=== PATIENT | male | born 1965 | race Caucasian/White ===

== ENCOUNTER → 2018-02-19 09:45 | Outpatient (CLI) | payer BC, SELFPAY | PROVIDERS: PCP Physician Assistant Medical; Visit Provider Urology | DX: R30.0 Dysuria (principal) | CPT/HCPCS: 87086 ==

== ENCOUNTER 2018-03-04 05:40 | Outpatient (RCR) | payer BC, SELFPAY ==
[2018-03-04] MEDS: Normal Saline Flush 10 ML SYR IVP (08:26)
[2018-03-04] MEDS: Heparin 500 UNITS/5 ML SYRINGE IV (08:26)
[2018-03-04 09:07] LABS: Anion Gap 9.6 mmol/L (3-11); BUN 19 mg/dL (7-18); CO2 24.4 mmol/L (21.0-32.0); CREATININE 1.21 mg/dL (0.70-1.30); Calcium 9.4 mg/dL (8.5-10.1); Chloride 101 mmol/L (98-107); Glucose 251 mg/dL (70-100); Potassium 4.5 mmol/L (3.5-5.1); Sodium 135 mmol/L (136-145)
[2018-03-04 09:14] LABS: Abs Immature Grans 0.03 k/cumm (0.0-0.09); Absolute Basophil Count 0.02 k/cumm (0.0-0.2); Absolute Lymphocyte Count 0.51 k/cumm (1.2-3.4); Absolute Monocyte Count 0.57 k/cumm (0.11-0.7); Absolute Neutrophil Count 3.76 k/cumm (1.2-6.7); Basophils % 0.4; Eosinophils % 7.6; HCT 34.2 % (40.0-50.0); HGB 11.1 g/dL (13.5-17.5); Immature Grans % 0.6; Lymphocytes % 9.6; Mean Corp. HGB Concentration 32.5 g/dL (32.0-36.0); Mean Corpuscular Hemoglobin 28.2 pg (27.0-33.0); Mean Corpuscular Volume 86.8 fL (80-95); Mean Platelet Volume 11.5 fL (8.0-11.0); Monocytes % 10.8; Platelet Count 208 x1000/uL (130-400); RBC 3.94 m/cumm (4.50-6.00); RBC Distribution Width 14.5 % (11.8-14.1); White Blood Cell Count 5.29 k/cumm (4.4-10.8)
[2018-03-04 09:46] LABS: ALT 67 U/L (12-78); AST 89 U/L (15-37); Albumin 3.4 g/dL (3.4-5.0); Alkaline Phosphatase 68 U/L (46-116); Bilirubin, Total 0.3 mg/dL (0.2-1.0); Total Protein 8.6 g/dL (6.4-8.2)
[2018-03-07 11:26] LABS: CEA 0.9 ng/ml
== END 2018-03-11 ==
LOC: INF 05:40
PROVIDERS: PCP Physician Assistant Medical; Visit Provider Internal Medicine Hematology & Oncology
DX: C18.9 Malignant neoplasm of colon, unspecified (principal); Z45.2 Encounter for adjustment and management of vascular access device
CPT/HCPCS: 36591; 80048; 80053; 82378; 82728; 83540; 83550; 85025

== ENCOUNTER 2018-05-06 01:15 | Outpatient (RCR) | payer BC, SELFPAY ==
[2018-05-06] MEDS: Heparin 500 UNITS/5 ML SYRINGE IV (09:05)
[2018-05-06] MEDS: Normal Saline Flush 10 ML SYR IVP (09:05)
[2018-05-06 09:47] LABS: Abs Immature Grans 0.02 k/cumm (0.0-0.09); Absolute Basophil Count 0.04 k/cumm (0.0-0.2); Absolute Eosinophil Count 0.23 k/cumm (0.0-0.7); Absolute Lymphocyte Count 0.63 k/cumm (1.2-3.4); Absolute Monocyte Count 0.42 k/cumm (0.11-0.7); Absolute Neutrophil Count 4.31 k/cumm (1.2-6.7); Basophils % 0.7; Eosinophils % 4.1; HCT 37.7 % (40.0-50.0); HGB 12.2 g/dL (13.5-17.5); Immature Grans % 0.4; Lymphocytes % 11.2; Mean Corp. HGB Concentration 32.4 g/dL (32.0-36.0); Mean Corpuscular Hemoglobin 27.7 pg (27.0-33.0); Mean Corpuscular Volume 85.7 fL (80-95); Mean Platelet Volume 11.7 fL (8.0-11.0); Monocytes % 7.4; Neutrophils % 76.2; Platelet Count 196 x1000/uL (130-400); RBC Distribution Width 14.4 % (11.8-14.1); White Blood Cell Count 5.65 k/cumm (4.4-10.8)
[2018-05-06 09:59] LABS: ALT 71 U/L (12-78); AST 91 U/L (15-37); Albumin 3.2 g/dL (3.4-5.0); Alkaline Phosphatase 87 U/L (46-116); Anion Gap 10.1 mmol/L (3-11); BUN 20 mg/dL (7-18); Bilirubin, Total 0.5 mg/dL (0.2-1.0); CO2 24.9 mmol/L (21.0-32.0); CREATININE 1.15 mg/dL (0.70-1.30); Calcium 9.1 mg/dL (8.5-10.1); Chloride 99 mmol/L (98-107); Glucose 293 mg/dL (70-100); Potassium 4.6 mmol/L (3.5-5.1); Sodium 134 mmol/L (136-145); Total Protein 8.4 g/dL (6.4-8.2)
[2018-05-09 10:12] LABS: CEA 1.2 ng/ml
== END 2018-05-11 23:59 | disposition home or self-care (01) ==
LOC: INF 01:15
PROVIDERS: PCP Physician Assistant Medical; Visit Provider Internal Medicine Hematology & Oncology
DX: C18.9 Malignant neoplasm of colon, unspecified (principal); Z45.2 Encounter for adjustment and management of vascular access device
CPT/HCPCS: 36591; 80053; 82378; 85025

== ENCOUNTER 2018-06-17 02:03 | Outpatient (RCR) | payer BC, SELFPAY ==
[2018-06-17 13:35] LABS: Abs Immature Grans 0.02 k/cumm (0.0-0.09); Absolute Basophil Count 0.02 k/cumm (0.0-0.2); Absolute Eosinophil Count 0.23 k/cumm (0.0-0.7); Absolute Lymphocyte Count 0.75 k/cumm (1.2-3.4); Absolute Monocyte Count 0.57 k/cumm (0.11-0.7); Absolute Neutrophil Count 4.68 k/cumm (1.2-6.7); Basophils % 0.3; Eosinophils % 3.7; HCT 38.3 % (40.0-50.0); HGB 12.9 g/dL (13.5-17.5); Immature Grans % 0.3; Mean Corp. HGB Concentration 33.7 g/dL (32.0-36.0); Mean Corpuscular Hemoglobin 28.6 pg (27.0-33.0); Mean Corpuscular Volume 84.9 fL (80-95); Mean Platelet Volume 11.6 fL (8.0-11.0); Monocytes % 9.1; Neutrophils % 74.6; Platelet Count 215 x1000/uL (130-400); RBC 4.51 m/cumm (4.50-6.00); RBC Distribution Width 14.6 % (11.8-14.1); White Blood Cell Count 6.27 k/cumm (4.4-10.8)
[2018-06-17 13:47] LABS: ALT 90 U/L (12-78); AST 94 U/L (15-37); Albumin 3.2 g/dL (3.4-5.0); Alkaline Phosphatase 77 U/L (46-116); Anion Gap 9.6 mmol/L (3-11); BUN 18 mg/dL (7-18); Bilirubin, Total 0.4 mg/dL (0.2-1.0); CO2 24.4 mmol/L (21.0-32.0); CREATININE 1.33 mg/dL (0.70-1.30); Calcium 9.5 mg/dL (8.5-10.1); Chloride 99 mmol/L (98-107); Estimated GFR 56.69 (mL/min/1.73m2); Glucose 334 mg/dL (70-100); Potassium 4.3 mmol/L (3.5-5.1); Sodium 133 mmol/L (136-145); Total Protein 8.4 g/dL (6.4-8.2)
[2018-06-17] MEDS: Normal Saline Flush 10 ML SYR IVP (14:11)
[2018-06-17] MEDS: Heparin 500 UNITS/5 ML SYRINGE IV (14:11)
[2018-06-20 09:37] LABS: CEA 1.8 ng/ml
== END 2018-07-11 23:59 | disposition home or self-care (01) ==
LOC: INF 02:03
PROVIDERS: PCP Physician Assistant Medical; Visit Provider Internal Medicine Hematology & Oncology
DX: C18.9 Malignant neoplasm of colon, unspecified (principal); C18.7 Malignant neoplasm of sigmoid colon; Z45.2 Encounter for adjustment and management of vascular access device
CPT/HCPCS: 36591; 80053; 82378; 85025

== ENCOUNTER 2018-08-12 00:34 | Outpatient (RCR) | payer BC, SELFPAY ==
[2018-08-12] MEDS: Normal Saline Flush 10 ML SYR IVP (12:54)
[2018-08-12] MEDS: Heparin 500 UNITS/5 ML SYRINGE IV (12:54)
[2018-08-12 13:05] LABS: Abs Immature Grans 0.03 k/cumm (0.0-0.09); Absolute Basophil Count 0.04 k/cumm (0.0-0.2); Absolute Eosinophil Count 0.35 k/cumm (0.0-0.7); Absolute Lymphocyte Count 1.15 k/cumm (1.2-3.4); Absolute Monocyte Count 0.66 k/cumm (0.11-0.7); Absolute Neutrophil Count 5.74 k/cumm (1.2-6.7); Basophils % 0.5; Eosinophils % 4.4; HCT 38.1 % (40.0-50.0); HGB 12.7 g/dL (13.5-17.5); Immature Grans % 0.4; Lymphocytes % 14.4; Mean Corp. HGB Concentration 33.3 g/dL (32.0-36.0); Mean Corpuscular Hemoglobin 28.9 pg (27.0-33.0); Mean Corpuscular Volume 86.6 fL (80-95); Mean Platelet Volume 10.8 fL (8.0-11.0); Monocytes % 8.3; Platelet Count 242 x1000/uL (130-400); RBC Distribution Width 14.1 % (11.8-14.1); White Blood Cell Count 7.97 k/cumm (4.4-10.8)
[2018-08-12 13:19] LABS: ALT 54 U/L (12-78); AST 31 U/L (15-37); Albumin 3.1 g/dL (3.4-5.0); Alkaline Phosphatase 71 U/L (46-116); Anion Gap 10.8 mmol/L (3-11); BUN 18 mg/dL (7-18); Bilirubin, Total 0.3 mg/dL (0.2-1.0); CO2 24.2 mmol/L (21.0-32.0); CREATININE 1.23 mg/dL (0.70-1.30); Calcium 8.8 mg/dL (8.5-10.1); Chloride 101 mmol/L (98-107); Glucose 272 mg/dL (70-100); Potassium 4.5 mmol/L (3.5-5.1); Sodium 136 mmol/L (136-145); Total Protein 8.6 g/dL (6.4-8.2)
[2018-08-15 09:31] LABS: CEA 1.3 ng/ml
== END 2018-09-08 23:59 | disposition home or self-care (01) ==
LOC: INF 00:34
PROVIDERS: PCP Physician Assistant Medical; Visit Provider Nurse Practitioner Family
DX: C18.9 Malignant neoplasm of colon, unspecified (principal); Z45.2 Encounter for adjustment and management of vascular access device
CPT/HCPCS: 36591; 80053; 82378; 85025

== ENCOUNTER 2018-09-23 02:09 | Outpatient (RCR) | payer BC, SELFPAY ==
[2018-09-23] MEDS: Normal Saline Flush 10 ML SYR IVP (09:32)
[2018-09-23] MEDS: Heparin 500 UNITS/5 ML SYRINGE IV (09:32)
[2018-09-23 09:43] LABS: Abs Immature Grans 0.03 k/cumm (0.0-0.09); Absolute Basophil Count 0.04 k/cumm (0.0-0.2); Absolute Eosinophil Count 0.25 k/cumm (0.0-0.7); Absolute Monocyte Count 0.47 k/cumm (0.11-0.7); Absolute Neutrophil Count 5.18 k/cumm (1.2-6.7); Basophils % 0.6; Eosinophils % 3.6; HCT 39.1 % (40.0-50.0); Immature Grans % 0.4; Lymphocytes % 13.1; Mean Corp. HGB Concentration 33.2 g/dL (32.0-36.0); Mean Corpuscular Hemoglobin 28.4 pg (27.0-33.0); Mean Corpuscular Volume 85.6 fL (80-95); Mean Platelet Volume 11.6 fL (8.0-11.0); Monocytes % 6.8; Neutrophils % 75.5; Platelet Count 195 x1000/uL (130-400); RBC 4.57 m/cumm (4.50-6.00); RBC Distribution Width 14.2 % (11.8-14.1); White Blood Cell Count 6.87 k/cumm (4.4-10.8)
[2018-09-23 10:00] LABS: ALT 81 U/L (12-78); AST 93 U/L (15-37); Albumin 3.1 g/dL (3.4-5.0); Alkaline Phosphatase 94 U/L (46-116); Anion Gap 13.2 mmol/L (3-11); BUN 17 mg/dL (7-18); Bilirubin, Total 0.5 mg/dL (0.2-1.0); CO2 21.8 mmol/L (21.0-32.0); CREATININE 1.21 mg/dL (0.70-1.30); Calcium 8.4 mg/dL (8.5-10.1); Chloride 96 mmol/L (98-107); Glucose 371 mg/dL (70-100); Potassium 4.4 mmol/L (3.5-5.1); Sodium 131 mmol/L (136-145); Total Protein 8.5 g/dL (6.4-8.2)
[2018-09-26 11:19] LABS: CEA 2.8 ng/ml
== END 2018-10-09 23:59 | disposition home or self-care (01) ==
LOC: INF 02:09
PROVIDERS: Internal Medicine Hematology & Oncology; PCP Physician Assistant Medical; Visit Provider Nurse Practitioner Family
DX: C18.9 Malignant neoplasm of colon, unspecified (principal); Z45.2 Encounter for adjustment and management of vascular access device
CPT/HCPCS: 36591; 80053; 82378; 85025

== ENCOUNTER 2018-10-28 01:02 | Outpatient (RCR) | payer BC, SELFPAY ==
[2018-10-28] MEDS: Normal Saline Flush 10 ML SYR IVP (11:55)
[2018-10-28] MEDS: Heparin 500 UNITS/5 ML SYRINGE IV (11:55)
[2018-10-28 12:38] LABS: Abs Immature Grans 0.01 k/cumm (0.0-0.09); Absolute Basophil Count 0.03 k/cumm (0.0-0.2); Absolute Eosinophil Count 0.39 k/cumm (0.0-0.7); Absolute Lymphocyte Count 0.75 k/cumm (1.2-3.4); Absolute Monocyte Count 0.49 k/cumm (0.11-0.7); Absolute Neutrophil Count 4.42 k/cumm (1.2-6.7); Basophils % 0.5; Eosinophils % 6.4; HCT 36.6 % (40.0-50.0); HGB 12.3 g/dL (13.5-17.5); Immature Grans % 0.2; Lymphocytes % 12.3; Mean Corp. HGB Concentration 33.6 g/dL (32.0-36.0); Mean Corpuscular Hemoglobin 29.1 pg (27.0-33.0); Mean Corpuscular Volume 86.5 fL (80-95); Mean Platelet Volume 11.5 fL (8.0-11.0); Neutrophils % 72.6; Platelet Count 182 x1000/uL (130-400); RBC 4.23 m/cumm (4.50-6.00); RBC Distribution Width 13.8 % (11.8-14.1); White Blood Cell Count 6.09 k/cumm (4.4-10.8)
[2018-10-28 12:54] LABS: ALT 91 U/L (12-78); AST 103 U/L (15-37); Alkaline Phosphatase 92 U/L (46-116); Anion Gap 11.5 mmol/L (3-11); BUN 16 mg/dL (7-18); Bilirubin, Total 0.5 mg/dL (0.2-1.0); CO2 22.5 mmol/L (21.0-32.0); CREATININE 1.16 mg/dL (0.70-1.30); Calcium 8.5 mg/dL (8.5-10.1); Chloride 97 mmol/L (98-107); Glucose 364 mg/dL (70-100); Potassium 4.6 mmol/L (3.5-5.1); Sodium 131 mmol/L (136-145); Total Protein 8.1 g/dL (6.4-8.2)
[2018-10-31 10:12] LABS: CEA 1.8 ng/ml
== END 2018-11-08 23:59 | disposition home or self-care (01) ==
LOC: INF 01:02
PROVIDERS: PCP Physician Assistant Medical; Visit Provider Nurse Practitioner Family
DX: C18.9 Malignant neoplasm of colon, unspecified (principal); Z45.2 Encounter for adjustment and management of vascular access device
CPT/HCPCS: 36591; 80053; 82378; 85025

== ENCOUNTER 2018-12-02 01:08 | Outpatient (RCR) | payer BC, SELFPAY ==
[2018-12-02] MEDS: Normal Saline Flush 10 ML SYR IVP (10:36)
[2018-12-02 10:40] LABS: Abs Immature Grans 0.02 k/cumm (0.0-0.09); Absolute Basophil Count 0.03 k/cumm (0.0-0.2); Absolute Eosinophil Count 0.28 k/cumm (0.0-0.7); Absolute Lymphocyte Count 0.92 k/cumm (1.2-3.4); Absolute Monocyte Count 0.61 k/cumm (0.11-0.7); Absolute Neutrophil Count 4.63 k/cumm (1.2-6.7); Basophils % 0.5; Eosinophils % 4.3; HGB 12.3 g/dL (13.5-17.5); Immature Grans % 0.3; Lymphocytes % 14.2; Mean Corp. HGB Concentration 33.2 g/dL (32.0-36.0); Mean Corpuscular Hemoglobin 29.4 pg (27.0-33.0); Mean Corpuscular Volume 88.5 fL (80-95); Mean Platelet Volume 11.4 fL (8.0-11.0); Monocytes % 9.4; Neutrophils % 71.3; Platelet Count 224 x1000/uL (130-400); RBC 4.18 m/cumm (4.50-6.00); RBC Distribution Width 13.8 % (11.8-14.1); White Blood Cell Count 6.49 k/cumm (4.4-10.8)
[2018-12-02] MEDS: Heparin 500 UNITS/5 ML SYRINGE IV (10:44)
[2018-12-02 10:51] LABS: ALT 60 U/L (12-78); AST 35 U/L (15-37); Alkaline Phosphatase 71 U/L (46-116); Anion Gap 9.6 mmol/L (3-11); BUN 22 mg/dL (7-18); Bilirubin, Total 0.3 mg/dL (0.2-1.0); CO2 24.4 mmol/L (21.0-32.0); CREATININE 1.13 mg/dL (0.70-1.30); Calcium 9.3 mg/dL (8.5-10.1); Chloride 100 mmol/L (98-107); Glucose 234 mg/dL (70-100); Sodium 134 mmol/L (136-145); Total Protein 8.4 g/dL (6.4-8.2)
[2018-12-05 11:19] LABS: CEA 1.9 ng/ml
== END 2018-12-09 23:59 | disposition home or self-care (01) ==
LOC: INF 01:08
PROVIDERS: PCP Physician Assistant Medical; Visit Provider Nurse Practitioner Family
DX: C18.9 Malignant neoplasm of colon, unspecified (principal); Z45.2 Encounter for adjustment and management of vascular access device
CPT/HCPCS: 36591; 80053; 82378; 85025

== ENCOUNTER 2018-12-14 15:57 | Outpatient (CLI) | payer BC, SELFPAY ==
[2018-12-14 17:14] LABS: ALT 93 U/L (12-78); AST 75 U/L (15-37); Alkaline Phosphatase 76 U/L (46-116); BUN 29 mg/dL (7-18); Bilirubin, Total 0.3 mg/dL (0.2-1.0); Calcium 9.5 mg/dL (8.5-10.1); Chloride 97 mmol/L (98-107); Glucose 421 mg/dL (70-100); Potassium 4.4 mmol/L (3.5-5.1); Sodium 130 mmol/L (136-145); Total Protein 7.7 g/dL (6.4-8.2)
[2018-12-14 17:32] LABS: Cholesterol 260 mg/dL (50-200); HDL Cholesterol 27 mg/dL (40-60); Triglyceride 702 mg/dL (30-150)
[2018-12-14 17:53] LABS: LDL CHOLESTEROL 86 mg/dL (<100)
== END 2018-12-14 16:17 ==
PROVIDERS: PCP Physician Assistant Medical; Visit Provider Urology
DX: E11.9 Type 2 diabetes mellitus without complications (principal); E78.5 Hyperlipidemia, unspecified; I10 Essential (primary) hypertension
CPT/HCPCS: 36415; 80053; 80061; 83721; 87086

== ENCOUNTER 2019-02-02 01:44 | Outpatient (RCR) | payer BC, SELFPAY ==
[2019-02-02] MEDS: Normal Saline Flush 10 ML SYR IVP (13:26)
[2019-02-02] MEDS: Heparin 500 UNITS/5 ML SYRINGE IV (13:26)
[2019-02-02 13:56] LABS: Abs Immature Grans 0.01 k/cumm (0.0-0.09); Absolute Basophil Count 0.02 k/cumm (0.0-0.2); Absolute Eosinophil Count 0.26 k/cumm (0.0-0.7); Absolute Lymphocyte Count 0.79 k/cumm (1.2-3.4); Absolute Monocyte Count 0.54 k/cumm (0.11-0.7); Absolute Neutrophil Count 4.27 k/cumm (1.2-6.7); Basophils % 0.3; Eosinophils % 4.4; HGB 11.8 g/dL (13.5-17.5); Immature Grans % 0.2; Lymphocytes % 13.4; Mean Corp. HGB Concentration 32.8 g/dL (32.0-36.0); Mean Corpuscular Hemoglobin 29.1 pg (27.0-33.0); Mean Corpuscular Volume 88.7 fL (80-95); Mean Platelet Volume 11.5 fL (8.0-11.0); Monocytes % 9.2; Neutrophils % 72.5; Platelet Count 188 x1000/uL (130-400); RBC 4.06 m/cumm (4.50-6.00); RBC Distribution Width 14.1 % (11.8-14.1); White Blood Cell Count 5.89 k/cumm (4.4-10.8)
[2019-02-02 14:04] LABS: ALT 93 U/L (12-78); AST 64 U/L (15-37); Albumin 2.9 g/dL (3.4-5.0); Alkaline Phosphatase 65 U/L (46-116); Anion Gap 11.9 mmol/L (3-11); BUN 14 mg/dL (7-18); Bilirubin, Total 0.4 mg/dL (0.2-1.0); CO2 24.1 mmol/L (21.0-32.0); Chloride 101 mmol/L (98-107); Glucose 295 mg/dL (70-100); Potassium 4.2 mmol/L (3.5-5.1); Sodium 137 mmol/L (136-145); Total Protein 7.8 g/dL (6.4-8.2)
[2019-02-03 09:54] LABS: CEA 1.3 ng/ml
== END 2019-02-08 23:59 | disposition home or self-care (01) ==
LOC: INF 01:44
PROVIDERS: Internal Medicine Hematology & Oncology; PCP Physician Assistant Medical; Visit Provider Nurse Practitioner Family
DX: C18.9 Malignant neoplasm of colon, unspecified (principal); Z45.2 Encounter for adjustment and management of vascular access device
CPT/HCPCS: 36591; 80053; 82378; 85025

== ENCOUNTER 2019-03-01 16:19 | Emergency (ER) | payer BC, SELFPAY ==
[2019-03-01] VITALS (31 sets, daily range): BP systolic 106–134; BP diastolic 61–78; PULSE 78–126; RESP 16; TEMP 37.2; O2SAT 96–100
--- NOTE | 2019-03-01 17:24 | DI.CT_ITS ---
SYMPTOM/DIAGNOSIS: ABD PAIN CT ABDOMEN AND PELVIS: CT scan of the abdomen and pelvis was performed following the uneventful administration of intravenous contrast material. Comparison CT scan is 05/12/17. The lung bases are clear. The liver is normal in size. No suspicious hepatic mass seen. The portal superior mesenteric and splenic veins are patent. The gallbladder is negative. There is no biliary ductal dilatation. There is again seen a 0.8 cm cyst in the body of the pancreas. This is unchanged compared to the examination from 05/12/17. No other pancreatic lesion is seen. The spleen is unremarkable. There is no evidence of an adrenal mass. The right kidney shows normal enhancement. No evidence of obstruction seen. There is a nonobstructing 2 mm stone in the inferior pole of the right kidney. There is a right renal cyst in the lower pole which is unchanged. In the left kidney there is a nephroureteral stent. The proximal pigtail is seen in good position within the renal pelvis. The distal pigtail is seen in the urinary bladder. There is moderate hydroureteral nephrosis and delayed opacification of the left kidney. At the level of the mid left ureter there is again seen infiltration of the soft tissues surrounding the ureter with hypodense mass again seen within the left psoas muscle. The area measures 2.7 transverse x 1.8 cm AP x 5.6 cm cranial caudad. The urinary bladder is intact. The reproductive organs are unremarkable. There is atherosclerosis of the abdominal aorta but no aneurysmal dilatation. k No significant abdominal or pelvic adenopathy, ascites or pneumoperitoneum is present. There is circumferential hypodense wall thickening involving the distal transverse colon and proximal descending colon. The remainder of the colon is normal in caliber. There is anastomotic changes seen in the mid sigmoid colon. Normal appendix is present. There is mild dilatation seen in the proximal small bowel. This likely reflects an ileus. Bowel obstruction cannot be entirely excluded. No definite transition point is noted. There are degenerative changes seen in the spine. There is unchanged mottled appearance of the right iliac bone. No destructive lesions are appreciated. IMPRESSIO: 1. Marked left hydroureteral nephrosis. Nephroureteral stent seen in place. 2. Inflammatory infectious colitis involving the distal transverse colon and descending colon 3. Persistent infiltration in the soft tissues and around the mid left ureter with a persistent soft tissue mass involving the left iliopsoas muscle 4. Mild dilatation of small bowel loops. This may represent an ileus. Obstruction cannot be entirely excluded.
[2019-03-01 17:37] LABS: Lactate 1.9 mmol/L (0.6-1.4)
[2019-03-01 17:38] LABS: Abs Immature Grans 0.05 k/cumm (0.0-0.09); Absolute Eosinophil Count 0.24 k/cumm (0.0-0.7); Absolute Lymphocyte Count 0.79 k/cumm (1.2-3.4); Basophils % 0.1; Eosinophils % 1.5; HCT 37.6 % (40.0-50.0); HGB 12.6 g/dL (13.5-17.5); Immature Grans % 0.3; Lymphocytes % 4.9; Mean Corp. HGB Concentration 33.5 g/dL (32.0-36.0); Mean Corpuscular Hemoglobin 29.3 pg (27.0-33.0); Mean Corpuscular Volume 87.4 fL (80-95); Mean Platelet Volume 10.8 fL (8.0-11.0); Monocytes % 9.1; Neutrophils % 84.1; Platelet Count 209 x1000/uL (130-400); RBC Distribution Width 14.4 % (11.8-14.1); White Blood Cell Count 16.12 k/cumm (4.4-10.8)
[2019-03-01 17:40] LABS: Absolute Basophil Count 0.02 k/cumm (0.0-0.2); Absolute Monocyte Count 1.47 k/cumm (0.11-0.7); Absolute Neutrophil Count 13.56 k/cumm (1.2-6.7)
[2019-03-01 17:54] LABS: ALT 37 U/L (12-78); AST 14 U/L (15-37); Alkaline Phosphatase 70 U/L (46-116); Anion Gap 11.1 mmol/L (3-11); BUN 28 mg/dL (7-18); Bilirubin, Total 0.7 mg/dL (0.2-1.0); CO2 22.9 mmol/L (21.0-32.0); CREATININE 1.63 mg/dL (0.70-1.30); Calcium 8.9 mg/dL (8.5-10.1); Chloride 96 mmol/L (98-107); Estimated GFR 44.83 (mL/min/1.73m2); Glucose 459 mg/dL (70-100); Lipase 239 U/L (73-393); Potassium 4.6 mmol/L (3.5-5.1); Sodium 130 mmol/L (136-145); Total Protein 8.6 g/dL (6.4-8.2)
--- NOTE | 2019-03-01 18:03 | W.ED.GENAD ---
Discharge Plan Disposition Patient Disposition: [facility] Condition: Serious Discharge Details Chief Complaint: Abd Prob Clinical Impression: Hydroureteronephrosis, Ileus Primary Care Provider: Chetan Jaquez ED Provider: Juan Francisco Mendiola Home Meds and New Rx's Prescriptions: No Action gemfibrozil [Lopid] 600 MG tablet 600 mg PO HS RF: 0 atorvastatin [Lipitor] 20 MG tablet 20 mg PO HS RF: 0 glipizide 10 MG tablet extended release 24hr 10 mg PO BID RF: 0 aspirin [Aspirin Low-Strength] 81 MG tablet,chewable 81 mg PO DAILY RF: 0 metformin 1,000 MG tablet extended release 24hr 1,000 mg PO DAILY RF: 0 metformin 500 MG tablet 1,500 mg PO HS RF: 0 multivitamin 1 EACH capsule 1 cap PO DAILY RF: 0 lisinopril 20 mg tablet 10 mg PO HS RF: 0 Lantus Solostar U-100 Insulin 100 unit/mL (3 mL) insulin pen 80 unit subcut DAILY RF: 0 Discharge Data Discharge Date/Time-TO BE ENTERED AT DEPARTURE: 03/01/19 21:29 Medical Decision Making 18:24 -- 53yo m with history of stage IV adenocarcinoma, recurrent with peritoneal mets despite chemotherapy and radiation and partial bowel resection, here with left-sided abdominal pain 5 days after ureteral stent replacement. Tender to palpation left abdomen. Plan to obtain CT of the abdomen pelvis to assess for acute surgical pathology. Offered pain analgesia and patient declined. Offered antiemetic and patient declined. We will give IV fluid. 20:40 -- Labs reviewed: Leukocytosis noted. Mild elevation lactic acid. CT interpreted by radiology: IMPRESSION: 1. Marked Left hydroureteronephrosis. Double-J left ureteral stent in place. 2. Left colon and splenic flexure colitis. 3. Distended loops of small bowel consistent with ileus or small bowel obstruction. 4. Infiltration of the soft tissues anterior to the left iliopsoas muscle similar to the prior study. Patient reassessed: HR improved with IVF. Continues to have no vomiting. Plan to initiate treatment with ceftriaxone 1 g IV. Call to [facility] to request transfer to urology. 21:00 -- Spoke with Dr. Tinsley at [facility] -discussed ED presentation and course, he will accept patient in transfer. He does not recommend any additional antibiotics at this time. Lab Data Lab results reviewed: Yes I reviewed the patient's lab results. Laboratory Tests Range/Units 03/01/19 03/01/19 03/01/19 17:31 17:31 17:31 WBC (4.4-10.8) k/cumm 16.12 H RBC (4.50-6.00) m/cumm 4.30 L Hgb (13.5-17.5) g/dL 12.6 L Hct (40.0-50.0) % 37.6 L MCV (80-95) fL 87.4 MCH (27.0-33.0) pg 29.3 MCHC (32.0-36.0) g/dL 33.5 RDW (11.8-14.1) % 14.4 H Plt Count (130-400) x1000/uL 209 MPV (8.0-11.0) fL 10.8 Immature Gran % 0.3 Neutrophils % 84.1 Lymphocytes % 4.9 Monocytes % 9.1 Eosinophils % 1.5 Basophils % 0.1 Absolute Neutrophils (1.2-6.7) k/cumm 13.56 H Absolute Lymphocytes (1.2-3.4) k/cumm 0.79 L Absolute Monocytes (0.11-0.7) k/cumm 1.47 H Absolute Eosinophils (0.0-0.7) k/cumm 0.24 Absolute Basophils (0.0-0.2) k/cumm 0.02 Sodium (136-145) mmol/L 130 L Potassium (3.5-5.1) mmol/L 4.6 Chloride (98-107) mmol/L 96 L Carbon Dioxide (21.0-32.0) mmol/L 22.9 Anion Gap (3-11) mmol/L 11.1 H BUN (7-18) mg/dL 28 H Creatinine (0.70-1.30) mg/dL 1.63 H Estimated GFR/1.73 m2 (mL/min/1.73m2) 44.83 Glucose (70-100) mg/dL 459 H Lactate (0.6-1.4) mmol/L 1.9 H Calcium (8.5-10.1) mg/dL 8.9 Total Bilirubin (0.2-1.0) mg/dL 0.7 AST (15-37) U/L 14 L ALT (12-78) U/L 37 Alkaline Phosphatase (46-116) U/L 70 Total Protein (6.4-8.2) g/dL 8.6 H Albumin (3.4-5.0) g/dL 3.0 L Lipase (73-393) U/L 239 HPI General Mode of arrival: ambulatory. Date/Time Provider Initiated Documentation: 03/01/19 17:06. Limitations to Documentation: no limitations. Information obtained by: patient. HPI Narrative: 53-year-old male with history of recurrent, stage IV adenocarcinoma of the colon, status post partial colectomy, chemotherapy, radiation, here with chief complaint of abdominal pain. Patient had a ureteral stent replaced on Wednesday. He notes that he was constipated over the weekend and did not have a bowel movement until yesterday. He developed pain over the past 2 days it has persisted. Pain is localized to his left abdomen and currently rated moderate intensity. No modifiers. He is urinating normal with no hematuria. No associated fever. He does have associated nausea. He vomited yesterday. Related Data Home Medications Medication Instructions Recorded Confirmed gemfibrozil [Lopid] 600 mg PO HS tab-cap 10/17/12 03/01/19 aspirin [Aspirin Low-Strength] 81 mg PO DAILY tab-cap 10/27/12 03/01/19 atorvastatin [Lipitor] 20 mg PO HS tab-cap 10/27/12 03/01/19 glipizide 10 mg PO BID tab-cap 10/27/12 03/01/19 metformin 1,000 mg PO DAILY tab-cap 10/27/12 03/01/19 metformin 1,500 mg PO HS 01/05/14 03/01/19 multivitamin 1 cap PO DAILY 01/05/14 03/01/19 insulin glargine 100 unit/mL (3 80 unit SUBCUT DAILY ml 11/08/18 03/01/19 mL) subcutaneous pen lisinopril 20 mg tablet 10 mg PO HS tab 11/08/18 03/01/19 Allergies Allergy/AdvReac Type Severity Reaction Status Date / Time No Known Allergies Allergy Unverified 03/01/19 16:31 General Stated Complaint: Abd Prob SCOOTER: 3 Review of Systems Review of Systems All systems reviewed & are unremarkable except as noted in HPI and below Constitutional Denies fever(s) Respiratory Denies cough Gastrointestinal Reports abdominal pain, Reports nausea and Reports vomiting Genitourinary Reports flank pain PFSH Medical History Carcinoma of colon, stage I (~2011) Diabetes mellitus Essential hypertension Fatigue (Chronic) Fatty liver Fracture of distal fibula (Resolved) Hypercholesterolemia Monoclonal gammopathy of unknown significance Obesity Palliative care patient (Chronic) Recurrent colorectal adenocarcinoma (Chronic) Sleep apnea TUBULOVILLOUS ADENOMA Uncontrolled diabetes mellitus (Chronic) Surgical History Colonoscopy - IV Sedation (~2011) Laparotomy Mediport placement (10/21/16) Partial resection of colon (~2011) Family History Father Heart disease Dementia AAA (abdominal aortic aneurysm) Mother No problems noted. Brother No problems noted. Son No problems noted. Daughter No problems noted. Social History Smoking/Tobacco Use Status: Never Alcohol Intake: current Alcohol Intake frequency: holidays/special occasions only Drug use: Never Adopted: No Caregiver/Support person: Yes Foster care: No Household members: spouse and children Housing: house Number of Children: 2 Education Level: high school Do you need help understanding health information?: Often current occupation: [employer] for [employer] Pets and animals: No What is your relationship status?: How often do you talk on the phone with friends or family?: once per week How often do you get together with friends or relatives?: once per week Panel score (0-1 are the most socially isolated patients): 1 What type of physical activity do you participate in: none and additional Details: 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 trying to cut back to 40 hrs now Exam Const General: cooperative and no acute distress [facility] Mouth: mucous membranes dry Eyes Conjunctivae: normal conjunctivae Sclera: normal sclerae Neck Neck: supple Resp Auscultation: clear to auscultation bilaterally, no rales, no rhonchi and no wheezes Cardio Jugular venous pressure: no JVD Rate: tachycardic Rhythm: regular rhythm GI Inspection: non-distended Palpation: soft, not firm, no guarding, no masses, not rigid and tender in the LLQ, in the LUQ and with rebound tenderness Auscultation: hypoactive bowel sounds Skin General skin exam: no rashes or lesions noted Neuro General: alert, awake and tone normal Extrem General: no edema Psych Appearance: grossly normal Mental Status: mental status grossly normal Course Vital Signs Temperature 37.2 C 03/01/19 16:26 Pulse 126 H 03/01/19 16:26 Respiratory Rate 16 03/01/19 16:26 Blood Pressure 119/78 03/01/19 16:26 Pulse Oximetry 97 03/01/19 16:26 Temperature 37.2 C 03/01/19 16:26 Temperature Source Skin 03/01/19 16:26 Pulse 126 H 03/01/19 16:26 Respiratory Rate 16 03/01/19 16:26 Respiratory Effort 03/01/19 16:32 Blood Pressure 119/78 03/01/19 16:26 Blood Pressure Position Sitting 03/01/19 16:26 Pulse Oximetry 97 03/01/19 16:26 Oxygen Delivery Method Room Air 03/01/19 16:26 Oxygen Flow Rate 0 03/01/19 16:26 Pain Level 4 03/01/19 16:26 Comment 03/01/19 16:26 Lab/Test Results Lab/Test Results: Laboratory Tests Range/Units 03/01/19 03/01/19 17:31 17:31 WBC (4.4-10.8) k/cumm 16.12 H RBC (4.50-6.00) m/cumm 4.30 L Hgb (13.5-17.5) g/dL 12.6 L Hct (40.0-50.0) % 37.6 L MCV (80-95) fL 87.4 MCH (27.0-33.0) pg 29.3 MCHC (32.0-36.0) g/dL 33.5 RDW (11.8-14.1) % 14.4 H Plt Count (130-400) x1000/uL 209 MPV (8.0-11.0) fL 10.8 Immature Gran % 0.3 Neutrophils % 84.1 Lymphocytes % 4.9 Monocytes % 9.1 Eosinophils % 1.5 Basophils % 0.1 Absolute Neutrophils (1.2-6.7) k/cumm 13.56 H Absolute Lymphocytes (1.2-3.4) k/cumm 0.79 L Absolute Monocytes (0.11-0.7) k/cumm 1.47 H Absolute Eosinophils (0.0-0.7) k/cumm 0.24 Absolute Basophils (0.0-0.2) k/cumm 0.02 Lactate (0.6-1.4) mmol/L 1.9 H
[2019-03-01] MEDS: Omnipaque 350 MG/ML 100 ML BTL IJ (18:58)
[2019-03-01] MEDS: Lactated Ringers 1,000 ML 1000 ML IV ×2 (19:34→20:51)
--- NOTE | 2019-03-01 19:52 | DI.VRAD_ITS ---
EXAM: CT Abdomen and Pelvis With Contrast EXAM DATE/TIME: 03/01/2019 5:26 PM CLINICAL HISTORY: 53 years old, male; Abdominal pain; Localized; Prior surgery; Surgery date: 3-7 days post-operative; Surgery type: Left renal stent 6 days ago TECHNIQUE: Imaging protocol: Computed tomography images of the abdomen and pelvis with intravenous contrast. Radiation optimization: All CT scans at this facility use at least one of these dose optimization techniques: automated exposure control; mA and/or kV adjustment per patient size (includes targeted exams where dose is matched to clinical indication); or iterative reconstruction. Contrast material: [id number]; Contrast volume: 100 ml; Contrast route: 18G RAC; COMPARISON: CT CHEST ABD PELVIS WITH CONTRAST 07/22/2016 09:34 FINDINGS: Liver: Hepatic steatosis. Gallbladder and bile ducts: Normal. No calcified stones. No ductal dilation. Pancreas: Normal. No ductal dilation. Spleen: Normal. No splenomegaly. Adrenals: Normal. No mass. Kidneys and ureters: Double-J left ureteral stent in place. Left hydroureteronephrosis. Bilateral perirenal fat infiltration. Left periureteral fat infiltration. Bilateral renal cysts. Punctate nonobstructing right renal calculi. Stomach and bowel: Postsurgical changes of the sigmoid colon similar to prior study. Abnormal left colon and splenic flexure circumferential wall thickening with infiltration of the pericolonic fat consistent with colitis. Moderate stool load in the right colon. Distended loops of small bowel consistent with ileus or partial obstruction. Appendix: No evidence of appendicitis. Intraperitoneal space: Normal. No free air. No significant fluid collection. Vasculature: Coronary artery disease. Lymph nodes: Normal. No enlarged lymph nodes. Bladder: Unremarkable as visualized. Reproductive: Unremarkable as visualized. Bones/joints: No acute fracture. No dislocation. Soft tissues: Previous described mass anterior to the iliopsoas muscle has decreased in size. There is associated inflammatory changes and loculated fluid collection. IMPRESSION: 1. Marked Left hydroureteronephrosis. Double-J left ureteral stent in place. 2. Left colon and splenic flexure colitis. 3. Distended loops of small bowel consistent with ileus or small bowel obstruction. 4. Infiltration of the soft tissues anterior to the left iliopsoas muscle similar to the prior study. Dictated and Authenticated by: Jenn Garner MD. Ordering:JERRELL Chicas MD
[2019-03-01] MEDS: cefTRIAXone 1 GM/50 ML BAG IVPB (20:45)
== END 2019-03-01 21:29 | disposition short-term general hospital (02) ==
PROVIDERS: Emergency Provider Student in an Organized Health Care Education/Training Program; PCP Physician Assistant Medical
DX: K52.9 Noninfective gastroenteritis and colitis, unspecified (principal); K56.7 Ileus, unspecified; N13.39 Other hydronephrosis; N13.4 Hydroureter; Z96.0 Presence of urogenital implants; Y84.8 Other medical procedures as the cause of abnormal reaction of the patient, or of later complication, without mention of misadventure at the time of the procedure; C18.9 Malignant neoplasm of colon, unspecified; C78.6 Secondary malignant neoplasm of retroperitoneum and peritoneum; E11.65 Type 2 diabetes mellitus with hyperglycemia; I10 Essential (primary) hypertension; Z79.4 Long term (current) use of insulin; Z90.49 Acquired absence of other specified parts of digestive tract; Z79.899 Other long term (current) drug therapy
CPT/HCPCS: 36415; 80053; 83690; 96361; 96365; 99285; 74177; 83605; 85025; J0696; J3490

== ENCOUNTER 2019-04-16 10:42 | Emergency (ER) | payer BC, SELFPAY ==
[2019-04-16] VITALS (49 sets, daily range): BP systolic 100–140; BP diastolic 52–107; PULSE 125–178; RESP 9–52; TEMP 37.3–39.2; O2SAT 92–99
[2019-04-16] MEDS: Lactated Ringers 1,000 ML 1000 ML IV ×2 (11:00→12:41)
--- NOTE | 2019-04-16 11:17 | DI.CT_ITS ---
EXAM: CT ABDOMEN PELVIS W CLINICAL HISTORY: low left pelvic and flank pain. TECHNIQUE: The examination was carried out with intravenous administration 125 cc of Omnipaque 350. COMPARISON: CT ABDOMEN PELVIS W from 03/01/2019 FINDINGS: The liver is normal. The gallbladder is normal. There are no gallstones or evidence of ductal dilatat ion. Pancreas and spleen and adrenals are normal. Percutaneous nephrostomy is noted which is new si nce the previous examination. There has been a decrease in the left hydronephrosis. Mildly dilated mid ureter in close proximity to the abscess is identified. Cortical renal cysts which appear stable . The previous sigmoid anastomosis is again noted. There is no evidence of an acute appendix. Ther e is no evidence of free air or free fluid in the intraperitoneal space. No evidence of an aortic an eurysm. Retroperitoneal lymphadenopathy is noted with a left para-aortic lymph node measuring 2.2 x 1.8 cm. The bladder is unremarkable. The reproductive organs as visualized are unremarkable. No acut e bony abnormality is seen. Enlargement and heterogeneous low-density mass within the left psoas muscle consistent with an absces s. Central hyperdensity in the level of S1 measures 2.5 x 2.4 cm and may represent blood products. IMPRESSION: A left percutaneous nephrostomy is identified, new since the previous examination. There is decreased left hydronephrosis. Enlargement and heterogeneous low-attenuation and gas within the left psoas mus vargas are compatible with an abscess. Central hyperdensity within the psoas muscle at the level of S1 m easures 2.5 x 2.4 cm and may represent debris or blood products. There is a mildly dilated left urete r in close proximity to the abscess. Note is made of retroperitoneal lymphadenopathy, a left periaort ic lymph node measures 2.2 x 1.8 cm.
[2019-04-16] MEDS: HYDROmorphone 2 MG/ML VIAL 1 MG IVP (11:20)
--- NOTE | 2019-04-16 11:24 | ED.GENADUL_ITS ---
Discharge Plan Discharge Details Chief Complaint: GenMedical Primary Care Provider: Chetan Jaquez ED Provider: Juan Francisco Mendiola Home Meds and New Rx's Prescriptions: No Action gabapentin 300 mg capsule 300 mg PO TID MDD 900 mg Qty: 90 RF: 2 gemfibrozil [Lopid] 600 MG tablet 600 mg PO HS RF: 0 atorvastatin [Lipitor] 20 MG tablet 20 mg PO HS RF: 0 glipizide 10 MG tablet extended release 24hr 10 mg PO BID RF: 0 aspirin [Aspirin Low-Strength] 81 MG tablet,chewable 81 mg PO DAILY RF: 0 metformin 1,000 MG tablet extended release 24hr 1,000 mg PO DAILY RF: 0 metformin 500 MG tablet 1,500 mg PO HS RF: 0 multivitamin 1 EACH capsule 1 cap PO DAILY RF: 0 lisinopril 20 mg tablet 10 mg PO HS RF: 0 Lantus Solostar U-100 Insulin 100 unit/mL (3 mL) insulin pen 80 unit subcut DAILY RF: 0 Medical Decision Making 11:24 --54-year-old male with history of recurrent colon cancer with mets, status post left nephrostomy tube, repeat MOHAN 03/17/19 with complicated by post procedural weakness to his left lower leg, here with severe blood pressure left lower abdomen low back/flank and proximal left lower extremity pain. Patient is severely tachycardic. He is tachycardic at baseline. Febrile. ECG was reviewed and interpreted by me: Sinus tachycardia 145 bpm, short AK interval 106, nondiagnostic. Patient also notes new onset hematuria from his nephrostomy tube today. Patient had a urostomy stent that was obstructed and removed last month. Consider postprocedural deep space infection versus urinary source versus other. Plan to obtain CT of the abdomen pelvis to assess for acute surgical pathology. We will check lactate and blood cultures. Initiate IV fluid bolus. Will give Dilaudid 1 mg IV for pain. 13:55 -- Labs reviewed: Leukopenia noted, elevated lactate. Urinalysis from nephrostomy tube concerning for urinary infection. Urinalysis from penis does not appear infected. Plan to cover with cefepime 2 g IV. I will also add vancomycin IV to broaden coverage to include potential MRSA. Patient reassessed and remains tachycardic despite 2 L of crystalloid. He remains normotensive. Patient had CT currently. 14:57 --CT of the abdomen pelvis was interpreted by radiology: So as abscess noted, nephrostomy tube intact and draining with improvement in hydronephrosis. Patient reassessed remains tachycardic. I have called [facility] [place] to request transfer. 15:14 --spoke with [facility] critical care who will accept the patient in transfer. Accepting physician is Dr. Stern. They do not recommend additional antibiotics at this time. 15:54 --patient reassessed and borderline low blood pressure with MAP of 70. I will initiate norepinephrine to maintain MAP greater than 65. Official CT interpretation by radiology: IMPRESSION: 1. Left percutaneous nephrostomy, new since previous examination. Decreased left hydronephrosis. 2. Enlargement, heterogeneous low attenuation, and gas within the left psoas muscle, compatible with abscess. Central hyperdensity within the psoas muscle at the level of S1 measures 2.5 x 2.4 cm, may be debris or blood products. 3. Mildly dilated mid left ureter in close proximity to the abscess. 4. Retroperitoneal lymphadenopathy. Left para-aortic lymph node measures 2.2 x 1.8 cm. HPI General Mode of arrival: ambulatory . Date/Time Provider Initiated Documentation: 04/16/19 11:02 . Limitations to Documentation: no limitations . Information obtained by: patient . HPI Narrative: 54-year-old male with multiple medical problems including history of recurrent colon cancer, stage IV with peritoneal metastasis, status post partial colectomy, chemo, radiation, recently had MOHAN procedure for peritoneal mets on 03/17/19, complicated by femoral nerve injury and weakness of his left lower extremity, here today with chief complaint of severe pain in his left lower abdomen and flank and proximal lower leg. Pain has been persistent over the past few weeks post procedurally. Is been going to physical therapy to improve his weakness. Pain seems worse over the past 2 days. He did fall 3 days ago. Patient also notes blood in his nephrostomy bag today. This is new. He denies fever but feels generally unwell. Related Data Home Medications Medication Instructions Recorded Confirmed gemfibrozil [Lopid] 600 mg PO HS tab-cap 10/17/12 04/16/19 aspirin [Aspirin Low-Strength] 81 mg PO DAILY tab-cap 10/27/12 04/16/19 atorvastatin [Lipitor] 20 mg PO HS tab-cap 10/27/12 04/16/19 glipizide 10 mg PO BID tab-cap 10/27/12 04/16/19 metformin 1,000 mg PO DAILY tab-cap 10/27/12 04/16/19 metformin 1,500 mg PO HS 01/05/14 04/16/19 multivitamin 1 cap PO DAILY 01/05/14 04/16/19 insulin glargine 100 unit/mL (3 80 unit SUBCUT DAILY ml 11/08/18 04/16/19 mL) subcutaneous pen lisinopril 20 mg tablet 10 mg PO HS tab 11/08/18 04/16/19 gabapentin 300 mg capsule 300 mg PO TID #90 cap MDD 900 mg 03/28/19 04/16/19 Previous Rx's Medication Instructions Recorded gabapentin 300 mg capsule 300 mg PO TID #90 cap MDD 900 mg 03/28/19 Allergies Allergy/AdvReac Type Severity Reaction Status Date / Time No Known Allergies Allergy Unverified 04/16/19 10:52 General Stated Complaint: GenMedical SCOOTER: 2 Review of Systems Review of Systems ROS Unobtainable: All systems reviewed & are unremarkable except as noted in HPI and below Cardiovascular Cardiovascular: Denies chest pain and Denies dyspnea Respiratory Respiratory: Denies dyspnea Genitourinary Genitourinary: Reports as per HPI [facility] Medical History Cancer related pain (Acute) Carcinoma of colon, stage I (~2011) Diabetes mellitus Essential hypertension Fatigue (Chronic) Fatty liver Femoral nerve injury (Acute) Fracture of distal fibula (Resolved) Hypercholesterolemia Injury due to procedure (Acute) 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 Mediport placement (10/21/16) Nephrostomy status (Acute) Partial resection of colon (~2011) SIGMOID S/P ureteral stent placement (Acute) Family History Father Heart disease Dementia AAA (abdominal aortic aneurysm) Mother No problems noted. Brother No problems noted. Son No problems noted. Daughter No problems noted. Social History Smoking/Tobacco Use Status: Never Alcohol Intake: current Alcohol Intake frequency: holidays/special occasions only Drug use: Never Adopted: No Caregiver/Support person: Yes Foster care: No Household members: spouse and children Housing: house Number of Children: 2 Education Level: high school Do you need help understanding health information?: Often current occupation: [employer] for [employer] Pets and animals: No What is your relationship status?: How often do you talk on the phone with friends or family?: once per week How often do you get together with friends or relatives?: once per week Panel score (0-1 are the most socially isolated patients): 1 What type of physical activity do you participate in: none and additional Details: 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 In past, has worked 80 hrs/week in the winter. Took 12 week FMLA this summer. Had repeat MOHAN to treat his ureteral metastases on left side. Unfortunately, femoral nerve injured. Now walks with cane. Cannot return to work yet. Exam Const General: cooperative and uncomfortable [facility] Mouth: mucous membranes dry Eyes Conjunctivae: normal conjunctivae Sclera: normal sclerae Neck Neck: trachea midline and supple Resp Auscultation: clear to auscultation bilaterally, no rales, no rhonchi and no wheezes Cardio Jugular venous pressure: no JVD Rate: tachycardic Rhythm: regular rhythm Heart Sounds: no murmurs GI Palpation: soft, not firm, no guarding, no masses, not rigid and tender in the LLQ (On deep palpation) Auscultation: normal bowel sounds Other: Left nephrostomy tube intact draining bloody urine Back/Spine/Pelvis Other: Nephrostomy tube intact, no rash Skin General skin exam: no rashes or lesions noted Neuro General: alert, awake, oriented x3 and tone normal Extrem General: no edema Psych Appearance: grossly normal Mental Status: mental status grossly normal Course Vital Signs Vital signs: Vital Signs Temperature 39.2 C H 04/16/19 10:48 Pulse 154 H 04/16/19 10:48 Respiratory Rate 16 04/16/19 10:48 Blood Pressure 139/86 04/16/19 10:48 Pulse Oximetry 98 04/16/19 10:48 Temperature 39.2 C H 04/16/19 10:48 Temperature Source Skin 04/16/19 10:48 Pulse 154 H 04/16/19 10:48 Respiratory Rate 16 04/16/19 10:48 Respiratory Effort Non-Labored 04/16/19 10:48 Blood Pressure 139/86 04/16/19 10:48 Blood Pressure Position Sitting 04/16/19 10:48 Pulse Oximetry 98 04/16/19 10:48 Oxygen Delivery Method Room Air 04/16/19 10:48 Oxygen Flow Rate 0 04/16/19 10:48 Pain Level 10 04/16/19 10:48 Lab/Test Results Lab/Test Results: 04/16/19 11:20 Blood Blood Culture - Pending 04/16/19 11:20 Blood Blood Culture - Pending Critical Care Time Critical Care Time Critical Care Time: Yes Total Critical Care Time: 60 Attestation: I spent greater than 60 minutes addressing this patient's immediate life threats
[2019-04-16 11:48] LABS: Lactate 2.3 mmol/L (0.6-1.4)
[2019-04-16 11:49] LABS: Abs Immature Grans 0.01 k/cumm (0.0-0.09); Absolute Basophil Count 0.01 k/cumm (0.0-0.2); Absolute Eosinophil Count 0.03 k/cumm (0.0-0.7); Absolute Lymphocyte Count 0.17 k/cumm (1.2-3.4); Absolute Monocyte Count 0.05 k/cumm (0.11-0.7); Absolute Neutrophil Count 4.06 k/cumm (1.2-6.7); Basophils % 0.2; Eosinophils % 0.7; HCT 32.3 % (40.0-50.0); HGB 10.8 g/dL (13.5-17.5); Immature Grans % 0.2; Lymphocytes % 3.9; Mean Corp. HGB Concentration 33.4 g/dL (32.0-36.0); Mean Corpuscular Hemoglobin 28.8 pg (27.0-33.0); Mean Corpuscular Volume 86.1 fL (80-95); Monocytes % 1.2; Neutrophils % 93.8; Platelet Count 202 x1000/uL (130-400); RBC 3.75 m/cumm (4.50-6.00); RBC Distribution Width 13.3 % (11.8-14.1); White Blood Cell Count 4.33 k/cumm (4.4-10.8)
[2019-04-16 12:02] LABS: Diff Comment Diff Reviewed; RBC Morphology Normal
[2019-04-16 12:07] LABS: ALT 26 U/L (16-63); AST 18 U/L (15-37); Albumin 2.6 g/dL (3.4-5.0); Alkaline Phosphatase 80 U/L (46-116); Anion Gap 12.1 mmol/L (3-11); BUN 18 mg/dL (7-18); Bilirubin, Total 1.1 mg/dL (0.2-1.0); CO2 23.9 mmol/L (21.0-32.0); CREATININE 1.27 mg/dL (0.70-1.30); Calcium 8.8 mg/dL (8.5-10.1); Chloride 94 mmol/L (98-107); Estimated GFR 59.55 (mL/min/1.73m2); Glucose 415 mg/dL (70-100); Potassium 4.5 mmol/L (3.5-5.1); Sodium 130 mmol/L (136-145); Total Protein 8.5 g/dL (6.4-8.2)
[2019-04-16 12:08] LABS: Troponin I < 0.05 ng/mL (0.00-0.06)
[2019-04-16 12:28] LABS: Bilirubin Negative (Negative); Blood Small (Negative); Clarity Clear (Clear); Glucose 500 mg/dL (Negative); Ketones 15 mg/dL (Negative); Leukocyte Esterase Negative (Negative); Nitrite Negative (Negative); Specific Gravity 1.025 (1.005-1.025); Urobilinogen 0.2 EU/dL (Up TO 0.2)
[2019-04-16 12:31] LABS: Bilirubin Negative (Negative); Blood Moderate (Negative); Clarity Cloudy (Clear); Glucose 500 mg/dL (Negative); Ketones 15 mg/dL (Negative); Leukocyte Esterase Trace (Negative); Nitrite Negative (Negative); Urobilinogen 0.2 EU/dL (Up TO 0.2)
[2019-04-16 12:41] LABS: WBC 0-2 HPF (0-5)
[2019-04-16 12:42] LABS: Bacteria Rare HPF (Negative); C & S Indicated? No; Casts 0-2 Hyaline LPF (Negative); Crystals Negative HPF (Negative); Epithelial Cells Few HPF (Negative); Mucus Negative (Negative)
[2019-04-16 12:43] LABS: Bacteria Moderate HPF (Negative); C & S Indicated? Yes; Casts Negative LPF (Negative); Crystals Negative HPF (Negative); Epithelial Cells Negative HPF (Negative); Mucus Negative (Negative); WBC >50 HPF (0-5)
[2019-04-16] MEDS: Omnipaque 350 MG/ML 100 ML BTL IJ (14:01)
[2019-04-16] MEDS: Normal Saline 500 ML 1000 ML IV (14:17)
[2019-04-16] MEDS: CEFEPIME 2 GM in Normal Saline 100 ML IVPB (14:17)
[2019-04-16] MEDS: VANCOMYCIN 1,500 MG in Normal Saline 250 ML 166.6666 MG IVPB (14:17)
--- NOTE | 2019-04-16 14:57 | DI.VRAD_ITS ---
PROCEDURE INFORMATION: Exam: CT Abdomen And Pelvis With Contrast Exam date and time: 04/16/2019 1:53 PM Clinical history: 54 years old, male; Other: Left pelvic and flank pain; Prior surgery TECHNIQUE: Imaging protocol: Computed tomography of the abdomen and pelvis with intravenous contrast. COMPARISON: CT ABDOMEN PELVIS W 03/01/2019 6:54 PM FINDINGS: Liver: Normal. No mass. Gallbladder and bile ducts: Normal. No calcified stones. No ductal dilation. Pancreas: Normal. No ductal dilation. Spleen: Normal. No splenomegaly. Adrenals: Normal. No mass. Kidneys and ureters: Left percutaneous nephrostomy, new since previous examination. Decreased left hydronephrosis. Mildly dilated mid left ureter in close proximity to the abscess. Cortical renal cysts, stable. Stomach and bowel: Previous sigmoid anastomosis. Appendix: No evidence of appendicitis. Intraperitoneal space: Unremarkable. No free air. No significant fluid collection. Vasculature: Unremarkable. No abdominal aortic aneurysm. Lymph nodes: Retroperitoneal lymphadenopathy. Left para-aortic lymph node measures 2.2 x 1.8 cm. Bladder: Unremarkable as visualized. Reproductive: Unremarkable as visualized. Bones/joints: Unremarkable. No acute fracture. Soft tissues: Enlargement, heterogeneous low attenuation, and gas within the left psoas muscle, compatible with abscess. Central hyperdensity at the level of S1 measures 2.5 x 2.4 cm, may be debris or blood products. IMPRESSION: 1. Left percutaneous nephrostomy, new since previous examination. Decreased left hydronephrosis. 2. Enlargement, heterogeneous low attenuation, and gas within the left psoas muscle, compatible with abscess. Central hyperdensity within the psoas muscle at the level of S1 measures 2.5 x 2.4 cm, may be debris or blood products. 3. Mildly dilated mid left ureter in close proximity to the abscess. 4. Retroperitoneal lymphadenopathy. Left para-aortic lymph node measures 2.2 x 1.8 cm. Findings were discussed with BENJAMIN Moran on 04/16/2019 2:55 PM EDT Dictated and Authenticated by: Yasmine Campos MD. Ordering:JERRELL Chicas MD
[2019-04-16] MEDS: Ibuprofen 400 MG TAB PO (16:08)
--- NOTE | 2019-04-17 18:52 | NUR.NOTE ---
patient transferred to [facility], blood culture results faxed to [phone].Nursing Note:
--- NOTE | 2019-04-18 07:10 | NUR.NOTE ---
Blood culture final report faxed to [facility] [place] [phone].Nursing Note:
== END 2019-04-16 16:25 ==
PROVIDERS: Emergency Provider Student in an Organized Health Care Education/Training Program; PCP Physician Assistant Medical
DX: R00.0 Tachycardia, unspecified (principal); T83.83XA Hemorrhage due to genitourinary prosthetic devices, implants and grafts, initial encounter; N13.30 Unspecified hydronephrosis; C77.9 Secondary and unspecified malignant neoplasm of lymph node, unspecified; C79.19 Secondary malignant neoplasm of other urinary organs; I10 Essential (primary) hypertension; E11.9 Type 2 diabetes mellitus without complications; Z93.6 Other artificial openings of urinary tract status; Z96.0 Presence of urogenital implants
CPT/HCPCS: 36415; 80053; 87040; 87077; 93005; 96361; 96365; 96366; 96375; 99291; 74177; 81003; 81015; 83605; 84484; 85025; 87086; 87186; 93010; J3490

== ENCOUNTER 2019-05-04 01:25 | Outpatient (RCR) | payer BC, SELFPAY | END 2019-05-11 23:59 | disposition home or self-care (01) | LOC: INF 01:25 | PROVIDERS: PCP Physician Assistant Medical; Visit Provider Internal Medicine | DX: R69 Illness, unspecified (principal) ==

== ENCOUNTER 2019-05-11 01:52 | Outpatient (RCR) | payer BC, SELFPAY ==
[2019-04-21] MEDS: Normal Saline Flush 10 ML SYR IVP (14:29)
[2019-04-21] MEDS: CEFEPIME 2 GM in Normal Saline 100 ML IVPB ×2 (14:30→22:00)
[2019-04-22] MEDS: Normal Saline Flush 10 ML SYR IVP ×5 (06:08→21:50)
[2019-04-22] MEDS: CEFEPIME 2 GM in Normal Saline 100 ML IVPB ×3 (06:08→21:50)
[2019-04-23] MEDS: CEFEPIME 2 GM in Normal Saline 100 ML IVPB ×3 (06:00→21:38)
[2019-04-23] MEDS: Normal Saline Flush 10 ML SYR IVP ×3 (06:00→22:16)
[2019-04-24] MEDS: CEFEPIME 2 GM in Normal Saline 100 ML IVPB ×3 (06:27→22:03)
[2019-04-24] MEDS: Normal Saline Flush 10 ML SYR IVP ×2 (06:28→14:10)
[2019-04-24 21:53] VITALS: BP 115/8; PULSE 128; RESP 22; TEMP 36.4; O2SAT 96
[2019-04-25] MEDS: CEFEPIME 2 GM in Normal Saline 100 ML IVPB ×3 (06:06→22:05)
[2019-04-25 06:16] VITALS: BP 137/88; PULSE 82; RESP 18; TEMP 36.2; O2SAT 97
[2019-04-25 13:56] VITALS: BP 131/89; PULSE 109; RESP 20; TEMP 36.6; O2SAT 97
[2019-04-25] MEDS: Normal Saline Flush 10 ML SYR IVP ×2 (14:08→23:12)
[2019-04-25 14:22] LABS: Abs Immature Grans 0.05 k/cumm (0.0-0.09); Absolute Basophil Count 0.02 k/cumm (0.0-0.2); Absolute Eosinophil Count 0.31 k/cumm (0.0-0.7); Absolute Monocyte Count 0.44 k/cumm (0.11-0.7); Basophils % 0.2; Eosinophils % 3.6; HCT 33.1 % (40.0-50.0); HGB 10.9 g/dL (13.5-17.5); Immature Grans % 0.6; Lymphocytes % 12.9; Mean Corp. HGB Concentration 32.9 g/dL (32.0-36.0); Mean Corpuscular Hemoglobin 27.9 pg (27.0-33.0); Mean Corpuscular Volume 84.9 fL (80-95); Mean Platelet Volume 10.1 fL (8.0-11.0); Monocytes % 5.2; Neutrophils % 77.5; Platelet Count 390 x1000/uL (130-400); RBC Distribution Width 13.7 % (11.8-14.1); White Blood Cell Count 8.52 k/cumm (4.4-10.8)
[2019-04-25 14:31] LABS: ALT 57 U/L (16-63); AST 39 U/L (15-37); Albumin 2.6 g/dL (3.4-5.0); Alkaline Phosphatase 99 U/L (46-116); Anion Gap 8.6 mmol/L (3-11); BUN 16 mg/dL (7-18); Bilirubin, Total 0.4 mg/dL (0.2-1.0); CO2 26.4 mmol/L (21.0-32.0); CREATININE 1.02 mg/dL (0.70-1.30); Calcium 8.8 mg/dL (8.5-10.1); Chloride 98 mmol/L (98-107); Glucose 259 mg/dL (70-100); Potassium 4.2 mmol/L (3.5-5.1); Sodium 133 mmol/L (136-145); Total Protein 8.6 g/dL (6.4-8.2)
[2019-04-26 06:10] VITALS: BP 111/71; PULSE 120; RESP 18; TEMP 36.7; O2SAT 98
[2019-04-26] MEDS: Normal Saline Flush 10 ML SYR IVP ×3 (06:15→22:08)
[2019-04-26] MEDS: CEFEPIME 2 GM in Normal Saline 100 ML IVPB ×3 (06:16→22:07)
[2019-04-27] MEDS: Normal Saline Flush 10 ML SYR IVP ×4 (06:05→22:00)
[2019-04-27] MEDS: CEFEPIME 2 GM in Normal Saline 100 ML IVPB ×3 (06:10→22:00)
[2019-04-28] MEDS: CEFEPIME 2 GM in Normal Saline 100 ML IVPB ×3 (05:58→22:04)
[2019-04-28] MEDS: Normal Saline Flush 10 ML SYR IVP ×3 (05:58→22:04)
[2019-04-29] MEDS: CEFEPIME 2 GM in Normal Saline 100 ML IVPB ×3 (06:00→22:04)
[2019-04-29] MEDS: Normal Saline Flush 10 ML SYR IVP ×3 (06:04→22:05)
[2019-04-29 13:55] VITALS: BP 136/83; PULSE 108; RESP 16; TEMP 36.2; O2SAT 98
[2019-04-30] MEDS: CEFEPIME 2 GM in Normal Saline 100 ML IVPB ×3 (06:00→22:05)
[2019-04-30] MEDS: Normal Saline Flush 10 ML SYR IVP ×3 (06:00→22:53)
[2019-04-30 14:14] VITALS: BP 125/90; PULSE 105; RESP 14; TEMP 36.6; O2SAT 100
[2019-05-01] MEDS: CEFEPIME 2 GM in Normal Saline 100 ML IVPB ×3 (06:00→22:15)
[2019-05-01] MEDS: Normal Saline Flush 10 ML SYR IVP ×2 (06:12→14:16)
[2019-05-01 14:19] LABS: Abs Immature Grans 0.01 k/cumm (0.0-0.09); Absolute Basophil Count 0.06 k/cumm (0.0-0.2); Absolute Eosinophil Count 0.22 k/cumm (0.0-0.7); Absolute Lymphocyte Count 1.17 k/cumm (1.2-3.4); Absolute Monocyte Count 0.69 k/cumm (0.11-0.7); Basophils % 0.8; HCT 33.6 % (40.0-50.0); HGB 10.9 g/dL (13.5-17.5); Immature Grans % 0.1; Lymphocytes % 15.9; Mean Corp. HGB Concentration 32.4 g/dL (32.0-36.0); Mean Corpuscular Hemoglobin 28.2 pg (27.0-33.0); Mean Platelet Volume 10.2 fL (8.0-11.0); Monocytes % 9.4; Neutrophils % 70.8; Platelet Count 328 x1000/uL (130-400); RBC 3.86 m/cumm (4.50-6.00); RBC Distribution Width 14.2 % (11.8-14.1); White Blood Cell Count 7.35 k/cumm (4.4-10.8)
[2019-05-01 14:30] LABS: ALT 31 U/L (16-63); AST 23 U/L (15-37); Albumin 2.8 g/dL (3.4-5.0); Alkaline Phosphatase 76 U/L (46-116); Anion Gap 7.9 mmol/L (3-11); BUN 20 mg/dL (7-18); Bilirubin, Total 0.3 mg/dL (0.2-1.0); CO2 27.1 mmol/L (21.0-32.0); CREATININE 1.04 mg/dL (0.70-1.30); Calcium 9.4 mg/dL (8.5-10.1); Chloride 100 mmol/L (98-107); Glucose 125 mg/dL (70-100); Potassium 4.3 mmol/L (3.5-5.1); Sodium 135 mmol/L (136-145); Total Protein 8.6 g/dL (6.4-8.2)
[2019-05-02] MEDS: CEFEPIME 2 GM in Normal Saline 100 ML IVPB ×3 (06:05→22:06)
[2019-05-02] MEDS: Normal Saline Flush 10 ML SYR IVP ×3 (06:06→22:07)
[2019-05-02 12:27] LABS: CEA 0.7 ng/ml
[2019-05-03] MEDS: Normal Saline Flush 10 ML SYR IVP ×2 (06:03→14:03)
[2019-05-03] MEDS: CEFEPIME 2 GM in Normal Saline 100 ML IVPB ×2 (06:03→14:03)
[2019-05-04] MEDS: Normal Saline Flush 10 ML SYR IVP ×3 (05:55→22:25)
[2019-05-04] MEDS: CEFEPIME 2 GM in Normal Saline 100 ML IVPB ×3 (06:03→21:55)
[2019-05-05] MEDS: Normal Saline Flush 10 ML SYR IVP ×3 (06:02→22:03)
[2019-05-05] MEDS: CEFEPIME 2 GM in Normal Saline 100 ML IVPB ×3 (06:02→22:03)
[2019-05-06] MEDS: CEFEPIME 2 GM in Normal Saline 100 ML IVPB ×3 (05:59→22:00)
[2019-05-06] MEDS: Normal Saline Flush 10 ML SYR IVP ×3 (06:00→22:00)
[2019-05-07] MEDS: CEFEPIME 2 GM in Normal Saline 100 ML IVPB ×3 (05:53→22:00)
[2019-05-07] MEDS: Normal Saline Flush 10 ML SYR IVP ×3 (05:53→22:10)
[2019-05-08] MEDS: Normal Saline Flush 10 ML SYR IVP ×3 (06:00→21:57)
[2019-05-08] MEDS: CEFEPIME 2 GM in Normal Saline 100 ML IVPB ×3 (06:05→21:56)
[2019-05-08 06:39] LABS: Abs Immature Grans 0.02 k/cumm (0.0-0.09); Absolute Basophil Count 0.03 k/cumm (0.0-0.2); Absolute Eosinophil Count 0.33 k/cumm (0.0-0.7); Absolute Neutrophil Count 4.75 k/cumm (1.2-6.7); Basophils % 0.4; Eosinophils % 4.8; HGB 11.8 g/dL (13.5-17.5); Immature Grans % 0.3; Lymphocytes % 14.6; Mean Corp. HGB Concentration 32.8 g/dL (32.0-36.0); Mean Corpuscular Hemoglobin 28.3 pg (27.0-33.0); Mean Corpuscular Volume 86.3 fL (80-95); Mean Platelet Volume 10.5 fL (8.0-11.0); Monocytes % 10.2; Neutrophils % 69.7; Platelet Count 237 x1000/uL (130-400); RBC 4.17 m/cumm (4.50-6.00); RBC Distribution Width 14.5 % (11.8-14.1); White Blood Cell Count 6.83 k/cumm (4.4-10.8)
[2019-05-08 06:53] LABS: ALT 45 U/L (16-63); AST 33 U/L (15-37); Alkaline Phosphatase 78 U/L (46-116); Anion Gap 8.4 mmol/L (3-11); BUN 21 mg/dL (7-18); Bilirubin, Total 0.4 mg/dL (0.2-1.0); CO2 25.6 mmol/L (21.0-32.0); CREATININE 1.12 mg/dL (0.70-1.30); Calcium 8.9 mg/dL (8.5-10.1); Chloride 100 mmol/L (98-107); Glucose 195 mg/dL (70-100); Potassium 4.1 mmol/L (3.5-5.1); Sodium 134 mmol/L (136-145); Total Protein 8.7 g/dL (6.4-8.2)
[2019-05-09] MEDS: Normal Saline Flush 10 ML SYR IVP ×3 (06:03→22:03)
[2019-05-09] MEDS: CEFEPIME 2 GM in Normal Saline 100 ML IVPB ×3 (06:03→21:58)
[2019-05-10] MEDS: CEFEPIME 2 GM in Normal Saline 100 ML IVPB ×3 (05:58→21:58)
[2019-05-10] MEDS: Normal Saline Flush 10 ML SYR IVP ×3 (05:59→21:58)
[2019-05-11] MEDS: Normal Saline Flush 10 ML SYR IVP ×3 (04:00→22:00)
[2019-05-11 04:25] VITALS: BP 146/92; PULSE 112; TEMP 36.1
[2019-05-11] MEDS: CEFEPIME 2 GM in Normal Saline 100 ML IVPB ×3 (04:25→22:00)
[2019-05-11 13:58] VITALS: BP 146/92; PULSE 112; TEMP 36.1
== END 2019-05-11 23:59 | disposition home or self-care (01) ==
LOC: INF 01:52
PROVIDERS: Internal Medicine; PCP Physician Assistant Medical; Visit Provider Internal Medicine
DX: K68.12 Psoas muscle abscess (principal); B95.7 Other staphylococcus as the cause of diseases classified elsewhere; A49.1 Streptococcal infection, unspecified site; C18.9 Malignant neoplasm of colon, unspecified
CPT/HCPCS: 36591; 80053; 96365; 96366; 96523; 82378; 85025

== ENCOUNTER 2019-05-30 06:00 | Outpatient (RCR) | payer BC, SELFPAY ==
[2019-05-12] MEDS: CEFEPIME 2 GM in Normal Saline 100 ML IVPB ×3 (07:05→22:30)
[2019-05-12] MEDS: Normal Saline Flush 10 ML SYR 30 ML IVP ×2 (14:14→22:30)
[2019-05-12] MEDS: Normal Saline Flush 10 ML SYR IVP (14:51)
[2019-05-12] MEDS: Heparin 500 UNITS/5 ML SYRINGE (14:51)
[2019-05-13] MEDS: CEFEPIME 2 GM in Normal Saline 100 ML IVPB ×3 (06:00→21:50)
[2019-05-13] MEDS: Normal Saline Flush 10 ML SYR 30 ML IVP ×2 (06:06→14:09)
[2019-05-13 14:10] VITALS: BP 127/81; PULSE 110; RESP 16; TEMP 36.5; O2SAT 98
[2019-05-14] MEDS: Normal Saline Flush 10 ML SYR 30 ML IVP ×2 (01:25→14:05)
[2019-05-14] MEDS: CEFEPIME 2 GM in Normal Saline 100 ML IVPB ×3 (06:00→22:05)
[2019-05-14] MEDS: Normal Saline Flush 10 ML SYR IVP ×2 (06:15→22:13)
[2019-05-14 14:42] VITALS: BP 127/83; PULSE 124; RESP 18; TEMP 36.7; O2SAT 98
[2019-05-15] MEDS: CEFEPIME 2 GM in Normal Saline 100 ML IVPB ×3 (05:59→22:07)
[2019-05-15] MEDS: Normal Saline Flush 10 ML SYR 30 ML IVP ×3 (06:00→22:11)
[2019-05-15] MEDS: Alteplase 2 MG VIAL (14:13)
[2019-05-15] MEDS: Water,Injection,Sterile 10 ML VIAL (14:13)
[2019-05-15 14:57] LABS: Abs Immature Grans 0.02 k/cumm (0.0-0.09); Absolute Basophil Count 0.04 k/cumm (0.0-0.2); Absolute Eosinophil Count 0.32 k/cumm (0.0-0.7); Absolute Lymphocyte Count 0.94 k/cumm (1.2-3.4); Absolute Monocyte Count 0.75 k/cumm (0.11-0.7); Absolute Neutrophil Count 4.41 k/cumm (1.2-6.7); Basophils % 0.6; Eosinophils % 4.9; HCT 34.8 % (40.0-50.0); HGB 11.6 g/dL (13.5-17.5); Immature Grans % 0.3; Lymphocytes % 14.5; Mean Corp. HGB Concentration 33.3 g/dL (32.0-36.0); Mean Corpuscular Hemoglobin 28.8 pg (27.0-33.0); Mean Corpuscular Volume 86.4 fL (80-95); Mean Platelet Volume 10.2 fL (8.0-11.0); Monocytes % 11.6; Neutrophils % 68.1; Platelet Count 226 x1000/uL (130-400); RBC 4.03 m/cumm (4.50-6.00); RBC Distribution Width 14.5 % (11.8-14.1); White Blood Cell Count 6.48 k/cumm (4.4-10.8)
[2019-05-15 15:13] LABS: ALT 46 U/L (16-63); AST 24 U/L (15-37); Albumin 2.8 g/dL (3.4-5.0); Alkaline Phosphatase 81 U/L (46-116); Anion Gap 10.8 mmol/L (3-11); BUN 22 mg/dL (7-18); Bilirubin, Total 0.3 mg/dL (0.2-1.0); CO2 24.2 mmol/L (21.0-32.0); CREATININE 1.44 mg/dL (0.70-1.30); Chloride 100 mmol/L (98-107); Estimated GFR 51.52 (mL/min/1.73m2); Glucose 337 mg/dL (70-100); Potassium 4.3 mmol/L (3.5-5.1); Sodium 135 mmol/L (136-145); Total Protein 8.3 g/dL (6.4-8.2)
[2019-05-16] MEDS: CEFEPIME 2 GM in Normal Saline 100 ML IVPB ×3 (06:00→21:59)
[2019-05-16] MEDS: Normal Saline Flush 10 ML SYR 30 ML IVP ×3 (06:00→22:00)
[2019-05-17] MEDS: CEFEPIME 2 GM in Normal Saline 100 ML IVPB ×3 (05:58→21:56)
[2019-05-17] MEDS: Normal Saline Flush 10 ML SYR IVP (06:02)
[2019-05-17] MEDS: Normal Saline Flush 10 ML SYR 30 ML IVP ×2 (14:13→22:02)
[2019-05-18] MEDS: CEFEPIME 2 GM in Normal Saline 100 ML IVPB ×3 (05:56→20:00)
[2019-05-18] MEDS: Normal Saline Flush 10 ML SYR 30 ML IVP (05:58)
[2019-05-19] MEDS: CEFEPIME 2 GM in Normal Saline 100 ML IVPB ×3 (06:00→20:00)
[2019-05-19] MEDS: Normal Saline Flush 10 ML SYR 30 ML IVP ×2 (06:15→13:58)
[2019-05-20] MEDS: Normal Saline Flush 10 ML SYR IVP ×2 (03:08→21:59)
[2019-05-20] MEDS: CEFEPIME 2 GM in Normal Saline 100 ML IVPB ×3 (06:00→21:59)
[2019-05-20] MEDS: Normal Saline Flush 10 ML SYR 30 ML IVP (13:56)
[2019-05-21] MEDS: CEFEPIME 2 GM in Normal Saline 100 ML IVPB ×3 (06:00→21:56)
[2019-05-21] MEDS: Normal Saline Flush 10 ML SYR 30 ML IVP ×3 (06:01→22:00)
[2019-05-22] MEDS: Normal Saline Flush 10 ML SYR IVP ×3 (06:04→22:00)
[2019-05-22] MEDS: CEFEPIME 2 GM in Normal Saline 100 ML IVPB ×3 (06:05→22:00)
[2019-05-22 16:11] LABS: Abs Immature Grans 0.02 k/cumm (0.0-0.09); Absolute Basophil Count 0.02 k/cumm (0.0-0.2); Absolute Eosinophil Count 0.22 k/cumm (0.0-0.7); Absolute Monocyte Count 0.64 k/cumm (0.11-0.7); Absolute Neutrophil Count 6.46 k/cumm (1.2-6.7); Basophils % 0.2; Eosinophils % 2.7; HCT 36.6 % (40.0-50.0); HGB 12.1 g/dL (13.5-17.5); Immature Grans % 0.2; Lymphocytes % 9.8; Mean Corp. HGB Concentration 33.1 g/dL (32.0-36.0); Mean Corpuscular Hemoglobin 28.5 pg (27.0-33.0); Mean Corpuscular Volume 86.1 fL (80-95); Mean Platelet Volume 10.6 fL (8.0-11.0); Monocytes % 7.8; Neutrophils % 79.3; Platelet Count 223 x1000/uL (130-400); RBC 4.25 m/cumm (4.50-6.00); RBC Distribution Width 14.9 % (11.8-14.1); White Blood Cell Count 8.16 k/cumm (4.4-10.8)
[2019-05-22 16:30] LABS: ALT 63 U/L (16-63); AST 52 U/L (15-37); Albumin 2.8 g/dL (3.4-5.0); Alkaline Phosphatase 82 U/L (46-116); BUN 20 mg/dL (7-18); Bilirubin, Total 0.4 mg/dL (0.2-1.0); CREATININE 1.16 mg/dL (0.70-1.30); Calcium 8.9 mg/dL (8.5-10.1); Chloride 101 mmol/L (98-107); Glucose 235 mg/dL (70-100); Sodium 135 mmol/L (136-145); Total Protein 8.2 g/dL (6.4-8.2)
[2019-05-23] MEDS: Normal Saline Flush 10 ML SYR IVP (06:00)
[2019-05-23] MEDS: CEFEPIME 2 GM in Normal Saline 100 ML IVPB ×3 (06:00→21:50)
[2019-05-23] MEDS: Normal Saline Flush 10 ML SYR 30 ML IVP ×2 (14:00→22:32)
[2019-05-24] MEDS: CEFEPIME 2 GM in Normal Saline 100 ML IVPB ×3 (06:00→22:00)
[2019-05-24] MEDS: Normal Saline Flush 10 ML SYR 30 ML IVP ×2 (14:01→22:05)
[2019-05-25] MEDS: CEFEPIME 2 GM in Normal Saline 100 ML IVPB ×3 (05:59→22:01)
[2019-05-25] MEDS: Normal Saline Flush 10 ML SYR 30 ML IVP ×2 (06:00→22:00)
[2019-05-25] MEDS: Normal Saline Flush 10 ML SYR IVP (14:20)
[2019-05-26] MEDS: CEFEPIME 2 GM in Normal Saline 100 ML IVPB ×3 (06:01→22:00)
[2019-05-26] MEDS: Normal Saline Flush 10 ML SYR 30 ML IVP ×2 (06:01→22:00)
[2019-05-26] MEDS: Normal Saline Flush 10 ML SYR IVP (14:09)
[2019-05-27] MEDS: CEFEPIME 2 GM in Normal Saline 100 ML IVPB ×3 (05:58→22:05)
[2019-05-27] MEDS: Normal Saline Flush 10 ML SYR IVP (06:00)
[2019-05-27] MEDS: Normal Saline Flush 10 ML SYR 30 ML IVP ×2 (14:45→22:10)
[2019-05-28] MEDS: CEFEPIME 2 GM in Normal Saline 100 ML IVPB ×3 (06:03→22:00)
[2019-05-28] MEDS: Normal Saline Flush 10 ML SYR 30 ML IVP ×3 (06:03→22:00)
[2019-05-29] MEDS: CEFEPIME 2 GM in Normal Saline 100 ML IVPB ×3 (05:55→22:03)
[2019-05-29] MEDS: Normal Saline Flush 10 ML SYR 30 ML IVP ×3 (05:55→22:04)
[2019-05-29 14:18] LABS: Abs Immature Grans 0.02 k/cumm (0.0-0.09); Absolute Basophil Count 0.02 k/cumm (0.0-0.2); Absolute Eosinophil Count 0.34 k/cumm (0.0-0.7); Absolute Lymphocyte Count 0.94 k/cumm (1.2-3.4); Absolute Monocyte Count 0.58 k/cumm (0.11-0.7); Absolute Neutrophil Count 5.21 k/cumm (1.2-6.7); Basophils % 0.3; Eosinophils % 4.8; HCT 37.1 % (40.0-50.0); HGB 12.2 g/dL (13.5-17.5); Immature Grans % 0.3; Lymphocytes % 13.2; Mean Corp. HGB Concentration 32.9 g/dL (32.0-36.0); Mean Corpuscular Hemoglobin 28.2 pg (27.0-33.0); Mean Corpuscular Volume 85.7 fL (80-95); Mean Platelet Volume 10.4 fL (8.0-11.0); Monocytes % 8.2; Neutrophils % 73.2; Platelet Count 238 x1000/uL (130-400); RBC 4.33 m/cumm (4.50-6.00); RBC Distribution Width 14.4 % (11.8-14.1); White Blood Cell Count 7.11 k/cumm (4.4-10.8)
[2019-05-29 14:33] LABS: ALT 63 U/L (16-63); AST 36 U/L (15-37); Albumin 2.9 g/dL (3.4-5.0); Alkaline Phosphatase 86 U/L (46-116); Anion Gap 4.8 mmol/L (3-11); BUN 19 mg/dL (7-18); Bilirubin, Total 0.3 mg/dL (0.2-1.0); CO2 28.2 mmol/L (21.0-32.0); CREATININE 1.13 mg/dL (0.70-1.30); Calcium 9.2 mg/dL (8.5-10.1); Chloride 102 mmol/L (98-107); Glucose 339 mg/dL (70-100); Potassium 4.2 mmol/L (3.5-5.1); Sodium 135 mmol/L (136-145); Total Protein 8.5 g/dL (6.4-8.2)
[2019-05-30] MEDS: Normal Saline Flush 10 ML SYR 30 ML IVP ×2 (06:01→10:57)
[2019-05-30] MEDS: CEFEPIME 2 GM in Normal Saline 100 ML IVPB ×2 (06:01→10:52)
== END 2019-06-10 23:59 | disposition home or self-care (01) ==
LOC: INF 06:00
PROVIDERS: Internal Medicine; PCP Physician Assistant Medical; Visit Provider Internal Medicine
DX: K68.12 Psoas muscle abscess (principal); B95.7 Other staphylococcus as the cause of diseases classified elsewhere; A49.1 Streptococcal infection, unspecified site; C18.9 Malignant neoplasm of colon, unspecified; T82.898A Other specified complication of vascular prosthetic devices, implants and grafts, initial encounter; Z45.2 Encounter for adjustment and management of vascular access device
CPT/HCPCS: 36591; 36593; 80053; 96365; 96366; 96523; 85025; J2997

== ENCOUNTER 2019-06-15 09:57 | Outpatient (RCR) | payer BC, SELFPAY ==
[2019-06-15] MEDS: Normal Saline Flush 10 ML SYR 30 ML IVP (09:50)
[2019-06-15] MEDS: Heparin 500 UNITS/5 ML SYRINGE (10:00)
[2019-06-15 10:13] LABS: Abs Immature Grans 0.02 k/cumm (0.0-0.09); Absolute Basophil Count 0.03 k/cumm (0.0-0.2); Absolute Eosinophil Count 0.28 k/cumm (0.0-0.7); Absolute Lymphocyte Count 1.01 k/cumm (1.2-3.4); Absolute Monocyte Count 0.55 k/cumm (0.11-0.7); Absolute Neutrophil Count 5.57 k/cumm (1.2-6.7); Basophils % 0.4; Eosinophils % 3.8; HCT 39.2 % (40.0-50.0); HGB 12.8 g/dL (13.5-17.5); Immature Grans % 0.3; Lymphocytes % 13.5; Mean Corp. HGB Concentration 32.7 g/dL (32.0-36.0); Mean Corpuscular Hemoglobin 27.8 pg (27.0-33.0); Mean Corpuscular Volume 85.2 fL (80-95); Mean Platelet Volume 10.6 fL (8.0-11.0); Monocytes % 7.4; Neutrophils % 74.6; Platelet Count 243 x1000/uL (130-400); RBC Distribution Width 14.4 % (11.8-14.1); White Blood Cell Count 7.46 k/cumm (4.4-10.8)
[2019-06-15 10:36] LABS: ALT 36 U/L (16-63); AST 15 U/L (15-37); Albumin 3.1 g/dL (3.4-5.0); Alkaline Phosphatase 88 U/L (46-116); Anion Gap 6.6 mmol/L (3-11); BUN 15 mg/dL (7-18); Bilirubin, Total 0.3 mg/dL (0.2-1.0); CO2 25.4 mmol/L (21.0-32.0); CREATININE 1.29 mg/dL (0.70-1.30); Calcium 9.2 mg/dL (8.5-10.1); Chloride 100 mmol/L (98-107); Estimated GFR 58.49 (mL/min/1.73m2); Glucose 390 mg/dL (74-106); Potassium 4.6 mmol/L (3.5-5.1); Sodium 132 mmol/L (136-145); Total Protein 8.7 g/dL (6.4-8.2)
[2019-06-16 11:23] LABS: CEA 1.3 ng/mL (See Note)
== END 2019-07-11 23:59 | disposition home or self-care (01) ==
LOC: INF 09:57
PROVIDERS: Internal Medicine; PCP Physician Assistant Medical; Visit Provider Internal Medicine Hematology & Oncology
DX: K68.12 Psoas muscle abscess (principal); B95.7 Other staphylococcus as the cause of diseases classified elsewhere; A49.1 Streptococcal infection, unspecified site; C18.9 Malignant neoplasm of colon, unspecified; Z45.2 Encounter for adjustment and management of vascular access device
CPT/HCPCS: 36591; 80053; 82378; 85025

== ENCOUNTER 2019-07-16 23:33 | Inpatient (IN) | payer BC, OTHER, SELFPAY ==
[2019-07-16 23:36] VITALS: BP 147/82; PULSE 120; RESP 18; TEMP 37.9; O2SAT 96
[2019-07-16 23:39] VITALS: RESP 18
--- NOTE | 2019-07-16 23:43 | W.ED.GENAD ---
Discharge Plan Disposition Patient Disposition: [facility] INPATIENT Condition: Stable Discharge Details Chief Complaint: GenMedical Clinical Impression: Sepsis, Urinary tract infection Primary Care Provider: Chetan Jaquez ED Provider: Gibran Hauser Home Meds and New Rx's Prescriptions: No Action gabapentin 300 mg capsule 300 mg PO TID MDD 900 mg Qty: 90 RF: 2 gemfibrozil [Lopid] 600 MG tablet 600 mg PO HS RF: 0 atorvastatin [Lipitor] 20 MG tablet 20 mg PO HS RF: 0 glipizide 10 MG tablet extended release 24hr 10 mg PO BID RF: 0 aspirin [Aspirin Low-Strength] 81 MG tablet,chewable 81 mg PO DAILY RF: 0 metformin 1,000 MG tablet extended release 24hr 1,000 mg PO DAILY RF: 0 metformin 500 MG tablet 1,500 mg PO HS RF: 0 multivitamin 1 EACH capsule 1 cap PO DAILY RF: 0 lisinopril 20 mg tablet 10 mg PO HS RF: 0 Lantus Solostar U-100 Insulin 100 unit/mL (3 mL) insulin pen 80 unit subcut DAILY RF: 0 Medical Decision Making 54 yo male with hx of colon cancer with mets and nephrostomy tube, DM, who recently had abdominal abscess and had DEMETRIO drained removed this past Wednesday at [facility] comes in with fevers and general weakness starting today and some abdominal discomfort. Denies cough, headaches, neck stiffness, and states has had normal appearing urine out of urostomy tube today. Has no drainage around urostomy nor former demetrio site. He has mild lower abdominal discomfort without guarding. Is noted to have a fever here today. Given his symptoms will obtain blood cultures, labs and imaging of the chest/abd/pelvis to eval for pna vs abscess among other pathology pt's ua consistnet with UTI and his urine now does appear cloudy, awaiting imaging, will order zosyn while imaging pending ct shows findings consistent with infection of urinary system and improved appearance of abscess but still dose have a small focus of infection per vrad report. Will dicsuss with [facility], pt remains stable. Spoke with Dr. Fink from IR at [facility] who did not feel he required urgent drainage and wasn't sure if this would require drainage and felt he could be managed here and would not remove or change the nephrostomy tube. Spoke with Dr. Zuleta who accepts for admission Differential Diagnosis Differential Diagnosis: abscess, urosepsis, influenza, pna Medical Records Medical records reviewed: Yes I reviewed the patient's medical records. Imaging Data Radiologic Study: Attestation: I personally reviewed and interpreted this imaging study as follows: Imaging: CT Scan Radiologist's impression: 1. Moderate left hydronephrosis. 2. Left perinephric compare ureteral stranding with minimal mural thickening of the left ureter, nonspecific and similar in appearance to previous study with clinical exclusion of infection recommended. 3. Interval near complete resolution of previously noted collection within the left ileo psoas muscle with 3.4 x 2.7 x 1.8 cm focal area of ring enhancement persisting in this region and possibly indicating Infectious collection. 4. Question mural thickening of the collapsed urinary bladder, raising the possibility of urinary cystitis. Lab Data Lab results reviewed: Yes I reviewed the patient's lab results. HPI General Mode of arrival: ambulatory. Date/Time Provider Initiated Documentation: 07/16/19 23:34. Limitations to Documentation: no limitations. Information obtained by: patient. History of Present Illness 54 year old M presents to the emergency department with the chief complaint of fever, described as moderate, and it has been constant. No relieving factors improve symptom(s), No exacerbating factors reported . Patient did receive the following treatments prior to arrival, none Related Data Home Medications Medication Instructions Recorded Confirmed gemfibrozil [Lopid] 600 mg PO HS tab-cap 10/17/12 07/16/19 aspirin [Aspirin Low-Strength] 81 mg PO DAILY tab-cap 10/27/12 07/16/19 atorvastatin [Lipitor] 20 mg PO HS tab-cap 10/27/12 07/16/19 glipizide 10 mg PO BID tab-cap 10/27/12 07/16/19 metformin 1,000 mg PO DAILY tab-cap 10/27/12 07/16/19 metformin 1,500 mg PO HS 01/05/14 07/16/19 multivitamin 1 cap PO DAILY 01/05/14 07/16/19 insulin glargine 100 unit/mL (3 80 unit SUBCUT DAILY ml 11/08/18 07/16/19 mL) subcutaneous pen lisinopril 20 mg tablet 10 mg PO HS tab 11/08/18 07/16/19 gabapentin 300 mg capsule 300 mg PO TID #90 cap MDD 900 mg 09/17/19 01/05/20 Previous Rx's Medication Instructions Recorded gabapentin 300 mg capsule 300 mg PO TID #90 cap MDD 900 mg 03/28/19 Allergies Allergy/AdvReac Type Severity Reaction Status Date / Time No Known Allergies Allergy Unverified 05/29/19 08:35 General Stated Complaint: GenMedical SCOOTER: 2 Review of Systems All systems reviewed & are unremarkable except as noted in HPI and below Cardiovascular Cardiovascular: Denies chest pain and Denies dyspnea Respiratory Respiratory: Denies cough and Denies dyspnea Gastrointestinal Gastrointestinal: Denies nausea and Denies vomiting Musculoskeletal Musculoskeletal: Denies joint swelling Psychiatric Psychiatric: Denies depression [facility] 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 In past, has worked 80 hrs/week in the winter. Took summer 2018 off then had procedure that caused femoral nerve injury. Now walks with cane. Cannot return to work. May be permanently disabled. Happier not working at this time. Lots of medical appointments to keep.... Exam Const General: no acute distress Orientation: alert HENRI Head: normal to inspection Ears: external ears normal General nose exam: external nose normal Mouth: moist mucous membranes Eyes General: appearance normal, both eyes and all related structures Neck Neck: normal visual inspection Resp Effort & Inspection: normal respiratory effort and able to speak in complete sentences Cardio Jugular venous pressure: no JVD Skin General skin exam: no rashes or lesions noted Neuro General: alert and oriented x3 Extrem General: normal to inspection Psych Mental Status: mental status grossly normal Course Vital Signs Vital signs: Vital Signs Temperature 37.9 C H 07/16/19 23:36 Pulse 120 H 07/16/19 23:36 Respiratory Rate 18 07/16/19 23:36 Blood Pressure 147/82 H 07/16/19 23:36 Pulse Oximetry 96 07/16/19 23:36 Temperature 37.9 C H 07/16/19 23:36 Temperature Source Skin 07/16/19 23:36 Pulse 120 H 07/16/19 23:36 Respiratory Rate 18 07/16/19 23:39 Respiratory Effort 07/16/19 23:39 Respiratory Depth Normal 07/16/19 23:39 Respiratory Pattern Normal 07/16/19 23:39 Blood Pressure 147/82 H 07/16/19 23:36 Blood Pressure Position Sitting 07/16/19 23:36 Pulse Oximetry 96 07/16/19 23:36 Oxygen Delivery Method Room Air 07/16/19 23:36 Oxygen Flow Rate 0 07/16/19 23:36
--- NOTE | 2019-07-16 23:54 | DI.CT_ITS ---
EXAM: CT CHEST/ABD/PEL W CLINICAL HISTORY: fevers, recent abdominal abscess, colon cancer TECHNIQUE: Post IV contrast with 100 cc's of Omnipaque 350. No oral contrast. COMPARISON: CT ABDOMEN PELVIS W from 04/16/2019 FINDINGS: Chest CT: There is no evidence of pneumothorax, infiltrate, pleural or pericardial effusion. Heart s ize is normal. Coronary artery calcifications are seen. The aorta is normal in diameter. Abdomen and pelvic CT: There is a left nephrostomy stent. A left ureteral stent extends from the le ft renal pelvis into the bladder. There is increased left hydronephrosis when compared with the prev ious exam. The urinary bladder is nearly empty. Right kidney is unremarkable. A rectal anastomosis is noted. There has been marked interval improvement of the left psoas abscess. There is a small r esidual fluid collection measuring 3.4 x 2.7 x 1.8 cm. There is no bowel dilatation or inflammatory c hange. There are small para-aortic lymph nodes, consistent with reactive lymph nodes. IMPRESSION: Significant interval improvement of previously noted left psoas abscess. Small residual abscess rem ains present. The left nephrostomy tube and a left ureteral stent are unchanged in position, however there is increased left hydronephrosis when compared with the previous exam.
[2019-07-16 23:56] LABS: HCO3 (Venous) 24 mmol/L (22-28); O2 Sat (Venous) 83 % (70-80); TCO2 (Venous) 21 mmol/L (22-29); pCO2 (Venous) 37 mm/Hg (34-47); pH (Venous) 7.41 (7.32-7.43); pO2 (Venous) 47 mm/Hg (28-44)
[2019-07-16 23:57] LABS: Lactate 1.7 mmol/L (0.6-1.4)
[2019-07-16 23:58] LABS: Abs Immature Grans 0.05 k/cumm (0.0-0.09); Absolute Eosinophil Count 0.49 k/cumm (0.0-0.7); Absolute Lymphocyte Count 0.97 k/cumm (1.2-3.4); Basophils % 0.5; Eosinophils % 3.7; HCT 36.7 % (40.0-50.0); HGB 12.7 g/dL (13.5-17.5); Immature Grans % 0.4 %; Lymphocytes % 7.3; Mean Corp. HGB Concentration 34.6 g/dL (32.0-36.0); Mean Corpuscular Hemoglobin 28.2 pg (27.0-33.0); Mean Corpuscular Volume 81.4 fL (80-95); Mean Platelet Volume 10.2 fL (8.0-11.0); Neutrophils % 79.1; Platelet Count 279 x1000/uL (130-400); RBC 4.51 m/cumm (4.50-6.00); RBC Distribution Width 13.9 % (11.8-14.1); White Blood Cell Count 13.27 k/cumm (4.4-10.8)
[2019-07-16] MEDS: Normal Saline 1,000 ML 1000 ML IV (23:59)
[2019-07-16] MEDS: Normal Saline Flush 10 ML SYR IVP (23:59)
[2019-07-17] VITALS (14 sets, daily range): BP systolic 116–140; BP diastolic 69–79; PULSE 116–133; RESP 12–20; TEMP 36.5–37.6; O2SAT 95–100
[2019-07-17 00:02] LABS: Absolute Basophil Count 0.07 k/cumm (0.0-0.2); Absolute Monocyte Count 1.19 k/cumm (0.11-0.7)
[2019-07-17 00:03] LABS: Bilirubin Negative (Negative); Blood Moderate (Negative); Clarity Sl Cloudy (Clear); Glucose 500 mg/dL (Negative); Ketones Negative (Negative); Leukocyte Esterase Trace (Negative); Nitrite Positive (Negative); Specific Gravity 1.025 (1.005-1.025); Urobilinogen 0.2 EU/dL (Up TO 0.2)
[2019-07-17 00:12] LABS: WBC >50 HPF (0-5)
[2019-07-17 00:13] LABS: C & S Indicated? C&S Done As Ordered
[2019-07-17 00:15] LABS: ALT 31 U/L (16-63); AST 21 U/L (15-37); Albumin 2.7 g/dL (3.4-5.0); Alkaline Phosphatase 79 U/L (46-116); BUN 14 mg/dL (7-18); Bilirubin, Total 0.5 mg/dL (0.2-1.0); CREATININE 1.15 mg/dL (0.70-1.30); Calcium 9.2 mg/dL (8.5-10.1); Chloride 95 mmol/L (98-107); Glucose 370 mg/dL (74-106); Magnesium 1.5 mg/dL (1.8-2.4); PTT Activated 26.1 sec (21.0-31.4); Potassium 4.5 mmol/L (3.5-5.1); Prothrombin Time 10.1 sec (9.3-11.0); Sodium 130 mmol/L (136-145); Total Protein 9.2 g/dL (6.4-8.2)
[2019-07-17] MEDS: Omnipaque 350 MG/ML 100 ML BTL IJ (00:18)
[2019-07-17] MEDS: PIPERACILLIN/TAZO 4.5 GM in Normal Saline 100 ML IVPB ×3 (00:29→23:00)
[2019-07-17] MEDS: MAGNESIUM SULFATE 2 GM/50 ML BAG IVPB (00:30)
[2019-07-17 00:34] LABS: Procalcitonin 1.2 ng/mL
--- NOTE | 2019-07-17 00:45 | DI.VRAD_ITS ---
PROCEDURE INFORMATION: Exam: CT Chest With Contrast Exam date and time: 07/16/2019 11:43 PM Age: 54 years old Clinical indication: Chest pain; Type not specified; Prior surgery; Surgery date: Post-operative (0-2 days); Surgery type: Psoas abscess drain removed Wednesday, site is still draining. 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 Radiation optimization: All CT scans at this facility use at least one of these dose optimization techniques: automated exposure control; mA and/or kV adjustment per patient size (includes targeted exams where dose is matched to clinical indication); or iterative reconstruction. Contrast material: OMNIPAQUE 350; Contrast volume: 100 ml; Contrast route: IV RAC; COMPARISON: CT ABDOMEN PELVIS W 04/16/2019 1:49 PM FINDINGS: Lungs: Unremarkable. No consolidation. No masses. Pleural space: Unremarkable. No pneumothorax. No pleural effusion. Heart: Unremarkable. No cardiomegaly. No pericardial effusion. Aorta: Unremarkable. No aortic aneurysm. Lymph nodes: Unremarkable. No enlarged lymph nodes. Bones/joints: Unremarkable. No acute fracture. Soft tissues: Unremarkable. IMPRESSION: No acute findings. PROCEDURE INFORMATION: Exam: CT Abdomen And Pelvis With Contrast Exam date and time: 07/16/2019 11:43 PM Age: 54 years old Clinical indication: Chest pain; Type not specified; Prior surgery; Surgery date: Post-operative (0-2 days); Surgery type: Psoas abscess drain removed Wednesday, site is still draining. 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 Radiation optimization: All CT scans at this facility use at least one of these dose optimization techniques: automated exposure control; mA and/or kV adjustment per patient size (includes targeted exams where dose is matched to clinical indication); or iterative reconstruction. Contrast material: OMNIPAQUE 350; Contrast volume: 100 ml; Contrast route: IV RAC; COMPARISON: CT ABDOMEN PELVIS W 04/16/2019 1:49 PM FINDINGS: Liver: Normal. No mass. Gallbladder and bile ducts: Normal. No calcified stones. No ductal dilation. Pancreas: Normal. No ductal dilation. Spleen: Normal. No splenomegaly. Adrenals: Normal. No mass. Kidneys and ureters: Left percutaneous nephrostomy tube and nephroureteral stent in good position. Moderate left hydronephrosis. Renal cysts up to 3.2 cm. Left perinephric compare ureteral stranding with minimal mural thickening of the left ureter, nonspecific and similar in appearance to previous study with clinical exclusion of infection recommended. Stomach and bowel: Unremarkable. No obstruction. No mucosal thickening. Appendix: No evidence of appendicitis. Intraperitoneal space: Unremarkable. No free air. No significant fluid collection. Vasculature: Unremarkable. No abdominal aortic aneurysm. Lymph nodes: Unremarkable. No enlarged lymph nodes. Bladder: Question mural thickening of the collapsed urinary bladder, raising the possibility of urinary cystitis. Reproductive: Unremarkable as visualized. Bones/joints: Unremarkable. No acute fracture. Soft tissues: Interval near complete resolution of previously noted collection within the left ileo psoas muscle with 3.4 x 2.7 x 1.8 cm focal area of ring enhancement persisting in this region and possibly indicating Infectious collection. IMPRESSION: 1. Moderate left hydronephrosis. 2. Left perinephric compare ureteral stranding with minimal mural thickening of the left ureter, nonspecific and similar in appearance to previous study with clinical exclusion of infection recommended. 3. Interval near complete resolution of previously noted collection within the left ileo psoas muscle with 3.4 x 2.7 x 1.8 cm focal area of ring enhancement persisting in this region and possibly indicating Infectious collection. 4. Question mural thickening of the collapsed urinary bladder, raising the possibility of urinary cystitis. Dictated and Authenticated by: Gibran Dent MD. Ordering:JUANJO Leary MD
[2019-07-17] MEDS: Normal Saline 1,000 ML 150 ML IV ×4 (02:07→19:59)
--- NOTE | 2019-07-17 03:35 | NUR.NOTE ---
Verified zosyn order with MD Hauser. States was told by Dr Zuleta that next dose to be give 4 hours after 1st dose.
--- NOTE | 2019-07-17 06:23 | HPE_ITS ---
Date of service: 07/17/19 Time of Service: 06:23 Assessment and Plan Assessment and plan (1) Sepsis: Status: Acute Assessment and plan: Previous cultures from his left psoas abscess grew Enterobacter cloacae and Streptococcus milleri which were sensitive to Zosyn. He was started on Zosyn 4.5 g in the emergency department which I have continued. Blood and urine cultures are pending at this time. We will need to coordinate with [facility] regarding his treatment including review of his current CT scan with his last CT scan from [facility] to determine whether or not this 3.4 x 2.7 x 1.8 cm focal area of ring enhancement is a new collection or just residual inflammation from his previous abscess. Qualifiers: Sepsis acute organ dysfunction status: without acute organ dysfunction Sepsis type: sepsis due to unspecified organism Qualified Code(s): A41.9 - Sepsis, unspecified organism (2) Complicated UTI (urinary tract infection): Status: Acute Assessment and plan: antibiotics as above. Follow up conversation w/ urology and IR at [facility] to coordinate treatment and to ensure that there is no evidence for residual abscess (3) Uncontrolled diabetes mellitus: Status: Chronic Assessment and plan: In light of his recent CT scan and the potential need for interventional drain I have placed his metformin and his glipizide on hold but will treat his diabetes mellitus with short acting NovoLog for carbohydrate coverage at mealtime and snacks as well as use of a insulin resistant sliding scale. Continue his current dose of Lantus 80 units daily. Monitors blood sugars AC and HS. Qualifiers: Diabetes mellitus type: type 2 Glycemic state: with hyperglycemia Qualified Code(s): E11.65 - Type 2 diabetes mellitus with hyperglycemia (4) Psoas abscess, left: Status: Suspected Assessment and plan: Reportedly there was no residual abscess collection at the time his INGRID drain was removed on July 14, 2019. No mention was made of the ring enhancing area seen on our CT scan. History of Present Illness History of Present Illness Chief Complaint: fever 101.9, fast heart rate Narrative: 54-year-old male with history of colon cancer with metastasis of the peritoneum and nephrostomy tube, diabetes mellitus type 2 requiring insulin who was hospitalized at [facility] from April 16, 2019 through April 21, 2019 for severe sepsis due to a left psoas abscess felt to be secondary to ureteral disruption during periaortic node and retroperitoneal mass ablation during an IR procedure. Cultures from the psoas abscess grew Streptococcus milleri and Enterobacter cloacae. Patient was treated initially with broad-spectrum antibiotics including vancomycin and Zosyn and when the culture results became available his antibiotic therapy was narrowed to monotherapy with Zosyn 3.375 g every 8 hours. Upon discharge he was put on a 4- week course of cefepime 2 g every 8 hours. Prior to discharge and IR nephrosto gram showed no communication between the abscess and the urinary tract. INGRID drain from the abdominal abscess was removed this past Sunday July 14, 2019 at [facility]. Patient was evaluated emergency department by Dr. Gibran Hauser perform routine labs including CBC, CMP, lactate level, procalcitonin, and obtain urine and blood cultures and a CT scan of the abdomen and pelvis. The radiologist's impression of his current CT scan showed moderate left hydronephrosis. Left perinephric ureteral stranding with minimal mural thickening of the left ureter similar in appearance to previous study and interval near complete resolution of previously noted collection within the left iliopsoas muscle with a residual 3.4 x 2.7 x 1.8 cm focal area of ring enhancement persisting in this region as well as questionable mural thickening of the collapsed urinary bladder. Dr. Hauser spoke with Dr. Fink from interventional radiology at [facility] who reviewed the current CT findings and did not feel that the patient required urgent drainage and did not require a change of the nephrostomy tube. Dr. Fink felt the patient could be treated here at [facility] with antibiotics. Labs were consistent with a urinary tract infection with a urinalysis that was cloudy with moderate blood and positive nitrites trace of leukocyte Estrace and greater than 50 white cells per high-powered field Gram stain was not performed to the copious amount of white cells obscuring microscopic exam. CBC demonstrate a white count of 13,270 with a leftward shift. Blood lactate level was elevated at 1.7 and procalcitonin was elevated at 1.2. BUN and creatinine were normal at 14 and 1.15. Glucose is elevated at 370 and magnesium is low at 1.5. Treatment in the emergency department included initiation of Zosyn 4.5 g and was given parenteral magnesium and IV fluids. Patient is now admitted for treatment of sepsis from urinary source. Close follow-up will need to be coordinated with [facility] interventional radiology and urology regarding his nephrostomy and previous retroperitoneal abscess. Review of Systems Constitutional Constitutional: Reports fatigue, Reports fever(s) and Reports weakness Cardiovascular Cardiovascular: Reports system reviewed and no additional complaints, except as docu Respiratory Respiratory: Reports system reviewed and no additional complaints, except as docu Gastrointestinal Gastrointestinal: Reports abdominal pain (mild tenderness around former INGRID drain site), Denies diarrhea, Denies nausea and Denies vomiting Genitourinary Genitourinary: Reports other (cloudiness to urine from nephrostomy tube) Musculoskeletal Musculoskeletal: Reports muscle weakness Integumentary/Breasts Skin/Breast: Reports wounds (former left sided INGRID drain site w/ some cream colored drainage) Neurologic Neurologic: Reports weakness Endocrine Endocrine: Reports fatigue [facility] Medical History Cancer related pain (Acute) Diabetes mellitus Essential hypertension Fatigue (Chronic) Fatty liver Femoral nerve injury (Acute) Fracture of distal fibula (Resolved) Hypercholesterolemia Injury due to procedure (Acute) 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 Mediport placement (10/21/16) Nephrostomy status (Acute) Partial resection of colon (~2011) SIGMOID S/P ureteral stent placement (Acute) Family History Father Heart disease Dementia AAA (abdominal aortic aneurysm) Mother No problems noted. Brother No problems noted. Son No problems noted. Daughter No problems noted. 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 [employer] Pets and animals: No What is your relationship status?: How often do you talk on the phone with friends or family?: once per week How often do you get together with friends or relatives?: once per week Panel score (0-1 are the most socially isolated patients): 1 What type of physical activity do you participate in: walking, assisted ambulation, occasional exercise and additional Details: hopes to go ice fishing and snowmobiling this winter Special benoit needs: No Agree to transfusion: Yes Seatbelt use: always Drive intox or ride w/intox chain saw driver: No Working smoke detector in home: Yes Carbon monox detector in home: Yes Firearms in home: No Do you feel safe at home: Yes Do you feel safe in your relationship?: Yes Additional Social history: has been struggling with colon cancer since 2011. In past, has worked 80 hrs/week in the winter. Took summer 2018 off then had procedure that caused femoral nerve injury. Now walks with cane. Cannot return to work. May be permanently disabled. Happier not working at this time. Lots of medical appointments to keep.... Meds Home Medications and Allergies Home Medications Medication Instructions Recorded Confirmed Type gemfibrozil [Lopid] 600 mg PO HS tab-cap 10/17/12 07/16/19 History aspirin [Aspirin Low-Strength] 81 mg PO DAILY tab-cap 10/27/12 07/16/19 History atorvastatin [Lipitor] 20 mg PO HS tab-cap 10/27/12 07/16/19 History glipizide 10 mg PO BID tab-cap 10/27/12 07/16/19 History metformin 1,000 mg PO DAILY tab-cap 10/27/12 07/16/19 History metformin 1,500 mg PO HS 01/05/14 07/16/19 History multivitamin 1 cap PO DAILY 01/05/14 07/16/19 History insulin glargine 100 unit/mL (3 80 unit SUBCUT DAILY ml 11/08/18 07/16/19 History mL) subcutaneous pen lisinopril 20 mg tablet 10 mg PO HS tab 11/08/18 07/16/19 History gabapentin 300 mg capsule 300 mg PO TID #90 cap MDD 900 mg 03/28/19 07/16/19 Rx Allergies Allergy/AdvReac Type Severity Reaction Status Date / Time No Known Allergies Allergy Unverified 05/29/19 08:35 Exam Narrative Exam Narrative: Middle-aged obese male lying in bed sleeping. He awakens easily and is alert and oriented person place time circumstance. He denies any pain and is in no acute distress. HEENT is remarkable for dry mucous membrane. Face appears to be flush with a reddened complexion. Neck supple without tenderness and without JVD or lymphadenopathy. Normal carotid pulses but tachycardic. Lungs clear to auscultation. Heart is regular but tachycardic without murmur rub or gallop. Abdomen is obese with normal active bowel sounds. In the left lower quadrant there is a small wound which appears to be the presumed INGRID drain site. The area is about dime sized in induration and has a central shallow wound that appears to be 2 to 3 mm in diameter and draining some creamy colored material. This area is somewhat tender to palpation. The rest of the abdomen was nontender to deep palpation. I do not appreciate masses nor hepatosplenomegaly. Lower extremities without peripheral cyanosis or edema. There is no calf tenderness. Pedal pulses are normal. Neuro exam he is alert and oriented person place time circumstance. He has no facial asymmetry normal speech. He moves both upper extremities normally. Seems to be able to move both lower extremities although I did not perform manual muscle testing to assess strength in his left leg. Results Imaging CT scan - chest: report reviewed (COMPARISON: CT ABDOMEN PELVIS W 04/16/2019 1:49 PM FINDINGS: Lungs: Unremarkable. No consolidation. No masses. Pleural space: Unremarkable. No pneumothorax. No pleural effusion. Heart: Unremarkable. No cardiomegaly. No pericardial effusion. Aorta: Unremarkable. No aortic aneurysm. Lymph nodes: Unrem) CT scan - pelvis: report reviewed (COMPARISON: CT ABDOMEN PELVIS W 04/16/2019 1:49 PM FINDINGS: Liver: Normal. No mass. Gallbladder and bile ducts: Normal. No calcified stones. No ductal dilation. Pancreas: Normal. No ductal dilation. Spleen: Normal. No splenomegaly. Adrenals: Normal. No mass. Kidneys and ureters: Left percutaneous ) Labs Result diagrams: 07/17/19 07:15 07/17/19 07:15 Labs: Laboratory Results - last 24 hr 07/16/19 07/16/19 07/16/19 23:40 23:40 23:40 WBC 13.27 H RBC 4.51 Hgb 12.7 L Hct 36.7 L MCV 81.4 MCH 28.2 MCHC 34.6 RDW 13.9 Plt Count 279 MPV 10.2 Immature Gran % 0.4 Neutrophils % 79.1 Lymphocytes % 7.3 Monocytes % 9.0 Eosinophils % 3.7 Basophils % 0.5 Absolute Neutrophils 10.50 H Absolute Lymphocytes 0.97 L Absolute Monocytes 1.19 H Absolute Eosinophils 0.49 Absolute Basophils 0.07 PT INR APTT VBG pH VBG pCO2 VBG pO2 VBG HCO3 VBG Total CO2 VBG O2 Saturation VBG Base Excess Sodium 130 L Potassium 4.5 Chloride 95 L Carbon Dioxide 23.0 Anion Gap 12.0 H BUN 14 Creatinine 1.15 Estimated GFR/1.73 m2 >= 60.00 Glucose 370 H Lactate 1.7 H Calcium 9.2 Magnesium 1.5 L Total Bilirubin 0.5 AST 21 ALT 31 Alkaline Phosphatase 79 Total Protein 9.2 H Albumin 2.7 L Procalcitonin 1.2 Urine Color Urine Clarity Urine pH Ur Specific Renton Urine Protein Urine Ketones Urine Blood Urine Nitrite Urine Bilirubin Urine Urobilinogen Ur Leukocyte Esterase Urine RBC Urine WBC Ur Epithelial Cells Urine Crystals Urine Bacteria Urine Mucus Ur Culture Indicated? Urine Glucose 07/16/19 07/16/19 07/16/19 23:40 23:40 23:50 WBC RBC Hgb Hct MCV MCH MCHC RDW Plt Count MPV Immature Gran % Neutrophils % Lymphocytes % Monocytes % Eosinophils % Basophils % Absolute Neutrophils Absolute Lymphocytes Absolute Monocytes Absolute Eosinophils Absolute Basophils PT 10.1 INR 1.0 APTT 26.1 VBG pH 7.41 VBG pCO2 37 VBG pO2 47 H VBG HCO3 24 VBG Total CO2 21 L VBG O2 Saturation 83 H VBG Base Excess -1.0 Sodium Potassium Chloride Carbon Dioxide Anion Gap BUN Creatinine Estimated GFR/1.73 m2 Glucose Lactate Calcium Magnesium Total Bilirubin AST ALT Alkaline Phosphatase Total Protein Albumin Procalcitonin Urine Color Yellow Urine Clarity Sl cloudy Urine pH 6.0 Ur Specific Renton 1.025 Urine Protein >=300 H Urine Ketones Negative Urine Blood Moderate H Urine Nitrite Positive H Urine Bilirubin Negative Urine Urobilinogen 0.2 Ur Leukocyte Esterase Trace H Urine RBC Not Applicable Urine WBC >50 H Ur Epithelial Cells Not Applicable Urine Crystals Not Applicable Urine Bacteria Not Applicable Urine Mucus Not Applicable Ur Culture Indicated? C&s done as ordered Urine Glucose 500 H Last Vital Signs Temp 37.4 C 07/17/19 04:01 Pulse 116 H 07/17/19 05:12 Resp 18 07/17/19 04:01 BP 119/71 07/17/19 04:01 Pulse Ox 96 07/17/19 04:01
[2019-07-17 07:27] LABS: Abs Immature Grans 0.05 k/cumm (0.0-0.09); Absolute Basophil Count 0.03 k/cumm (0.0-0.2); Absolute Lymphocyte Count 0.67 k/cumm (1.2-3.4); Absolute Monocyte Count 1.07 k/cumm (0.11-0.7); Absolute Neutrophil Count 9.26 k/cumm (1.2-6.7); Basophils % 0.3; Eosinophils % 2.6; HCT 32.6 % (40.0-50.0); HGB 11.1 g/dL (13.5-17.5); Immature Grans % 0.4 %; Lymphocytes % 5.9; Mean Corpuscular Volume 82.3 fL (80-95); Mean Platelet Volume 10.3 fL (8.0-11.0); Monocytes % 9.4; Neutrophils % 81.4; Platelet Count 232 x1000/uL (130-400); RBC 3.96 m/cumm (4.50-6.00); RBC Distribution Width 13.9 % (11.8-14.1); White Blood Cell Count 11.37 k/cumm (4.4-10.8)
[2019-07-17 07:28] LABS: Lactate 1.1 mmol/L (0.6-1.4)
[2019-07-17 07:43] LABS: ALT 27 U/L (16-63); AST 21 U/L (15-37); Albumin 2.3 g/dL (3.4-5.0); Alkaline Phosphatase 67 U/L (46-116); Anion Gap 9.3 mmol/L (3-11); BUN 12 mg/dL (7-18); Bilirubin, Total 0.7 mg/dL (0.2-1.0); CO2 22.7 mmol/L (21.0-32.0); CREATININE 1.03 mg/dL (0.70-1.30); Calcium 8.5 mg/dL (8.5-10.1); Chloride 97 mmol/L (98-107); Glucose 337 mg/dL (74-106); Magnesium 1.6 mg/dL (1.8-2.4); Potassium 4.4 mmol/L (3.5-5.1); Sodium 129 mmol/L (136-145)
[2019-07-17] MEDS: Gabapentin 300 MG CAP PO ×2 (08:28→19:59)
[2019-07-17] MEDS: Multivitamin TAB 1 TAB PO (08:28)
[2019-07-17] MEDS: Aspirin 81 MG CHEW PO (08:28)
[2019-07-17] MEDS: Insulin Glargine 300 UNITS/3 ML PEN 80 UNITS SC (08:29)
[2019-07-17] MEDS: Insulin Aspart 300 UNITS/3 ML PEN SC ×2 (08:35→11:35)
[2019-07-17 08:38] LABS: Procalcitonin 1.3 ng/mL
--- NOTE | 2019-07-17 09:43 | NUR.NOTE ---
Nursing Note: Dressing around old INGRID tube site with dressing. Dressing with yellowish drainage noted. Drainage on sheets also.
--- NOTE | 2019-07-17 10:02 | NUR.NOTE ---
Nursing Note: DSG CHANGE TO OLD INGRID SITE. PREVIOUS NOTE WAS THAT THERE WAS DRAINAGE NOTED ON SHEETS. UPON REEVALUATION THERE WAS NOT DRAINAGE ON SHEET. THERE WAS A SMALL AMOUNT OF YELLOW DRAINAGE ON THE TIP OF THE DRESSING. DRESSING CHANGED.
--- NOTE | 2019-07-17 12:09 | PDOC.CMIN ---
- If Service Date Differs Date of service: 07/17/19 Time of Service: 12:09 Care Management Initial Assess REASON FOR HOSPITALIZATION:: Sepsis/UTI PAST MEDICAL HISTORY/PAST SURGICAL HISTORY:: Medical History. Cancer related pain (Acute). Diabetes mellitus. Essential hypertension. Fatigue (Chronic). Fatty liver. Femoral nerve injury (Acute). Fracture of distal fibula (Resolved). Hypercholesterolemia. Injury due to procedure (Acute). 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 Monoclonal gammopathy of unknown significance. Obesity. Palliative care patient (Chronic). Peritoneal metastases (Acute). Psoas abscess, left (Resolved). Recurrent colorectal adenocarcinoma (Chronic). first diagnosed 2011. Sleep apnea. USES CPAP. TUBULOVILLOUS ADENOMA. Uncontrolled diabetes mellitus (Chronic). Unintentional weight loss (Acute). Unsteady gait (Acute). Surgical History. Colonoscopy - IV Sedation (~2011). 2014. Laparotomy. 2013- debulking of tumor in the pelvis and ureterolysis. Mediport placement (10/21/16). Nephrostomy status (Acute). Partial resection of colon (~2011). SIGMOID. S/P ureteral stent placement (Acute) PREVIOUS FUNCTIONAL STATUS/SOCIAL/FAMILY SUPPORTS:: Benigno lives in [place] with his , Lori, and two children, who are 19 and 12. 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 He no longer works as he is on disability due to complications from surgery and colon cancer. Lori assists him with his ADL's, and drives him places. They have an somali chairez at home who they love. CURRENT FUNCTIONAL STATUS:: Benigno was lying in bed when CM met with him. His , Lori was in the room. Benigno reported that he would be going [place] [facility] [place]. Per provider, he will return from [facility] [place] after his procedure. Benigno stated that he has had a difficult couple of months medically, and is hoping to become stable. CM will continue to follow. ADVANCE DIRECTIVES:: None on file. Has patient been provided with information about the portal?: Yes Did the patient sign up for the portal?: Yes (previously offered) CODE STATUS:: Full Code INSURANCE COVERAGE / FINANCIAL ISSUES:: BCBS/ Health Plans CURRENT HOME/COMMUNITY SERVICES/EQUIPMENT:: Benigno uses a cane while ambulating. PRIMARY CARE PHYSICIAN:: Chetan Jaquez POTENTIAL DISCHARGE NEEDS:: Evalutation for further needs, follow up appointments PATIENT/FAMILY EDUCATION NEEDS:: Review discharge instructions, discussion of self care needs including Ask Me Three ANTICIPATED BARRIERS TO DISCHARGE:: None identified at this time. TRANSPORTATION:: His will drive him home via private vehicle when ready. PLAN:: Benigno will have a down and back transfer [place] [facility] [place]. Anticipate he will return home with no additional services when medically cleared. His , Lori, will drive him home via private vehicle when ready. He will have follow up appointments, as recommended. CM will continue to follow and support discharge planning considerations.
--- NOTE | 2019-07-17 13:31 | NUR.NOTE ---
Nursing Note:PT TO [facility]BULANCE FOR APPOINTMENT AND WILL RETURN AFTER PROCEDURE.
--- NOTE | 2019-07-17 14:57 | NS.NUTBLAN_ITS ---
Date of service: 07/17/19 Time of Service: 14:57 Nutritional Consult ASSESSMENT: 54 year old male admitted with complicated UIT, sepsis, psoas abscess s/p ureteral stent with uncontrolled diabetes. clinical staff educator following. BMI indicates overweight status. NPO today for procedure however po intake in last couple days were adequate. At high nutritional risk in view of poorly controlled diabetes. Will follow weight, po intake and blood sugar trends. Time Spent in Nutritional Counseling and Treatment: 0 time spent face to face
--- NOTE | 2019-07-17 16:00 | HOME_ITS ---
Home Ventilator Equipment Home care company [employer] Reason: Obstructive Sleep Apnea Make: Respironics Model: Dreamstation Mask type: Nasal mask Mask size: Medium Mode: BiPAP Settings: 18/8 W/ PS 5 Oxygen bleed in (lpm): Condition: Good Date last checked: 07/17/19 Year of last sleep study: Compliance YES Comments:
[2019-07-17] MEDS: Normal Saline Flush 10 ML SYR IVP (19:59)
--- NOTE | 2019-07-17 22:12 | NUR.NOTE ---
Patient arrived back from [facility] on stretcher at 1903 with Calex mauro Womack and another medical personnel. Patient aaox3, vss, see assessmentNursing Note:
[2019-07-17] MEDS: Gemfibrozil 600 MG TAB PO (23:03)
[2019-07-17] MEDS: Atorvastatin 20 MG TAB PO (23:03)
[2019-07-18] VITALS (11 sets, daily range): BP systolic 108–148; BP diastolic 66–81; PULSE 95–112; RESP 17–19; TEMP 36.9–37.4; O2SAT 96–98
[2019-07-18] MEDS: PIPERACILLIN/TAZO 4.5 GM in Normal Saline 100 ML IVPB ×3 (06:21→23:11)
[2019-07-18 07:39] LABS: Abs Immature Grans 0.03 k/cumm (0.0-0.09); Absolute Basophil Count 0.03 k/cumm (0.0-0.2); Absolute Eosinophil Count 0.49 k/cumm (0.0-0.7); Absolute Lymphocyte Count 0.65 k/cumm (1.2-3.4); Absolute Monocyte Count 0.84 k/cumm (0.11-0.7); Absolute Neutrophil Count 7.79 k/cumm (1.2-6.7); Basophils % 0.3; HCT 31.5 % (40.0-50.0); HGB 10.6 g/dL (13.5-17.5); Immature Grans % 0.3 %; Lymphocytes % 6.6; Mean Corp. HGB Concentration 33.7 g/dL (32.0-36.0); Mean Corpuscular Hemoglobin 28.2 pg (27.0-33.0); Mean Corpuscular Volume 83.8 fL (80-95); Mean Platelet Volume 10.2 fL (8.0-11.0); Monocytes % 8.5; Neutrophils % 79.3; Platelet Count 235 x1000/uL (130-400); RBC 3.76 m/cumm (4.50-6.00); White Blood Cell Count 9.83 k/cumm (4.4-10.8)
[2019-07-18 07:49] LABS: Anion Gap 8.3 mmol/L (3-11); BUN 12 mg/dL (7-18); CO2 23.7 mmol/L (21.0-32.0); CREATININE 0.99 mg/dL (0.70-1.30); Calcium 8.3 mg/dL (8.5-10.1); Chloride 102 mmol/L (98-107); Glucose 196 mg/dL (74-106); Magnesium 1.6 mg/dL (1.8-2.4); Potassium 4.1 mmol/L (3.5-5.1); Sodium 134 mmol/L (136-145)
[2019-07-18 08:43] LABS: Procalcitonin 1.3 ng/mL
[2019-07-18] MEDS: Multivitamin TAB 1 TAB PO (09:12)
[2019-07-18] MEDS: Gabapentin 300 MG CAP PO ×3 (09:12→20:43)
[2019-07-18] MEDS: Aspirin 81 MG CHEW PO (09:12)
[2019-07-18] MEDS: Insulin Aspart 300 UNITS/3 ML PEN SC ×5 (09:13→17:42)
[2019-07-18] MEDS: Insulin Glargine 300 UNITS/3 ML PEN 80 UNITS SC (09:14)
[2019-07-18] MEDS: Normal Saline Flush 10 ML SYR IVP ×3 (09:16→23:10)
[2019-07-18] MEDS: Normal Saline 1,000 ML 150 ML IV (11:18)
--- NOTE | 2019-07-18 11:50 | PHARADMIT ---
Addendum entered by Maggie Wood 07/20/19 11:40: Pharmacy Note Subjective Has a J-P drain for Psoas abscess Objective VS ok, temp 37.6, lytes good, BG 119, Procalcitonin unchanged 1.3 Assessment Zosyn/Vanco dc'd ( was calling [facility] about results from their intra-op cultures) Changed to Rocephin 2gram IV Q24h Metoprolol added yesterday for Tachy..improved, is on Tele Plan Possible Echo, C-reactive protein pending (was 16.9 on 07/18/19) Original Note: Admission Pharmacy Clinical Review SEPSIS, UTI Code Status Full Code Current Weight 104 kg Renally Cleared and Narrow Therapeutic Index Meds CrCl ~101ML/MIN QTc Value / Action Taken BP Control, Fever BP 108/66, afebrile Electrolytes reviewed Na 134, K+ 4.1, Mag 1.6 DVT Prophylaxis ASA 81mg qd Opiate Usage / Scheduled Bowel Regimen Ordered None Plt/SCr for Heparin / Enoxaparin Plt 235, Scr 0.99 INR for Warfarin H/H stable, WBC/Bands H/H 10.6/31.5, WBC 9.83 (down from 13.27) Antibiotic appropriateness Pip/Rubén (day 2) + Vanco (day 1) Cultures and Sensitivities Urine culture: Gram+, Staph Aureus; sensitivity to follow Surgical ABX d/c within 24 hr DM control / Insulin Dosing Aspart per SS, glargine 80u @ hs, finger sticks: 124-364 Heart Failure (Check EF%) (MOLLY's, B-Block, Diuretics) Lisinopril (per home med list) IV to PO Switch Home Meds Reviewed Yes -- all ok Home Meds Not Ordered Glipizide, metformin, lisinopril Comments Procalcitonin 1.3 Zosyn is extended infusion
[2019-07-18] MEDS: MAGNESIUM SULFATE 2 GM/50 ML BAG IVPB (12:02)
--- NOTE | 2019-07-18 12:47 | W.NUTRFU ---
Date of service: 07/18/19 Time of Service: 12:48 Nutritional Follow up NOTE: CDE has reviewed chart, no new recommendations at this time. Time Spent in Nutritional Counseling and Treatment: 0
--- NOTE | 2019-07-18 13:03 | W.PALLCONSUL ---
Date of service: 07/18/19 History of Present Illness History of Present Illness Chief Complaint: sepsis due to psoas abscess following MOHAN for colon mets Narrative: Benigno developed a high fever and pain on Wednesday. He knew immediately that he was getting septic again. He had the drain from his psoas abscess pulled on Wednesday, after being present x months. The following day he felt tired, a bit punk. But on Wednesday, he was very ill again. He went to [facility] yesterday to have the drain replaced. He is feeling much better. Dr Braun has him on vancomycin. He would like to be discharged home and come in for IV abx, if possible. In the past, he did this, even when his treatment consisted of TID dosing. Finally, I was asked to address his CODE status with him again. He is clear that for now he wants to remain FULL CODE. I explained that his chance of surviving a code is much lower than the average man his age due to his metastatic colon cancer. He wants to try to survive still, even if he is not as able to function as he is now. We decided to table any further discussion until his could be present, too. Consults Consult date: 07/18/19 Requesting physician: Pamela Braun Assessment and Plan Assessment and plan (1) Sepsis: Status: Acute Assessment and plan: continue management by hospitalist team was not as critically ill this time as last bout with sepsis; recognized his sx early and came in. again linked to his recurrent/persistent psoas abscess, now down to 2.5 cm in size drain in, draining scant amount of grossly bloody fluid on pip tazo and vanco. 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 Assessment and plan: MOHAN caused psoas abscess, now recurrent, as well as left femoral nerve injury he is not happy about these s/e (3) Psoas abscess, left: Status: Suspected Assessment and plan: recurrent drain back in, infection recurred within 48 hrs of removal Benigno tells me that his oncologist, Dr Saldivar, was very worried about the timing of the drain removal as his WBC was climbing the day it was scheduled he recommended the procedure (drain removal) be postponed, per Benigno really doesn't want this to recur takes a lot out of him, physically and mentally (4) Nephrostomy status: Status: Acute Assessment and plan: tube remains (5) Recurrent colorectal adenocarcinoma: Status: Chronic Assessment and plan: under care of Dr Saldivar not currently getting treatment for his cancer watching and waiting has known mets is slowly losing weight not planning on returning to work feeling ok for now (6) Goals of care, counseling/discussion: Status: Acute Assessment and plan: Wants to remain FULL CODE for now. Any detailed discussion requires his be present. Began explanation of CPR, odds of survival, etc, but decided to table it until Lori present. (7) Cancer related pain: Status: Acute Assessment and plan: not on any narcotics at this time continue with gabapentin has a high pain tolerance Review of Systems Constitutional Constitutional: Reports body ache(s), Reports fatigue, Reports fever(s), Reports weakness and Reports weight loss Comments: already feeling much better than he did 48 hrs prior to my visit Eyes Eyes: Reports blurry vision (when his glucose is high), Reports dry eyes and Reports requires corrective lenses ENT Ears, Nose, Mouth, and Throat: Reports dry mouth and Reports disequilibrium Cardiovascular Cardiovascular: Reports rapid heart rate (his baseline is around 110. When septic, 130s or more.), Reports lightheadedness and Reports dyspnea on exertion Respiratory Respiratory: Reports dyspnea on exertion Gastrointestinal Gastrointestinal: Reports abdominal pain and Reports constipation Comments: drain in LLQ with sanguinous fluid, does not appear purulent Genitourinary Genitourinary: Reports other (has nephrostomy tube in place on left ) Musculoskeletal Musculoskeletal: Reports arthralgias and Reports stiffness Integumentary/Breasts Skin/Breast: Reports dry skin Neurologic Neurologic: Reports disequilibrium and Reports weakness Psychiatric Psychiatric: Reports depression (tries to keep his spirits up) and Reports hopelessness (very frustrated with the multiple complications he has had from his MOHAN ) Endocrine Endocrine: Reports fatigue Hematologic/Lymphatic Hematologic/Lymphatic: Reports easy bruising [facility] Medical History Cancer related pain (Acute) Diabetes mellitus Essential hypertension Fatigue (Chronic) Fatty liver Femoral nerve injury (Acute) Fracture of distal fibula (Resolved) Hypercholesterolemia Injury due to procedure (Acute) Late effect of complications of procedure (Chronic) 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 Mediport placement (10/21/16) Nephrostomy status (Acute) Partial resection of colon (~2011) SIGMOID S/P ureteral stent placement (Acute) Family History Father Heart disease Dementia AAA (abdominal aortic aneurysm) Mother No problems noted. Brother No problems noted. Son No problems noted. Daughter No problems noted. 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 [employer] Pets and animals: No What is your relationship status?: How often do you talk on the phone with friends or family?: once per week How often do you get together with friends or relatives?: once per week Panel score (0-1 are the most socially isolated patients): 1 What type of physical activity do you participate in: walking, assisted ambulation, occasional exercise and additional Details: hopes to go ice fishing and snowmobiling this winter Special benoit needs: No Agree to transfusion: Yes Seatbelt use: always Drive intox or ride w/intox 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 In past, has worked 80 hrs/week in the winter. Took summer 2018 off then had procedure that caused femoral nerve injury. Now walks with cane. Cannot return to work. May be permanently disabled. Happier not working at this time. Lots of medical appointments to keep.... Exam Narrative Exam Narrative: Middle-aged overweight male. Sitting up in chair, by himself.. He is alert and oriented person place time circumstance. He denies any pain and is in no acute distress. HEENT is remarkable for dry mucous membrane. Face appears to be flushed slightly. Neck supple without tenderness and without JVD or lymphadenopathy. Normal carotid pulses but tachycardic. Lungs clear to auscultation. Heart is regular but tachycardic without murmur rub or gallop. Abdomen is obese with normal active bowel sounds. In the left lower quadrant there is a INGRID drain site.. The rest of the abdomen was nontender to deep palpation. No masses nor hepatosplenomegaly. Lower extremities without peripheral cyanosis or edema. There is no calf tenderness. Pedal pulses are normal. Neuro exam he is alert and oriented person place time circumstance. He has no facial asymmetry normal speech. He moves both upper extremities normally. Psych: looks frustrated, tired. Hates being sick skin no obvious edema or erythema at site of his new INGRID drain. Results Last Vital Signs Temp 98.6 F 07/18/19 07:25 Pulse 112 H 07/18/19 07:25 Resp 18 07/18/19 07:25 BP 108/66 07/18/19 07:25 Pulse Ox 97 07/18/19 07:25 Labs Result diagrams: 07/18/19 06:35 07/18/19 06:35 Labs: Laboratory Results - last 24 hr 07/18/19 07/18/19 07/18/19 06:35 06:35 06:35 WBC 9.83 RBC 3.76 L Hgb 10.6 L Hct 31.5 L MCV 83.8 MCH 28.2 MCHC 33.7 RDW 14.0 Plt Count 235 MPV 10.2 Immature Gran % 0.3 Neutrophils % 79.3 Lymphocytes % 6.6 Monocytes % 8.5 Eosinophils % 5.0 Basophils % 0.3 Absolute Neutrophils 7.79 H Absolute Lymphocytes 0.65 L Absolute Monocytes 0.84 H Absolute Eosinophils 0.49 Absolute Basophils 0.03 Sodium 134 L Potassium 4.1 Chloride 102 Carbon Dioxide 23.7 Anion Gap 8.3 BUN 12 Creatinine 0.99 Estimated GFR/1.73 m2 >= 60.00 Glucose 196 H D Calcium 8.3 L Magnesium 1.6 L Procalcitonin 1.3
--- NOTE | 2019-07-18 16:39 | W.PM.PROGNOT ---
Date of Service Date of service: 07/18/19 Time of Service: 16:39 Assessment and Plan Assessment and plan (1) Sepsis: Status: Acute Assessment and plan: Multifactorial, though due to anatomy, the two processes may be connected - due to Staph UTI POA as well as recurrent/reaccumulated L psoas abscess. S/p new L abscess drain by IR at [facility] 07/18/2019. On zosyn day 2 and vancomycin day 1. Await sensitivities of the urine C&S and inquire with [facility] as to results of the intraop culture done there. Will consult with ID once culture results are known. Qualifiers: Sepsis type: sepsis due to unspecified organism Sepsis acute organ dysfunction status: without acute organ dysfunction Qualified Code(s): A41.9 - Sepsis, unspecified organism (2) Complicated UTI (urinary tract infection): Status: Acute Assessment and plan: As above (3) Psoas abscess, left: Status: Suspected Assessment and plan: As above (4) Uncontrolled diabetes mellitus: Status: Chronic Assessment and plan: Continue basal bolus insulin Qualifiers: Diabetes mellitus type: type 2 Glycemic state: with hyperglycemia Qualified Code(s): E11.65 - Type 2 diabetes mellitus with hyperglycemia (5) Colon cancer: Status: Chronic Assessment and plan: Follow up with oncology as outpatient. Palliative care on board (6) DVT prophylaxis: Status: Acute Assessment and plan: SC heparin (7) Discharge planning issues: Status: Acute Assessment and plan: Full code Disposition will depend on cultures/sensitivities/ID recommendations Subjective Subjective Interval history since last seen: Mr Yap states he feels a lot better today. Denies dizziness, chest pain, shortness of breath, nausea, vomiting. Exam Narrative Exam Narrative: General: Very pleasant middle-aged male, A&Ox3, laying comfortably in bed HEENT: EOMI, MMM Heart: RRR, no m/r/g Lungs: CTAB Abdomen: soft; nontender, nondistended; LLQ INGRID drain; L flank with nephrostomy catheter connected to a leg bag Extremities: no e/c/c BLE's Objective Objective Clinical Data: Abnormal lab results 07/18/19 07/18/19 Range/Units 06:35 06:35 RBC 3.76 L (4.50-6.00) m/cumm Hgb 10.6 L (13.5-17.5) g/dL Hct 31.5 L (40.0-50.0) % Absolute Neutrophils 7.79 H (1.2-6.7) k/cumm Absolute Lymphocytes 0.65 L (1.2-3.4) k/cumm Absolute Monocytes 0.84 H (0.11-0.7) k/cumm Sodium 134 L (136-145) mmol/L Glucose 196 H D (74-106) mg/dL Calcium 8.3 L (8.5-10.1) mg/dL Magnesium 1.6 L (1.8-2.4) mg/dL C-Reactive Protein 16.90 H (0.0-0.3) mg/dL Vital Signs Temperature 37.1 C 07/18/19 16:30 Temperature Source Tympanic 07/18/19 16:30 Pulse 101 H 07/18/19 16:30 Pulse Rhythm Regular 07/18/19 16:20 Respiratory Rate 18 07/18/19 16:30 Respiratory Effort Non-Labored 07/18/19 16:20 Respiratory Depth Normal 07/18/19 16:20 Respiratory Pattern Normal 07/18/19 16:20 Blood Pressure 122/75 07/18/19 16:30 Blood Pressure Position Sitting 07/16/19 23:36 Pulse Oximetry 96 07/18/19 16:30 Oxygen Delivery Method Room Air 07/18/19 16:30 Oxygen Flow Rate 0 07/18/19 16:30 Fraction of Inspired Oxygen (FIO2) 21 07/18/19 08:16 Pain Level 0 07/18/19 16:30 Comment 07/17/19 07:45 Intake & Output 07/17/19 07/18/19 07/18/19 23:59 11:59 23:59 Intake Total 2062.5 / 4600.0 1930 / 1930 Output Total 875 / 2175 1250 / 1250 Balance 1187.5 / 2425.0 680 / 680 Weight 104 kg Intake: IV 1822.5 / 3880.0 1200 / 1200 Oral 240 / 720 730 / 730 Output: Drainage 0 / 0 L SIDE INGRID DRAIN 0 / 0 Urine 875 / 2175 1250 / 1250 Other: Urine Color Yellow Yellow Urine Appearance Clear Cloudy Urine Odor None Comment nephrostomy VOIDS SOME ON OWN AND NEPHROSTOMY TUBE TO LEG BAG. Laboratory Results WBC 9.83 k/cumm (4.4-10.8) 07/18/19 06:35 RBC 3.76 m/cumm (4.50-6.00) L 07/18/19 06:35 Hgb 10.6 g/dL (13.5-17.5) L 07/18/19 06:35 Hct 31.5 % (40.0-50.0) L 07/18/19 06:35 MCV 83.8 fL (80-95) 07/18/19 06:35 MCH 28.2 pg (27.0-33.0) 07/18/19 06:35 MCHC 33.7 g/dL (32.0-36.0) 07/18/19 06:35 RDW 14.0 % (11.8-14.1) 07/18/19 06:35 Plt Count 235 x1000/uL (130-400) 07/18/19 06:35 MPV 10.2 fL (8.0-11.0) 07/18/19 06:35 Immature Gran % 0.3 % 07/18/19 06:35 Neutrophils % 79.3 07/18/19 06:35 Lymphocytes % 6.6 07/18/19 06:35 Monocytes % 8.5 07/18/19 06:35 Eosinophils % 5.0 07/18/19 06:35 Basophils % 0.3 07/18/19 06:35 Absolute Neutrophils 7.79 k/cumm (1.2-6.7) H 07/18/19 06:35 Absolute Lymphocytes 0.65 k/cumm (1.2-3.4) L 07/18/19 06:35 Absolute Monocytes 0.84 k/cumm (0.11-0.7) H 07/18/19 06:35 Absolute Eosinophils 0.49 k/cumm (0.0-0.7) 07/18/19 06:35 Absolute Basophils 0.03 k/cumm (0.0-0.2) 07/18/19 06:35 PT 10.1 sec (9.3-11.0) 07/16/19 23:40 INR 1.0 (0.9-1.1) 07/16/19 23:40 APTT 26.1 sec (21.0-31.4) 07/16/19 23:40 VBG pH 7.41 (7.32-7.43) 07/16/19 23:40 VBG pCO2 37 mm/Hg (34-47) 07/16/19 23:40 VBG pO2 47 mm/Hg (28-44) H 07/16/19 23:40 VBG HCO3 24 mmol/L (22-28) 07/16/19 23:40 VBG Total CO2 21 mmol/L (22-29) L 07/16/19 23:40 VBG O2 Saturation 83 % (70-80) H 07/16/19 23:40 VBG Base Excess -1.0 mmol/L (-3-3) 07/16/19 23:40 Sodium 134 mmol/L (136-145) L 07/18/19 06:35 Potassium 4.1 mmol/L (3.5-5.1) 07/18/19 06:35 Chloride 102 mmol/L (98-107) 07/18/19 06:35 Carbon Dioxide 23.7 mmol/L (21.0-32.0) 07/18/19 06:35 Anion Gap 8.3 mmol/L (3-11) 07/18/19 06:35 BUN 12 mg/dL (7-18) 07/18/19 06:35 Creatinine 0.99 mg/dL (0.70-1.30) 07/18/19 06:35 Estimated GFR/1.73 m2 >= 60.00 (mL/min/1.73m2) 07/18/19 06:35 Glucose 196 mg/dL (74-106) H D 07/18/19 06:35 Lactate 1.1 mmol/L (0.6-1.4) 07/17/19 07:15 Calcium 8.3 mg/dL (8.5-10.1) L 07/18/19 06:35 Magnesium 1.6 mg/dL (1.8-2.4) L 07/18/19 06:35 Total Bilirubin 0.7 mg/dL (0.2-1.0) 07/17/19 07:15 AST 21 U/L (15-37) 07/17/19 07:15 ALT 27 U/L (16-63) 07/17/19 07:15 Alkaline Phosphatase 67 U/L (46-116) 07/17/19 07:15 C-Reactive Protein 16.90 mg/dL (0.0-0.3) H 07/18/19 06:35 Total Protein 8.0 g/dL (6.4-8.2) 07/17/19 07:15 Albumin 2.3 g/dL (3.4-5.0) L 07/17/19 07:15 Procalcitonin 1.3 ng/mL 07/18/19 06:35 Urine Color Yellow (Yellow) 07/16/19 23:50 Urine Clarity Sl cloudy (Clear) 07/16/19 23:50 Urine pH 6.0 (5-8) 07/16/19 23:50 Ur Specific [place] 1.025 (1.005-1.025) 07/16/19 23:50 Urine Protein >=300 mg/dL (Negative) H 07/16/19 23:50 Urine Ketones Negative mg/dL (Negative) 07/16/19 23:50 Urine Blood Moderate (Negative) H 07/16/19 23:50 Urine Nitrite Positive (Negative) H 07/16/19 23:50 Urine Bilirubin Negative (Negative) 07/16/19 23:50 Urine Urobilinogen 0.2 EU/dL (Up TO 0.2) 07/16/19 23:50 Ur Leukocyte Esterase Trace (Negative) H 07/16/19 23:50 Urine RBC Not Applicable 07/16/19 23:50 Urine WBC >50 HPF (0-5) H 07/16/19 23:50 Ur Epithelial Cells Not Applicable 07/16/19 23:50 Urine Crystals Not Applicable 07/16/19 23:50 Urine Bacteria Not Applicable 07/16/19 23:50 Urine Mucus Not Applicable 07/16/19 23:50 Ur Culture Indicated? C&s done as ordered 07/16/19 23:50 Urine Glucose 500 mg/dL (Negative) H 07/16/19 23:50
[2019-07-18] MEDS: Heparin 5,000 UNITS/ML VIAL 5000 UNITS SC (17:48)
--- NOTE | 2019-07-18 18:47 | CMPROGNOTE_ITS ---
Care Management Progress Note S/O: Benigno was lying in bed when CM met with him. He reported he would like to return home if able but would not want to return to the infusion room 3x/day like he did previously for six weeks. Benigno reported he would be willing to come twice per day. CM continues to follow, and will review discharge options with Benigno when his treatment plan is identified. A: 54 year old male admitted to [facility] 07/17/18 for Sepsis, UTI. Per MD: S/P new L abscess drain by IR at [facility] 07/18/2019. On zosyn day 2 and vancomycin day 1. Await sensitivities of the urine C&S and inquire with [facility] as to results of the intraop culture done there. P: Benigno will continue to be closely monitored and treated. His , Lori, will drive him home via private vehicle when ready. He will have follow up appointments, as recommended. CM will continue to follow and support discharge planning considerations, including IV ABX infusion tx coordination, if needed.
[2019-07-18] MEDS: Gemfibrozil 600 MG TAB PO (23:13)
[2019-07-18] MEDS: Atorvastatin 20 MG TAB PO (23:13)
[2019-07-19] VITALS (11 sets, daily range): BP systolic 114–144; BP diastolic 73–79; PULSE 87–109; RESP 16–22; TEMP 36.1–36.9; O2SAT 95–97
[2019-07-19] MEDS: Normal Saline 1,000 ML 150 ML IV ×2 (03:23→20:08)
[2019-07-19] MEDS: Heparin 5,000 UNITS/ML VIAL 5000 UNITS SC ×2 (06:33→18:20)
[2019-07-19] MEDS: PIPERACILLIN/TAZO 4.5 GM in Normal Saline 100 ML IVPB ×3 (06:33→21:41)
[2019-07-19 07:09] LABS: Abs Immature Grans 0.03 k/cumm (0.0-0.09); Absolute Basophil Count 0.01 k/cumm (0.0-0.2); Absolute Eosinophil Count 0.44 k/cumm (0.0-0.7); Absolute Lymphocyte Count 0.53 k/cumm (1.2-3.4); Absolute Monocyte Count 0.68 k/cumm (0.11-0.7); Absolute Neutrophil Count 4.01 k/cumm (1.2-6.7); Basophils % 0.2; Eosinophils % 7.7; HCT 32.3 % (40.0-50.0); HGB 10.7 g/dL (13.5-17.5); Immature Grans % 0.5 %; Lymphocytes % 9.3; Mean Corp. HGB Concentration 33.1 g/dL (32.0-36.0); Mean Corpuscular Hemoglobin 27.6 pg (27.0-33.0); Mean Corpuscular Volume 83.2 fL (80-95); Mean Platelet Volume 9.7 fL (8.0-11.0); Monocytes % 11.9; Neutrophils % 70.4; Platelet Count 242 x1000/uL (130-400); RBC 3.88 m/cumm (4.50-6.00); RBC Distribution Width 13.9 % (11.8-14.1)
[2019-07-19 07:20] LABS: Anion Gap 8.7 mmol/L (3-11); BUN 11 mg/dL (7-18); CO2 25.3 mmol/L (21.0-32.0); CREATININE 1.02 mg/dL (0.70-1.30); Calcium 8.6 mg/dL (8.5-10.1); Chloride 101 mmol/L (98-107); Glucose 137 mg/dL (74-106); Magnesium 1.6 mg/dL (1.8-2.4); Sodium 135 mmol/L (136-145)
[2019-07-19 08:20] LABS: Procalcitonin 1.3 ng/mL
[2019-07-19] MEDS: Insulin Glargine 300 UNITS/3 ML PEN 80 UNITS SC (09:01)
[2019-07-19] MEDS: Multivitamin TAB 1 TAB PO (09:01)
[2019-07-19] MEDS: Gabapentin 300 MG CAP PO ×3 (09:01→20:08)
[2019-07-19] MEDS: Aspirin 81 MG CHEW PO (09:01)
[2019-07-19] MEDS: Insulin Aspart 300 UNITS/3 ML PEN SC ×5 (09:02→17:27)
[2019-07-19] MEDS: Normal Saline Flush 10 ML SYR IVP (09:03)
--- NOTE | 2019-07-19 09:11 | CMPROGNOTE_ITS ---
Care Management Progress Note S/O: Benigno was sitting up in his chair, he remains pleasant in interaction and shared no concerns. He verbalized understanding of his treatment plan and knew MD continued to awaiting sensitivities from [facility] ID for determination of IV ABX duration and frequency. CM continues to follow, and will review discharge options with Benigno when his treatment plan is identified. A: 54 year old male admitted to [facility] 07/17/18 for Sepsis, UTI. Per MD: S/P new L abscess drain by IR at [facility] 07/18/2019. On zosyn day 3 and vancomycin day 2. Tatum iting sensitivities of the urine C&S and inquire with [facility] as to results of the intraop culture done there. P: Benigno will continue to be closely monitored and treated. His , Lori, will drive him home via private vehicle when ready. He will have follow up appointments, as recommended. CM will continue to follow and support discharge planning considerations, including IV ABX infusion tx coordination, if needed.
[2019-07-19] MEDS: MAGNESIUM SULFATE 4 GM/100 ML BAG IVPB (09:12)
[2019-07-19 13:44] LABS: Vancomycin, Trough 24.6 ug/mL (10.0-20.0)
--- NOTE | 2019-07-19 15:56 | W.PM.PROGNOT ---
Date of Service Date of service: 07/19/19 Time of Service: 15:56 Assessment and Plan Assessment and plan (1) Sepsis: Status: Acute Assessment and plan: Multifactorial, though due to anatomy, the two processes may be connected - due to MSSA UTI POA as well as recurrent/reaccumulated L psoas abscess. S/p new L abscess drain by IR at [facility] [place] 07/18/2019. On zosyn day 3 and vancomycin day 2. Clinically better. Await intraop culture results prior to consult with ID. Would continue same abx until then. Qualifiers: Sepsis type: sepsis due to unspecified organism Sepsis acute organ dysfunction status: without acute organ dysfunction Qualified Code(s): A41.9 - Sepsis, unspecified organism (2) Complicated UTI (urinary tract infection): Status: Acute Assessment and plan: As above (3) Psoas abscess, left: Status: Suspected Assessment and plan: As above (4) Uncontrolled diabetes mellitus: Status: Chronic Assessment and plan: Continue basal bolus insulin Qualifiers: Diabetes mellitus type: type 2 Glycemic state: with hyperglycemia Qualified Code(s): E11.65 - Type 2 diabetes mellitus with hyperglycemia (5) Colon cancer: Status: Chronic Assessment and plan: Follow up with oncology as outpatient. Palliative care on board (6) Sinus tachycardia: Status: Acute Assessment and plan: Chronic, per patient. To avoid development of cardiomyopathy, the patient would benefit from beta blockade. Start a small dose of metoprolol tonight. Continue to monitor on tele. Consider echocardiogram. (7) DVT prophylaxis: Status: Acute Assessment and plan: SC heparin (8) Discharge planning issues: Status: Acute Assessment and plan: Full code Disposition will depend on cultures/sensitivities/ID recommendations Subjective Subjective Interval history since last seen: Mr Yap states that he feels a little bit better today overall. Denies dizziness, chest pain, shortness of breath, nausea, vomiting. He states his heart rate has been in 110s for at least 8 years. His urine culture is growing MSSA. His intraop cultures have not yet speciated. Exam Narrative Exam Narrative: General: Very pleasant middle-aged male, A&Ox3, sitting up in a chair HEENT: EOMI, MMM Heart: RRR, no m/r/g Lungs: CTAB Abdomen: soft; nontender, nondistended; LLQ INGRID drain; L flank with nephrostomy catheter connected to a leg bag Extremities: no e/c/c BLE's Objective Objective Clinical Data: Abnormal lab results 07/19/19 07/19/19 07/19/19 Range/Units 06:50 06:50 06:50 RBC 3.88 L (4.50-6.00) m/cumm Hgb 10.7 L (13.5-17.5) g/dL Hct 32.3 L (40.0-50.0) % Absolute Lymphocytes 0.53 L (1.2-3.4) k/cumm Sodium 135 L (136-145) mmol/L Glucose 137 H (74-106) mg/dL Magnesium 1.6 L (1.8-2.4) mg/dL Vancomycin Trough 24.6 H* (10.0-20.0) ug/mL Vital Signs Temperature 36.1 C L 07/19/19 15:40 Temperature Source Tympanic 07/19/19 15:40 Pulse 92 H 07/19/19 15:40 Pulse Rhythm Regular 07/19/19 09:40 Respiratory Rate 20 07/19/19 15:40 Respiratory Effort Non-Labored 07/19/19 09:40 Respiratory Depth Normal 07/19/19 09:40 Respiratory Pattern Normal 07/19/19 09:40 Blood Pressure 121/79 07/19/19 15:40 Blood Pressure Position Sitting 07/16/19 23:36 Pulse Oximetry 97 07/19/19 15:40 Oxygen Delivery Method Room Air 07/19/19 15:40 Oxygen Flow Rate 0 07/19/19 15:40 Fraction of Inspired Oxygen (FIO2) 21 07/19/19 11:59 Pain Level 0 07/19/19 15:40 Comment 07/18/19 23:49 Intake & Output 07/18/19 07/19/19 07/19/19 23:59 11:59 23:59 Intake Total 2495 / 4425 1845 / 2085 240 / 2085 Output Total 1350 / 2600 910 / 1910 1000 / 1910 Balance 1145 / 1825 935 / 175 -760 / 175 Intake: IV 1600 / 2800 460 / 460 Oral 890 / 1620 480 / 720 240 / 720 Injectate 5 / 5 905 / 905 L SIDE INGRID DRAIN 5 905 / 905 Output: Drainage 10 1010 1000 / 1010 L SIDE INGRID DRAIN 1009 1000 / 1010 Urine 1350 / 2600 900 / 900 Other: Urine Color Yellow Yellow Urine Appearance Clear Clear Urine Odor None Comment from nephrostomy tube neph tube Voiding Methods Toilet Urinal Laboratory Results WBC 5.70 k/cumm (4.4-10.8) D 07/19/19 06:50 RBC 3.88 m/cumm (4.50-6.00) L 07/19/19 06:50 Hgb 10.7 g/dL (13.5-17.5) L 07/19/19 06:50 Hct 32.3 % (40.0-50.0) L 07/19/19 06:50 MCV 83.2 fL (80-95) 07/19/19 06:50 MCH 27.6 pg (27.0-33.0) 07/19/19 06:50 MCHC 33.1 g/dL (32.0-36.0) 07/19/19 06:50 RDW 13.9 % (11.8-14.1) 07/19/19 06:50 Plt Count 242 x1000/uL (130-400) 07/19/19 06:50 MPV 9.7 fL (8.0-11.0) 07/19/19 06:50 Immature Gran % 0.5 % 07/19/19 06:50 Neutrophils % 70.4 07/19/19 06:50 Lymphocytes % 9.3 07/19/19 06:50 Monocytes % 11.9 07/19/19 06:50 Eosinophils % 7.7 07/19/19 06:50 Basophils % 0.2 07/19/19 06:50 Absolute Neutrophils 4.01 k/cumm (1.2-6.7) 07/19/19 06:50 Absolute Lymphocytes 0.53 k/cumm (1.2-3.4) L 07/19/19 06:50 Absolute Monocytes 0.68 k/cumm (0.11-0.7) 07/19/19 06:50 Absolute Eosinophils 0.44 k/cumm (0.0-0.7) 07/19/19 06:50 Absolute Basophils 0.01 k/cumm (0.0-0.2) 07/19/19 06:50 PT 10.1 sec (9.3-11.0) 07/16/19 23:40 INR 1.0 (0.9-1.1) 07/16/19 23:40 APTT 26.1 sec (21.0-31.4) 07/16/19 23:40 VBG pH 7.41 (7.32-7.43) 07/16/19 23:40 VBG pCO2 37 mm/Hg (34-47) 07/16/19 23:40 VBG pO2 47 mm/Hg (28-44) H 07/16/19 23:40 VBG HCO3 24 mmol/L (22-28) 07/16/19 23:40 VBG Total CO2 21 mmol/L (22-29) L 07/16/19 23:40 VBG O2 Saturation 83 % (70-80) H 07/16/19 23:40 VBG Base Excess -1.0 mmol/L (-3-3) 07/16/19 23:40 Sodium 135 mmol/L (136-145) L 07/19/19 06:50 Potassium 4.0 mmol/L (3.5-5.1) 07/19/19 06:50 Chloride 101 mmol/L (98-107) 07/19/19 06:50 Carbon Dioxide 25.3 mmol/L (21.0-32.0) 07/19/19 06:50 Anion Gap 8.7 mmol/L (3-11) 07/19/19 06:50 BUN 11 mg/dL (7-18) 07/19/19 06:50 Creatinine 1.02 mg/dL (0.70-1.30) 07/19/19 06:50 Estimated GFR/1.73 m2 >= 60.00 (mL/min/1.73m2) 07/19/19 06:50 Glucose 137 mg/dL (74-106) H 07/19/19 06:50 Lactate 1.1 mmol/L (0.6-1.4) 07/17/19 07:15 Calcium 8.6 mg/dL (8.5-10.1) 07/19/19 06:50 Magnesium 1.6 mg/dL (1.8-2.4) L 07/19/19 06:50 Total Bilirubin 0.7 mg/dL (0.2-1.0) 07/17/19 07:15 AST 21 U/L (15-37) 07/17/19 07:15 ALT 27 U/L (16-63) 07/17/19 07:15 Alkaline Phosphatase 67 U/L (46-116) 07/17/19 07:15 C-Reactive Protein 16.90 mg/dL (0.0-0.3) H 07/18/19 06:35 Total Protein 8.0 g/dL (6.4-8.2) 07/17/19 07:15 Albumin 2.3 g/dL (3.4-5.0) L 07/17/19 07:15 Procalcitonin 1.3 ng/mL 07/19/19 06:50 Urine Color Yellow (Yellow) 07/16/19 23:50 Urine Clarity Sl cloudy (Clear) 07/16/19 23:50 Urine pH 6.0 (5-8) 07/16/19 23:50 Ur Specific [place] 1.025 (1.005-1.025) 07/16/19 23:50 Urine Protein >=300 mg/dL (Negative) H 07/16/19 23:50 Urine Ketones Negative mg/dL (Negative) 07/16/19 23:50 Urine Blood Moderate (Negative) H 07/16/19 23:50 Urine Nitrite Positive (Negative) H 07/16/19 23:50 Urine Bilirubin Negative (Negative) 07/16/19 23:50 Urine Urobilinogen 0.2 EU/dL (Up TO 0.2) 07/16/19 23:50 Ur Leukocyte Esterase Trace (Negative) H 07/16/19 23:50 Urine RBC Not Applicable 07/16/19 23:50 Urine WBC >50 HPF (0-5) H 07/16/19 23:50 Ur Epithelial Cells Not Applicable 07/16/19 23:50 Urine Crystals Not Applicable 07/16/19 23:50 Urine Bacteria Not Applicable 07/16/19 23:50 Urine Mucus Not Applicable 07/16/19 23:50 Ur Culture Indicated? C&s done as ordered 07/16/19 23:50 Urine Glucose 500 mg/dL (Negative) H 07/16/19 23:50 Vancomycin Trough 24.6 ug/mL (10.0-20.0) H* 07/19/19 06:50
[2019-07-19] MEDS: Metoprolol 12.5 MG TAB PO (20:08)
[2019-07-19] MEDS: Gemfibrozil 600 MG TAB PO (21:41)
[2019-07-19] MEDS: Atorvastatin 20 MG TAB PO (21:45)
[2019-07-19] MEDS: Docusate Sodium 100 MG CAP PO (22:10)
[2019-07-19] MEDS: Milk of Magnesia 30 ML CUP PO (22:10)
[2019-07-20] VITALS (13 sets, daily range): BP systolic 115–136; BP diastolic 58–86; PULSE 80–90; RESP 16–18; TEMP 35.9–37.6; O2SAT 96–99
[2019-07-20] MEDS: PIPERACILLIN/TAZO 4.5 GM in Normal Saline 100 ML IVPB (06:59)
[2019-07-20] MEDS: Normal Saline Flush 10 ML SYR IVP ×3 (06:59→21:29)
[2019-07-20] MEDS: Heparin 5,000 UNITS/ML VIAL 5000 UNITS SC ×2 (07:00→17:50)
[2019-07-20] MEDS: Normal Saline 1,000 ML 150 ML IV (07:00)
[2019-07-20 07:30] LABS: Abs Immature Grans 0.02 k/cumm (0.0-0.09); Absolute Basophil Count 0.03 k/cumm (0.0-0.2); Absolute Eosinophil Count 0.52 k/cumm (0.0-0.7); Absolute Lymphocyte Count 0.97 k/cumm (1.2-3.4); Absolute Monocyte Count 0.73 k/cumm (0.11-0.7); Absolute Neutrophil Count 3.46 k/cumm (1.2-6.7); Basophils % 0.5; Eosinophils % 9.1; HCT 31.5 % (40.0-50.0); HGB 10.2 g/dL (13.5-17.5); Immature Grans % 0.3 %; Lymphocytes % 16.9; Mean Corp. HGB Concentration 32.4 g/dL (32.0-36.0); Mean Corpuscular Hemoglobin 27.3 pg (27.0-33.0); Mean Corpuscular Volume 84.2 fL (80-95); Mean Platelet Volume 9.8 fL (8.0-11.0); Monocytes % 12.7; Neutrophils % 60.5; Platelet Count 282 x1000/uL (130-400); RBC 3.74 m/cumm (4.50-6.00); RBC Distribution Width 13.9 % (11.8-14.1); White Blood Cell Count 5.73 k/cumm (4.4-10.8)
[2019-07-20 07:43] LABS: Anion Gap 8.2 mmol/L (3-11); BUN 12 mg/dL (7-18); CO2 26.8 mmol/L (21.0-32.0); CREATININE 0.99 mg/dL (0.70-1.30); Calcium 8.3 mg/dL (8.5-10.1); Chloride 103 mmol/L (98-107); Glucose 119 mg/dL (74-106); Magnesium 1.9 mg/dL (1.8-2.4); Potassium 4.4 mmol/L (3.5-5.1); Sodium 138 mmol/L (136-145)
[2019-07-20] MEDS: Gabapentin 300 MG CAP PO ×3 (08:13→19:24)
[2019-07-20] MEDS: Multivitamin TAB 1 TAB PO (08:13)
[2019-07-20] MEDS: Aspirin 81 MG CHEW PO (08:13)
[2019-07-20] MEDS: Metoprolol 12.5 MG TAB PO (08:13)
[2019-07-20] MEDS: Insulin Aspart 300 UNITS/3 ML PEN SC ×5 (08:14→17:09)
[2019-07-20] MEDS: Insulin Glargine 300 UNITS/3 ML PEN 80 UNITS SC (08:15)
[2019-07-20 12:02] LABS: Vancomycin, Trough 19.2 ug/mL (10.0-20.0)
[2019-07-20 12:05] LABS: C-Reactive Protein 4.41 mg/dL (0.0-0.3)
--- NOTE | 2019-07-20 12:28 | DI.US_ITS ---
APPROVED REPORT EXAM: Comprehensive 2D, Doppler, and color-flow Echocardiogram Patient Location: In-Patient Bale Coverer: Lizette Dixon RDCS (AE) Rhythm: NSR Indications: chronic tachycardia, concern for cardiomyopathy Conclusion Left Ventricle : The left ventricle is normal size. Left ventricular systolic function is normal. Th ere is normal left ventricular wall thickness. The posterior wall thickness is normal. The septum is normal. There is normal LV segmental wall motion. The left ventricular diastolic function is normal. LVEF is 55-59%. Right Ventricle : The right ventricle is normal size. The right ventricular systolic function appears normal. Atria : The left atrium size is normal. The right atrium size is normal. Aortic Valve : Aortic valve is trileaflet. Trace aortic regurgitation by color flow doppler. There is no aortic valvular stenosis. Mitral Valve : The mitral valve is normal in structure. Trace mitral regurgitation. No evidence of mi tral valve stenosis. Tricuspid Valve : The tricuspid valve is normal in structure. Trace tricuspid regurgitation. There is no prior echocardiogram available for comparison. Wall motion Left Ventricle The left ventricle is normal size. Left ventricular systolic function is normal. There is normal left ventricular wall thickness. The posterior wall thickness is normal. The septum is normal. There is n ormal LV segmental wall motion. The left ventricular diastolic function is normal. LVEF is 55-59%. Right Ventricle The right ventricle is normal size. The right ventricular systolic function appears normal. Atria The left atrium size is normal. The right atrium size is normal. Aortic Valve Aortic valve is trileaflet. There is no aortic valvular stenosis. Trace aortic regurgitation by color flow doppler. Mitral Valve The mitral valve is normal in structure. No evidence of mitral valve stenosis. Trace mitral regurgita tion. Tricuspid Valve The tricuspid valve is normal in structure. Trace tricuspid regurgitation. Great Vessels The aortic root is normal in size. The ascending aorta is normal in size. IVC is normal in size and c ollapses >50% with inspiration. Mid RVSP is 20-25 mmHg. Pericardium There is no pericardial effusion. 2D Dimensions IVSd 0.90 cm M: 0.6-1.2 LV EDV A2C 123.80 mL PWd 0.90 cm M: 0.6 - 1.2 LV EDV A4C 114.80 mL LVDd 5.05 cm M: 4.2 - 5.8 LA Volume Index A2C 30.07 mL/m2 LVDs 3.25 cm M: 2.5 - 4.0 LA Volume Index A4C 27.04 mL/m2 Aortic Root 3.70 cm M: 3.1 - 3.7 LA Volume Index Biplane 29.72 mL/m2 RA Area A4C 10.08 cm2 LA Area A4C 20.88 cm2 LVOT 1.90 cm (M/F) 1.5-2.5 LA Area A2C 21.13 cm2 LVEF (Teich) 64.86 % EF AP4 63.41 % LVEF (Brannon's) 59.05 % M: 52 - 72 EF AP2 55.65 % LV Volume 87.74 mL M: 62 - 150 EF BP 59.05 % LV Volume Index 37.98 mL/m2 M: 34 - 74 FS 35.65 % LV Diastology E/A Ratio 1.0 MED E' 0.08 (>0.07 m/s) LV E/e MED 12.10 (<14) LAT E' 0.11 (>0.1 m/s) LV E/e LAT 8.55 (<14) Pulm Vein s 0.70 m/s PV S/D Ratio 1.44 Pulm Vein d 0.49 m/s Pulm Vein a 0.31 m/s A-A Duration 124.32 msec Aortic Valve LVOT Area 2.98 cm2 LVOT Vmax 1.08 m/s LVOT Mean Barrett. 0.83 m/s LVOT Peak Gr. 4.6 mmHg LVOT Mean Gr. 3.0 mmHg AoV Area/ BSA (Vmax) 0.96 cm2/m2 LVOT VTI 0.200 m AoV Vmax 1.45 (0.5-1.3 m/s) GISELE Mean Barrett. Index 0.98 cm2/m2 AoV Mean Barrett. 1.09 m/s AoV Peak Grad 8.4 mmHg AoV Mean Grad 5.2 (<5 mmHg) AoV VTI 0.301 (0.18-0.25 m) AoV Area VTI 2.22 (2.5-4.5 cm2) AoV Area/ BSA (VTI) 0.96 cm/m2 Mitral Valve MV E Max Barrett. 0.97 (0.4-1.3 m/s) MV A Velocity 1.00 (0.4-1.3 m/s) E/A Ratio 0.95 MV Decel. Time 197.05 (160-240 msec) MV PHT 57.14 msec MVA PHT 3.80 cm2 Pulmonary Valve PV Peak Velocity 0.90 (0.5-1.5 m/s) Tricuspid Valve TR P. Velocity 2.33 m/s TV Regurg Vmax 2.33 m/s RAP Estimate 3.00 mmHg RVSP 24.80 mmHg TR P. Gradient 21.75 mmHg
[2019-07-20] MEDS: cefTRIAXone 2 GM/50 ML BAG IVPB (14:04)
--- NOTE | 2019-07-20 15:16 | PGE_ITS ---
Date of Service Date of service: 07/20/19 Time of Service: 15:17 Assessment and Plan Assessment and plan (1) Sepsis: Status: Acute Assessment and plan: Multifactorial, though due to anatomy, the two processes may be connected - due to MSSA UTI (vs colonization) POA as well as recurrent/reaccumulated L psoas abscess with cultures growing group B strep, S/p new L abscess drain by IR at [facility] [place] 07/18/2019. Abx changed to rocephin today. Plan is for discharge home tomorrow with daily IV rocephin infusions via the infusaport. Qualifiers: Sepsis type: sepsis due to unspecified organism Sepsis acute organ dysfunction status: without acute organ dysfunction Qualified Code(s): A41.9 - Sepsis, unspecified organism (2) Complicated UTI (urinary tract infection): Status: Acute Assessment and plan: As above (3) Psoas abscess, left: Status: Acute Assessment and plan: As above (4) Uncontrolled diabetes mellitus: Status: Chronic Assessment and plan: Continue basal bolus insulin Qualifiers: Diabetes mellitus type: type 2 Glycemic state: with hyperglycemia Qualified Code(s): E11.65 - Type 2 diabetes mellitus with hyperglycemia (5) Colon cancer: Status: Chronic Assessment and plan: Follow up with oncology as outpatient. Palliative care on board (6) Sinus tachycardia: Status: Chronic Assessment and plan: Chronic, per patient. Echo nml. Titrate beta blockers up. (7) DVT prophylaxis: Status: Acute Assessment and plan: SC heparin (8) Discharge planning issues: Status: Acute Assessment and plan: Full code Plan for discharge home tomorrow with IV cefriaxone infusions Subjective Subjective Interval history since last seen: Mr Yap states he definitely feels better. He denies dizziness, chest pain, shortness of breath, nausea. Minimal output out of INGRID drain today. His heart rates have been 80-90's on tele. Per my discussion with [facility] ID (Dr Chew), the patient can be discharged home with daily infusions of IV rocephin as he grew Group B strep in his intraop culture. The duration is indeterminate - I discussed with the patient that he should start with 4 weeks, but ultimately this will depend on his follow up with ID. Exam Narrative Exam Narrative: General: Very pleasant middle-aged male, A&Ox3, sitting up in a chair, looks slightly more pale today HEENT: EOMI, MMM Heart: RRR, no m/r/g Lungs: CTAB Abdomen: soft; nontender, nondistended; Extremities: no e/c/c BLE's Objective Objective Clinical Data: Abnormal lab results 07/20/19 07/20/19 07/20/19 Range/Units 06:55 06:55 11:00 RBC 3.74 L (4.50-6.00) m/cumm Hgb 10.2 L (13.5-17.5) g/dL Hct 31.5 L (40.0-50.0) % Absolute Lymphocytes 0.97 L (1.2-3.4) k/cumm Absolute Monocytes 0.73 H (0.11-0.7) k/cumm Glucose 119 H (74-106) mg/dL Calcium 8.3 L (8.5-10.1) mg/dL C-Reactive Protein 4.41 H (0.0-0.3) mg/dL Vital Signs Temperature 37.6 C H 07/20/19 11:20 Temperature Source Tympanic 07/20/19 11:20 Pulse 80 07/20/19 11:20 Pulse Rhythm Regular 07/20/19 03:50 Respiratory Rate 18 07/20/19 11:20 Respiratory Effort 07/20/19 11:05 Respiratory Depth Normal 07/20/19 11:05 Respiratory Pattern Normal 07/20/19 11:05 Blood Pressure 115/81 07/20/19 11:20 Blood Pressure Position Sitting 07/16/19 23:36 Pulse Oximetry 97 07/20/19 11:20 Oxygen Delivery Method Room Air 07/20/19 11:20 Oxygen Flow Rate 0 07/20/19 11:20 Fraction of Inspired Oxygen (FIO2) 21 07/20/19 11:07 Pain Level 0 07/20/19 11:20 Comment 07/18/19 23:49 Intake & Output 07/19/19 07/20/19 07/20/19 23:59 11:59 23:59 Intake Total 1645 / 4490 2095 / 3095 1000 / 3095 Output Total 2450 / 3360 2800 / 3700 900 / 3700 Balance -805 / 1130 -705 / -605 100 / -605 Weight 105 kg Intake: IV 850 / 2310 1450 / 2450 1000 / 2450 Oral 790 / 1270 640 / 640 Injectate / 910 5 / 5 L SIDE INGRID DRAIN 910 5 / 5 left nephrostomy tube 0 / 0 Output: Drainage 1250 / 1260 0 / 900 900 / 900 L SIDE INGRID DRAIN 1000 / 1010 0 / 0 left nephrostomy tube 250 / 250 900 / 900 Urine 1200 / 2100 2800 / 2800 Other: Urine Color Pale Yellow Yellow Urine Appearance Clear Clear Urine Odor None Comment pt had 700 in toilet and 300 in urinal Voiding Methods Toilet Toilet Urinal Laboratory Results WBC 5.73 k/cumm (4.4-10.8) 07/20/19 06:55 RBC 3.74 m/cumm (4.50-6.00) L 07/20/19 06:55 Hgb 10.2 g/dL (13.5-17.5) L 07/20/19 06:55 Hct 31.5 % (40.0-50.0) L 07/20/19 06:55 MCV 84.2 fL (80-95) 07/20/19 06:55 MCH 27.3 pg (27.0-33.0) 07/20/19 06:55 MCHC 32.4 g/dL (32.0-36.0) 07/20/19 06:55 RDW 13.9 % (11.8-14.1) 07/20/19 06:55 Plt Count 282 x1000/uL (130-400) 07/20/19 06:55 MPV 9.8 fL (8.0-11.0) 07/20/19 06:55 Immature Gran % 0.3 % 07/20/19 06:55 Neutrophils % 60.5 07/20/19 06:55 Lymphocytes % 16.9 07/20/19 06:55 Monocytes % 12.7 07/20/19 06:55 Eosinophils % 9.1 07/20/19 06:55 Basophils % 0.5 07/20/19 06:55 Absolute Neutrophils 3.46 k/cumm (1.2-6.7) 07/20/19 06:55 Absolute Lymphocytes 0.97 k/cumm (1.2-3.4) L 07/20/19 06:55 Absolute Monocytes 0.73 k/cumm (0.11-0.7) H 07/20/19 06:55 Absolute Eosinophils 0.52 k/cumm (0.0-0.7) 07/20/19 06:55 Absolute Basophils 0.03 k/cumm (0.0-0.2) 07/20/19 06:55 PT 10.1 sec (9.3-11.0) 07/16/19 23:40 INR 1.0 (0.9-1.1) 07/16/19 23:40 APTT 26.1 sec (21.0-31.4) 07/16/19 23:40 VBG pH 7.41 (7.32-7.43) 07/16/19 23:40 VBG pCO2 37 mm/Hg (34-47) 07/16/19 23:40 VBG pO2 47 mm/Hg (28-44) H 07/16/19 23:40 VBG HCO3 24 mmol/L (22-28) 07/16/19 23:40 VBG Total CO2 21 mmol/L (22-29) L 07/16/19 23:40 VBG O2 Saturation 83 % (70-80) H 07/16/19 23:40 VBG Base Excess -1.0 mmol/L (-3-3) 07/16/19 23:40 Sodium 138 mmol/L (136-145) 07/20/19 06:55 Potassium 4.4 mmol/L (3.5-5.1) 07/20/19 06:55 Chloride 103 mmol/L (98-107) 07/20/19 06:55 Carbon Dioxide 26.8 mmol/L (21.0-32.0) 07/20/19 06:55 Anion Gap 8.2 mmol/L (3-11) 07/20/19 06:55 BUN 12 mg/dL (7-18) 07/20/19 06:55 Creatinine 0.99 mg/dL (0.70-1.30) 07/20/19 06:55 Estimated GFR/1.73 m2 >= 60.00 (mL/min/1.73m2) 07/20/19 06:55 Glucose 119 mg/dL (74-106) H 07/20/19 06:55 Lactate 1.1 mmol/L (0.6-1.4) 07/17/19 07:15 Calcium 8.3 mg/dL (8.5-10.1) L 07/20/19 06:55 Magnesium 1.9 mg/dL (1.8-2.4) 07/20/19 06:55 Total Bilirubin 0.7 mg/dL (0.2-1.0) 07/17/19 07:15 AST 21 U/L (15-37) 07/17/19 07:15 ALT 27 U/L (16-63) 07/17/19 07:15 Alkaline Phosphatase 67 U/L (46-116) 07/17/19 07:15 C-Reactive Protein 4.41 mg/dL (0.0-0.3) H 07/20/19 11:00 Total Protein 8.0 g/dL (6.4-8.2) 07/17/19 07:15 Albumin 2.3 g/dL (3.4-5.0) L 07/17/19 07:15 Procalcitonin 1.3 ng/mL 07/19/19 06:50 Urine Color Yellow (Yellow) 07/16/19 23:50 Urine Clarity Sl cloudy (Clear) 07/16/19 23:50 Urine pH 6.0 (5-8) 07/16/19 23:50 Ur Specific [place] 1.025 (1.005-1.025) 07/16/19 23:50 Urine Protein >=300 mg/dL (Negative) H 07/16/19 23:50 Urine Ketones Negative mg/dL (Negative) 07/16/19 23:50 Urine Blood Moderate (Negative) H 07/16/19 23:50 Urine Nitrite Positive (Negative) H 07/16/19 23:50 Urine Bilirubin Negative (Negative) 07/16/19 23:50 Urine Urobilinogen 0.2 EU/dL (Up TO 0.2) 07/16/19 23:50 Ur Leukocyte Esterase Trace (Negative) H 07/16/19 23:50 Urine RBC Not Applicable 07/16/19 23:50 Urine WBC >50 HPF (0-5) H 07/16/19 23:50 Ur Epithelial Cells Not Applicable 07/16/19 23:50 Urine Crystals Not Applicable 07/16/19 23:50 Urine Bacteria Not Applicable 07/16/19 23:50 Urine Mucus Not Applicable 07/16/19 23:50 Ur Culture Indicated? C&s done as ordered 07/16/19 23:50 Urine Glucose 500 mg/dL (Negative) H 07/16/19 23:50 Vancomycin Trough 19.2 ug/mL (10.0-20.0) 07/20/19 11:00 Echo;Left Ventricle : The left ventricle is normal size. Left ventricular systolic function is normal. There is normal left ventricular wall thickness. The posterior wall thickness is normal. The septum is normal. There is normal LV segmental wall motion. The left ventricular diastolic function is normal. LVEF is 55-59%. Right Ventricle : The right ventricle is normal size. The right ventricular systolic function appears normal. Atria : The left atrium size is normal. The right atrium size is normal. Aortic Valve : Aortic valve is trileaflet. Trace aortic regurgitation by color flow doppler. There is no aortic valvular stenosis. Mitral Valve : The mitral valve is normal in structure. Trace mitral regurgit ation. No evidence of mitral valve stenosis. Tricuspid Valve : The tricuspid valve is normal in structure. Trace tricuspid regurgitation. There is no prior echocardiogram available for comparison.
--- NOTE | 2019-07-20 15:53 | CMPROGNOTE_ITS ---
- If Service Date Differs Date of service: 07/20/19 Time of Service: 15:54 Care Management Progress Note S/O: Benigno is sitting in a chair when CM comes to meet with him. His sons are present in the room. Benigno reports he is looking forward to returning home soon and is happy he will only require infusions once a day as opposed to three times per day as originally thought. He expresses no concerns over going home and says his , Lori, will transport him home when ready. CM will continue to follow. A: Benigno is a 54 year old male admitted to [facility] on 07/17/2019 for sepsis and UTI. P: Benigno will return home when medically cleared by provider. Anticipate no new services at time of discharge. Family will transport him home via private vehicle when ready. CM will continue to follow.
[2019-07-20] MEDS: Docusate Sodium 100 MG CAP PO (19:24)
[2019-07-20] MEDS: Milk of Magnesia 30 ML CUP PO (19:24)
[2019-07-20] MEDS: Gemfibrozil 600 MG TAB PO (21:13)
[2019-07-20] MEDS: Atorvastatin 20 MG TAB PO (21:13)
[2019-07-21] VITALS (7 sets, daily range): BP systolic 113–130; BP diastolic 74–94; PULSE 85–97; RESP 16–18; TEMP 36.2–36.8; O2SAT 95–97
[2019-07-21] MEDS: Heparin 5,000 UNITS/ML VIAL 5000 UNITS SC (06:33)
[2019-07-21] MEDS: Gabapentin 300 MG CAP PO ×2 (08:00→14:33)
[2019-07-21] MEDS: Aspirin 81 MG CHEW PO (08:00)
[2019-07-21] MEDS: Multivitamin TAB 1 TAB PO (08:00)
[2019-07-21] MEDS: Insulin Glargine 300 UNITS/3 ML PEN 80 UNITS SC (08:01)
[2019-07-21] MEDS: Insulin Aspart 300 UNITS/3 ML PEN SC ×4 (08:02→11:50)
[2019-07-21 09:03] LABS: Abs Immature Grans 0.02 k/cumm (0.0-0.09); Absolute Basophil Count 0.03 k/cumm (0.0-0.2); Absolute Eosinophil Count 0.57 k/cumm (0.0-0.7); Absolute Lymphocyte Count 0.89 k/cumm (1.2-3.4); Absolute Monocyte Count 0.51 k/cumm (0.11-0.7); Absolute Neutrophil Count 5.13 k/cumm (1.2-6.7); Basophils % 0.4; HCT 34.1 % (40.0-50.0); HGB 11.1 g/dL (13.5-17.5); Immature Grans % 0.3 %; Lymphocytes % 12.4; Mean Corp. HGB Concentration 32.6 g/dL (32.0-36.0); Mean Corpuscular Hemoglobin 27.5 pg (27.0-33.0); Mean Corpuscular Volume 84.4 fL (80-95); Monocytes % 7.1; Neutrophils % 71.8; Platelet Count 323 x1000/uL (130-400); RBC 4.04 m/cumm (4.50-6.00); White Blood Cell Count 7.15 k/cumm (4.4-10.8)
[2019-07-21 09:12] LABS: Anion Gap 7.7 mmol/L (3-11); BUN 13 mg/dL (7-18); CO2 28.3 mmol/L (21.0-32.0); Calcium 9.2 mg/dL (8.5-10.1); Chloride 101 mmol/L (98-107); Glucose 178 mg/dL (74-106); Magnesium 1.8 mg/dL (1.8-2.4); Potassium 4.5 mmol/L (3.5-5.1); Sodium 137 mmol/L (136-145)
[2019-07-21] MEDS: Metoprolol 25 MG TAB PO (10:58)
[2019-07-21] MEDS: cefTRIAXone 2 GM/50 ML BAG IVPB (14:33)
--- NOTE | 2019-07-21 15:02 | W.PM.DS.N ---
Date of service: 07/21/19 Time of Service: 15:03 DS: Diagnosis Discharge Diagnosis (1) Sepsis: Status: Acute (2) Complicated UTI (urinary tract infection): Status: Acute (3) Psoas abscess, left: Status: Acute (4) Uncontrolled diabetes mellitus: Status: Chronic (5) Colon cancer: Status: Chronic (6) Sinus tachycardia: Status: Chronic Discharge Plan Disposition Patient Disposition: HOME Condition: Stable Discharge Details Chief Complaint: GenMedical Clinical Impression: Sepsis, Urinary tract infection Reason For Visit: SEPSIS,UTI Admit Date/Time: 07/17/19 02:16 Admit Provider: Jaime Zuleta Attending Provider: Jaime Zuleta Primary Care Provider: Chetan Jaquez ED Provider: Gibran Hauser Hospital Course Hospital Course: Mr Yap is a 54 year old male with PMHx of colon cancer with peritoneal mets, L nephrostomy tube, L psoas abscess, having recently completed outpatient antibiotics and having his INGRID drain removed by IR at [facility], as well as IDDM2, who was admitted to [facility] on 07/17/2019 with sepsis due to reaccumulation of the L psoas abscess as well as suspicion for an MSSA UTI vs colonization. The patient was started on zosyn and vancomycin and, on the day of admission, had gone [id number] to [facility] for IR drainage of his L psoas abscess. Intraoperative cultures grew Group B strep. The patient defervesced and had been doing better every day. Consultation was sought with ID at [facility], who recommended switching the patient to ceftriaxone 2 grams IV daily. I estimate his duration of treatment to be 4-6 weeks, but he will need to follow up with ID for that decision pending his clinical course. The patient has an infusaport and will be returning to our infusion room for daily ceftriaxone infusions. Of note, the patient's INGRID drain is now again draining urine. Consultation was sought with IR at [facility], and Dr Montenegro feels that this was expected with the patient's anatomy - there is essentially a fistula tract. It was recommended that the suction bulb at the end of the drain be changed to a gravity bag, which will hopefully not syphon the urine with as much intensity, permitting it to go in the right direction. He should keep his already scheduled appointment with IR. Finally, the patient was started on metoprolol for his chronic tachycardia. Echo was done to ensure that he had not a chance to develop cardiomyopathy. PCP is expected to adjust dosing of his beta blockers. At this time, the patient is medically stable for discharge home. Care for patient on the day of discharge home took 1 hour. Home Meds and New Rx's Prescriptions: New metoprolol tartrate 25 mg Tablet 25 mg PO BID Qty: 60 RF: 0 ceftriaxone in dextrose,iso-os 2 gram/50 mL Piggyback 2 g IVPB Q24H Qty: 0 RF: 0 Continued gabapentin 300 mg capsule 300 mg PO TID MDD 900 mg Qty: 90 RF: 2 gemfibrozil [Lopid] 600 MG tablet 600 mg PO HS RF: 0 atorvastatin [Lipitor] 20 MG tablet 20 mg PO HS RF: 0 glipizide 10 MG tablet extended release 24hr 10 mg PO BID RF: 0 aspirin [Aspirin Low-Strength] 81 MG tablet,chewable 81 mg PO DAILY RF: 0 metformin 1,000 MG tablet extended release 24hr 1,000 mg PO DAILY RF: 0 metformin 500 MG tablet 1,500 mg PO HS RF: 0 multivitamin 1 EACH capsule 1 cap PO DAILY RF: 0 lisinopril 20 mg tablet 10 mg PO HS RF: 0 Lantus Solostar U-100 Insulin 100 unit/mL (3 mL) insulin pen 80 unit subcut DAILY RF: 0 Discharge Instructions Instructions: Ceftriaxone (Injection) Additional Instructions: Follow up with your PCP, IR as previously scheduled. Follow up with infusion room for your daily ceftriaxone infusions. Follow up with [facility]. Stand Alone Forms: Nursing Discharge Form Referrals: INFECTIOUS,[facility] [OTHER] - (Dr Barney - follow up L psoas abscess) Chetan Jaquez PA [Primary Care Provider] - 07/26/19 2:00 pm Activity:: Activity as Tolerated Equipment/Supplies:: No Equipment Needed Diet:: Carb Counting Discharge Orders Discharge Orders: Discharge Order (Routine); Ordered 07/21/19 Ordered By: Pamela Braun DS: Summary Status at Discharge Functional status at discharge: independent ambulation Overall status at discharge: patient is back to baseline Mental Status: mental status grossly normal Speech and Movement: speech and movement normal Mood: congruent mood Affect: normal affect Exam Narrative Exam Narrative: General: Very pleasant middle-aged male, A&Ox3, sitting up in a chair, looks well HEENT: EOMI, MMM Heart: RRR, no m/r/g Lungs: CTAB Abdomen: soft; nontender, nondistended; Extremities: no e/c/c BLE's Psych Mental Status: mental status grossly normal Speech and Movement: speech and movement normal Mood: congruent mood Affect: normal affect DS: Data Vitals/I&O Vitals and I&O: Vital Signs Temperature 36.2 C L 07/21/19 11:05 Temperature Source Tympanic 07/21/19 11:05 Pulse 92 H 07/21/19 11:05 Pulse Rhythm Regular 07/21/19 09:05 Respiratory Rate 18 07/21/19 11:05 Respiratory Effort Non-Labored 07/21/19 09:05 Respiratory Depth Normal 07/21/19 09:05 Respiratory Pattern Normal 07/21/19 09:05 Blood Pressure 130/86 07/21/19 11:05 Blood Pressure Position Sitting 07/16/19 23:36 Pulse Oximetry 97 07/21/19 11:05 Oxygen Delivery Method Room Air 07/21/19 11:05 Oxygen Flow Rate 0 07/21/19 11:05 Fraction of Inspired Oxygen (FIO2) 21 07/21/19 08:42 Pain Level 0 07/21/19 11:05 Comment 07/18/19 23:49 Intake & Output 07/20/19 07/21/19 07/21/19 23:59 11:59 23:59 Intake Total 1255 / 3350 965 / 1925 960 / 1925 Output Total 2680 / 5480 1880 / 2420 540 / 2420 Balance -1425 / -2130 -915 / -495 420 / -495 Weight 103.9 kg Intake: IV 1010 / 2460 Oral 240 / 880 960 / 1920 960 / 1920 Injectate 5 / 10 5 / 5 L SIDE INGRID DRAIN 5 / 10 5 / 5 Output: Drainage 1080 / 1080 130 / 270 140 / 270 L SIDE INGRID DRAIN 180 / 180 130 / 270 140 / 270 left nephrostomy tube 900 / 900 Urine 1600 / 4400 1750 / 2150 400 / 2150 Other: Urine Color Yellow Yellow Yellow Urine Appearance Clear Clear Comment nephr tube Stool Size Moderate Stool Characteristics Formed Brown Voiding Methods Toilet Urinal Toilet Data Completed and Pending Completed studies during hospitalization [Text1]: CT abdomen/pelvis 07/16/2019: Significant interval improvement of previously noted left psoas abscess. Small residual abscess remains present. The left nephrostomy tube and a left ureteral stent are unchanged in position, however there is increased left hydronephrosis when compared with the previous exam. Echo: Left Ventricle : The left ventricle is normal size. Left ventricular systolic function is normal. There is normal left ventricular wall thickness. The posterior wall thickness is normal. The septum is normal. There is normal LV segmental wall motion. The left ventricular diastolic function is normal. LVEF is 55-59%. Right Ventricle : The right ventricle is normal size. The right ventricular systolic function appears normal. Atria : The left atrium size is normal. The right atrium size is normal. Aortic Valve : Aortic valve is trileaflet. Trace aortic regurgitation by color flow doppler. There is no aortic valvular stenosis. Mitral Valve : The mitral valve is normal in structure. Trace mitral regurgitation. No evidence of mitral valve stenosis. Tricuspid Valve : The tricuspid valve is normal in structure. Trace tricuspid regurgitation. There is no prior echocardiogram available for comparison. Labs on day of discharge: Labs from last 24 hours 07/21/19 07/21/19 08:55 08:55 WBC 7.15 RBC 4.04 L Hgb 11.1 L Hct 34.1 L MCV 84.4 MCH 27.5 MCHC 32.6 RDW 14.0 Plt Count 323 MPV 9.0 Immature Gran % 0.3 Neutrophils % 71.8 Lymphocytes % 12.4 Monocytes % 7.1 Eosinophils % 8.0 Basophils % 0.4 Absolute Neutrophils 5.13 Absolute Lymphocytes 0.89 L Absolute Monocytes 0.51 Absolute Eosinophils 0.57 Absolute Basophils 0.03 Sodium 137 Potassium 4.5 Chloride 101 Carbon Dioxide 28.3 Anion Gap 7.7 BUN 13 Creatinine 1.00 Estimated GFR/1.73 m2 >= 60.00 Glucose 178 H Calcium 9.2 Magnesium 1.8 C-Reactive Protein 2.40 H Preliminary micro results at discharge 07/17/19 00:25 Blood Culture - Preliminary Blood NO GROWTH 96 HOURS 07/16/19 23:40 Blood Culture - Preliminary Blood NO GROWTH 96 HOURS [facility] Medical History (Updated 07/20/19 @ 15:25 by Pamela Braun MD) Cancer related pain (Acute) Diabetes mellitus Essential hypertension Fatigue (Chronic) Fatty liver Femoral nerve injury (Acute) Fracture of distal fibula (Resolved) Goals of care, counseling/discussion (Acute) Hypercholesterolemia Injury due to procedure (Acute) 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 Mediport placement (10/21/16) Nephrostomy status (Acute) Partial resection of colon (~2011) SIGMOID S/P ureteral stent placement (Acute) Family History Father Heart disease Dementia AAA (abdominal aortic aneurysm) Mother No problems noted. Brother No problems noted. Son No problems noted. Daughter No problems noted. 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 [employer] Pets and animals: No What is your relationship status?: How often do you talk on the phone with friends or family?: once per week How often do you get together with friends or relatives?: once per week Panel score (0-1 are the most socially isolated patients): 1 What type of physical activity do you participate in: walking, assisted ambulation, occasional exercise and additional Details: hopes to go ice fishing and snowmobiling this winter Special benoit needs: No Agree to transfusion: Yes Seatbelt use: always Drive intox or ride w/intox 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 In past, has worked 80 hrs/week in the winter. Took summer 2018 off then had procedure that caused femoral nerve injury. Now walks with cane. Cannot return to work. May be permanently disabled. Happier not working at this time. Lots of medical appointments to keep....
--- NOTE | 2019-07-21 16:27 | CMDISCH_ITS ---
- If Service Date Differs Date of service: 07/21/19 Time of Service: 16:27 LACE Index Scoring Tool - Questions: Length of Stay (in days): 4 - 6 Acuity (Admit via E.D.?): Yes Comorbidities: Metastatic Solid Tumor E.D. Visits: 6 - Answers: Total Score: 16 Risk of Readmission: High Risk Care Management Discharge Reason for Hospitalization: Sepsis/UTI Discharge Plan: Benigno is being discharged home. He will return to [facility] infusion room for daily infusions. He will also follow up with his primary care physician, [facility], and his plan of care as directed, including medication recommendations. He is being transported home via private vehicle by family. Patient/Family Education Needs: Nursing will review discharge instructions with Benigno re medications and follow up appointments. Benigno is able to verbalize reason for hospitalization and how to manage care at home.
== END 2019-07-21 16:53 | disposition home or self-care (01) | DRG 871 ==
LOC: ER 07-17 02:36 → MS 07-17 03:50
PROVIDERS: Admitting Provider Internal Medicine; Emergency Provider Emergency Medicine; PCP Physician Assistant Medical; Visit Provider Internal Medicine
DX: A41.9 Sepsis, unspecified organism (principal); K68.12 Psoas muscle abscess; T83.512A Infection and inflammatory reaction due to nephrostomy catheter, initial encounter; N39.0 Urinary tract infection, site not specified; C18.9 Malignant neoplasm of colon, unspecified; C78.6 Secondary malignant neoplasm of retroperitoneum and peritoneum; R26.2 Difficulty in walking, not elsewhere classified; G57.82 Other specified mononeuropathies of left lower limb; B95.61 Methicillin susceptible Staphylococcus aureus infection as the cause of diseases classified elsewhere; B95.1 Streptococcus, group B, as the cause of diseases classified elsewhere; Y83.8 Other surgical procedures as the cause of abnormal reaction of the patient, or of later complication, without mention of misadventure at the time of the procedure; G89.3 Neoplasm related pain (acute) (chronic); R31.29 Other microscopic hematuria; E11.65 Type 2 diabetes mellitus with hyperglycemia; R00.0 Tachycardia, unspecified; Z79.4 Long term (current) use of insulin; Z96.0 Presence of urogenital implants; Z22.321 Carrier or suspected carrier of Methicillin susceptible Staphylococcus aureus; Z45.2 Encounter for adjustment and management of vascular access device; I10 Essential (primary) hypertension; G47.33 Obstructive sleep apnea (adult) (pediatric); Z51.5 Encounter for palliative care; Z76.89 Persons encountering health services in other specified circumstances; Z23 Encounter for immunization
CPT/HCPCS: 36415; 74177; 80048; 80053; 82805; 84145; 87040; 87077; 87449; 96361; 96365; 96368; 99223; 99232; 99233; 99239; 99255; 99285; 71260; 80202; 81003; 81015; 83605; 83735; 85025; 85610; 85730; 86140; 87086; 87186; 93306; J1644; J2543; J3370; J3475; J3490

== ENCOUNTER 2019-08-11 03:53 | Outpatient (RCR) | payer BC, OTHER, SELFPAY ==
[2019-07-13 13:53] LABS: Abs Immature Grans 0.04 k/cumm (0.0-0.09); Absolute Basophil Count 0.06 k/cumm (0.0-0.2); Absolute Monocyte Count 0.73 k/cumm (0.11-0.7); Basophils % 0.5; Eosinophils % 8.5; HCT 37.2 % (40.0-50.0); HGB 12.3 g/dL (13.5-17.5); Immature Grans % 0.3 %; Lymphocytes % 9.3; Mean Corp. HGB Concentration 33.1 g/dL (32.0-36.0); Mean Corpuscular Hemoglobin 27.5 pg (27.0-33.0); Mean Platelet Volume 10.6 fL (8.0-11.0); Monocytes % 6.2; Neutrophils % 75.2; Platelet Count 271 x1000/uL (130-400); RBC 4.48 m/cumm (4.50-6.00); RBC Distribution Width 14.1 % (11.8-14.1); White Blood Cell Count 11.78 k/cumm (4.4-10.8)
[2019-07-13] MEDS: Normal Saline Flush 10 ML SYR IVP (13:53)
[2019-07-13] MEDS: Heparin 500 UNITS/5 ML SYRINGE (13:53)
[2019-07-13 13:55] LABS: Absolute Neutrophil Count 8.86 k/cumm (1.2-6.7)
[2019-07-13 14:31] LABS: ALT 35 U/L (16-63); AST 22 U/L (15-37); Albumin 2.7 g/dL (3.4-5.0); Alkaline Phosphatase 78 U/L (46-116); Anion Gap 9.8 mmol/L (3-11); BUN 18 mg/dL (7-18); Bilirubin, Total 0.3 mg/dL (0.2-1.0); CO2 24.2 mmol/L (21.0-32.0); CREATININE 1.18 mg/dL (0.70-1.30); Calcium 9.3 mg/dL (8.5-10.1); Chloride 98 mmol/L (98-107); Glucose 359 mg/dL (74-106); Potassium 4.6 mmol/L (3.5-5.1); Sodium 132 mmol/L (136-145); Total Protein 8.9 g/dL (6.4-8.2)
[2019-07-14 10:15] LABS: CEA 1.2 ng/mL (See Note)
[2019-07-22] MEDS: Normal Saline Flush 10 ML SYR IVP (08:15)
[2019-07-22 08:16] VITALS: BP 109/73; PULSE 111; RESP 17; TEMP 36.7; O2SAT 97
[2019-07-22] MEDS: cefTRIAXone 2 GM/50 ML BAG IVPB (08:20)
[2019-07-22 08:56] VITALS: BP 111/76; PULSE 107; RESP 17; TEMP 37; O2SAT 96
[2019-07-23] MEDS: cefTRIAXone 2 GM/50 ML BAG IVPB (08:22)
[2019-07-23] MEDS: Normal Saline Flush 10 ML SYR IVP (08:23)
[2019-07-24] MEDS: cefTRIAXone 2 GM/50 ML BAG IVPB (08:14)
[2019-07-24] MEDS: Heparin 500 UNITS/5 ML SYRINGE IV (08:15)
[2019-07-24] MEDS: Normal Saline Flush 10 ML SYR IVP (08:15)
[2019-07-24 08:24] VITALS: BP 110/74; PULSE 94; RESP 19; TEMP 36.4; O2SAT 98
[2019-07-25] MEDS: cefTRIAXone 2 GM/50 ML BAG IVPB (08:07)
[2019-07-25] MEDS: Normal Saline Flush 10 ML SYR IVP (08:08)
[2019-07-25] MEDS: Water,Injection,Sterile 10 ML VIAL IJ (09:26)
[2019-07-25] MEDS: Alteplase 2 MG VIAL IJ (09:26)
[2019-07-26] MEDS: cefTRIAXone 2 GM/50 ML BAG IVPB (08:02)
[2019-07-26] MEDS: Normal Saline Flush 10 ML SYR IVP (08:03)
[2019-07-27] MEDS: Normal Saline Flush 10 ML SYR IVP (14:00)
[2019-07-27] MEDS: cefTRIAXone 2 GM/50 ML BAG IVPB (14:00)
[2019-07-28] MEDS: Normal Saline Flush 10 ML SYR IVP (07:57)
[2019-07-28] MEDS: cefTRIAXone 2 GM/50 ML BAG 100 GM (07:57)
[2019-07-29] MEDS: cefTRIAXone 2 GM/50 ML BAG IVPB (08:08)
[2019-07-29] MEDS: Normal Saline Flush 10 ML SYR IVP (08:09)
[2019-07-30] MEDS: Normal Saline Flush 10 ML SYR IVP (08:15)
[2019-07-30] MEDS: cefTRIAXone 2 GM/50 ML BAG IVPB (08:15)
[2019-07-31] MEDS: cefTRIAXone 2 GM/50 ML BAG IVPB (08:00)
[2019-07-31] MEDS: Heparin 500 UNITS/5 ML SYRINGE IV (08:01)
[2019-07-31] MEDS: Normal Saline Flush 10 ML SYR IVP (08:01)
[2019-08-01] MEDS: Normal Saline Flush 10 ML SYR IVP (08:06)
[2019-08-01] MEDS: cefTRIAXone 2 GM/50 ML BAG IVPB (08:06)
[2019-08-02] MEDS: cefTRIAXone 2 GM/50 ML BAG IVPB (08:04)
[2019-08-02 08:05] VITALS: BP 110/74; PULSE 94; RESP 19; TEMP 36.4; O2SAT 98
[2019-08-02] MEDS: Normal Saline Flush 10 ML SYR IVP (08:05)
[2019-08-03] MEDS: cefTRIAXone 2 GM/50 ML BAG IVPB (08:23)
[2019-08-03] MEDS: Normal Saline Flush 10 ML SYR IVP (08:24)
[2019-08-04] MEDS: cefTRIAXone 2 GM/50 ML BAG IVPB (07:44)
[2019-08-04] MEDS: Normal Saline Flush 10 ML SYR IVP (07:47)
[2019-08-05] MEDS: cefTRIAXone 2 GM/50 ML BAG IVPB (08:01)
[2019-08-05] MEDS: Normal Saline Flush 10 ML SYR IVP (08:01)
[2019-08-06] MEDS: Normal Saline Flush 10 ML SYR IVP (08:10)
[2019-08-06] MEDS: cefTRIAXone 2 GM/50 ML BAG IVPB (08:23)
[2019-08-07] MEDS: Normal Saline Flush 10 ML SYR IVP (08:02)
[2019-08-07] MEDS: cefTRIAXone 2 GM/50 ML BAG IVPB (08:02)
[2019-08-07] MEDS: Heparin 500 UNITS/5 ML SYRINGE IV (08:03)
[2019-08-07 08:17] LABS: Abs Immature Grans 0.02 k/cumm (0.0-0.09); Absolute Basophil Count 0.03 k/cumm (0.0-0.2); Absolute Eosinophil Count 0.32 k/cumm (0.0-0.7); Absolute Lymphocyte Count 0.77 k/cumm (1.2-3.4); Absolute Monocyte Count 0.59 k/cumm (0.11-0.7); Absolute Neutrophil Count 4.69 k/cumm (1.2-6.7); Basophils % 0.5; HCT 36.6 % (40.0-50.0); HGB 12.3 g/dL (13.5-17.5); Immature Grans % 0.3 %; Mean Corp. HGB Concentration 33.6 g/dL (32.0-36.0); Mean Corpuscular Hemoglobin 28.8 pg (27.0-33.0); Mean Corpuscular Volume 85.7 fL (80-95); Mean Platelet Volume 10.7 fL (8.0-11.0); Monocytes % 9.2; Platelet Count 185 x1000/uL (130-400); RBC 4.27 m/cumm (4.50-6.00); RBC Distribution Width 15.3 % (11.8-14.1); White Blood Cell Count 6.42 k/cumm (4.4-10.8)
[2019-08-07 08:30] LABS: ALT 74 U/L (16-63); AST 55 U/L (15-37); Albumin 2.9 g/dL (3.4-5.0); Alkaline Phosphatase 62 U/L (46-116); Anion Gap 9.1 mmol/L (3-11); BUN 16 mg/dL (7-18); Bilirubin, Total 0.3 mg/dL (0.2-1.0); C-Reactive Protein 0.32 mg/dL (0.0-0.3); CO2 24.9 mmol/L (21.0-32.0); CREATININE 1.14 mg/dL (0.70-1.30); Calcium 8.5 mg/dL (8.5-10.1); Chloride 101 mmol/L (98-107); Glucose 239 mg/dL (74-106); Potassium 4.4 mmol/L (3.5-5.1); Sodium 135 mmol/L (136-145); Total Protein 8.1 g/dL (6.4-8.2)
[2019-08-08] MEDS: cefTRIAXone 2 GM/50 ML BAG IVPB (08:04)
[2019-08-08] MEDS: Normal Saline Flush 10 ML SYR IVP (08:22)
[2019-08-09] MEDS: Normal Saline Flush 10 ML SYR IVP (08:08)
[2019-08-09] MEDS: cefTRIAXone 2 GM/50 ML BAG IVPB (08:08)
[2019-08-10] MEDS: cefTRIAXone 2 GM/50 ML BAG IVPB (14:47)
[2019-08-10] MEDS: Normal Saline Flush 10 ML SYR IVP (14:47)
[2019-08-11] MEDS: Normal Saline Flush 10 ML SYR IVP (08:04)
[2019-08-11] MEDS: cefTRIAXone 2 GM/50 ML BAG IVPB (08:04)
== END 2019-08-11 23:59 | disposition home or self-care (01) ==
LOC: INF 03:53
PROVIDERS: PCP Physician Assistant Medical; Visit Provider Internal Medicine Hematology & Oncology
DX: K68.12 Psoas muscle abscess (principal); B95.7 Other staphylococcus as the cause of diseases classified elsewhere; A49.1 Streptococcal infection, unspecified site; C18.9 Malignant neoplasm of colon, unspecified; T82.898A Other specified complication of vascular prosthetic devices, implants and grafts, initial encounter; Z45.2 Encounter for adjustment and management of vascular access device
CPT/HCPCS: 36591; 36593; 80053; 96365; 96523; 82378; 85025; 86140; J2997

== ENCOUNTER 2019-08-19 01:39 | Outpatient (RCR) | payer BC, OTHER, SELFPAY ==
[2019-08-12] MEDS: Normal Saline Flush 10 ML SYR IVP (08:00)
[2019-08-12] MEDS: cefTRIAXone 2 GM/50 ML BAG IVPB (08:04)
[2019-08-13] MEDS: Normal Saline Flush 10 ML SYR IVP (07:58)
[2019-08-13] MEDS: cefTRIAXone 2 GM/50 ML BAG IVPB (07:58)
[2019-08-14] MEDS: cefTRIAXone 2 GM/50 ML BAG IVPB (08:22)
[2019-08-14] MEDS: Normal Saline Flush 10 ML SYR IVP (08:23)
[2019-08-14] MEDS: Heparin 500 UNITS/5 ML SYRINGE IV (08:23)
[2019-08-14 08:56] LABS: Abs Immature Grans 0.01 k/cumm (0.0-0.09); Absolute Basophil Count 0.03 k/cumm (0.0-0.2); Absolute Eosinophil Count 0.48 k/cumm (0.0-0.7); Absolute Lymphocyte Count 0.95 k/cumm (1.2-3.4); Absolute Monocyte Count 0.79 k/cumm (0.11-0.7); Absolute Neutrophil Count 4.81 k/cumm (1.2-6.7); Basophils % 0.4; Eosinophils % 6.8; HCT 37.1 % (40.0-50.0); HGB 12.3 g/dL (13.5-17.5); Immature Grans % 0.1 %; Lymphocytes % 13.4; Mean Corp. HGB Concentration 33.2 g/dL (32.0-36.0); Mean Corpuscular Hemoglobin 28.7 pg (27.0-33.0); Mean Corpuscular Volume 86.7 fL (80-95); Mean Platelet Volume 10.6 fL (8.0-11.0); Monocytes % 11.2; Neutrophils % 68.1; Platelet Count 185 x1000/uL (130-400); RBC 4.28 m/cumm (4.50-6.00); RBC Distribution Width 15.4 % (11.8-14.1); White Blood Cell Count 7.07 k/cumm (4.4-10.8)
[2019-08-14 09:05] LABS: ALT 49 U/L (16-63); AST 27 U/L (15-37); Albumin 2.8 g/dL (3.4-5.0); Alkaline Phosphatase 68 U/L (46-116); Anion Gap 8.1 mmol/L (3-11); BUN 14 mg/dL (7-18); Bilirubin, Total 0.4 mg/dL (0.2-1.0); C-Reactive Protein 1.53 mg/dL (0.0-0.3); CO2 26.9 mmol/L (21.0-32.0); CREATININE 1.13 mg/dL (0.70-1.30); Calcium 8.5 mg/dL (8.5-10.1); Chloride 103 mmol/L (98-107); Glucose 194 mg/dL (74-106); Potassium 4.4 mmol/L (3.5-5.1); Sodium 138 mmol/L (136-145); Total Protein 7.9 g/dL (6.4-8.2)
[2019-08-15] MEDS: cefTRIAXone 2 GM/50 ML BAG IVPB (08:14)
[2019-08-15] MEDS: Normal Saline Flush 10 ML SYR IVP (08:15)
[2019-08-15 10:55] LABS: CEA 0.9 ng/mL (See Note)
[2019-08-16] MEDS: Normal Saline Flush 10 ML SYR IVP (07:58)
[2019-08-16] MEDS: cefTRIAXone 2 GM/50 ML BAG IVPB (07:58)
[2019-08-17] MEDS: Normal Saline Flush 10 ML SYR IVP (08:03)
[2019-08-17] MEDS: cefTRIAXone 2 GM/50 ML BAG IVPB (08:03)
[2019-08-18] MEDS: Normal Saline Flush 10 ML SYR IVP (08:20)
[2019-08-18] MEDS: cefTRIAXone 2 GM/50 ML BAG IVPB (08:20)
[2019-08-19] MEDS: cefTRIAXone 2 GM/50 ML BAG IVPB (08:06)
[2019-08-19] MEDS: Normal Saline Flush 10 ML SYR IVP (08:07)
[2019-08-19] MEDS: Heparin 500 UNITS/5 ML SYRINGE IV (08:43)
== END 2019-09-09 23:59 | disposition home or self-care (01) ==
LOC: INF 01:39
PROVIDERS: PCP Physician Assistant Medical; Visit Provider Internal Medicine
DX: K68.12 Psoas muscle abscess (principal); B95.7 Other staphylococcus as the cause of diseases classified elsewhere; A49.1 Streptococcal infection, unspecified site; C18.9 Malignant neoplasm of colon, unspecified; Z45.2 Encounter for adjustment and management of vascular access device
CPT/HCPCS: 36591; 80053; 96365; 96523; 82378; 85025; 86140

== ENCOUNTER 2019-09-22 04:39 | Outpatient (RCR) | payer BC, OTHER, SELFPAY ==
[2019-09-22] MEDS: Normal Saline Flush 10 ML SYR IVP (12:31)
[2019-09-22] MEDS: Heparin 500 UNITS/5 ML SYRINGE IV (12:32)
[2019-09-22 12:47] LABS: Abs Immature Grans 0.02 k/cumm (0.0-0.09); Absolute Basophil Count 0.02 k/cumm (0.0-0.2); Absolute Eosinophil Count 0.38 k/cumm (0.0-0.7); Absolute Lymphocyte Count 1.09 k/cumm (1.2-3.4); Absolute Monocyte Count 0.63 k/cumm (0.11-0.7); Absolute Neutrophil Count 5.61 k/cumm (1.2-6.7); Basophils % 0.3; Eosinophils % 4.9; HCT 36.7 % (40.0-50.0); HGB 12.2 g/dL (13.5-17.5); Immature Grans % 0.3 %; Lymphocytes % 14.1; Mean Corp. HGB Concentration 33.2 g/dL (32.0-36.0); Mean Corpuscular Hemoglobin 28.7 pg (27.0-33.0); Mean Corpuscular Volume 86.4 fL (80-95); Monocytes % 8.1; Neutrophils % 72.3; Platelet Count 241 x1000/uL (130-400); RBC 4.25 m/cumm (4.50-6.00); RBC Distribution Width 14.6 % (11.8-14.1); White Blood Cell Count 7.75 k/cumm (4.4-10.8)
[2019-09-22 12:59] LABS: AST 50 U/L (15-37); Albumin 2.9 g/dL (3.4-5.0); Alkaline Phosphatase 79 U/L (46-116); Anion Gap 7.3 mmol/L (3-11); BUN 17 mg/dL (7-18); Bilirubin, Total 0.5 mg/dL (0.2-1.0); CO2 26.7 mmol/L (21.0-32.0); CREATININE 1.35 mg/dL (0.70-1.30); Calcium 9.1 mg/dL (8.5-10.1); Chloride 99 mmol/L (98-107); Glucose 310 mg/dL (74-106); Potassium 4.3 mmol/L (3.5-5.1); Sodium 133 mmol/L (136-145); Total Protein 8.6 g/dL (6.4-8.2)
[2019-09-22 13:16] LABS: ALT 59 U/L (16-63)
== END 2019-10-10 23:59 | disposition home or self-care (01) ==
LOC: INF 04:39
PROVIDERS: PCP Physician Assistant Medical; Visit Provider Internal Medicine Hematology & Oncology
DX: C18.9 Malignant neoplasm of colon, unspecified (principal); C78.6 Secondary malignant neoplasm of retroperitoneum and peritoneum; Z45.2 Encounter for adjustment and management of vascular access device
CPT/HCPCS: 36591; 80053; 85025

== ENCOUNTER 2019-11-02 01:19 | Outpatient (RCR) | payer BC, OTHER, SELFPAY ==
[2019-11-02] MEDS: Normal Saline Flush 10 ML SYR IVP (13:20)
[2019-11-02] MEDS: Heparin 500 UNITS/5 ML SYRINGE IV (13:20)
[2019-11-02 13:44] LABS: Abs Immature Grans 0.07 k/cumm (0.0-0.09); Absolute Eosinophil Count 0.13 k/cumm (0.0-0.7); Absolute Lymphocyte Count 1.19 k/cumm (1.2-3.4); Basophils % 0.1; Eosinophils % 0.8; HCT 32.5 % (40.0-50.0); HGB 10.8 g/dL (13.5-17.5); Immature Grans % 0.4 %; Lymphocytes % 7.5; Mean Corp. HGB Concentration 33.2 g/dL (32.0-36.0); Mean Corpuscular Hemoglobin 28.6 pg (27.0-33.0); Mean Platelet Volume 9.9 fL (8.0-11.0); Monocytes % 5.5; Neutrophils % 85.7; Platelet Count 385 x1000/uL (130-400); RBC 3.78 m/cumm (4.50-6.00); RBC Distribution Width 13.9 % (11.8-14.1); White Blood Cell Count 15.87 k/cumm (4.4-10.8)
[2019-11-02 13:45] LABS: Absolute Basophil Count 0.02 k/cumm (0.0-0.2); Absolute Monocyte Count 0.87 k/cumm (0.11-0.7)
[2019-11-02 14:05] LABS: ALT 32 U/L (16-63); AST 22 U/L (15-37); Albumin 2.4 g/dL (3.4-5.0); Alkaline Phosphatase 82 U/L (46-116); Anion Gap 6.9 mmol/L (3-11); BUN 22 mg/dL (7-18); Bilirubin, Total 0.6 mg/dL (0.2-1.0); CO2 26.1 mmol/L (21.0-32.0); CREATININE 1.53 mg/dL (0.70-1.30); Calcium 9.6 mg/dL (8.5-10.1); Chloride 93 mmol/L (98-107); Estimated GFR 48.04 (mL/min/1.73m2); Glucose 288 mg/dL (74-106); Potassium 4.4 mmol/L (3.5-5.1); Sodium 126 mmol/L (136-145); Total Protein 8.8 g/dL (6.4-8.2)
[2019-11-03 10:18] LABS: CEA 1.2 ng/mL (See Note)
== END 2019-11-09 23:59 | disposition home or self-care (01) ==
LOC: INF 01:19
PROVIDERS: PCP Physician Assistant Medical; Visit Provider Internal Medicine Hematology & Oncology
DX: C18.9 Malignant neoplasm of colon, unspecified (principal); Z45.2 Encounter for adjustment and management of vascular access device; C78.6 Secondary malignant neoplasm of retroperitoneum and peritoneum
CPT/HCPCS: 36591; 80053; 82378; 85025

== ENCOUNTER 2019-12-08 02:51 | Outpatient (RCR) | payer BC, OTHER, SELFPAY ==
[2019-11-10] MEDS: Heparin 500 UNITS/5 ML SYRINGE IV (13:30)
[2019-11-10 13:55] LABS: Abs Immature Grans 0.06 k/cumm (0.0-0.09); Absolute Basophil Count 0.01 k/cumm (0.0-0.2); Absolute Eosinophil Count 0.41 k/cumm (0.0-0.7); Absolute Lymphocyte Count 1.47 k/cumm (1.2-3.4); Absolute Monocyte Count 0.69 k/cumm (0.11-0.7); Absolute Neutrophil Count 6.47 k/cumm (1.2-6.7); Basophils % 0.1; Eosinophils % 4.5; HCT 34.5 % (40.0-50.0); HGB 11.1 g/dL (13.5-17.5); Immature Grans % 0.7 %; Lymphocytes % 16.1; Mean Corp. HGB Concentration 32.2 g/dL (32.0-36.0); Mean Corpuscular Hemoglobin 27.8 pg (27.0-33.0); Mean Corpuscular Volume 86.5 fL (80-95); Mean Platelet Volume 9.3 fL (8.0-11.0); Monocytes % 7.6; Platelet Count 405 x1000/uL (130-400); RBC 3.99 m/cumm (4.50-6.00); White Blood Cell Count 9.11 k/cumm (4.4-10.8)
[2019-11-10 14:08] LABS: ALT 43 U/L (16-63); AST 62 U/L (15-37); Albumin 2.7 g/dL (3.4-5.0); Alkaline Phosphatase 76 U/L (46-116); BUN 13 mg/dL (7-18); Bilirubin, Total 0.3 mg/dL (0.2-1.0); Calcium 10.1 mg/dL (8.5-10.1); Chloride 97 mmol/L (98-107); Glucose 142 mg/dL (74-106); Potassium 4.8 mmol/L (3.5-5.1); Sodium 134 mmol/L (136-145)
[2019-11-10] MEDS: Normal Saline Flush 10 ML SYR IVP (14:42)
[2019-11-13 09:49] LABS: CEA 0.8 ng/mL (See Note)
[2019-11-21 08:22] LABS: Abs Immature Grans 0.05 k/cumm (0.0-0.09); Basophils % 0.2; Eosinophils % 4.9; HCT 35.1 % (40.0-50.0); HGB 11.4 g/dL (13.5-17.5); Immature Grans % 0.4 %; Lymphocytes % 11.7; Mean Corp. HGB Concentration 32.5 g/dL (32.0-36.0); Mean Corpuscular Hemoglobin 28.1 pg (27.0-33.0); Mean Corpuscular Volume 86.7 fL (80-95); Mean Platelet Volume 10.3 fL (8.0-11.0); Monocytes % 8.2; Neutrophils % 74.6; Platelet Count 269 x1000/uL (130-400); RBC 4.05 m/cumm (4.50-6.00); RBC Distribution Width 14.9 % (11.8-14.1); White Blood Cell Count 12.26 k/cumm (4.4-10.8)
[2019-11-21 08:23] LABS: Absolute Basophil Count 0.02 k/cumm (0.0-0.2); Absolute Lymphocyte Count 1.43 k/cumm (1.2-3.4); Absolute Monocyte Count 1.01 k/cumm (0.11-0.7); Absolute Neutrophil Count 9.15 k/cumm (1.2-6.7)
[2019-11-21] MEDS: Normal Saline Flush 10 ML SYR IVP (08:30)
[2019-11-21 08:36] LABS: ALT 40 U/L (16-63); AST 37 U/L (15-37); Alkaline Phosphatase 76 U/L (46-116); Anion Gap 9.3 mmol/L (3-11); BUN 24 mg/dL (7-18); Bilirubin, Total 0.4 mg/dL (0.2-1.0); CO2 23.7 mmol/L (21.0-32.0); CREATININE 1.41 mg/dL (0.70-1.30); Calcium 9.2 mg/dL (8.5-10.1); Chloride 99 mmol/L (98-107); Estimated GFR 52.78 (mL/min/1.73m2); Glucose 175 mg/dL (74-106); Potassium 4.6 mmol/L (3.5-5.1); Sodium 132 mmol/L (136-145); Total Protein 8.8 g/dL (6.4-8.2)
[2019-11-24] MEDS: Heparin 500 UNITS/5 ML SYRINGE IV (09:33)
[2019-11-24] MEDS: Normal Saline Flush 10 ML SYR IVP (09:33)
[2019-12-01 08:55] LABS: Abs Immature Grans 0.04 k/cumm (0.0-0.09); Absolute Eosinophil Count 0.25 k/cumm (0.0-0.7); Absolute Lymphocyte Count 1.04 k/cumm (1.2-3.4); Absolute Monocyte Count 0.39 k/cumm (0.11-0.7); Eosinophils % 4.4; Immature Grans % 0.7 %; Lymphocytes % 18.2; Mean Corp. HGB Concentration 32.3 g/dL (32.0-36.0); Mean Corpuscular Hemoglobin 28.1 pg (27.0-33.0); Mean Corpuscular Volume 87.1 fL (80-95); Mean Platelet Volume 9.4 fL (8.0-11.0); Monocytes % 6.8; Neutrophils % 69.9; Platelet Count 253 x1000/uL (130-400); RBC 3.56 m/cumm (4.50-6.00); RBC Distribution Width 14.9 % (11.8-14.1); White Blood Cell Count 5.72 k/cumm (4.4-10.8)
[2019-12-01 09:12] LABS: ALT 83 U/L (16-63); AST 68 U/L (15-37); Albumin 2.8 g/dL (3.4-5.0); Alkaline Phosphatase 67 U/L (46-116); Anion Gap 6.3 mmol/L (3-11); BUN 21 mg/dL (7-18); Bilirubin, Total 0.4 mg/dL (0.2-1.0); CO2 28.7 mmol/L (21.0-32.0); CREATININE 1.42 mg/dL (0.70-1.30); Calcium 8.4 mg/dL (8.5-10.1); Chloride 97 mmol/L (98-107); Estimated GFR 52.35 (mL/min/1.73m2); Glucose 219 mg/dL (74-106); Potassium 4.5 mmol/L (3.5-5.1); Sodium 132 mmol/L (136-145)
[2019-12-01] MEDS: Heparin 500 UNITS/5 ML SYRINGE IV (09:18)
[2019-12-01] MEDS: Normal Saline Flush 10 ML SYR IVP (09:18)
[2019-12-08 08:40] LABS: Abs Immature Grans 0.03 k/cumm (0.0-0.09); Absolute Basophil Count 0.02 k/cumm (0.0-0.2); Absolute Monocyte Count 0.79 k/cumm (0.11-0.7); Absolute Neutrophil Count 3.58 k/cumm (1.2-6.7); Basophils % 0.3; Eosinophils % 6.8; HCT 32.5 % (40.0-50.0); HGB 10.7 g/dL (13.5-17.5); Immature Grans % 0.5 %; Lymphocytes % 18.6; Mean Corp. HGB Concentration 32.9 g/dL (32.0-36.0); Mean Corpuscular Hemoglobin 28.8 pg (27.0-33.0); Mean Corpuscular Volume 87.6 fL (80-95); Mean Platelet Volume 9.5 fL (8.0-11.0); Monocytes % 13.3; Neutrophils % 60.5; Platelet Count 272 x1000/uL (130-400); RBC 3.71 m/cumm (4.50-6.00); RBC Distribution Width 16.7 % (11.8-14.1); White Blood Cell Count 5.92 k/cumm (4.4-10.8)
[2019-12-08 08:56] LABS: ALT 63 U/L (16-63); AST 43 U/L (15-37); Alkaline Phosphatase 80 U/L (46-116); Anion Gap 5.5 mmol/L (3-11); BUN 20 mg/dL (7-18); Bilirubin, Total 0.8 mg/dL (0.2-1.0); CO2 25.5 mmol/L (21.0-32.0); CREATININE 1.31 mg/dL (0.70-1.30); Calcium 8.6 mg/dL (8.5-10.1); Chloride 100 mmol/L (98-107); Estimated GFR 57.46 (mL/min/1.73m2); Glucose 188 mg/dL (74-106); Potassium 4.4 mmol/L (3.5-5.1); Sodium 131 mmol/L (136-145); Total Protein 8.4 g/dL (6.4-8.2)
[2019-12-08] MEDS: Heparin 500 UNITS/5 ML SYRINGE IV (09:31)
[2019-12-08] MEDS: Normal Saline Flush 10 ML SYR IVP (09:31)
[2019-12-11 10:37] LABS: CEA 1.8 ng/mL (See Note)
== END 2019-12-10 23:59 | disposition home or self-care (01) ==
LOC: INF 02:51
PROVIDERS: PCP Physician Assistant Medical; Visit Provider Internal Medicine Hematology & Oncology
DX: C18.9 Malignant neoplasm of colon, unspecified (principal); C78.6 Secondary malignant neoplasm of retroperitoneum and peritoneum; Z45.2 Encounter for adjustment and management of vascular access device
CPT/HCPCS: 36591; 80053; 96365; 96366; 82378; 85025

== ENCOUNTER 2020-01-05 04:14 | Outpatient (RCR) | payer BC, OTHER, SELFPAY ==
[2019-12-22] MEDS: Normal Saline Flush 10 ML SYR IVP ×2 (08:47→09:48)
[2019-12-22] MEDS: Heparin 500 UNITS/5 ML SYRINGE IV (08:47)
[2019-12-22 09:18] LABS: Abs Immature Grans 0.04 k/cumm (0.0-0.09); Absolute Basophil Count 0.01 k/cumm (0.0-0.2); Absolute Eosinophil Count 0.31 k/cumm (0.0-0.7); Absolute Lymphocyte Count 0.93 k/cumm (1.2-3.4); Absolute Monocyte Count 0.41 k/cumm (0.11-0.7); Absolute Neutrophil Count 5.62 k/cumm (1.2-6.7); Basophils % 0.1; Eosinophils % 4.2; HCT 30.6 % (40.0-50.0); HGB 10.1 g/dL (13.5-17.5); Immature Grans % 0.5 %; Lymphocytes % 12.7; Mean Corpuscular Hemoglobin 28.7 pg (27.0-33.0); Mean Corpuscular Volume 86.9 fL (80-95); Mean Platelet Volume 9.5 fL (8.0-11.0); Monocytes % 5.6; Neutrophils % 76.9; Platelet Count 420 x1000/uL (130-400); RBC 3.52 m/cumm (4.50-6.00); RBC Distribution Width 16.3 % (11.8-14.1); White Blood Cell Count 7.32 k/cumm (4.4-10.8)
[2019-12-22 09:30] LABS: ALT 91 U/L (16-63); AST 95 U/L (15-37); Albumin 2.7 g/dL (3.4-5.0); Alkaline Phosphatase 89 U/L (46-116); Anion Gap 9.1 mmol/L (3-11); BUN 14 mg/dL (7-18); Bilirubin, Total 0.3 mg/dL (0.2-1.0); CO2 24.9 mmol/L (21.0-32.0); CREATININE 1.36 mg/dL (0.70-1.30); Calcium 9.1 mg/dL (8.5-10.1); Chloride 98 mmol/L (98-107); Estimated GFR 55.03 (mL/min/1.73m2); Glucose 234 mg/dL (74-106); Potassium 4.2 mmol/L (3.5-5.1); Sodium 132 mmol/L (136-145); Total Protein 8.3 g/dL (6.4-8.2)
[2019-12-29] MEDS: Heparin 500 UNITS/5 ML SYRINGE IV (09:36)
[2019-12-29] MEDS: Normal Saline Flush 10 ML SYR IVP (09:36)
[2020-01-05] MEDS: Normal Saline Flush 10 ML SYR IVP (14:20)
[2020-01-05] MEDS: Heparin 500 UNITS/5 ML SYRINGE IV (14:21)
[2020-01-05 14:26] LABS: Abs Immature Grans 0.12 k/cumm (0.0-0.09); Absolute Basophil Count 0.02 k/cumm (0.0-0.2); Absolute Eosinophil Count 0.31 k/cumm (0.0-0.7); Absolute Lymphocyte Count 1.14 k/cumm (1.2-3.4); Absolute Monocyte Count 0.62 k/cumm (0.11-0.7); Absolute Neutrophil Count 6.73 k/cumm (1.2-6.7); Basophils % 0.2; Eosinophils % 3.5; HCT 31.5 % (40.0-50.0); HGB 10.2 g/dL (13.5-17.5); Immature Grans % 1.3 %; Lymphocytes % 12.8; Mean Corp. HGB Concentration 32.4 g/dL (32.0-36.0); Mean Corpuscular Hemoglobin 28.5 pg (27.0-33.0); Mean Platelet Volume 9.3 fL (8.0-11.0); Monocytes % 6.9; Neutrophils % 75.3; Platelet Count 309 x1000/uL (130-400); RBC 3.58 m/cumm (4.50-6.00); RBC Distribution Width 17.2 % (11.8-14.1); White Blood Cell Count 8.94 k/cumm (4.4-10.8)
[2020-01-05 14:38] LABS: ALT 82 U/L (16-63); AST 112 U/L (15-37); Albumin 2.7 g/dL (3.4-5.0); Alkaline Phosphatase 85 U/L (46-116); Anion Gap 11.3 mmol/L (3-11); BUN 14 mg/dL (7-18); Bilirubin, Total 0.4 mg/dL (0.2-1.0); CO2 21.7 mmol/L (21.0-32.0); CREATININE 1.46 mg/dL (0.70-1.30); Calcium 8.6 mg/dL (8.5-10.1); Chloride 95 mmol/L (98-107); Glucose 219 mg/dL (74-106); Potassium 4.6 mmol/L (3.5-5.1); Sodium 128 mmol/L (136-145)
== END 2020-01-09 23:59 | disposition home or self-care (01) ==
LOC: INF 04:14
PROVIDERS: PCP Physician Assistant Medical; Visit Provider Internal Medicine Hematology & Oncology
DX: C18.9 Malignant neoplasm of colon, unspecified (principal); Z45.2 Encounter for adjustment and management of vascular access device; C78.6 Secondary malignant neoplasm of retroperitoneum and peritoneum
CPT/HCPCS: 36591; 80053; 96365; 96366; 96523; 82378; 85025

== ENCOUNTER 2020-02-02 04:18 | Outpatient (RCR) | payer BC, OTHER, SELFPAY ==
[2020-01-11] MEDS: Normal Saline Flush 10 ML SYR IVP (08:43)
[2020-01-11] MEDS: Heparin 500 UNITS/5 ML SYRINGE (08:44)
[2020-01-11 09:02] LABS: Abs Immature Grans 0.08 k/cumm (0.0-0.09); Absolute Basophil Count 0.05 k/cumm (0.0-0.2); Absolute Eosinophil Count 0.46 k/cumm (0.0-0.7); Absolute Lymphocyte Count 1.04 k/cumm (1.2-3.4); Absolute Monocyte Count 0.59 k/cumm (0.11-0.7); Basophils % 0.7; Eosinophils % 6.1; HCT 32.9 % (40.0-50.0); HGB 10.7 g/dL (13.5-17.5); Immature Grans % 1.1 %; Lymphocytes % 13.8; Mean Corp. HGB Concentration 32.5 g/dL (32.0-36.0); Mean Corpuscular Hemoglobin 29.2 pg (27.0-33.0); Mean Corpuscular Volume 89.6 fL (80-95); Mean Platelet Volume 9.9 fL (8.0-11.0); Monocytes % 7.8; Neutrophils % 70.5; Platelet Count 325 x1000/uL (130-400); RBC 3.67 m/cumm (4.50-6.00); RBC Distribution Width 18.2 % (11.8-14.1); White Blood Cell Count 7.52 k/cumm (4.4-10.8)
[2020-01-11 09:21] LABS: ALT 54 U/L (16-63); AST 50 U/L (15-37); Albumin 2.9 g/dL (3.4-5.0); Alkaline Phosphatase 79 U/L (46-116); Anion Gap 10.7 mmol/L (3-11); BUN 16 mg/dL (7-18); Bilirubin, Total 0.4 mg/dL (0.2-1.0); CO2 24.3 mmol/L (21.0-32.0); CREATININE 1.26 mg/dL (0.70-1.30); Calcium 9.2 mg/dL (8.5-10.1); Chloride 97 mmol/L (98-107); Glucose 217 mg/dL (74-106); Potassium 4.2 mmol/L (3.5-5.1); Sodium 132 mmol/L (136-145)
[2020-01-19] MEDS: Normal Saline Flush 10 ML SYR IVP (08:37)
[2020-01-19] MEDS: Heparin 500 UNITS/5 ML SYRINGE (08:38)
[2020-01-26] MEDS: Normal Saline Flush 10 ML SYR IVP ×2 (08:36→09:36)
[2020-01-26] MEDS: Heparin 500 UNITS/5 ML SYRINGE ×2 (08:37→09:36)
[2020-01-26 08:45] LABS: Abs Immature Grans 0.02 k/cumm (0.0-0.09); Absolute Basophil Count 0.02 k/cumm (0.0-0.2); Absolute Eosinophil Count 0.22 k/cumm (0.0-0.7); Absolute Lymphocyte Count 0.96 k/cumm (1.2-3.4); Absolute Monocyte Count 0.54 k/cumm (0.11-0.7); Absolute Neutrophil Count 4.41 k/cumm (1.2-6.7); Basophils % 0.3; Eosinophils % 3.6; HCT 33.2 % (40.0-50.0); HGB 10.7 g/dL (13.5-17.5); Immature Grans % 0.3 %; Lymphocytes % 15.6; Mean Corp. HGB Concentration 32.2 g/dL (32.0-36.0); Mean Corpuscular Hemoglobin 29.2 pg (27.0-33.0); Mean Corpuscular Volume 90.5 fL (80-95); Monocytes % 8.8; Neutrophils % 71.4; Platelet Count 262 x1000/uL (130-400); RBC 3.67 m/cumm (4.50-6.00); White Blood Cell Count 6.17 k/cumm (4.4-10.8)
[2020-01-26 09:24] LABS: Albumin 2.9 g/dL (3.4-5.0); Alkaline Phosphatase 85 U/L (46-116); Anion Gap 13.7 mmol/L (3-11); BUN 13 mg/dL (7-18); Bilirubin, Total 0.3 mg/dL (0.2-1.0); CO2 20.3 mmol/L (21.0-32.0); CREATININE 1.11 mg/dL (0.70-1.30); Calcium 8.3 mg/dL (8.5-10.1); Chloride 99 mmol/L (98-107); Glucose 288 mg/dL (74-106); Potassium 4.3 mmol/L (3.5-5.1); Sodium 133 mmol/L (136-145); Total Protein 7.8 g/dL (6.4-8.2)
[2020-01-26 09:47] LABS: ALT 73 U/L (16-63); AST 93 U/L (15-37)
[2020-01-29 10:27] LABS: CEA 2.1 ng/mL (See Note)
[2020-02-02] MEDS: Normal Saline Flush 10 ML SYR IVP (14:10)
[2020-02-02] MEDS: Heparin 500 UNITS/5 ML SYRINGE (14:10)
== END 2020-02-09 23:59 | disposition home or self-care (01) ==
LOC: INF 04:18
PROVIDERS: Internal Medicine Hematology & Oncology; PCP Physician Assistant Medical; Visit Provider Family Medicine
DX: C18.9 Malignant neoplasm of colon, unspecified (principal); Z45.2 Encounter for adjustment and management of vascular access device
CPT/HCPCS: 36591; 80053; 96365; 96366; 82378; 85025

== ENCOUNTER 2020-03-04 00:43 | Outpatient (CLI) | payer BC, OTHER, SELFPAY ==
--- NOTE | 2020-03-04 | DI.US_ITS ---
EXAM: US RENAL CLINICAL HISTORY: OBSTRUCTION OF URETER,N13.5 TECHNIQUE: Ultrasound performed using standard protocol. COMPARISON: US US ECHOCARDIOGRAM from 07/20/[address] GUIDED DRAIN RETROP from 01/01/[address] ABDOMEN AND PELVIS from 01/01/2020 FINDINGS: Renal ultrasound was performed according to the usual protocol. There is a an apparent right renal m id pole nonobstructing calculus. No hydronephrosis on the right or left. There is a 37 millimeter i n diameter left renal lower pole cyst. Left nephrostomy tube noted. Urinary bladder shows pre and p ost void volume measurements 34 cc and 0 cc. Nephrostomy tube or stent noted in urinary bladder. Ri ght ureteral jet visualized. Left ureteral jet not visualized. IMPRESSION: DATA REPOSITORY:
== END 2020-03-04 01:03 ==
PROVIDERS: PCP Physician Assistant Medical; Visit Provider Urology
DX: N13.5 Crossing vessel and stricture of ureter without hydronephrosis (principal)
CPT/HCPCS: 76770

== ENCOUNTER 2020-03-07 13:00 | Outpatient (RCR) | payer BC, OTHER, SELFPAY ==
[2020-02-23] MEDS: Normal Saline Flush 10 ML SYR IVP (14:46)
[2020-02-23] MEDS: Heparin 500 UNITS/5 ML SYRINGE IV (14:47)
[2020-02-23 14:53] LABS: Abs Immature Grans 0.07 10^3/uL (0.0-0.06); Absolute Basophil Count 0.06 10^3/uL (0.0-0.2); Absolute Eosinophil Count 0.34 10^3/uL (0.0-0.7); Absolute Lymphocyte Count 1.22 10^3/uL (1.2-3.4); Absolute Monocyte Count 0.74 10^3/uL (0.1-0.8); Absolute Neutrophil Count 5.14 10^3/uL (1.2-6.7); Basophils % 0.8; Eosinophils % 4.5; HCT 35.6 % (40.0-50.0); HGB 11.2 g/dL (13.5-17.5); Immature Grans % 0.9; Lymphocytes % 16.1; MCH 28.6 pg (27.0-33.0); MCHC 31.5 % (32.0-36.0); MCV 90.8 fL (80-95); MPV 10.4 fL (8.0-11.0); Monocytes % 9.8; Neutrophils % 67.9; Nucleated RBC 0 %; Platelet Count 274 10^3/uL (130-400); RBC 3.92 10^6/uL (4.36-5.78); RDW 15.9 % (11.8-14.1); RDW-SD 53.2 fL; WBC 7.57 10^3/uL (4.4-10.8)
[2020-02-23 15:08] LABS: ALT 58 U/L (16-63); AST 80 U/L (15-37); Alkaline Phosphatase 95 U/L (46-116); BUN 17 mg/dL (7-18); Bilirubin, Total 0.4 mg/dL (0.2-1.0); CREATININE 1.14 mg/dL (0.70-1.30); Calcium 8.9 mg/dL (8.5-10.1); Chloride 101 mmol/L (98-107); Glucose 221 mg/dL (74-106); Potassium 4.2 mmol/L (3.5-5.1); Sodium 133 mmol/L (136-145); Total Protein 8.8 g/dL (6.4-8.2)
[2020-03-07] MEDS: Normal Saline Flush 10 ML SYR IVP (14:08)
[2020-03-07 14:09] LABS: Abs Immature Grans 0.03 10^3/uL (0.0-0.06); Absolute Basophil Count 0.02 10^3/uL (0.0-0.2); Absolute Eosinophil Count 0.25 10^3/uL (0.0-0.7); Absolute Lymphocyte Count 1.08 10^3/uL (1.2-3.4); Absolute Monocyte Count 0.37 10^3/uL (0.1-0.8); Absolute Neutrophil Count 5.13 10^3/uL (1.2-6.7); Basophils % 0.3; Eosinophils % 3.6; HGB 10.7 g/dL (13.5-17.5); Immature Grans % 0.4; Lymphocytes % 15.7; MCH 28.8 pg (27.0-33.0); MCHC 32.4 % (32.0-36.0); MCV 88.9 fL (80-95); MPV 10.2 fL (8.0-11.0); Monocytes % 5.4; Neutrophils % 74.6; Nucleated RBC 0 %; Platelet Count 300 10^3/uL (130-400); RBC 3.71 10^6/uL (4.36-5.78); RDW 15.1 % (11.8-14.1); RDW-SD 48.9 fL; WBC 6.88 10^3/uL (4.4-10.8)
[2020-03-07] MEDS: Heparin 500 UNITS/5 ML SYRINGE IV (14:09)
[2020-03-07 14:22] LABS: ALT 88 U/L (16-63); AST 100 U/L (15-37); Albumin 2.6 g/dL (3.4-5.0); Alkaline Phosphatase 88 U/L (46-116); Anion Gap 9.3 mmol/L (3-11); BUN 9 mg/dL (7-18); Bilirubin, Total 0.3 mg/dL (0.2-1.0); CO2 25.7 mmol/L (21.0-32.0); CREATININE 1.17 mg/dL (0.70-1.30); Calcium 9.1 mg/dL (8.5-10.1); Chloride 96 mmol/L (98-107); Glucose 378 mg/dL (74-106); Potassium 4.3 mmol/L (3.5-5.1); Sodium 131 mmol/L (136-145); Total Protein 8.2 g/dL (6.4-8.2)
[2020-03-11 09:16] LABS: CEA 2.2 ng/mL (See Note)
== END 2020-03-11 23:59 | disposition home or self-care (01) ==
LOC: INF 13:00
PROVIDERS: Internal Medicine Hematology & Oncology; PCP Physician Assistant Medical; Visit Provider Family Medicine
DX: C18.9 Malignant neoplasm of colon, unspecified (principal); Z45.2 Encounter for adjustment and management of vascular access device
CPT/HCPCS: 36591; 80053; 82378; 85025

== ENCOUNTER 2020-03-29 03:57 | Outpatient (RCR) | payer BC, OTHER, SELFPAY ==
[2020-03-19 07:10] LABS: Abs Immature Grans 0.08 10^3/uL (0.0-0.06); Absolute Basophil Count 0.04 10^3/uL (0.0-0.2); Absolute Eosinophil Count 0.47 10^3/uL (0.0-0.7); Absolute Lymphocyte Count 0.98 10^3/uL (1.2-3.4); Absolute Neutrophil Count 5.77 10^3/uL (1.2-6.7); Basophils % 0.5; Eosinophils % 5.6; HCT 34.3 % (40.0-50.0); HGB 10.9 g/dL (13.5-17.5); Lymphocytes % 11.8; MCH 28.4 pg (27.0-33.0); MCHC 31.8 % (32.0-36.0); MCV 89.3 fL (80-95); MPV 9.9 fL (8.0-11.0); Neutrophils % 69.1; Nucleated RBC 0 %; Platelet Count 309 10^3/uL (130-400); RBC 3.84 10^6/uL (4.36-5.78); RDW 15.4 % (11.8-14.1); RDW-SD 49.5 fL; WBC 8.34 10^3/uL (4.4-10.8)
[2020-03-19 07:26] LABS: ALT 40 U/L (16-63); AST 45 U/L (15-37); Albumin 2.7 g/dL (3.4-5.0); Alkaline Phosphatase 103 U/L (46-116); Anion Gap 7.1 mmol/L (3-11); BUN 12 mg/dL (7-18); Bilirubin, Total 0.4 mg/dL (0.2-1.0); CO2 24.9 mmol/L (21.0-32.0); CREATININE 1.31 mg/dL (0.70-1.30); Calcium 8.9 mg/dL (8.5-10.1); Chloride 100 mmol/L (98-107); Estimated GFR 57.46 (mL/min/1.73m2); Glucose 181 mg/dL (74-106); Magnesium 1.8 mg/dL (1.8-2.4); Potassium 3.9 mmol/L (3.5-5.1); Sodium 132 mmol/L (136-145); Total Protein 8.2 g/dL (6.4-8.2)
[2020-03-19] MEDS: Normal Saline Flush 10 ML SYR IVP (07:39)
[2020-03-19 17:49] LABS: CEA 1.9 ng/mL (See Note)
[2020-03-29] MEDS: Heparin 500 UNITS/5 ML SYRINGE IV (09:10)
[2020-03-29] MEDS: Normal Saline Flush 10 ML SYR IVP (09:10)
[2020-03-29 09:45] LABS: Abs Immature Grans 0.04 10^3/uL (0.0-0.06); Absolute Basophil Count 0.02 10^3/uL (0.0-0.2); Absolute Eosinophil Count 0.35 10^3/uL (0.0-0.7); Absolute Lymphocyte Count 0.65 10^3/uL (1.2-3.4); Absolute Monocyte Count 0.42 10^3/uL (0.1-0.8); Absolute Neutrophil Count 4.68 10^3/uL (1.2-6.7); Basophils % 0.3; Eosinophils % 5.7; HCT 34.3 % (40.0-50.0); HGB 10.8 g/dL (13.5-17.5); Immature Grans % 0.6; Lymphocytes % 10.6; MCH 27.8 pg (27.0-33.0); MCHC 31.5 % (32.0-36.0); MCV 88.4 fL (80-95); MPV 10.5 fL (8.0-11.0); Monocytes % 6.8; Nucleated RBC 0 %; Platelet Count 284 10^3/uL (130-400); RBC 3.88 10^6/uL (4.36-5.78); RDW 15.5 % (11.8-14.1); RDW-SD 49.7 fL; WBC 6.16 10^3/uL (4.4-10.8)
[2020-03-29 09:59] LABS: ALT 105 U/L (16-63); AST 78 U/L (15-37); Albumin 2.5 g/dL (3.4-5.0); Alkaline Phosphatase 107 U/L (46-116); BUN 13 mg/dL (7-18); Bilirubin, Total 0.4 mg/dL (0.2-1.0); CREATININE 1.15 mg/dL (0.70-1.30); Calcium 8.8 mg/dL (8.5-10.1); Chloride 100 mmol/L (98-107); Glucose 161 mg/dL (74-106); Magnesium 1.9 mg/dL (1.8-2.4); Potassium 3.9 mmol/L (3.5-5.1); Sodium 134 mmol/L (136-145); Total Protein 8.2 g/dL (6.4-8.2)
[2020-04-03 09:09] LABS: CEA 3.7 ng/mL (See Note)
== END 2020-04-10 23:59 | disposition home or self-care (01) ==
LOC: INF 03:57
PROVIDERS: PCP Physician Assistant Medical; Visit Provider Internal Medicine Hematology & Oncology
DX: C18.9 Malignant neoplasm of colon, unspecified (principal); Z45.2 Encounter for adjustment and management of vascular access device; C79.89 Secondary malignant neoplasm of other specified sites
CPT/HCPCS: 36591; 80053; 82378; 83735; 85025

== ENCOUNTER 2020-05-09 14:00 | Outpatient (RCR) | payer BC, OTHER, SELFPAY ==
[2020-04-12] MEDS: Normal Saline Flush 10 ML SYR IVP (07:11)
[2020-04-12] MEDS: Heparin 500 UNITS/5 ML SYRINGE IV (07:11)
[2020-04-12 07:15] LABS: Abs Immature Grans 0.05 10^3/uL (0.0-0.06); Absolute Basophil Count 0.03 10^3/uL (0.0-0.2); Absolute Eosinophil Count 0.49 10^3/uL (0.0-0.7); Absolute Monocyte Count 0.78 10^3/uL (0.1-0.8); Absolute Neutrophil Count 5.53 10^3/uL (1.2-6.7); Basophils % 0.4; Eosinophils % 6.5; HCT 32.8 % (40.0-50.0); HGB 10.4 g/dL (13.5-17.5); Immature Grans % 0.7; Lymphocytes % 9.2; MCHC 31.7 % (32.0-36.0); MCV 88.4 fL (80-95); MPV 10.1 fL (8.0-11.0); Monocytes % 10.3; Neutrophils % 72.9; Nucleated RBC 0 %; Platelet Count 271 10^3/uL (130-400); RBC 3.71 10^6/uL (4.36-5.78); RDW-SD 52.2 fL; WBC 7.58 10^3/uL (4.4-10.8)
[2020-04-12 07:55] LABS: ALT 70 U/L (16-63); AST 58 U/L (15-37); Albumin 2.4 g/dL (3.4-5.0); Alkaline Phosphatase 120 U/L (46-116); Anion Gap 8.1 mmol/L (3-11); BUN 11 mg/dL (7-18); Bilirubin, Total 0.4 mg/dL (0.2-1.0); CO2 24.9 mmol/L (21.0-32.0); CREATININE 1.23 mg/dL (0.70-1.30); Calcium 8.8 mg/dL (8.5-10.1); Chloride 101 mmol/L (98-107); Glucose 121 mg/dL (74-106); Magnesium 1.8 mg/dL (1.8-2.4); Potassium 3.7 mmol/L (3.5-5.1); Sodium 134 mmol/L (136-145); Total Protein 7.7 g/dL (6.4-8.2)
[2020-04-12 18:13] LABS: CEA 2.3 ng/mL (See Note)
[2020-05-09 14:31] VITALS: BP 105/74; PULSE 94; RESP 18; TEMP 36.1; O2SAT 100
[2020-05-09 14:46] LABS: Abs Immature Grans 0.05 10^3/uL (0.0-0.06); Absolute Basophil Count 0.07 10^3/uL (0.0-0.2); Absolute Eosinophil Count 0.67 10^3/uL (0.0-0.7); Absolute Lymphocyte Count 1.42 10^3/uL (1.2-3.4); Absolute Neutrophil Count 8.07 10^3/uL (1.2-6.7); Basophils % 0.6; HCT 32.1 % (40.0-50.0); HGB 10.2 g/dL (13.5-17.5); Immature Grans % 0.4; Lymphocytes % 12.7; MCH 27.7 pg (27.0-33.0); MCHC 31.8 % (32.0-36.0); MCV 87.2 fL (80-95); MPV 10.4 fL (8.0-11.0); Monocytes % 8.1; Neutrophils % 72.2; Nucleated RBC 0 %; Platelet Count 409 10^3/uL (130-400); RBC 3.68 10^6/uL (4.36-5.78); RDW 15.6 % (11.8-14.1); RDW-SD 49.7 fL; WBC 11.18 10^3/uL (4.4-10.8)
[2020-05-09 14:59] LABS: ALT 42 U/L (16-63); AST 61 U/L (15-37); Albumin 2.8 g/dL (3.4-5.0); Alkaline Phosphatase 177 U/L (46-116); Anion Gap 5.7 mmol/L (3-11); BUN 15 mg/dL (7-18); Bilirubin, Total 0.5 mg/dL (0.2-1.0); CO2 25.3 mmol/L (21.0-32.0); CREATININE 1.63 mg/dL (0.70-1.30); Calcium 8.7 mg/dL (8.5-10.1); Chloride 96 mmol/L (98-107); Estimated GFR 44.48 (mL/min/1.73m2); Glucose 283 mg/dL (74-106); Potassium 5.3 mmol/L (3.5-5.1); Sodium 127 mmol/L (136-145); Total Protein 9.4 g/dL (6.4-8.2)
[2020-05-09 15:10] LABS: Absolute Monocyte Count 0.91 10^3/uL (0.1-0.8)
[2020-05-09] MEDS: Normal Saline Flush 10 ML SYR IVP (15:48)
[2020-05-09] MEDS: Heparin 500 UNITS/5 ML SYRINGE IV (15:49)
[2020-05-16 10:21] LABS: CEA 6.7 ng/ml
== END 2020-05-11 23:59 | disposition home or self-care (01) ==
LOC: INF 14:00
PROVIDERS: PCP Physician Assistant Medical; Visit Provider Internal Medicine Hematology & Oncology
DX: C18.9 Malignant neoplasm of colon, unspecified (principal); C77.2 Secondary and unspecified malignant neoplasm of intra-abdominal lymph nodes; Z45.2 Encounter for adjustment and management of vascular access device; Z79.899 Other long term (current) drug therapy; R53.83 Other fatigue
CPT/HCPCS: 36591; 80053; 86900; 86901; 82378; 83735; 85025

== ENCOUNTER 2020-05-17 21:51 | Emergency (ER) | payer BC, OTHER, SELFPAY ==
--- NOTE | 2020-05-17 22:00 | RT.EKG_ITS ---
APPROVED REPORT Exam: Resting ECG Patient Location: E HR:114 bpm ECG Measurements Heart Rate 114 AXIS UT 145 P 36 QRSd 107 QRS 30 QT 343 T 36 QTc 472 Conclusion Sinus tachycardia...rate> 99 Physician: no STEMI, no significant ST elevations
[2020-05-17 22:06] VITALS: BP 98/69; PULSE 120; RESP 18; TEMP 36.7; O2SAT 98
--- NOTE | 2020-05-17 22:12 | W.ED.GENAD ---
Discharge Plan Disposition Patient Disposition: [facility] Condition: Stable Discharge Details Chief Complaint: GenMedical Clinical Impression: Acute prostatitis, Acute dehydration, Abscess of prostate, Anemia Primary Care Provider: Chetan Jaquez ED Provider: Mohan Paez Home Meds and New Rx's Prescriptions: No Action insulin aspart U-100 [Novolog U-100 Insulin aspart] 100 unit/mL solution 1 sliding sc SC TID RF: 0 atorvastatin [Lipitor] 20 MG tablet 20 mg PO HS RF: 0 glipizide 10 MG tablet extended release 24hr 10 mg PO BID RF: 0 aspirin [Aspirin Low-Strength] 81 MG tablet,chewable 81 mg PO DAILY RF: 0 metformin 1,000 MG tablet extended release 24hr 1,000 mg PO DAILY RF: 0 metformin 500 MG tablet 1,500 mg PO HS RF: 0 multivitamin 1 EACH capsule 1 cap PO DAILY RF: 0 Lantus Solostar U-100 Insulin 100 unit/mL (3 mL) insulin pen 80 unit subcut HS RF: 0 metoprolol tartrate 25 mg Tablet 25 mg PO BID Qty: 60 RF: 0 Medical Decision Making 55-year-old male with a past medical history of colorectal cancer with metastases, left-sided nephrectomy on April 22 of this year, hypertension, previous psoas abscess, who presents today for evaluation of malaise. Patient states that over the last few days he has not been feeling well, he has not been eating, he has had no vomiting or diarrhea. He denies any urinary complaints. His last chemo was back in March. He does have what he describes as mild pain in his left flank which he feels is slightly new. He denies any other complaints at this time no. No other modifying factors. No new medications, no blood thinner use, no antibiotic use recently. Physical exam demonstrates mild hypotension, mild tachycardia, he is afebrile, he has mild tenderness over the left CVA area, with his history of psoas abscess, and his concerning symptomatology differential includes dehydration, infectious etiology. We will he rehydrate, test for Covid, get a CT scan to evaluate for abscess, monitor closely and reassess. 11:55 PM Patient's laboratory work-up has returned in conjunction with CT imaging. Laboratory work-up shows no white count, however he does demonstrate a drop in his hemoglobin of nearly 2 points to 8.8, in the last 8 days. Platelets are normal. Lactate is elevated at 2.2, after 1 L of normal saline his blood pressure has come up from the 90s to 115 systolic, heart rate has come down from 1 20-1 15. Procalcitonin is elevated at 0.4, lipase normal. Troponin and EKG are unremarkable. Magnesium low at 1.5 and this will be repleted, sodium low at 125 we will continue to monitor closely. He has been low in the past, but this is slightly lower compared to normal. Urinalysis shows evidence of WBCs with rare bacteria positive leuk esterase. CT scan results show evidence of some chronic components in the abdominal region especially postoperative around where his left kidney was, however concerning related there is also mild prostamegaly with a new 2.5 cm ovoid hypodensity in the right prostate gland, she is not concerning for prostatitis or prostate abscess. Patient does admit to pain in his very low back/pelvic region, which could slightly be a component of this. Stool Hemoccult was performed and this is heme positive. He denies any history of melena though otherwise are bright red blood. With the evidence of a urinary infection and now the CT scan showing evidence of the potential prostate etiology the patient was given 2 g of Rocephin, are continuing to gently rehydrate, there are no beds currently available at [facility]. We will reach out to urology at [facility] as they performed both the initial nephrectomy, and out of her current concern for prostatitis versus prostatic abscess. 1:29 AM Pharmacist called back, I discussed the case with Dr. Charles of urology. At this time she agrees the patient does require further evaluation and management at [facility] and recommends transfer. She does not recommend any additional antibiotics at this time. Patient's heart rate continues to improve, now 108. He has been gently rehydrated. He is receiving his second liter slowely. Blood pressure remained stable. Patient will be transferred to [facility] for further management treatment of infectious etiology, sepsis, suspected prostatitis versus prostatic abscess. I have extensively reviewed the treatment plan with the patient. I have addressed all patient concerns at this time. I have also discussed the plan with the admitting physician and they agree with the current assessment and plan and have agreed to assume responsibility for the patient. All parties demonstrate verbal understanding and agreement with our assessment and plan at this time. At time of transfer the patient was reassessed and continued to demonstrate current medical stability. No signs of acute respiratory distress requiring intubation, hemodynamic instability requiring pressor support, or rapidly declining mental status. The patient is stable for transport. FINDINGS: Lungs: Lung bases are clear. Liver: Diffuse hypoattenuation of the liver suggestive for fatty infiltration, correlate with LFTs. No hepatic mass, however evaluation limited by lack of intravenous contrast. Liver is mildly enlarged with right hepatic lobe measuring up to 21.3 cm craniocaudad. Gallbladder and bile ducts: Unremarkable. No calcified stones. No ductal dilation. Pancreas: Stable 0.9 cm ovoid hypodensity within the anterior pancreatic body (series 2, image 30). No pancreatic ductal dilation. Spleen: Unremarkable. No splenomegaly. Adrenal glands: No mass. Kidneys and ureters: Left kidney is surgically absent. There is diffuse irregular stranding and attenuation of the left perinephric space fat within the left renal bed with associated irregular soft tissue, isoattenuating fluid, and soft tissue nodularity. There is no discrete, drainable peripherally enhancing fluid collection within this area. Residual partially calcified distal left ureter with proximal end which appears to be imbedded within irregular left psoas enlargement with loss of fat plane is mildly dilated. There are multiple right nephroliths measuring up to 3 mm. No hydronephrosis. There is partially exophytic 1.8 cm hypodensity within the anterior right renal midpole with simple fluid attenuation consistent with simple cyst. Stomach and bowel: Redemonstrated postsurgical change of partial left hemicolectomy with anastomosis at the rectosigmoid junction. No focal colonic mural thickening. No bowel obstruction. Appendix: No evidence of acute appendicitis. Intraperitoneal space: There is irregular isoattenuating fluid within the left renal fossa/perinephric space. No pneumoperitoneum. No significant abdominal ascites. Vasculature: There is persistent loss of fat plane between the left common iliac artery and vein and asymmetric left psoas enlargement with irregular attenuation, concerning for malignant involvement. There are mild scattered atherosclerotic calcifications of the abdominal aorta and its major branches, no abdominal aortic aneurysm. Lymph nodes: There is mild interval worsening of retroperitoneal adenopathy at the level of the kidneys, for example 1.4 cm short axis posterior left periaortic lymph node. There is mild reactive mesenteric adenopathy. Urinary bladder: Collapsed limiting evaluation. Reproductive: Prostate gland is mildly enlarged. There is ovoid 2.5 cm hypodensity within the right prostate gland which is new compared to prior exam. Bones/joints: Unremarkable. No acute fracture. Soft tissues: There is asymmetric enlargement of the left psoas muscle with irregular attenuation. Given differences in technique, this appears grossly similar low to comparison exam, however lack of intravenous contrast limits evaluation. IMPRESSION: 1. Interval surgical removal of the left kidney with diffuse irregular mesenteric stranding and soft tissue with scattered soft tissue nodules within the left renal fossa/perinephric fat. Differential considerations include postsurgical change versus recurrent/residual malignancy versus phlegmon. No drainable, peripherally enhancing fluid collection. 2. Irregular, asymmetric enlargement of the left psoas muscle with associated irregular attenuation with persistent loss of fat plane between the left common iliac artery and vein as well as the residual distal left ureter, cannot exclude malignant involvement. 3. Mild interval worsening of retroperitoneal adenopathy at the level of the kidneys, concerning for metastatic disease. 4. Mild prostatomegaly with new 2.5 cm ovoid hypodensity in the right prostate gland. Correlate clinically to exclude symptoms of prostatitis/prostate abscess. 5. Other chronic findings as above. Thank you for allowing us to participate in the care of your patient. Dictated and Authenticated by: Anselmo Boo MD 05/17/2020 11:40 PM Eastern Time ([place] & [place]) HPI General Date/Time Provider Initiated Documentation: 05/17/20 21:57. HPI Narrative: 55-year-old male with a past medical history of colorectal cancer with metastases, left-sided nephrectomy on April 22 of this year, hypertension, previous psoas abscess, who presents today for evaluation of malaise. Patient states that over the last few days he has not been feeling well, he has not been eating, he has had no vomiting or diarrhea. He denies any urinary complaints. His last chemo was back in March. He does have what he describes as mild pain in his left flank which he feels is slightly new. He denies any other complaints at this time no. No other modifying factors. No new medications, no blood thinner use, no antibiotic use recently. Related Data Home Medications Medication Instructions Recorded Confirmed aspirin [Aspirin Low-Strength] 81 mg PO DAILY tab-cap 10/27/12 05/17/20 atorvastatin [Lipitor] 20 mg PO HS tab-cap 10/27/12 05/17/20 glipizide 10 mg PO BID tab-cap 10/27/12 05/17/20 metformin 1,000 mg PO DAILY tab-cap 10/27/12 05/17/20 metformin 1,500 mg PO HS 01/05/14 05/17/20 multivitamin 1 cap PO DAILY 01/05/14 05/17/20 insulin glargine 100 unit/mL (3 80 unit SUBCUT HS ml 11/08/18 05/17/20 mL) subcutaneous pen metoprolol tartrate 25 mg PO BID #60 tab 07/21/19 05/17/20 insulin aspart U-100 100 unit/mL 1 sliding sc SC TID ml 08/18/19 05/17/20 subcutaneous solution Previous Rx's Medication Instructions Recorded metoprolol tartrate 25 mg PO BID #60 tab 07/21/19 Allergies Allergy/AdvReac Type Severity Reaction Status Date / Time No Known Allergies Allergy Verified 05/17/20 23:45 General Stated Complaint: GenMedical SCOOTER: 2 Review of Systems All systems reviewed & are unremarkable except as noted in HPI and below PFSH Medical History Alternative medicine Cancer related pain Colon cancer metastasized to intra-abdominal lymph node Colon cancer metastasized to intrathoracic lymph node PET scan October 2019 Diabetes mellitus Discharge planning issues Essential hypertension Fatigue Fatty liver Femoral nerve injury Fistula of ureter Fracture of distal fibula Full code status he is aware that pts with metastatic cancer have low survival rate Goals of care, counseling/discussion Hypercholesterolemia Injury due to procedure Late effect of complications of procedure Medical cannabis use filled out paperwork 11/14/19 for him to receive medical cannabis 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 Mediport placement (10/21/16) Nephrostomy status Partial resection of colon (~2011) SIGMOID S/P ureteral stent placement Family History Father Heart disease Dementia AAA (abdominal aortic aneurysm) Mother No problems noted. Brother No problems noted. Son No problems noted. 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 Pets and animals: No Do you think of yourself as: straight/heterosexual Current gender identity: male What is your relationship status?: How often do you talk on the phone with friends or family?: once per week How often do you get together with friends or relatives?: once per week Panel score (0-1 are the most socially isolated patients): 1 What type of physical activity do you participate in: assisted ambulation and irregular exercise Duration: 15-30 minutes/day Frequency: 1-2 times per week Special benoit needs: No Agree to transfusion: Yes Seatbelt use: always Drive intox or ride w/intox fire truck driver: No Working smoke detector in home: Yes Carbon monox detector in home: Yes Firearms in home: No Do you feel safe at home: Yes Do you feel safe in your relationship?: Yes Additional Social history: has been struggling with colon cancer since 2011. 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 In 2019, Had MOHAN procedure that caused femoral nerve injury. Disabled since. Now walks with cane. Getting folfori for recurrent colon ca now. Tolerating it. Exam Narrative Exam Narrative: 1.Const: Well-nourished, Well-developed, appearing stated age 2.Eyes: PERRL, no conjunctival injection, and symmetrical lids. 3.ENT: Atraumatic external nose and ears. Notably dry MM. Neck: Symmetric, trachea midline, No thyromegaly. 4.CVS: +S1/S2, No murmurs or gallops. Peripheral pulses 2+ and equal in all extremities. Brisk capillary refill in all extremities. 5.RESP: Unlabored respiratory effort. Clear to auscultation bilaterally. No wheezes rales or rhonchi 6.GI: Soft, Nontender/Nondistended, No hepatosplenomegaly. No guarding or rebound. His left flank demonstrates mild tenderness on the left flank just above the postoperative incision site and does not appear to be overtly reproducible but is present on percussion. Incision line itself is otherwise clean dry and intact with no discharge redness or drainage. 7.MSK: Normocephalic/Atraumatic, Extremities w/o deformity or ttp No cyanosis or clubbing, Normal movement of all extremities 8.Skin: Warm, Dry. Incision site is clean dry and intact 9.Neuro: hub lead II-XII grossly intact. Sensation grossly intact, no focal neurologic deficits. 10.Psych: (AAO) x3. Appropriate mood and affect Course Vital Signs Vital signs: Vital Signs Temperature 36.7 C 05/17/20 22:06 Pulse 120 H 05/17/20 22:06 Respiratory Rate 18 05/17/20 22:06 Blood Pressure 98/69 L 05/17/20 22:06 Pulse Oximetry 98 05/17/20 22:06 Temperature 36.7 C 05/17/20 22:06 Temperature Source Skin 05/17/20 22:06 Pulse 120 H 05/17/20 22:06 Respiratory Rate 18 05/17/20 22:06 Blood Pressure 98/69 L 05/17/20 22:06 Blood Pressure Position Supine 05/17/20 22:06 Pulse Oximetry 98 05/17/20 22:06 Oxygen Delivery Method Room Air 05/17/20 22:06 Oxygen Flow Rate 0 05/17/20 22:06 Pain Level 2 05/17/20 22:06
[2020-05-17 22:32] LABS: Bilirubin Negative (Negative); Blood Trace-intact (Negative); Clarity Clear (Clear); Glucose Negative (Negative); Ketones Negative (Negative); Leukocyte Esterase Trace (Negative); Nitrite Negative (Negative); Specific Gravity >= 1.030 (1.005-1.025); Urobilinogen 0.2 EU/dL (Up TO 0.2); pH 5.5 (5-8)
[2020-05-17 22:41] LABS: Bacteria Few HPF (Negative); Crystals Negative HPF (Negative); Epithelial Cells Rare HPF (Negative); Mucus Trace (Negative); WBC 20-50 HPF (0-5)
[2020-05-17 22:42] LABS: C & S Indicated? Yes; Casts 0-2 Coarse Granular LPF (Negative)
[2020-05-17 22:45] LABS: Abs Immature Grans 0.02 10^3/uL (0.0-0.06); Absolute Basophil Count 0.03 10^3/uL (0.0-0.2); Absolute Lymphocyte Count 1.04 10^3/uL (1.2-3.4); Absolute Monocyte Count 0.93 10^3/uL (0.1-0.8); Absolute Neutrophil Count 6.21 10^3/uL (1.2-6.7); Basophils % 0.3; Eosinophils % 5.7; HCT 27.7 % (40.0-50.0); HGB 8.8 g/dL (13.5-17.5); Immature Grans % 0.2; Lymphocytes % 11.9; MCH 27.1 pg (27.0-33.0); MCHC 31.8 % (32.0-36.0); MCV 85.2 fL (80-95); MPV 10.4 fL (8.0-11.0); Monocytes % 10.7; Neutrophils % 71.2; Nucleated RBC 0 %; Platelet Count 229 10^3/uL (130-400); RBC 3.25 10^6/uL (4.36-5.78); RDW 14.7 % (11.8-14.1); RDW-SD 45.5 fL; WBC 8.73 10^3/uL (4.4-10.8)
[2020-05-17 22:47] LABS: BE (Venous) -1 mmol/L (-2-3); HCO3 (Venous) 23 mmol/L (23-28); O2 Sat (Venous) 72 %; TCO2 (Venous) 22 mmol/L (24-29); pCO2 (Venous) 37 mmHg (41-51); pH (Venous) 7.41 (7.31-7.41); pO2 (Venous) 37 mmHg
[2020-05-17 22:48] LABS: Lactate 2.2 mmol/L (0.6-1.4)
--- NOTE | 2020-05-17 22:50 | NUR.NOTE ---
Nursing Note: LACTATE OF 2.[address] CALVERT
[2020-05-17] MEDS: Ondansetron 4 MG/2 ML VIAL IVP (22:58)
[2020-05-17 23:08] LABS: Lipase 183 U/L (73-393); Magnesium 1.5 mg/dL (1.8-2.4)
--- NOTE | 2020-05-17 23:13 | DI.CT_ITS ---
EXAM: CT ABDOMEN PELVIS WO CLINICAL HISTORY: left flank pain, hx of nephrectomy and abscesses COMPARISON: CT CT CHEST/ABD/PEL W from 07/16/[address] ABDOMEN AND PELVIS from 01/01/2020 FINDINGS: CT examination of the abdomen and pelvis was performed without contrast administration. Visualized l sang bases are clear except for a 4 millimeter in diameter anterior right lower lobe nodule, stable si nce prior CT of July 2019. The liver and spleen are unremarkable in appearance by noncontrast criteria. Previously noted low-at tenuation pancreatic lesion now measures about 9 millimeters in diameter, this is nonspecific. Pancr eatic MR may be considered if clinically appropriate. Gallbladder and bile ducts are CT normal. Abdominal aorta is of normal diameter. No significant abdominal wall hernia. There is a low-attenuation mass of the right lower pole renal cortex as noted previously. This may b e slightly increased in size in comparison with previous examinations, now measuring about 17 millime ters in greatest diameter. There are nonobstructing calculi of the collecting system of the right ki dney. Right adrenal is unremarkable. There is soft tissue stranding and nodularity in the left renal bed. There has been an interval neph rectomy since prior CT of December 31. There is involvement of the left psoas muscle with marked heter ogeneity of the psoas, multiple enlarged lymph nodes are seen in para-aortic and pericaval chains. Th e findings as described are all worrisome for neoplastic disease, alternatively the possibility of in fectious process is not excluded, however no discrete abscess is identified by noncontrast criteria. I would note that the left common iliac artery as well as the proximal left internal and external wesly ac arteries are obscured by the changes involving the left psoas muscle. This finding was also prese nt on prior CT of December 31, there is reportedly a history of psoas abscess. No free fluid in the pelvis. IMPRESSION: Findings in left renal fossa post nephrectomy which are suspicious for recurrent malignancy and /or i nfectious process. Please see above discussion. RADIATION DOSE DELIVERED: 1,164.26mGy.cm Total DLP and or
[2020-05-17 23:14] LABS: ALT 22 U/L (16-63); AST 36 U/L (15-37); Albumin 2.5 g/dL (3.4-5.0); Alkaline Phosphatase 151 U/L (46-116); BUN 15 mg/dL (7-18); Bilirubin, Total 0.6 mg/dL (0.2-1.0); CREATININE 1.64 mg/dL (0.70-1.30); Calcium 8.9 mg/dL (8.5-10.1); Chloride 92 mmol/L (98-107); Estimated GFR 44.16 (mL/min/1.73m2); Glucose 277 mg/dL (74-106); Potassium 4.7 mmol/L (3.5-5.1); Sodium 125 mmol/L (136-145); Total Protein 8.8 g/dL (6.4-8.2)
[2020-05-17 23:19] LABS: Troponin I < 0.05 ng/mL (<0.06)
[2020-05-17 23:20] LABS: Diff Comment RBC Morph Reviewed; Hypochromasia 1+; Polychromasia Present; Procalcitonin 0.4 ng/mL
[2020-05-17] MEDS: Normal Saline 1,000 ML 1000 ML IV (23:27)
[2020-05-17] MEDS: cefTRIAXone 2 GM/50 ML BAG IVPB (23:31)
--- NOTE | 2020-05-17 23:40 | DI.VRAD_ITS ---
PROCEDURE INFORMATION: Exam: CT Abdomen And Pelvis Without Contrast Exam date and time: 05/17/2020 10:10 PM Age: 55 years old Clinical indication: Abdominal pain; Flank; Prior surgery; Surgery date: <1 month; Surgery type: Left nephrectomy 04/22/20; Patient HX: HX abcesses, renal CA, diabetic on metformin TECHNIQUE: Imaging protocol: Computed tomography of the abdomen and pelvis without contrast. Radiation optimization: All CT scans at this facility use at least one of these dose optimization techniques: automated exposure control; mA and/or kV adjustment per patient size (includes targeted exams where dose is matched to clinical indication); or iterative reconstruction. COMPARISON: CT ABDOMEN AND PELVIS 01/01/2020 12:52 PM FINDINGS: Lungs: Lung bases are clear. Liver: Diffuse hypoattenuation of the liver suggestive for fatty infiltration, correlate with LFTs. No hepatic mass, however evaluation limited by lack of intravenous contrast. Liver is mildly enlarged with right hepatic lobe measuring up to 21.3 cm craniocaudad. Gallbladder and bile ducts: Unremarkable. No calcified stones. No ductal dilation. Pancreas: Stable 0.9 cm ovoid hypodensity within the anterior pancreatic body (series 2, image 30). No pancreatic ductal dilation. Spleen: Unremarkable. No splenomegaly. Adrenal glands: No mass. Kidneys and ureters: Left kidney is surgically absent. There is diffuse irregular stranding and attenuation of the left perinephric space fat within the left renal bed with associated irregular soft tissue, isoattenuating fluid, and soft tissue nodularity. There is no discrete, drainable peripherally enhancing fluid collection within this area. Residual partially calcified distal left ureter with proximal end which appears to be imbedded within irregular left psoas enlargement with loss of fat plane is mildly dilated. There are multiple right nephroliths measuring up to 3 mm. No hydronephrosis. There is partially exophytic 1.8 cm hypodensity within the anterior right renal midpole with simple fluid attenuation consistent with simple cyst. Stomach and bowel: Redemonstrated postsurgical change of partial left hemicolectomy with anastomosis at the rectosigmoid junction. No focal colonic mural thickening. No bowel obstruction. Appendix: No evidence of acute appendicitis. Intraperitoneal space: There is irregular isoattenuating fluid within the left renal fossa/perinephric space. No pneumoperitoneum. No significant abdominal ascites. Vasculature: There is persistent loss of fat plane between the left common iliac artery and vein and asymmetric left psoas enlargement with irregular attenuation, concerning for malignant involvement. There are mild scattered atherosclerotic calcifications of the abdominal aorta and its major branches, no abdominal aortic aneurysm. Lymph nodes: There is mild interval worsening of retroperitoneal adenopathy at the level of the kidneys, for example 1.4 cm short axis posterior left periaortic lymph node. There is mild reactive mesenteric adenopathy. Urinary bladder: Collapsed limiting evaluation. Reproductive: Prostate gland is mildly enlarged. There is ovoid 2.5 cm hypodensity within the right prostate gland which is new compared to prior exam. Bones/joints: Unremarkable. No acute fracture. Soft tissues: There is asymmetric enlargement of the left psoas muscle with irregular attenuation. Given differences in technique, this appears grossly similar low to comparison exam, however lack of intravenous contrast limits evaluation. IMPRESSION: 1. Interval surgical removal of the left kidney with diffuse irregular mesenteric stranding and soft tissue with scattered soft tissue nodules within the left renal fossa/perinephric fat. Differential considerations include postsurgical change versus recurrent/residual malignancy versus phlegmon. No drainable, peripherally enhancing fluid collection. 2. Irregular, asymmetric enlargement of the left psoas muscle with associated irregular attenuation with persistent loss of fat plane between the left common iliac artery and vein as well as the residual distal left ureter, cannot exclude malignant involvement. 3. Mild interval worsening of retroperitoneal adenopathy at the level of the kidneys, concerning for metastatic disease. 4. Mild prostatomegaly with new 2.5 cm ovoid hypodensity in the right prostate gland. Correlate clinically to exclude symptoms of prostatitis/prostate abscess. 5. Other chronic findings as above. Dictated and Authenticated by: Anselmo Boo MD. Ordering:VIOLETTA Preston MD
[2020-05-17 23:51] VITALS: BP 104/70; PULSE 115; RESP 10; O2SAT 97
[2020-05-17 23:52] VITALS: PULSE 115; RESP 12; O2SAT 96
[2020-05-18] VITALS (42 sets, daily range): BP systolic 98–132; BP diastolic 66–81; PULSE 101–115; RESP 9–21; O2SAT 95–98
[2020-05-18] MEDS: MAGNESIUM SULFATE 2 GM/50 ML BAG IVPB (00:11)
[2020-05-18] MEDS: Normal Saline 1,000 ML 1000 ML IV (01:25)
--- NOTE | 2020-05-20 10:50 | NUR.NOTE ---
Nursing Note: Positive COVID result given over the phone to [facility] ICU north charge nursen Carmen @ [phone]. Dr. Sunday Mendiola made aware. Pt is still housed at [facility]. Fax result sent to [phone].
[2020-05-20 11:27] LABS: SARS-CoV-2 RNA Source Nasopharynx
[2020-05-20 11:28] LABS: SARS-CoV-2 RNA Detected (NotDetected)
== END 2020-05-18 03:45 | disposition short-term general hospital (02) ==
PROVIDERS: Emergency Provider Student in an Organized Health Care Education/Training Program; PCP Physician Assistant Medical
DX: N41.0 Acute prostatitis (principal); N41.2 Abscess of prostate; E86.0 Dehydration; E83.42 Hypomagnesemia; R19.5 Other fecal abnormalities; D64.9 Anemia, unspecified; Z95.828 Presence of other vascular implants and grafts; U07.1 COVID-19; C19 Malignant neoplasm of rectosigmoid junction; Z90.5 Acquired absence of kidney; E11.9 Type 2 diabetes mellitus without complications; I10 Essential (primary) hypertension
CPT/HCPCS: 36591; 80053; 82805; 83690; 84145; 87040; 87077; 87449; 93005; 96361; 96365; 96366; 96367; 96375; 99285; U0003; 74176; 81003; 81015; 83605; 83735; 84484; 85025; 87086; 87186; 93010; J2405

== ENCOUNTER 2020-05-31 14:22 | Outpatient (CLI) | payer BC, OTHER, SELFPAY ==
[2020-05-31 15:03] LABS: Bilirubin Negative (Negative); Blood Large (Negative); Clarity Cloudy (Clear); Glucose Negative (Negative); Ketones Trace mg/dL (Negative); Leukocyte Esterase Trace (Negative); Nitrite Negative (Negative); Specific Gravity >= 1.030 (1.005-1.025); Urobilinogen 0.2 EU/dL (Up TO 0.2)
[2020-05-31 15:14] LABS: C & S Indicated? Yes; Epithelial Cells Rare HPF (Negative)
[2020-05-31 15:15] LABS: RBC >50 HPF (0-2)
[2020-06-13 17:18] LABS: Misc Referral (MAYO) See Comments
== END 2020-05-31 14:42 ==
PROVIDERS: PCP Physician Assistant Medical; Visit Provider Internal Medicine Hematology & Oncology
DX: C18.9 Malignant neoplasm of colon, unspecified (principal); R79.89 Other specified abnormal findings of blood chemistry
CPT/HCPCS: 85999; 81003; 81015; 87086

== ENCOUNTER 2020-06-03 13:00 | Outpatient (RCR) | payer BC, OTHER, SELFPAY ==
[2020-05-12 00:18] VITALS: BP 105/74; PULSE 94; RESP 18; TEMP 36.1
[2020-05-31] MEDS: Heparin 500 UNITS/5 ML SYRINGE IV (10:01)
[2020-05-31] MEDS: Normal Saline Flush 10 ML SYR IVP (10:01)
[2020-05-31 10:17] LABS: Abs Immature Grans 0.07 10^3/uL (0.0-0.06); Absolute Basophil Count 0.05 10^3/uL (0.0-0.2); Absolute Eosinophil Count 0.46 10^3/uL (0.0-0.7); Absolute Lymphocyte Count 1.74 10^3/uL (1.2-3.4); Basophils % 0.5; Eosinophils % 4.6; HCT 30.3 % (40.0-50.0); HGB 9.5 g/dL (13.5-17.5); Immature Grans % 0.7; Lymphocytes % 17.4; MCH 26.5 pg (27.0-33.0); MCHC 31.4 % (32.0-36.0); MCV 84.6 fL (80-95); MPV 9.4 fL (8.0-11.0); Neutrophils % 68.8; Nucleated RBC 0 %; Platelet Count 505 10^3/uL (130-400); RBC 3.58 10^6/uL (4.36-5.78); RDW 14.9 % (11.8-14.1); WBC 10.02 10^3/uL (4.4-10.8)
[2020-05-31 10:43] LABS: ALT 35 U/L (16-63); AST 83 U/L (15-37); Albumin 2.8 g/dL (3.4-5.0); Alkaline Phosphatase 159 U/L (46-116); Anion Gap 10.5 mmol/L (3-11); BUN 20 mg/dL (7-18); Bilirubin, Total 0.2 mg/dL (0.2-1.0); CO2 22.5 mmol/L (21.0-32.0); CREATININE 2.07 mg/dL (0.70-1.30); Chloride 97 mmol/L (98-107); Estimated GFR 33.76 (mL/min/1.73m2); Glucose 180 mg/dL (74-106); Potassium 5.3 mmol/L (3.5-5.1); Sodium 130 mmol/L (136-145); Total Protein 9.9 g/dL (6.4-8.2)
[2020-05-31 11:32] LABS: Iron 55 ug/dL (65-175); Total Iron Binding Capacity 229 ug/dL (250-450); Transferrin Sat 24 % (20-55)
[2020-05-31 11:53] LABS: Ferritin 441 ng/mL (26-388)
[2020-06-03] MEDS: Normal Saline Flush 10 ML SYR IVP (13:40)
[2020-06-03] MEDS: Heparin 500 UNITS/5 ML SYRINGE IV (13:40)
[2020-06-03 14:08] LABS: BUN 14 mg/dL (7-18); CREATININE 1.76 mg/dL (0.70-1.30); Calcium 8.8 mg/dL (8.5-10.1); Estimated GFR 40.71 (mL/min/1.73m2); Glucose 194 mg/dL (74-106); Sodium 129 mmol/L (136-145)
[2020-06-03 14:09] LABS: Anion Gap 8.4 mmol/L (3-11); CO2 23.6 mmol/L (21.0-32.0); Chloride 97 mmol/L (98-107)
[2020-06-03 15:21] LABS: CEA 1.6 ng/ml
== END 2020-06-10 23:59 | disposition home or self-care (01) ==
LOC: INF 13:00
PROVIDERS: PCP Physician Assistant Medical; Visit Provider Internal Medicine Hematology & Oncology
DX: C18.9 Malignant neoplasm of colon, unspecified (principal); C79.89 Secondary malignant neoplasm of other specified sites; Z45.2 Encounter for adjustment and management of vascular access device
CPT/HCPCS: 36591; 80048; 80053; 82378; 82728; 83540; 83550; 85025

== ENCOUNTER 2020-06-14 14:49 | Outpatient (CLI) | payer BC, OTHER, SELFPAY ==
--- NOTE | 2020-06-14 | DI.RAD_ITS ---
EXAM: XR CHEST 2V PA LATERAL CLINICAL HISTORY: COUGH, R05 TECHNIQUE: 2D digital imaging was performed. COMPARISON: CR PORTABLE CHEST ONE VIEW from 10/21/2016 FINDINGS: Heart size is normal. A port is again noted over the left chest with the tip in the SVC. The lungs appear clear. No infiltrate or effusion is seen. IMPRESSION: No acute abnormality.
== END 2020-06-14 15:09 ==
PROVIDERS: PCP Physician Assistant Medical; Visit Provider Nurse Practitioner Family
DX: R05 Cough (principal); Z95.828 Presence of other vascular implants and grafts
CPT/HCPCS: 71046

== ENCOUNTER 2020-06-14 15:14 | Outpatient (CLI) | payer BC, OTHER, SELFPAY ==
[2020-06-14 15:58] LABS: Abs Immature Grans 0.04 10^3/uL (0.0-0.06); Absolute Basophil Count 0.04 10^3/uL (0.0-0.2); Absolute Eosinophil Count 0.37 10^3/uL (0.0-0.7); Absolute Lymphocyte Count 1.08 10^3/uL (1.2-3.4); Absolute Monocyte Count 0.78 10^3/uL (0.1-0.8); Absolute Neutrophil Count 6.12 10^3/uL (1.2-6.7); Basophils % 0.5; Eosinophils % 4.4; HCT 29.2 % (40.0-50.0); HGB 9.1 g/dL (13.5-17.5); Immature Grans % 0.5; Lymphocytes % 12.8; MCH 26.6 pg (27.0-33.0); MCHC 31.2 % (32.0-36.0); MCV 85.4 fL (80-95); MPV 9.8 fL (8.0-11.0); Monocytes % 9.3; Neutrophils % 72.5; Nucleated RBC 0 %; RBC 3.42 10^6/uL (4.36-5.78); RDW 15.7 % (11.8-14.1); RDW-SD 47.9 fL; WBC 8.43 10^3/uL (4.4-10.8)
[2020-06-14 16:00] LABS: Platelet Count 248 10^3/uL (130-400)
[2020-06-14 16:05] LABS: ALT 22 U/L (16-63); AST 33 U/L (15-37); Albumin 2.6 g/dL (3.4-5.0); Alkaline Phosphatase 137 U/L (46-116); Anion Gap 6.3 mmol/L (3-11); BUN 10 mg/dL (7-18); Bilirubin, Total 0.5 mg/dL (0.2-1.0); CO2 25.7 mmol/L (21.0-32.0); Calcium 8.5 mg/dL (8.5-10.1); Chloride 99 mmol/L (98-107); Estimated GFR 57.75 (mL/min/1.73m2); Glucose 137 mg/dL (74-106); Potassium 4.3 mmol/L (3.5-5.1); Sodium 131 mmol/L (136-145); Total Protein 9.4 g/dL (6.4-8.2)
== END 2020-06-14 15:34 ==
PROVIDERS: PCP Physician Assistant Medical; Visit Provider Nurse Practitioner Family
DX: R05 Cough (principal)
CPT/HCPCS: 36415; 80053; 85025

== ENCOUNTER 2020-07-11 02:29 | Outpatient (RCR) | payer BC, OTHER, SELFPAY ==
[2020-06-21] MEDS: Normal Saline Flush 10 ML SYR IVP (07:13)
[2020-06-21] MEDS: Heparin 500 UNITS/5 ML SYRINGE IV (07:14)
[2020-06-21 07:25] LABS: Abs Immature Grans 0.05 10^3/uL (0.0-0.06); Absolute Basophil Count 0.04 10^3/uL (0.0-0.2); Absolute Eosinophil Count 0.41 10^3/uL (0.0-0.7); Absolute Lymphocyte Count 1.43 10^3/uL (1.2-3.4); Absolute Monocyte Count 0.86 10^3/uL (0.1-0.8); Absolute Neutrophil Count 6.22 10^3/uL (1.2-6.7); Basophils % 0.4; Eosinophils % 4.6; HCT 31.1 % (40.0-50.0); HGB 9.6 g/dL (13.5-17.5); Immature Grans % 0.6; Lymphocytes % 15.9; MCH 26.6 pg (27.0-33.0); MCHC 30.9 % (32.0-36.0); MCV 86.1 fL (80-95); MPV 9.7 fL (8.0-11.0); Monocytes % 9.5; Nucleated RBC 0 %; Platelet Count 361 10^3/uL (130-400); RBC 3.61 10^6/uL (4.36-5.78); RDW 15.9 % (11.8-14.1); RDW-SD 49.7 fL; WBC 9.01 10^3/uL (4.4-10.8)
[2020-06-21 07:42] LABS: ALT 18 U/L (16-63); AST 38 U/L (15-37); Albumin 2.8 g/dL (3.4-5.0); Alkaline Phosphatase 123 U/L (46-116); Anion Gap 7.5 mmol/L (3-11); BUN 15 mg/dL (7-18); Bilirubin, Total 0.3 mg/dL (0.2-1.0); CO2 26.5 mmol/L (21.0-32.0); CREATININE 1.53 mg/dL (0.70-1.30); Calcium 8.5 mg/dL (8.5-10.1); Chloride 98 mmol/L (98-107); Estimated GFR 47.85 (mL/min/1.73m2); Glucose 171 mg/dL (74-106); Magnesium 2.1 mg/dL (1.8-2.4); Potassium 4.5 mmol/L (3.5-5.1); Sodium 132 mmol/L (136-145); Total Protein 9.3 g/dL (6.4-8.2)
[2020-06-21 19:21] LABS: CEA 1.9 ng/mL (See Note)
[2020-07-11] MEDS: Normal Saline Flush 10 ML SYR IVP (08:20)
[2020-07-11 08:46] LABS: Abs Immature Grans 0.02 10^3/uL (0.0-0.06); Absolute Basophil Count 0.07 10^3/uL (0.0-0.2); Absolute Eosinophil Count 0.69 10^3/uL (0.0-0.7); Absolute Lymphocyte Count 1.09 10^3/uL (1.2-3.4); Absolute Monocyte Count 0.63 10^3/uL (0.1-0.8); Absolute Neutrophil Count 4.84 10^3/uL (1.2-6.7); Eosinophils % 9.4; HCT 32.8 % (40.0-50.0); HGB 10.1 g/dL (13.5-17.5); Immature Grans % 0.3; Lymphocytes % 14.9; MCH 26.4 pg (27.0-33.0); MCHC 30.8 % (32.0-36.0); MCV 85.6 fL (80-95); MPV 9.9 fL (8.0-11.0); Monocytes % 8.6; Neutrophils % 65.8; Nucleated RBC 0 %; Platelet Count 323 10^3/uL (130-400); RBC 3.83 10^6/uL (4.36-5.78); RDW 16.3 % (11.8-14.1); RDW-SD 50.3 fL; WBC 7.34 10^3/uL (4.4-10.8)
[2020-07-11 09:04] LABS: ALT 40 U/L (16-63); AST 73 U/L (15-37); Albumin 2.4 g/dL (3.4-5.0); Alkaline Phosphatase 150 U/L (46-116); Anion Gap 8.1 mmol/L (3-11); BUN 15 mg/dL (7-18); Bilirubin, Total 0.4 mg/dL (0.2-1.0); CO2 23.9 mmol/L (21.0-32.0); CREATININE 1.23 mg/dL (0.70-1.30); Calcium 7.8 mg/dL (8.5-10.1); Chloride 101 mmol/L (98-107); Glucose 158 mg/dL (74-106); Magnesium 1.6 mg/dL (1.8-2.4); Potassium 3.8 mmol/L (3.5-5.1); Sodium 133 mmol/L (136-145); Total Protein 8.1 g/dL (6.4-8.2)
[2020-07-12 08:39] LABS: CEA 1.7 ng/mL (See Note)
== END 2020-07-11 23:59 | disposition home or self-care (01) ==
LOC: INF 02:29
PROVIDERS: PCP Physician Assistant Medical; Visit Provider Internal Medicine Hematology & Oncology
DX: C18.9 Malignant neoplasm of colon, unspecified (principal); Z45.2 Encounter for adjustment and management of vascular access device; Z79.899 Other long term (current) drug therapy; C79.89 Secondary malignant neoplasm of other specified sites
CPT/HCPCS: 36591; 80053; 82378; 83735; 85025

== ENCOUNTER 2020-07-26 05:31 | Outpatient (RCR) | payer BC, OTHER, SELFPAY ==
[2020-07-26] MEDS: Normal Saline Flush 10 ML SYR IVP (07:50)
[2020-07-26 08:18] LABS: Abs Immature Grans 0.03 10^3/uL (0.0-0.06); Absolute Basophil Count 0.09 10^3/uL (0.0-0.2); Absolute Eosinophil Count 0.64 10^3/uL (0.0-0.7); Absolute Lymphocyte Count 1.07 10^3/uL (1.2-3.4); Absolute Monocyte Count 0.55 10^3/uL (0.1-0.8); Absolute Neutrophil Count 5.42 10^3/uL (1.2-6.7); Basophils % 1.2; Eosinophils % 8.2; HCT 33.6 % (40.0-50.0); HGB 10.6 g/dL (13.5-17.5); Immature Grans % 0.4; Lymphocytes % 13.7; MCH 26.4 pg (27.0-33.0); MCHC 31.5 % (32.0-36.0); MCV 83.8 fL (80-95); MPV 10.8 fL (8.0-11.0); Monocytes % 7.1; Neutrophils % 69.4; Nucleated RBC 0 %; Platelet Count 284 10^3/uL (130-400); RBC 4.01 10^6/uL (4.36-5.78); RDW 16.7 % (11.8-14.1); RDW-SD 50.2 fL
[2020-07-26 08:31] LABS: ALT 80 U/L (16-63); AST 99 U/L (15-37); Albumin 2.9 g/dL (3.4-5.0); Alkaline Phosphatase 171 U/L (46-116); Anion Gap 7.9 mmol/L (3-11); BUN 17 mg/dL (7-18); Bilirubin, Total 0.3 mg/dL (0.2-1.0); CO2 23.1 mmol/L (21.0-32.0); CREATININE 1.61 mg/dL (0.70-1.30); Calcium 8.8 mg/dL (8.5-10.1); Chloride 100 mmol/L (98-107); Estimated GFR 45.12 (mL/min/1.73m2); Glucose 392 mg/dL (74-106); Magnesium 1.7 mg/dL (1.8-2.4); Potassium 4.4 mmol/L (3.5-5.1); Sodium 131 mmol/L (136-145); Total Protein 8.9 g/dL (6.4-8.2)
== END 2020-08-11 23:59 | disposition home or self-care (01) ==
LOC: INF 05:31
PROVIDERS: PCP Physician Assistant Medical; Visit Provider Internal Medicine Hematology & Oncology
DX: C18.9 Malignant neoplasm of colon, unspecified (principal); Z45.2 Encounter for adjustment and management of vascular access device; C79.89 Secondary malignant neoplasm of other specified sites; Z79.899 Other long term (current) drug therapy
CPT/HCPCS: 36591; 80053; 82378; 83735; 85025

== ENCOUNTER 2020-08-14 17:53 | Emergency (ER) | payer BC, OTHER, SELFPAY ==
[2020-08-14] VITALS (13 sets, daily range): BP systolic 89–123; BP diastolic 59–82; PULSE 101–130; RESP 10–18; TEMP 36–36.8; O2SAT 98–100
--- NOTE | 2020-08-14 18:00 | RT.EKG_ITS ---
APPROVED REPORT Exam: Resting ECG Patient Location: E HR:122 bpm ECG Measurements Heart Rate [address] 151 P 38 QRSd 100 QRS 29 QT 330 T 16 QTc 470 Conclusion Sinus tachycardia. Inferior infarct, old...Q >35mS, II III aVF
--- NOTE | 2020-08-14 18:00 | DI.RAD_ITS ---
EXAM: XR PORTABLE CHEST AP CLINICAL HISTORY: weaknes,s flank pain TECHNIQUE: 2D digital imaging was performed. COMPARISON: CR XR CHEST 2V PA LATERAL from 06/14/2020 FINDINGS: MEDIASTINUM: Normal. HEART: Normal. PULMONARY VASCULATURE: Normal. LUNGS: Clear. PLEURAL SPACE: No pleural effusion or pneumothorax. BONE:Within normal limits for the patient's age. OTHER FINDINGS:The tip of the Ktgwsc-Q-Tytw catheter is seen in the superior vena cava. IMPRESSION: No acute pulmonary findings. DATA REPOSITORY: RADIATION DOSE DELIVERED:
--- NOTE | 2020-08-14 18:25 | ED.GENADUL_ITS ---
Discharge Plan Disposition Patient Disposition: [facility] Condition: Improving Discharge Details Clinical Impression: Abscess, psoas, Sepsis, Sepsis associated hypotension Primary Care Provider: Chetan Jaquez ED Provider: Mohan Paez Home Meds and New Rx's Prescriptions: No Action insulin aspart U-100 [Novolog U-100 Insulin aspart] 100 unit/mL solution 1 sliding sc SC TID RF: 0 atorvastatin [Lipitor] 20 MG tablet 20 mg PO HS RF: 0 glipizide 10 MG tablet extended release 24hr 10 mg PO BID RF: 0 aspirin [Aspirin Low-Strength] 81 MG tablet,chewable 81 mg PO DAILY RF: 0 metformin 1,000 MG tablet extended release 24hr 1,000 mg PO DAILY RF: 0 metformin 500 MG tablet 1,500 mg PO HS RF: 0 multivitamin 1 EACH capsule 1 cap PO DAILY RF: 0 Lantus Solostar U-100 Insulin 100 unit/mL (3 mL) insulin pen 80 unit subcut HS RF: 0 metoprolol tartrate 25 mg Tablet 25 mg PO BID Qty: 60 RF: 0 Medical Decision Making <MUKESH Miller - Last Filed: 08/14/20 20:12> Patient initially quite hypotensive, 85/69, heart rate 140, 2 lines were initiated and sepsis bolus of fluids Lactate of 3.1, does not appear to be DJD, leukocytosis 12,000, concern for intra-abdominal process given relatively recent nephrectomy Days initiated Zosyn as patient does not meet SIRS criteria Received full fluid bolus 30 cc/kg Discussed my attending physician, Dr. Rodriguez care performed bedside ultrasound to exclude obvious abdominal aneurysm Patient has a blood pressure 111/90 at time of reevaluation, he remains tachycardic but I suspect this is partially secondary to his absence from metoprolol today which he typically takes for tachycardia creatinine of 1.5, this is actually improved per patient when compared to prior, will order CT chest abdomen and pelvis think the benefit outweighs the risk given the patient's complex medical history He is alert, oriented, of decisional capacity, he has been calm and cooperative throughout this encounter He has no active vomiting Patient signed out to Dr. Paez [place] [address] and disposition pt BP stable at time of reevaluation Differential Diagnosis Differential Diagnosis: Intra-abdominal abscess, abdominal aortic aneurysm, shock Medical Records Medical records reviewed: Yes I reviewed the patient's medical records. <Carlos Rodriguez MD - Last Filed: 08/14/20 18:49> Patient seen and examined [id number], discussed with Ms. Bell. I agree with her assessment and plan. <Mohan Paez DO - Last Filed: 08/14/20 21:50> Upon my evaluation, this patient had a high probability of imminent or life- threatening deterioration, which required my direct attention, intervention, and personal management. I have personally provided 30 minutes of critical care time exclusive of time spent on separately billable procedures. Time includes review of laboratory data, radiology results, discussion with consultants, and monitoring for potential decompensation. Interventions were performed as documented. Patient was signed out to me by Sophia, please refer to her HPI, physical exam, assessment and plan. At time of signout we are awaiting CT scan. Brief review of history for this patient, 55-year-old male with a past medical history of colorectal cancer with metastases, left-sided nephrectomy on April 222019, hypertension, previous psoas abscess in the distant past, who was seen by myself on 05/17/2020, at that point he was diagnosed with a prostatic abscess, sent to [facility] for IR drainage. Patient had been doing well, but then over the last day or so he has had vomiting, and left flank pain. Upon arrival here to the ED the patient was notably tachycardic, hypotensive, and did not look well. Mild white count, lactate elevated greater than 3, sepsis fluid bolus was administered, patient was started on Zosyn initially, and vancomycin shortly thereafter. CT scan results have returned, there appears to be a left psoas abscess measuring 2.3 x 4.5 cm adjacent to the left nephrectomy bed, review of prior imaging from last visit do indicate that this is new. The previous hypodense lesion in the prostate gland is notably did creased compared to prior, no evidence of significant current large prostatic abscess. On reassessment the patient's blood pressure has notably improved from the 80s systolic to 110 systolic now. Heart rate is still mildly elevated at 112. With concern for new/recurrent abscess in the psoas muscle, I do feel that the patient would benefit from drainage by interventional radiology. We will reach out to [facility] for transfer for this. 9:33 PM Did contact the transfer center, the transfer center reviewed the case with urology, . Transfer center has been called back and informed me that urology had excepted the patient and would like him transferred to the ED for evaluation. I did to speak with urology, the transfer center indicated that that was not necessary at this time for the transfer. I did asked to speak with an ED physician prior to the transfer. I did speak with Dr. Benoit, discussed the case with her, including neurology's recommendation for transfer to the ED for evaluation. She agrees with the plan. Patient will be transferred. I have extensively reviewed the treatment plan with the patient. I have addressed all patient concerns at this time. I have also discussed the plan with the admitting physician and they agree with the current assessment and plan and have agreed to assume responsibility for the patient. All parties demonstrate verbal understanding and agreement with our assessment and plan at this time. The docu mentation in this chart was dictated using eWise dictation software. Please excuse any dictation errors. Do recommend potential atypical antibacterial coverage once patient arrives at [facility] and vancomycin ends. At time of transfer the patient was reassessed and continued to demonstrate current medical stability. No signs of acute respiratory distress requiring intubation, hemodynamic instability requiring pressor support, with current blood pressure at 112/73, heart rate of 106, or rapidly declining mental status. The patient is stable for transport. IMPRESSION: 1. Interval development of mediastinal and bilateral hilar metastatic lymphadenopathy. 2. Patchy airspace opacities in the left lower lobe representing an atypical pneumonia or early aspirations. IMPRESSION: 1. Left psoas abscess measuring 2.3 x 4.5 cm with adjacent inflammatory changes at the left nephrectomy bed. Persistent fat stranding and nodularity suggestive of recurrent disease as well as persistent left para-aortic and retrocaval retroperitoneal lymphadenopathy are present. Some retroaortic lymph nodes adjacent to the bifurcation have decreased in size. 2. Decrease in size of a hypodense lesion in the right posterior prostate gland which may represent a prior prostatic abscess. Adjacent posterior urinary bladder wall enhancement may represent focal cystitis. 3. Stable postoperative changes of distal partial colon resection. No bowel obstruction. Thank you for allowing us to participate in the care of your patient. 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 Patient presents secondary to left flank pain that began this afternoon with vomiting. He states he vomited between each time. He denies any current chest pain or shortness of breath. He has felt run down over the course of the past several days. Denies nausea or vomiting currently. Denies any blood or diarrhea or stool. Denies exacerbating or alleviating factors. Pain in his flank as a cramp. Chemotherapy was 3 weeks ago reportedly at [facility]. His last surgery was a nephrectomy in April 2020. Patient reports he developed a cough after this procedure. Denies any recent antibiotic use. Denies any change in medication. States that he is chronically tachycardic and takes metoprolol for rate control. If he does not take his metoprolol he runs around 115. He is not reportedly taking his metoprolol today. eleazar Mckeon General Date/Time Provider Initiated Documentation: 08/14/20 17:53 . Related Data Home Medications Medication Instructions Recorded Confirmed aspirin [Aspirin Low-Strength] 81 mg PO DAILY tab-cap 10/27/12 05/17/20 atorvastatin [Lipitor] 20 mg PO HS tab-cap 10/27/12 05/17/20 glipizide 10 mg PO BID tab-cap 10/27/12 05/17/20 metformin 1,000 mg PO DAILY tab-cap 10/27/12 05/17/20 metformin 1,500 mg PO HS 01/05/14 05/17/20 multivitamin 1 cap PO DAILY 01/05/14 05/17/20 insulin glargine 100 unit/mL (3 80 unit SUBCUT HS ml 11/08/18 05/17/20 mL) subcutaneous pen metoprolol tartrate 25 mg PO BID #60 tab 07/21/19 05/17/20 insulin aspart U-100 100 unit/mL 1 sliding sc SC TID ml 08/18/19 05/17/20 subcutaneous solution Previous Rx's Medication Instructions Recorded metoprolol tartrate 25 mg PO BID #60 tab 07/21/19 Allergies Allergy/AdvReac Type Severity Reaction Status Date / Time No Known Allergies Allergy Verified 11/06/20 23:45 General Stated Complaint: Abd Prob SCOOTER: 3 <Carlos Rodriguez MD - Last Filed: 08/14/20 18:49> This 55-year-old male presents with history of colon cancer,, UTI, left nephrectomy 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 Patient presents secondary to left flank pain that began this afternoon with vomiting. He states he vomited between each time. He denies any current chest pain or shortness of breath. He has felt run down over the course of the past several days. Denies nausea or vomiting currently. Denies any blood or diarrhea or stool. Denies exacerbating or alleviating factors. Pain in his flank as a cramp. Chemotherapy was 3 weeks ago reportedly at [facility]. His last surgery was a nephrectomy in April 2020. Patient reports he developed a cough after this procedure. Denies any recent antibiotic use. Denies any change in medication. States that he is chronically tachycardic and takes metoprolol for rate control. If he does not take his metoprolol he runs around 115. He is not reportedly taking his metoprolol today. 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 Patient presents secondary to left flank pain that began this afternoon with vomiting. He states he vomited between each time. He denies any current chest pain or shortness of breath. He has felt run down over the course of the past several days. Denies nausea or vomiting currently. Denies any blood or diarrhea or stool. Denies exacerbating or alleviating factors. Pain in his flank as a cramp. Chemotherapy was 3 weeks ago reportedly at [facility]. His last surgery was a nephrectomy in April 2020. Patient reports he developed a cough after this procedure. Denies any recent antibiotic use. Denies any change in medication. States that he is chronically tachycardic and takes metoprolol for rate control. If he does not take his metoprolol he runs around 115. He is not reportedly taking his metoprolol today. Plan l Review of Systems <MUKESH Miller - Last Filed: 08/14/20 20:12> Narrative: Review of systems negative x7 aside from where indicated in HPI PFSH <MUKESH Miller - Last Filed: 08/14/20 20:12> Medical History Alternative medicine Cancer related pain Colon cancer metastasized to intra-abdominal lymph node Colon cancer metastasized to intrathoracic lymph node PET scan October 2019 Diabetes mellitus Discharge planning issues Essential hypertension Fatigue Fatty liver Femoral nerve injury Fistula of ureter Fracture of distal fibula Full code status he is aware that pts with metastatic cancer have low survival rate Goals of care, counseling/discussion Hypercholesterolemia Injury due to procedure Late effect of complications of procedure Medical cannabis use filled out paperwork 11/14/19 for him to receive medical cannabis 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 Mediport placement (10/21/16) Nephrostomy status Partial resection of colon (~2011) SIGMOID S/P ureteral stent placement Family History Father Heart disease Dementia AAA (abdominal aortic aneurysm) Mother No problems noted. Brother No problems noted. Son No problems noted. 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 Pets and animals: No Do you think of yourself as: straight/heterosexual Current gender identity: male What is your relationship status?: How often do you talk on the phone with friends or family?: once per week How often do you get together with friends or relatives?: once per week Panel score (0-1 are the most socially isolated patients): 1 What type of physical activity do you participate in: assisted ambulation and irregular exercise Duration: 15-30 minutes/day Frequency: 1-2 times per week Special benoit needs: No Agree to transfusion: Yes Seatbelt use: always Drive intox or ride w/intox 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 In 2019, Had MOHAN procedure that caused femoral nerve injury. Disabled since. Now walks with cane. Getting folfori for recurrent colon ca now. Tolerating it. Exam <MUKESH Miller - Last Filed: 08/14/20 20:12> Const General: ill appearing Orientation: alert and oriented x3 Limitations: mental status not altered HENMT Head: normal to inspection Mouth: oral mucosae normal Chest Chest: normal inspection of the chest Resp Effort & Inspection: normal respiratory effort Cardio Rate: tachycardic Rhythm: regular rhythm Pulses: normal peripheral pulses GI Other: CVA tenderness over scar from left nephrectomy, no Ornelas Al's sign No abdominal bruit or pulsatile mass Skin Other: pallor Neuro General: patient alert and patient oriented x3 Extrem General: normal to inspection Course <MUKESH Miller - Last Filed: 08/14/20 20:12> Vital Signs Vital signs: Vital Signs Temperature 36.6 C 08/14/20 17:59 Pulse 130 H 08/14/20 17:59 Blood Pressure 91/66 L 08/14/20 17:59 Pulse Oximetry 100 08/14/20 17:59 Temperature 36.6 C 08/14/20 17:59 Temperature Source Temporal Artery Scan 08/14/20 17:59 Pulse 130 H 08/14/20 17:59 Respiratory Effort 08/14/20 18:07 Blood Pressure 91/66 L 08/14/20 17:59 Pulse Oximetry 100 08/14/20 17:59 Oxygen Delivery Method Room Air 08/14/20 17:59 Oxygen Flow Rate 0 08/14/20 17:59 Pain Level 8 08/14/20 17:59 Critical Care Time <MUKESH Miller - Last Filed: 08/14/20 20:12> Critical Care Time Critical Care Time: Yes Total Critical Care Time: 45 Attestation: Critical care attending. 2 peripheral IVs, IV antibiotics, 30 cc/kg bolus of fluid, CT imaging, telemetry monitoring
[2020-08-14 18:32] LABS: BE (Venous) -1 mmol/L (-2-3); HCO3 (Venous) 25 mmol/L (23-28); O2 Sat (Venous) 72 %; TCO2 (Venous) 23 mmol/L (24-29); pCO2 (Venous) 45 mmHg (41-51); pH (Venous) 7.35 (7.31-7.41); pO2 (Venous) 38 mmHg
[2020-08-14 18:34] LABS: Abs Immature Grans 0.05 10^3/uL (0.0-0.06); Absolute Basophil Count 0.09 10^3/uL (0.0-0.2); Absolute Lymphocyte Count 1.51 10^3/uL (1.2-3.4); Absolute Neutrophil Count 8.96 10^3/uL (1.2-6.7); Basophils % 0.7; Eosinophils % 5.5; HGB 11.9 g/dL (13.5-17.5); Immature Grans % 0.4; Lymphocytes % 11.9; MCH 26.6 pg (27.0-33.0); MCHC 32.2 % (32.0-36.0); MCV 82.6 fL (80-95); MPV 10.8 fL (8.0-11.0); Monocytes % 10.7; Neutrophils % 70.8; Nucleated RBC 0 %; Platelet Count 306 10^3/uL (130-400); RBC 4.48 10^6/uL (4.36-5.78); RDW 16.3 % (11.8-14.1); RDW-SD 49.1 fL; WBC 12.66 10^3/uL (4.4-10.8)
[2020-08-14 18:36] LABS: Absolute Monocyte Count 1.35 10^3/uL (0.1-0.8)
[2020-08-14 18:38] LABS: Lactate 3.1 mmol/L (0.6-1.4)
--- NOTE | 2020-08-14 18:54 | DI.VRAD_ITS ---
PROCEDURE INFORMATION: Exam: XR Chest, 1 View Exam date and time: 08/14/2020 6:30 PM Age: 55 years old Clinical indication: Other: Weakness TECHNIQUE: Imaging protocol: XR of the chest Views: 1 view. COMPARISON: CR XR CHEST 2V PA LATERAL 06/14/2020 2:39 PM FINDINGS: Tubes, catheters and devices: Left upper chest wall Port-A-Cath with its tip in the proximal SVC. Lungs: The lungs are clear without opacity or suspicious parenchymal finding. Pleural spaces: Unremarkable. No pleural effusion. No pneumothorax. Heart/Mediastinum: Unremarkable. No cardiomegaly. Bones/joints: Unremarkable. IMPRESSION: No acute cardiopulmonary process. Dictated and Authenticated by: Jasmina Carlson MD. Ordering:MARIA DOLORES Cortes MD
[2020-08-14 19:04] LABS: Magnesium 2.3 mg/dL (1.8-2.4)
[2020-08-14 19:11] LABS: Lipase 166 U/L (73-393)
[2020-08-14 19:14] LABS: Troponin I < 0.05 ng/mL (<0.06)
[2020-08-14 19:15] LABS: ALT 42 U/L (16-63); AST 34 U/L (15-37); Albumin 2.9 g/dL (3.4-5.0); Alkaline Phosphatase 204 U/L (46-116); Anion Gap 8.3 mmol/L (3-11); BUN 11 mg/dL (7-18); Bilirubin, Direct 0.23 mg/dL (0.00-0.20); Bilirubin, Total 0.9 mg/dL (0.2-1.0); CO2 25.7 mmol/L (21.0-32.0); CREATININE 1.5 mg/dL (0.70-1.30); Calcium 9.2 mg/dL (8.5-10.1); Chloride 99 mmol/L (98-107); Estimated GFR 48.95 (mL/min/1.73m2); Glucose 109 mg/dL (74-106); Potassium 3.6 mmol/L (3.5-5.1); Sodium 133 mmol/L (136-145); Total Protein 9.3 g/dL (6.4-8.2)
[2020-08-14 19:37] LABS: Bilirubin Small (Negative); Blood Large (Negative); Clarity Cloudy (Clear); Glucose 500 mg/dL (Negative); Ketones Trace mg/dL (Negative); Leukocyte Esterase Trace (Negative); Nitrite Negative (Negative); Specific Gravity >= 1.030 (1.005-1.025); Urobilinogen 0.2 EU/dL (Up TO 0.2); pH 5.5 (5-8)
[2020-08-14 19:48] LABS: Bacteria Many HPF (Negative); RBC >50 HPF (0-2); WBC >50 HPF (0-5)
[2020-08-14 19:49] LABS: C & S Indicated? Yes
--- NOTE | 2020-08-14 19:49 | DI.CT_ITS ---
EXAM: CT CHEST/ABD/PEL W CLINICAL HISTORY: left flank pain, hx of nephrectomy and abscess, TECHNIQUE: Imaging Protocol: Axial computed tomography images with coronal and sagittal reformatted images were created and reviewed CONTRAST MATERIAL: Intravenous: Omnipaque 350 Contrast volume:100 mL Oral: No COMPARISON: CT CT CHEST/ABD/PEL W from 07/16/[address] GUIDED DRAIN RETROP from 01/01/[address] ABDOMEN AND PELVIS from 01/01/[address] ABDOMEN PELVIS WO from 05/17/2020 FINDINGS: CHEST: Tracheobronchial tree: Patent where visualized. Pulmonary parenchyma: There is a ground-glass infiltrate in the left lower lobe. No architectural di stortion. Visualized thyroid gland: Unremarkable. Mediastinum and Miley: There is mediastinal and bilateral hilar adenopathy. The largest lymph node is seen in the subcarinal region and measures 45.1 x 2.4 cm. There is the left hilar adenopathy measur ing 2.3 x 2.8 cm. There is an enlarged pretracheal lymph node which measures 2.6 x 3.0 cm. Pleura: No effusion or pneumothorax. Heart: The heart is not dilated. Moderate coronary artery calcification. No pericardial effusion. Aorta: Thoracic aorta non-dilated. Lymph nodes: Please see the above discussion. Tubes, Catheters, and Lines: The tip of the Aunznf-X-Bgdn catheter is seen in the superior vena cava. Soft tissues: Unremarkable. Bones:No suspicious lytic or sclerotic lesions. ABDOMEN: Liver: Fatty infiltration of the liver. No measurable mass. Portal, Superior Mesenteric, and Splenic Veins: Unremarkable. Gallbladder and Biliary Tract: No radiodense calculus or dilation. Pancreas: Normal density, no abnormal calcifications or inflammatory process. Spleen: Normal. Adrenals: No masses seen. There is a left adrenalectomy. Kidneys: There has been a left nephrectomy. There are 2 nonobstructing stones in the midpole of the right kidney. There is a simple cyst again seen in the right kidney. Persistent nodules and small f luid collections are seen in the left renal bed. There is stranding and inflammation which extends i nto the left iliopsoas muscle. There is a persistent 2.3 x 4.5 cm fluid collection within the muscle . Abdominal Aorta: Abdominal portion non-dilated. Mild atherosclerosis. Bowel: No obstruction or bowel wall thickening. No evidence of appendicitis. Postsurgical changes of a sigmoid anastomosis. Peritoneal Cavity: No ascites, collection or mesenteric inflammatory response. No free air. Lymph Nodes: There are again seen enlarged retroperitoneal lymph nodes. The largest measures 2.3 cm. There has been a decrease in size and number of lymph nodes since the prior examination. Bones: No suspicious lytic or sclerotic lesions are seen. Soft Tissues: Unremarkable. PELVIS: Bladder: The urinary bladder is incompletely distended. There is diffuse thickening of the wall of t he urinary bladder. This may be due to underdistention however an inflammatory infectious cystitis o r chronic bladder outlet obstruction should be considered. Reproductive Organs: The hypodense lesion seen in the right aspect of the prostate gland has decrease d in size to 1.7 cm from 2.8 cm. Lymph Nodes: Please see the above discussion. Bones: No suspicious lytic or sclerotic lesions are seen. IMPRESSION: 1. Left psoas fluid collection suspicious for an abscess with adjacent inflammatory changes. The abs cess measures 2.3 x 4.5 cm. There is persistent retroperitoneal adenopathy. Some of the periaortic lymph nodes have decreased in size compared to the prior examination. Small fluid collections and no dularity are seen in the left renal postoperative bed. This may represent residual recurrent disease . 2. Decrease in size of the hypodense lesion seen in the prostate gland. 3. Interval development of mediastinal and hilar adenopathy. 4. Left lower lobe infiltrate which may represent an atypical pneumonia. RADIATION DOSE DELIVERED: 1,583.48mGy.cm Total DLP DATA REPOSITORY: All CT scans at this facility are submitted to the National Radiology Data Registry (NRDR) Dose Index Registry (DIR) with the [employer] (ACR). RADIATION OPTIMIZATION: All CT scans at this facility use at least one of these dose optimization te chniques: automated exposure control; mA and/or kV adjustment per patient size (includes targeted exa ms where dose is matched to clinical indication); or iterative reconstruction.
[2020-08-14] MEDS: Omnipaque 350 MG/ML 100 ML BTL IJ (19:55)
[2020-08-14] MEDS: Normal Saline Flush 10 ML SYR IVP (19:55)
[2020-08-14] MEDS: Normal Saline - Diluent 50 ML VIAL IV (19:55)
[2020-08-14] MEDS: PIPERACILLIN/TAZO 3.375 GM in Normal Saline 50 ML IVPB (20:06)
--- NOTE | 2020-08-14 20:28 | DI.VRAD_ITS ---
PROCEDURE INFORMATION: Exam: CT Chest With Contrast; Diagnostic Exam date and time: 08/14/2020 6:17 PM Age: 55 years old Clinical indication: Abdominal pain; Left-sided chest pain; Prior surgery; Surgery date: 1-6 months; Surgery type: Nephrectomy 04/2020, HX colon resection; Patient HX: Left flank pain, hypotension, chest pain, HX of nephrectomy 04/2020, HX abcess. Diabetic on metformin, currently being treated for colon CA, 3 resections. TECHNIQUE: Imaging protocol: Diagnostic computed tomography of the chest with contrast. Radiation optimization: All CT scans at this facility use at least one of these dose optimization techniques: automated exposure control; mA and/or kV adjustment per patient size (includes targeted exams where dose is matched to clinical indication); or iterative reconstruction. Contrast material: [id number]; Contrast volume: 100 ml; Contrast route: INTRAVENOUS (IV); COMPARISON: CT CHEST/ABD/PEL W 07/16/2019 11:[address] abdomen pelvis of 05/17/2020. FINDINGS: Tubes, catheters and devices: Left upper chest wall Port-A-Cath with its tip in the proximal SVC. Lungs: Patchy airspace opacifications in the central left lower lobe likely represent aspirations forces an atypical pneumonia. Pleural spaces: No pleural effusion or pneumothorax. Heart: Severe coronary artery calcifications. Aorta: Unremarkable. No aortic aneurysm. Lymph nodes: Interval development of right paratracheal and subcarinal lymphadenopathy. The right subcarinal lymph node measures 2.8 cm. The right paratracheal lymph node measures 2.1 cm. Interval development of metastatic bilateral hilar lymphadenopathy. Posterior right pericardial lymphadenopathy measures 1.5 cm. Bones/joints: Unremarkable. No acute fracture. Soft tissues: Unremarkable. IMPRESSION: 1. Interval development of mediastinal and bilateral hilar metastatic lymphadenopathy. 2. Patchy airspace opacities in the left lower lobe representing an atypical pneumonia or early aspirations. PROCEDURE INFORMATION: Exam: CT Abdomen And Pelvis With Contrast Exam date and time: 08/14/2020 6:17 PM Age: 55 years old Clinical indication: Abdominal pain; Left-sided chest pain; Prior surgery; Surgery date: 1-6 months; Surgery type: Nephrectomy 04/2020, HX colon resection; Patient HX: Left flank pain, hypotension, chest pain, HX of nephrectomy 04/2020, HX abcess. Diabetic on metformin, currently being treated for colon CA, 3 resections. TECHNIQUE: Imaging protocol: Computed tomography of the abdomen and pelvis with contrast. Radiation optimization: All CT scans at this facility use at least one of these dose optimization techniques: automated exposure control; mA and/or kV adjustment per patient size (includes targeted exams where dose is matched to clinical indication); or iterative reconstruction. Contrast material: [id number]; Contrast volume: 100 ml; Contrast route: INTRAVENOUS (IV); COMPARISON: CT CHEST/ABD/PEL W 07/16/2019 11:54 PM FINDINGS: Liver: Mild generalized hepatic steatosis. Gallbladder and bile ducts: Normal. No calcified stones. No ductal dilation. Pancreas: Normal. No ductal dilation. Spleen: Normal. No splenomegaly. Adrenal glands: Normal. No mass. Kidneys and ureters: Postoperative changes of left adrenalectomy and left radical nephrectomy with persistent left para-aortic lymphadenopathy and multiple nodules in the nephrectomy bed. Adjacent fat stranding and inflammation extends into the medial left psoas muscle where there is a persistent fluid collection measuring roughly 2.3 x 4.5 cm. Stable simple anterior interpolar right renal cyst measuring 1.9 cm. No right renal mass. Stomach and bowel: Stable distal colonic anastomosis without evidence for recurrence lesion at the staple line. No new bowel obstruction. Appendix: Normal appendix. No appendicitis. Intraperitoneal space: Unremarkable. No free air. No significant fluid collection. Vasculature: Unremarkable. No abdominal aortic aneurysm. Lymph nodes: Interval decrease in the lymphadenopathy adjacent to the aortic bifurcation since the May study. Persistent retrocaval lymphadenopathy measuring 1.5 cm. Urinary bladder: See Reproductive finding. Reproductive: Decrease in size of the hypodense lesion in the right prostate gland from 2.8 cm to 1.7 cm. Posterior urinary bladder wall thickening and enhancement. Bones/joints: Unremarkable. No acute fracture. Soft tissues: See Kidneys and ureters finding. IMPRESSION: 1. Left psoas abscess measuring 2.3 x 4.5 cm with adjacent inflammatory changes at the left nephrectomy bed. Persistent fat stranding and nodularity suggestive of recurrent disease as well as persistent left para-aortic and retrocaval retroperitoneal lymphadenopathy are present. Some retroaortic lymph nodes adjacent to the bifurcation have decreased in size. 2. Decrease in size of a hypodense lesion in the right posterior prostate gland which may represent a prior prostatic abscess. Adjacent posterior urinary bladder wall enhancement may represent focal cystitis. 3. Stable postoperative changes of distal partial colon resection. No bowel obstruction. Dictated and Authenticated by: Jasmina Carlson MD. Ordering:MARIA DOLORES Cortes MD
[2020-08-14] MEDS: ACETAMINOPHEN 1,000 MG/100 ML BTL 400 MG IVPB (20:35)
[2020-08-14] MEDS: Lactated Ringers 1,000 ML 1000 ML IV (20:36)
[2020-08-14] MEDS: VANCOMYCIN 2,000 MG in Normal Saline 500 ML 333.3333 MG IVPB (20:47)
[2020-08-14 21:33] LABS: Troponin I < 0.05 ng/mL (<0.06)
== END 2020-08-14 22:22 | disposition short-term general hospital (02) ==
PROVIDERS: Physician Assistant; Emergency Provider Student in an Organized Health Care Education/Training Program; PCP Physician Assistant Medical
DX: K68.12 Psoas muscle abscess (principal); A41.9 Sepsis, unspecified organism; C19 Malignant neoplasm of rectosigmoid junction; Z79.899 Other long term (current) drug therapy
CPT/HCPCS: 36415; 74177; 80048; 80076; 82805; 83690; 86850; 86900; 86901; 87040; 93005; 96361; 96365; 96367; 96368; 99291; 71045; 71260; 81003; 81015; 83605; 83735; 84484; 85025; 87086; 93010; J0131; J2543; J3490

== ENCOUNTER 2020-08-31 17:39 | Emergency (ER) | payer BC, SELFPAY ==
[2020-08-31] VITALS (97 sets, daily range): BP systolic 104–128; BP diastolic 67–81; PULSE 90–112; RESP 9–21; TEMP 36.3–36.4; O2SAT 97–100
--- NOTE | 2020-08-31 17:45 | RT.EKG_ITS ---
APPROVED REPORT Exam: Resting ECG Patient Location: E HR:94 bpm ECG Measurements Heart Rate 94 AXIS SC 161 P 52 QRSd 108 QRS 42 QT 365 T 53 QTc 456 Conclusion Sinus rhythm...normal P axis, V-rate 60- 99 I have reviewed and interpreted ECG and agree with software generated interpretation.
[2020-08-31] MEDS: Normal Saline-STERILE FIELD 0.9% 10 ML SYR (18:00)
--- NOTE | 2020-08-31 18:12 | W.ED.GENAD ---
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, Hyponatremia, Hyperglycemia, Psoas abscess, left Primary Care Provider: Chetan Jaquez ED Provider: Getachew Birmingham [facility] Meds and New Rx's Prescriptions: No Action insulin aspart U-100 [Novolog U-100 Insulin aspart] 100 unit/mL solution 1 sliding sc SC TID RF: 0 atorvastatin [Lipitor] 20 MG tablet 20 mg PO HS RF: 0 glipizide 10 MG tablet extended release 24hr 10 mg PO BID RF: 0 aspirin [Aspirin Low-Strength] 81 MG tablet,chewable 81 mg PO DAILY RF: 0 metformin 1,000 MG tablet extended release 24hr 1,000 mg PO DAILY RF: 0 metformin 500 MG tablet 1,500 mg PO HS RF: 0 multivitamin 1 EACH capsule 1 cap PO DAILY RF: 0 Lantus Solostar U-100 Insulin 100 unit/mL (3 mL) insulin pen 40 unit subcut BID RF: 0 acetaminophen [Tylenol] 325 mg Tablet 1,000 mg PO PRN PRNRF: 0 ibuprofen 200 mg Tablet 600 mg PO DAILY RF: 0 metoprolol tartrate 25 mg Tablet 25 mg PO BID Qty: 60 RF: 0 Discharge Data Discharge Date/Time-TO BE ENTERED AT DEPARTURE: 08/31/20 23:00 Medical Decision Making <Dimple Herrera DO - Last Filed: 09/01/20 09:06> 55-year-old male with a history of metastatic colon cancer status post sigmoid colectomy on chemo and brain XRT, 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 EKG notes a rate of 94, sinus, no STEMI, nondiagnostic. Vitals within normal limits. He is afebrile and appears nontoxic. Abdomen soft nontender. Site of previous left IR drain left lower flank without evidence of cellulitis or drainage. Concern mainly would be for return of psoas abscess. Also consider another source of infection, colitis, diverticulitis, UTI, pyelonephritis. Will place an IV, bolus IV fluids, screening labs, CT abdomen and pelvis and give fluids and morphine and reassess. Labs reviewed. White blood cell count normal at 10. Lactate elevated at 2.1. Sodium low at 126, low compared to previous. Glucose elevated at 363, will give insulin. Troponin negative. Urinalysis consistent with UTI. Will hold on antibiotics until CT imaging resulted. Case endorsed to Dr. Birmingham to follow-up on imaging results and follow-up with [facility] regarding final disposition. Medical Records Medical records reviewed: Yes I reviewed the patient's medical records. Lab Data Lab results reviewed: Yes I reviewed the patient's lab results. Labs: 08/31/20 18:35 Urine - Reflex from Ua Urine Culture - Pending 08/31/20 18:25 Blood Blood Culture - Pending 08/31/20 18:30 Blood Blood Culture - Pending Laboratory Tests Range/Units 08/31/20 08/31/20 08/31/20 18:15 18:15 18:15 WBC (4.4-10.8) 10^3/uL 10.52 RBC (4.36-5.78) 10^6/uL 3.71 L Hgb (13.5-17.5) g/dL 10.1 L Hct (40.0-50.0) % 31.1 L MCV (80-95) fL 83.8 MCH (27.0-33.0) pg 27.2 MCHC (32.0-36.0) % 32.5 RDW (11.8-14.1) % 15.2 H Plt Count (130-400) 10^3/uL 287 MPV (8.0-11.0) fL 10.1 Immature Gran % 0.3 Neutrophils % 73.8 Lymphocytes % 12.4 Monocytes % 6.5 Eosinophils % 6.0 Basophils % 1.0 Nucleated RBC % % 0 Absolute Neutrophils (1.2-6.7) 10^3/uL 7.78 H Absolute Lymphocytes (1.2-3.4) 10^3/uL 1.30 Absolute Monocytes (0.1-0.8) 10^3/uL 0.68 Absolute Eosinophils (0.0-0.7) 10^3/uL 0.63 Absolute Basophils (0.0-0.2) 10^3/uL 0.10 PT (9.3-11.0) sec 10.6 INR (0.9-1.1) 1.1 APTT (21.0-27.5) sec 27.9 H VBG Lactate (0.6-1.4) mmol/L Sodium (136-145) mmol/L 126 L Potassium (3.5-5.1) mmol/L 4.8 Chloride (98-107) mmol/L 95 L Carbon Dioxide (21.0-32.0) mmol/L 22.6 Anion Gap (3-11) mmol/L 8.4 BUN (7-18) mg/dL 17 Creatinine (0.70-1.30) mg/dL 1.6 H Estimated GFR/1.73 m2 (mL/min/1.73m2) 45.44 Glucose (74-106) mg/dL 363 H Calcium (8.5-10.1) mg/dL 8.4 L Magnesium (1.8-2.4) mg/dL 1.8 Total Bilirubin (0.2-1.0) mg/dL 0.3 AST (15-37) U/L 69 H ALT (16-63) U/L 52 Alkaline Phosphatase (46-116) U/L 176 H Troponin I (<0.06) ng/mL < 0.05 Total Protein (6.4-8.2) g/dL 9.0 H Albumin (3.4-5.0) g/dL 2.7 L Urine Color (Yellow) Urine Clarity (Clear) Urine pH (5-8) Ur Specific Terril (1.005-1.025) Urine Protein (Negative) mg/dL Urine Ketones (Negative) mg/dL Urine Blood (Negative) Urine Nitrite (Negative) Urine Bilirubin (Negative) Urine Urobilinogen (Up TO 0.2) EU/dL Ur Leukocyte Esterase (Negative) Urine RBC (0-2) HPF Urine WBC (0-5) HPF Ur Epithelial Cells (Negative) HPF Urine Crystals (Negative) HPF Urine Bacteria (Negative) HPF Urine Casts (Negative) LPF Urine Mucus (Negative) Urine Other (Negative) Ur Culture Indicated? Urine Glucose (Negative) mg/dL Range/Units 08/31/20 08/31/20 18:15 18:35 WBC (4.4-10.8) 10^3/uL RBC (4.36-5.78) 10^6/uL Hgb (13.5-17.5) g/dL Hct (40.0-50.0) % MCV (80-95) fL MCH (27.0-33.0) pg MCHC (32.0-36.0) % RDW (11.8-14.1) % Plt Count (130-400) 10^3/uL MPV (8.0-11.0) fL Immature Gran % Neutrophils % Lymphocytes % Monocytes % Eosinophils % Basophils % Nucleated RBC % % Absolute Neutrophils (1.2-6.7) 10^3/uL Absolute Lymphocytes (1.2-3.4) 10^3/uL Absolute Monocytes (0.1-0.8) 10^3/uL Absolute Eosinophils (0.0-0.7) 10^3/uL Absolute Basophils (0.0-0.2) 10^3/uL PT (9.3-11.0) sec INR (0.9-1.1) APTT (21.0-27.5) sec VBG Lactate (0.6-1.4) mmol/L 2.1 H Sodium (136-145) mmol/L Potassium (3.5-5.1) mmol/L Chloride (98-107) mmol/L Carbon Dioxide (21.0-32.0) mmol/L Anion Gap (3-11) mmol/L BUN (7-18) mg/dL Creatinine (0.70-1.30) mg/dL Estimated GFR/1.73 m2 (mL/min/1.73m2) Glucose (74-106) mg/dL Calcium (8.5-10.1) mg/dL Magnesium (1.8-2.4) mg/dL Total Bilirubin (0.2-1.0) mg/dL AST (15-37) U/L ALT (16-63) U/L Alkaline Phosphatase (46-116) U/L Troponin I (<0.06) ng/mL Total Protein (6.4-8.2) g/dL Albumin (3.4-5.0) g/dL Urine Color (Yellow) Yellow Urine Clarity (Clear) Clear Urine pH (5-8) 6.0 Ur Specific Terril (1.005-1.025) >= 1.030 H Urine Protein (Negative) mg/dL >=300 H Urine Ketones (Negative) mg/dL Negative Urine Blood (Negative) Large H Urine Nitrite (Negative) Negative Urine Bilirubin (Negative) Negative Urine Urobilinogen (Up TO 0.2) EU/dL 0.2 Ur Leukocyte Esterase (Negative) Negative Urine RBC (0-2) HPF >50 H Urine WBC (0-5) HPF >50 H Ur Epithelial Cells (Negative) HPF Negative Urine Crystals (Negative) HPF Negative Urine Bacteria (Negative) HPF Negative Urine Casts (Negative) LPF Negative Urine Mucus (Negative) Negative Urine Other (Negative) Few renal Ur Culture Indicated? Yes Urine Glucose (Negative) mg/dL >=1000 H ECG Data Attestation: I personally reviewed and interpreted this ECG (s) as follows: Interpretation: rate of 94, sinus, no acute ST elevation or depression, ND 161, QRS 108, QTc 456. <Getachew Birmingham MD - Last Filed: 08/31/20 22:08> Patient signed out to me pending CT results. Patient had presented back to emergency department with increased pain, malaise, fatigue since completing Bactrim 1 or 2 days ago. He had been seen here on the third and transferred to [facility]. Subsequently underwent IR drainage of a psoas abscess and was on Zosyn. Cultures were all negative from that admission. He was discharged on Bactrim. He had done well until the last 24 to 36 hours. Laboratory studies here for the most part were unremarkable other than his glucose being a little high. He received IV fluids and subcu insulin for this. White count, kidney function, lactic acid unremarkable. Urine dip for blood and leukocyte esterase. Micro with greater than 50 white cells and red cells but no bacteria. This is similar to urine from the third which ended up being culture negative. CT scan is being read by radiology as worsening radiographic evidence of abscess and inflammation and lymphadenopathy involving the left retroperitoneum. Case discussed with urology and emergency department at [facility]. Patient has had blood cultures and urine cultures done here. He remained hemodynamically stable and afebrile here. Discussed with urology and willl hold off on antibiotics until seen at [facility] and potentially get psoas abscess drained before starting antibiotics. He will be transferred by ambulance with medic in case of hemodynamic instability. Patient aware of need for transfer and is in agreement. Medical Records Medical records reviewed: Yes I reviewed the patient's medical records. Lab Data Lab results reviewed: Yes I reviewed the patient's lab results. HPI <Dimple Herrera DO - Last Filed: 09/01/20 09:06> General Mode of arrival: ambulatory. Date/Time Provider Initiated Documentation: 08/31/20 17:41. Limitations to Documentation: no limitations. Information obtained by: patient. 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 Patient states he had similar symptoms earlier this month when transferred to [facility] for this suspected sepsis. He states he finished his Bactrim yesterday. He states he was feeling better when he left [facility] this month but symptoms returned a few days ago. He does admit to return of his left-sided flank pain but not as bad as earlier this month. He denies any fever, vomiting, diarrhea, urinary symptoms, abdominal pain, chest pain, shortness of breath or cough. He admits to mild headache but denies any neck pain. Related Data Home Medications Medication Instructions Recorded Confirmed aspirin [Aspirin Low-Strength] 81 mg PO DAILY tab-cap 10/27/12 08/31/20 atorvastatin [Lipitor] 20 mg PO HS tab-cap 10/27/12 08/31/20 glipizide 10 mg PO BID tab-cap 10/27/12 08/31/20 metformin 1,000 mg PO DAILY tab-cap 10/27/12 08/31/20 metformin 1,500 mg PO HS 01/05/14 08/31/20 multivitamin 1 cap PO DAILY 01/05/14 08/31/20 insulin glargine 100 unit/mL (3 40 unit SUBCUT BID ml 11/08/18 08/31/20 mL) subcutaneous pen metoprolol tartrate 25 mg PO BID #60 tab 07/21/19 08/31/20 insulin aspart U-100 100 unit/mL 1 sliding sc SC TID ml 08/18/19 08/31/20 subcutaneous solution acetaminophen [Tylenol] 1,000 mg PO PRN PRN 08/31/20 08/31/20 ibuprofen 600 mg PO DAILY 08/31/20 08/31/20 Previous Rx's Medication Instructions Recorded metoprolol tartrate 25 mg PO BID #60 tab 07/21/19 Allergies Allergy/AdvReac Type Severity Reaction Status Date / Time No Known Allergies Allergy Verified 05/17/20 23:45 General Stated Complaint: [employer] SCOOTER: 3 Review of Systems <Dimple Herrera DO - Last Filed: 09/01/20 09:06> All systems reviewed & are unremarkable except as noted in HPI and below Constitutional Constitutional: Reports as per HPI, Denies chills, Reports fatigue, Denies fever(s), Reports headache(s), Reports lethargy and Reports poor appetite Eyes Eyes: Denies blurry vision ENT Ears, Nose, Mouth, and Throat: Denies dizziness, Reports headache(s), Denies sore throat and Denies throat swelling Cardiovascular Cardiovascular: Denies chest pain and Denies dyspnea Respiratory Respiratory: Denies cough and Denies dyspnea Gastrointestinal Gastrointestinal: Denies abdominal pain, Denies diarrhea and Denies vomiting Genitourinary Genitourinary: Denies hematuria and Denies dysuria Musculoskeletal Musculoskeletal: Denies back pain and Denies numbness Integumentary/Breasts Skin/Breast: Denies lesions and Denies rash Neurologic Neurologic: Denies dizziness, Reports headache(s), Denies localized weakness and Denies numbness Endocrine Endocrine: Reports fatigue Allergic/Immunologic Allergic/Immunologic: Denies throat swelling PFSH <Dimple Herrera DO - Last Filed: 09/01/20 09:06> Medical History Alternative medicine Cancer related pain Colon cancer metastasized to intra-abdominal lymph node Colon cancer metastasized to intrathoracic lymph node PET scan October 2019 Diabetes mellitus Discharge planning issues Essential hypertension Fatigue Fatty liver Femoral nerve injury Fistula of ureter Fracture of distal fibula Full code status he is aware that pts with metastatic cancer have low survival rate Goals of care, counseling/discussion Hypercholesterolemia Injury due to procedure Late effect of complications of procedure Medical cannabis use filled out paperwork 11/14/19 for him to receive medical cannabis 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 Mediport placement (10/21/16) Nephrostomy status Partial resection of colon (~2011) SIGMOID S/P ureteral stent placement Family History Father Heart disease Dementia AAA (abdominal aortic aneurysm) Mother No problems noted. Brother No problems noted. Son No problems noted. 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 Pets and animals: No Do you think of yourself as: straight/heterosexual Current gender identity: male What is your relationship status?: How often do you talk on the phone with friends or family?: once per week How often do you get together with friends or relatives?: once per week Panel score (0-1 are the most socially isolated patients): 1 What type of physical activity do you participate in: assisted ambulation and irregular exercise Duration: 15-30 minutes/day Frequency: 1-2 times per week Special benoit needs: No Agree to transfusion: Yes Seatbelt use: always Drive intox or ride w/intox 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 In 2019, Had MOHAN procedure that caused femoral nerve injury. Disabled since. Now walks with cane. Getting folfori for recurrent colon ca now. Tolerating it. Exam <Dimple Herrera DO - Last Filed: 09/01/20 09:06> Const General: cooperative and no acute distress Orientation: alert, awake and oriented x3 HENMT Head: normal to inspection Face and sinus: normal facial exam Eyes General: appearance normal, both eyes and all related structures EOM: EOM intact bilaterally Neck Neck: normal visual inspection and No submandibular swelling Lymphatic: no lymphadenopathy noted Chest Chest: normal inspection of the chest and no tenderness Resp Effort & Inspection: normal respiratory effort and able to speak in complete sentences Auscultation: clear to auscultation bilaterally Cardio Rate: regular rate Rhythm: regular rhythm GI Inspection: normal to inspection Palpation: soft, not firm, not rigid and nontender Auscultation: normal bowel sounds Back/Spine/Pelvis Back/spine/pelvis image: 1. Well-healed scar from left nephrectomy. 2. 2 mm wound from previous IR drain removed this week. No surrounding erythema, edema, ecchymosis, fluctuance or induration. No drainage or bleeding. Skin General skin exam: no rashes or lesions noted Neuro General: patient alert, patient awake and patient oriented x3 Cognition: normal cognition Speech: speech normal Motor: muscle tone normal throughout Sensory Exam: no sensory deficits noted Extrem General: normal to inspection, full ROM, capillary refill normal, no calf tenderness bilaterally and no edema Psych Appearance: grossly normal Mental Status: mental status grossly normal Speech and Movement: speech and movement normal Affect: normal affect Course <Dimple Herrera DO - Last Filed: 09/01/20 09:06> Vital Signs Vital signs: Vital Signs Temperature 97.5 F L 08/31/20 17:49 Pulse 98 H 08/31/20 17:49 Respiratory Rate 16 08/31/20 17:49 Blood Pressure 114/74 08/31/20 17:49 Pulse Oximetry 99 08/31/20 17:49 Temperature 97.5 F L 08/31/20 17:49 Temperature Source Temporal Artery Scan 08/31/20 17:49 Pulse 98 H 08/31/20 17:49 Respiratory Rate 10 L 08/31/20 17:57 Respiratory Effort 08/31/20 17:57 Respiratory Depth Normal 08/31/20 17:57 Respiratory Pattern Normal 08/31/20 17:57 Blood Pressure 114/74 08/31/20 17:49 Blood Pressure Position Sitting 08/31/20 17:49 Pulse Oximetry 99 08/31/20 17:49 Oxygen Delivery Method Room Air 08/31/20 17:49 Oxygen Flow Rate 0 08/31/20 17:49 Pain Level 5 08/31/20 17:49 Lab/Test Results Lab/Test Results: 08/31/20 18:00 Blood Blood Culture - Pending 08/31/20 18:00 Blood Blood Culture - Pending Sign Out <Dimple Herrera DO - Last Filed: 09/01/20 09:06> Sign Out Data: Sign Out Comment: Follow-up on imaging results and discuss with [facility]. Last updated by Dimple Herrera DO at 08/31/20 19:48
[2020-08-31 18:23] LABS: Abs Immature Grans 0.03 10^3/uL (0.0-0.06); Absolute Eosinophil Count 0.63 10^3/uL (0.0-0.7); Absolute Monocyte Count 0.68 10^3/uL (0.1-0.8); Absolute Neutrophil Count 7.78 10^3/uL (1.2-6.7); HCT 31.1 % (40.0-50.0); HGB 10.1 g/dL (13.5-17.5); Immature Grans % 0.3; Lymphocytes % 12.4; MCH 27.2 pg (27.0-33.0); MCHC 32.5 % (32.0-36.0); MCV 83.8 fL (80-95); MPV 10.1 fL (8.0-11.0); Monocytes % 6.5; Neutrophils % 73.8; Nucleated RBC 0 %; Platelet Count 287 10^3/uL (130-400); RBC 3.71 10^6/uL (4.36-5.78); RDW 15.2 % (11.8-14.1); RDW-SD 46.4 fL; WBC 10.52 10^3/uL (4.4-10.8)
[2020-08-31 18:26] LABS: Lactate 2.1 mmol/L (0.6-1.4)
[2020-08-31 18:45] LABS: INR 1.1 (0.9-1.1); PTT Activated 27.9 sec (21.0-27.5); Prothrombin Time 10.6 sec (9.3-11.0)
[2020-08-31 18:58] LABS: Bilirubin Negative (Negative); Blood Large (Negative); Clarity Clear (Clear); Glucose >=1000 mg/dL (Negative); Ketones Negative (Negative); Leukocyte Esterase Negative (Negative); Nitrite Negative (Negative); Specific Gravity >= 1.030 (1.005-1.025); Urobilinogen 0.2 EU/dL (Up TO 0.2)
[2020-08-31 19:08] LABS: ALT 52 U/L (16-63); AST 69 U/L (15-37); Albumin 2.7 g/dL (3.4-5.0); Alkaline Phosphatase 176 U/L (46-116); Anion Gap 8.4 mmol/L (3-11); BUN 17 mg/dL (7-18); Bilirubin, Total 0.3 mg/dL (0.2-1.0); CO2 22.6 mmol/L (21.0-32.0); CREATININE 1.6 mg/dL (0.70-1.30); Calcium 8.4 mg/dL (8.5-10.1); Chloride 95 mmol/L (98-107); Estimated GFR 45.44 (mL/min/1.73m2); Glucose 363 mg/dL (74-106); Magnesium 1.8 mg/dL (1.8-2.4); Potassium 4.8 mmol/L (3.5-5.1); Sodium 126 mmol/L (136-145)
[2020-08-31 19:11] LABS: Troponin I < 0.05 ng/mL (<0.06)
[2020-08-31 19:28] LABS: Bacteria Negative HPF (Negative); C & S Indicated? Yes; Casts Negative LPF (Negative); Crystals Negative HPF (Negative); Epithelial Cells Negative HPF (Negative); Mucus Negative (Negative); Other Cells Few Renal (Negative); RBC >50 HPF (0-2); WBC >50 HPF (0-5)
[2020-08-31] MEDS: Insulin REGULAR-Human 100 UNITS/ML UNIT 7 UNITS SC (19:53)
--- NOTE | 2020-08-31 20:09 | DI.CT_ITS ---
EXAM: CT ABDOMEN PELVIS W CLINICAL HISTORY: L flank pain, h/o psoas abscess. TECHNIQUE: Imaging Protocol: Axial computed tomography images with coronal and sagittal reformatted images were created and reviewed CONTRAST MATERIAL: Intravenous: Omnipaque 100cc Oral: None COMPARISON: CT CT CHEST/ABD/PEL W from 08/14/2020 FINDINGS: VISUALIZED LUNG BASES: There has been resolution of previously present infiltrate in the medial basal segment of the left lower lobe but there is some patchy infiltrate now evident in the posterior basa l segment of the left lower lobe. There is also a 7 x 6 millimeter ground-glass nodular infiltrate i n the posterior basal segment of the right lower lobe. There are no pleural effusions.. ABDOMEN: There is no ascites. LIVER: There are no obvious focal hepatic lesions evident. No dilatation of intrahepatic ducts. GALLBLADDER/BILIARY: No obvious gallbladder pathology. CBD is not dilated. PANCREAS: There is a small cystic mass in the anterior aspect of the pancreatic body again noted, saniya suring 6 x 7 millimeters, unchanged foot and possibly representing an intra pancreatic cystic neoplas m. The pancreatic duct is not dilated. There are multiple lymph nodes again noted around the pancre atic head and uncinate with some streaking in the mesentery of the in the fat anterior to the aorta, left renal vein, SMA again evident. There is also left-sided para-aortic adenopathy again noted, sli ghtly increased. The spleen size is upper normal. The splenic and portal veins are patent. There i s no thrombosis of the superior mesenteric vein. Right adrenal gland is unremarkable. Left adrenal gland is absent. Small cyst is again noted in the anterior cortex of the right kidney which measures 1.8 x 1.7 cm. Few small nonobstructive calculi in the right kidney are noted. Right ureter is not dilated there are no calculi in the right ureter nor in the nondistended urinary bladder. The left kidney is again noted be surgically absent. Again noted is abnormal streaking in this regio n and a 2.5 by 2 point 0 centimeter density in this region which is either a lymph node or possible a bscess. In addition has the appearance of the left psoas muscle is again abnormal with significant e nlargement and heterogeneity and suspicious for psoas abscess, more so than previous. In addition, t he lower jar mid-lower aspect of the left of the remnant left ureter is again noted be somewhat promi nent and incorporated into the psoas abnormality medial aspect. The amount of adjacent periaortic adenopathy has slightly further increased. Inflammatory stranding is again noted in the left pelvic sidewall at and surrounding the left common iliac artery, proximal left external iliac artery and proximal left internal iliac artery. These franca hamilton are not thrombosed. However, patency of the right of this are left common iliac and external of the left common iliac vein is difficult to assess. Most of the left external iliac vein appears paten t. Common femoral arteries and veins appear patent. No evidence of abdominal aortic aneurysm. LYMPH NODES:Prominent retroperitoneal and left para-aortic adenopathy is again noted ABDOMINAL WALL/GI: No evidence of significant anterior abdominal wall hernia. Again noted is evidenc e of partial sigmoid resection. There is no bowel obstruction at this level nor abscess at this leve l. PELVIS: GI: No evidence of appendicitis.No evidence of sigmoid diverticulitis. LYMPH NODES: There is no inguinal adenopathy. REPRODUCTIVE: Prostate and seminal vesicles appear unchanged/unremarkable. There is density at the l evel the prostatic urethra again noted, possibly related to prior TURP. URINARY BLADDER: No calculi nor obvious masses evident OSSEOUS: No significant osseous lesions. IMPRESSION: 1. Compared to the prior CT scan of 08/14/2020 there is again noted evidence of left nephrectomy and left adrenalectomy. There is slight further increase in retroperitoneal and left para-aortic adenopa thy as well as left psoas muscle heterogenicity, consistent with abscess which appears to incorporate the non resected aspect of the left ureter which appears dilated. 2. There is a small 7 x 6x9 millimeter cystic structure in the of the pancreas which probably represe nts an intracystic pancreatic neoplasm, unchanged from the prior CT scan and not associated with dila tion of the duct of the pancreas. There is, however, adenopathy around the pancreas-retroperitoneum again noted although these enlarged lymph nodes are doubtful related to this cyst or small solitary c ystic neoplasm in the pancreas. Nevertheless this intrapancreatic finding will also require appropri ate imaging follow-up. 3. Partial sigmoid resection again noted. No abnormal findings at this level. No bowel obstruction. 4. The remaining right kidney is again noted to contain multiple nonobstructive small calculi as well as a small benign cyst, unchanged. Lung base findings as above. No pleural effusions. RADIATION DOSE DELIVERED: 999.78mGy.cm Total DLP DATA REPOSITORY: All CT scans at this facility are submitted to the National Radiology Data Registry (NRDR) Dose Index Registry (DIR) with the [employer] (ACR). RADIATION OPTIMIZATION: All CT scans at this facility use at least one of these dose optimization te chniques: automated exposure control; mA and/or kV adjustment per patient size (includes targeted exa ms where dose is matched to clinical indication); or iterative reconstruction.
[2020-08-31] MEDS: Normal Saline - Diluent 50 ML VIAL IV (20:16)
[2020-08-31] MEDS: Omnipaque 350 MG/ML 100 ML BTL IJ (20:16)
[2020-08-31] MEDS: Normal Saline Flush 10 ML SYR IVP (20:17)
[2020-08-31] MEDS: Normal Saline 250 ML 500 ML IV (20:26)
--- NOTE | 2020-08-31 20:42 | DI.VRAD_ITS ---
PROCEDURE INFORMATION: Exam: CT Abdomen And Pelvis With Contrast Exam date and time: 08/31/2020 8:01 PM Age: 55 years old Clinical indication: Abdominal pain; Patient HX: Left flank pain, h/o psoas abscess. ; Additional info: R/O abscess, pyelo, prostatic abscess. TECHNIQUE: Imaging protocol: Computed tomography of the abdomen and pelvis with contrast. Radiation optimization: All CT scans at this facility use at least one of these dose optimization techniques: automated exposure control; mA and/or kV adjustment per patient size (includes targeted exams where dose is matched to clinical indication); or iterative reconstruction. Contrast material: OMNI-PAQUE 350; Contrast volume: 100 ml; Contrast route: INTRAVENOUS (IV); COMPARISON: CT CHEST/ABD/PEL W 08/14/2020 7:41 PM FINDINGS: Lungs: Minimal tree-in-bud opacification in the posterior left lower lobe, decreased since the comparison exam. Liver: Normal. No mass. Gallbladder and bile ducts: Normal. No calcified stones. No ductal dilation. Pancreas: Normal. No ductal dilation. Spleen: Normal. No splenomegaly. Adrenal glands: Normal. No mass. Kidneys and ureters: The left kidney has been removed. The dilated remnant left ureter is unchanged. 17 mm right renal cortical simple cyst. Stomach and bowel: Surgical anastomosis of rectosigmoid junction. Moderate stool burden, possibly representing constipation. No bowel obstruction. Unremarkable stomach. Appendix: Normal appendix. Intraperitoneal space: Unremarkable. No free air. No significant fluid collection. Vasculature: Multiple pelvic phleboliths. Normal aorta. Lymph nodes: Prominent kristine hepatis lymph nodes. Inflammatory fat stranding in the retroperitoneum with marked periaortic lymphadenopathy, mildly increased since the comparison exam. Urinary bladder: In urinary bladder is nondistended., likely responsible for diffuse mural thickening. Reproductive: Unremarkable as visualized. Bones/joints: Unremarkable. No acute fracture. Soft tissues: Inflammatory changes of the left psoas muscle are similar to the comparison exam. Small areas of fluid density, consistent with abscess, are slightly more pronounced. Multiple surgical clips in this area. Other findings: Inflammatory fat stranding along the left pelvic sidewall and surrounding the distal left common iliac artery and proximal internal and external branches. IMPRESSION: Left psoas abscess and retroperitoneal lymphadenopathy, slightly advanced since the 08/14/2020 exam. Dictated and Authenticated by: Brendon Moon MD. Ordering:RONIT Musa MD
[2020-08-31] MEDS: Lactated Ringers 1,000 ML 125 ML IV (22:09)
--- NOTE | 2020-08-31 22:13 | NUR.NOTE ---
[facility]:
--- NOTE | 2020-09-03 08:51 | NUR.NOTE ---
Patient urine Culture report faxed to [facility] [phone].Nursing Note:
== END 2020-08-31 23:00 | disposition short-term general hospital (02) ==
PROVIDERS: Physician Assistant; Emergency Provider Emergency Medicine; PCP Physician Assistant Medical
DX: C18.9 Malignant neoplasm of colon, unspecified (principal); C79.31 Secondary malignant neoplasm of brain; K68.12 Psoas muscle abscess; E87.1 Hypo-osmolality and hyponatremia; R73.9 Hyperglycemia, unspecified; Z98.890 Other specified postprocedural states; E11.9 Type 2 diabetes mellitus without complications; Z79.4 Long term (current) use of insulin; I10 Essential (primary) hypertension
CPT/HCPCS: 36410; 36416; 36591; 80053; 82962; 87040; 93005; 96361; 96372; 96374; 96376; 99285; 74177; 81003; 81015; 83605; 83735; 84484; 85025; 85610; 85730; 87086; 93010; J3490

== ENCOUNTER 2020-09-13 05:31 | Outpatient (RCR) | payer BC, SELFPAY ==
[2020-09-13 07:29] LABS: Abs Immature Grans 0.04 10^3/uL (0.0-0.06); Absolute Basophil Count 0.05 10^3/uL (0.0-0.2); Absolute Eosinophil Count 0.65 10^3/uL (0.0-0.7); Absolute Lymphocyte Count 1.39 10^3/uL (1.2-3.4); Absolute Monocyte Count 0.58 10^3/uL (0.1-0.8); Absolute Neutrophil Count 4.55 10^3/uL (1.2-6.7); Basophils % 0.7; HCT 29.1 % (40.0-50.0); HGB 9.1 g/dL (13.5-17.5); Immature Grans % 0.6; Lymphocytes % 19.1; MCH 27.4 pg (27.0-33.0); MCHC 31.3 % (32.0-36.0); MCV 87.7 fL (80-95); MPV 9.6 fL (8.0-11.0); Neutrophils % 62.6; Nucleated RBC 0 %; Platelet Count 271 10^3/uL (130-400); RBC 3.32 10^6/uL (4.36-5.78); RDW 15.5 % (11.8-14.1); RDW-SD 48.5 fL; WBC 7.26 10^3/uL (4.4-10.8)
[2020-09-13 07:47] LABS: ALT 29 U/L (16-63); AST 50 U/L (15-37); Albumin 2.7 g/dL (3.4-5.0); Alkaline Phosphatase 122 U/L (46-116); Anion Gap 10.6 mmol/L (3-11); BUN 14 mg/dL (7-18); Bilirubin, Total 0.2 mg/dL (0.2-1.0); CO2 22.4 mmol/L (21.0-32.0); CREATININE 1.3 mg/dL (0.70-1.30); Calcium 8.1 mg/dL (8.5-10.1); Chloride 102 mmol/L (98-107); Estimated GFR 57.75 (mL/min/1.73m2); Glucose 195 mg/dL (74-106); Potassium 4.2 mmol/L (3.5-5.1); Sodium 135 mmol/L (136-145); Total Protein 8.5 g/dL (6.4-8.2)
[2020-09-13] MEDS: Heparin 500 UNITS/5 ML SYRINGE IV (08:07)
[2020-09-13] MEDS: Normal Saline Flush 10 ML SYR IVP (08:07)
[2020-09-13 18:16] LABS: CEA 2.3 ng/mL (See Note)
== END 2020-10-09 23:59 | disposition home or self-care (01) ==
LOC: INF 05:31
PROVIDERS: PCP Physician Assistant Medical; Visit Provider Internal Medicine Hematology & Oncology
DX: C18.9 Malignant neoplasm of colon, unspecified (principal); C79.89 Secondary malignant neoplasm of other specified sites; Z45.2 Encounter for adjustment and management of vascular access device
CPT/HCPCS: 36591; 80053; 82378; 85025

== ENCOUNTER 2020-09-25 01:11 | Outpatient (CLI) | payer BC, SELFPAY ==
--- NOTE | 2020-09-25 | DI.CT_ITS ---
EXAM: CT CHEST/ABD/PEL W CLINICAL HISTORY: F/U PERITONEAL CA,C78.8,C80.1,INTRAABDOMINAL ABSCESS,K65.1,COLON CA WITH. TECHNIQUE: Imaging Protocol: Axial computed tomography images with coronal and sagittal reformatted images were created and reviewed CONTRAST MATERIAL: Intravenous: Omnipaque 350 Contrast volume:100 ml Oral: None COMPARISON: CT CT CHEST/ABD/PEL W from 08/14/[address] ABDOMEN PELVIS W from 08/31/2020 FINDINGS: CHEST: LUNGS: The previously present infiltrate in the medial aspect of the posterior basal segment of the l eft lower lobe seen on the August 14, 2020 study has resolved. However, there is some increasing in filtrate more laterally in the posterior basal segment of the left lower lobe noted. In addition, th ere is now a large expansile lytic mass in the left chest wall having its epicenter in the left 5th r ib. This mass measures 5.3 cm by 4.5 cm.. This consistent with a metastatic expansile lesion. No o ther rib lesions identified. The opposite-right lung exhibits a small ground-glass infiltrate in the right lower lobe measuring 7 x 6 millimeters just above the hemidiaphragm.. There is also a subpleural 4 millimeter nodule locate d anteriorly over the right middle lobe which is slightly more evident than previous. There are note significant chest wall findings on the right side. There are no pleural effusions MEDIASTINUM: There is right paratracheal adenopathy again noted, slightly increased in size. There i s also extensive subcarinal adenopathy again noted and there is also some bilateral hilar adenopathy which is also slightly increased. There is no axillary adenopathy. No supraclavicular adenopathy. Distal tip of the left supraclinoid view in Port-A-Cath is in the distal noninflamed. Visualized thy roid unremarkable.Visualized lower half of the thyroid gland appears unremarkable. CARDIAC: Heart size is normal. There is no pericardial effusion.Caliber of the thoracic aorta is wit hin normal limits. OSSEOUS: Large left 5th rib metastatic lesions described above.. ABDOMEN: There is no ascites. LIVER: There are no focal hepatic lesions nor dilatation of intrahepatic ducts. GALLBLADDER/BILIARY: No obvious gallbladder pathology. CBD is not dilated. PANCREAS: The previously described cystic lesion at the mid pancreatic level is again noted. This pr esently measures 8 x 8 millimeters. Perhaps minimally increased in size. No additional pancreatic m asses nor dilatation of the pancreatic duct. However, there is increasing abnormal tissue in the ret roperitoneum medial to the uncinate process of the pancreas adjacent to the proximal superior mesente mitzi artery, most probably adenopathy and there is also a subjacent left para-aortic adenopathy also a gain noted, slightly increased. SPLEEN: Upper normal size. No masses. The splenic and portal veins are patent. ADRENALS: Left adrenal gland is surgically absent. Right adrenal gland unremarkable. KIDNEYS: Again noted is a benign cortical cyst in the anterior cortex of right kidney which measures 1.8 by 1.7 cm. A punctate 1 millimeter calculus nonobstructive is noted in the lower pole of the rig ht kidney. No hydronephrosis on the right side.. The left kidney is again noted be surgically absen t. There is a pigtail drainage catheter just below the left renal fossa intimately related to the pr eviously described left psoas abscess. This prominent density has not decreased in size.. This cont inues down to in golf the ipsilateral left iliac vessels including the distal left common iliac arter y and proximal left external iliac artery and vein and internal iliac artery and vein. ABDOMINAL AORTA: Not enlarged. Prominent left para-aortic adenopathy is again noted. There is also prominent lymph node right para-aortic between the anterior vertebral body and IVC. LYMPH NODES: Prominent retroperitoneal para-aortic adenopathy, as described above. ABDOMINAL WALL/GI: No evidence of significant anterior abdominal wall hernia. Again noted is evidenc e of partial sigmoid resection. No obstruction or abscess seen at this level. PELVIS: LYMPH NODES: Mass and adenopathy seen along the iliac chain left side. Deferral cul to the ranch 8 a denopathy from abscess at this level. The partially remaining left ureter appears to be partially in corporated into this mass. GI: No evidence of appendicitis.No evidence of sigmoid diverticulitis. URINARY BLADDER: Uniformly thickened wall. REPRODUCTIVE: Prostate not enlarged. OSSEOUS: No new significant osseous lesions in the abdomen and pelvis.. IMPRESSION: 1. Compared to the prior CT scan 08/14/2020 there is increasing intrathoracic adenopathy as describe d above and there is now a large expansile mass in the lateral left 5th rib consistent with expansile metastatic lesion at this level. This measures approximately 5.3 x 4.3 cm. There do not appear to be other obvious osseous metastatic lesions in the field of view of this study. 2. Some infiltrate in the left lung noted as described above. There are no obvious metastatic lung nodules. No pleural effusions. 3. Left kidney is again noted be surgically absent. There is a pigtail drainage catheter below the l eft renal fossa in the previously described so left psoas mass-abscess. This, however, does not appe ar to have decreased in size. 4. There is extensive and slightly increasing knkacrvqvpzfjxe-dvwv-jmrhou adenopathy noted. 5. partial sigmoid resection. No obvious complication at this level. No bowel obstruction. RADIATION DOSE DELIVERED: 2,242.33mGy.cm Total DLP DATA REPOSITORY: All CT scans at this facility are submitted to the National Radiology Data Registry (NRDR) Dose Index Registry (DIR) with the [employer] (ACR). RADIATION OPTIMIZATION: All CT scans at this facility use at least one of these dose optimization te chniques: automated exposure control; mA and/or kV adjustment per patient size (includes targeted exa ms where dose is matched to clinical indication); or iterative reconstruction.
[2020-09-25] MEDS: Breeza Beverage 473 ML BTL PO ×2 (10:22→10:23)
[2020-09-25] MEDS: Omnipaque 350 MG/ML 50 ML BTL IJ (10:24)
[2020-09-25] MEDS: Omnipaque 350 MG/ML 100 ML BTL IJ (11:39)
[2020-09-25] MEDS: Normal Saline - Diluent 50 ML VIAL IV (11:40)
== END 2020-09-25 01:31 ==
PROVIDERS: PCP Physician Assistant Medical; Visit Provider Internal Medicine Hematology & Oncology
DX: R91.8 Other nonspecific abnormal finding of lung field (principal); R59.0 Localized enlarged lymph nodes; C78.89 Secondary malignant neoplasm of other digestive organs; K65.1 Peritoneal abscess; C80.1 Malignant (primary) neoplasm, unspecified
CPT/HCPCS: 74177; 71260; J3490; Q9967

== ENCOUNTER 2020-10-16 12:38 | Emergency (ER) | payer BC, SELFPAY ==
[2020-10-16] VITALS (31 sets, daily range): BP systolic 103–116; BP diastolic 71–80; PULSE 79–87; RESP 8–15; TEMP 36.6; O2SAT 93–100
--- NOTE | 2020-10-16 12:45 | RT.EKG_ITS ---
APPROVED REPORT Exam: Resting ECG Patient Location: E HR:85 bpm ECG Measurements Heart Rate 85 AXIS KS 166 P 53 QRSd 113 QRS 0 QT 395 T [id number] QTc 469 Conclusion Sinus rhythm...normal P axis, V-rate 60- 99 I have reviewed and interpreted ECG and agree with software generated interpretation.
--- NOTE | 2020-10-16 12:49 | NUR.NOTE ---
Nursing Note: Lori [phone]
--- NOTE | 2020-10-16 13:50 | DI.MRI_ITS ---
CLINICAL HISTORY: diplopia, colon ca with mets. TECHNIQUE: Multiplanar multisequence MRA of the brain was performed. IV Contrast: mL of Magnevist contrast administered. COMPARISON: None. FINDINGS: Carotid Arteries: Petrous: Normal. Cavernous: Normal. Cerebral: Normal. Middle Cerebral Arteries: Right: No aneurysm or significant stenosis. Left: No aneurysm or significant stenosis. Anterior Cerebral Arteries: Right: No aneurysm or significant stenosis. Left: No aneurysm or significant stenosis. Vertebral Arteries: Right: No aneurysm or significant stenosis. Left: No aneurysm or significant stenosis. . Basilar Artery: No aneurysm or significant stenosis. Small Vessels: No evidence of beading. IMPRESSION: Normal MRA examination of the [place]. DATA REPOSITORY:
[2020-10-16 14:07] LABS: HGB 8.8 g/dL (13.5-17.5); MCH 26.7 pg (27.0-33.0); MCHC 31.4 % (32.0-36.0); MCV 85.1 fL (80-95); MPV 9.8 fL (8.0-11.0); Platelet Count 288 10^3/uL (130-400); RBC 3.29 10^6/uL (4.36-5.78); RDW 15.1 % (11.8-14.1); RDW-SD 45.8 fL; WBC 9.68 10^3/uL (4.4-10.8)
--- NOTE | 2020-10-16 14:20 | DI.MRI_ITS ---
EXAM: MR BRAIN WO/W CLINICAL HISTORY: diplopia horizonta, colon ca with mets. TECHNIQUE: Multiplanar multisequence MRI of the brain was performed. CONTRAST MATERIAL: IV Contrast: ML of Dotarem contrast administered. COMPARISON: MR MR ANGIO BRAIN WO from 10/16/2020 MR MR ANGIO BRAIN WO from 10/16/2020 FINDINGS: VENTRICLES AND EXTRA AXIAL SPACES: Normal in size and morphology for the patient's age. HEMORRHAGE: None. CEREBRAL PARENCHYMA: 11 millimeter enhancing mass in the left basal ganglia with surrounding edema. 5 millimeter peripheral right frontal enhancing lesion with mild surrounding edema. No focus of rest ricted diffusion to suggest acute infarct. MIDLINE SHIFT: None. BRAINSTEM/CEREBELLUM: The least 3 enhancing masses surrounding edema are noted in the left cerebellar hemisphere, the larger measuring 10 millimeters in greatest dimension. Few it others smaller scatte red tiny cerebellar nodules are also seen, 1 in the superior vermis measuring 5 millimeters in diamet er. No brainstem lesions. VISUALIZED PARANASAL SINUSES/MASTOIDS: Clear. IMPRESSION: Multiple small cerebellar metastases. 11 millimeter left basal ganglia metastasis. 5 millimeter per ipheral right frontal metastasis. No midline shift. DATA REPOSITORY:
--- NOTE | 2020-10-16 14:21 | ED.GENADUL_ITS ---
Discharge Plan Disposition Patient Disposition: HOME Condition: Good Discharge Details Clinical Impression: Diplopia Primary Care Provider: Chetan Jaquez ED Provider: Sophia Bell Home Meds and New Rx's Prescriptions: No Action insulin aspart U-100 [Novolog U-100 Insulin aspart] 100 unit/mL solution 1 sliding sc SC TID PRNRF: 0 atorvastatin [Lipitor] 20 MG tablet 20 mg PO HS RF: 0 glipizide 10 MG tablet extended release 24hr 10 mg PO BID PRNRF: 0 aspirin [Aspirin Low-Strength] 81 MG tablet,chewable 81 mg PO DAILY RF: 0 metformin 1,000 MG tablet extended release 24hr 1,000 mg PO DAILY PRNRF: 0 metformin 500 MG tablet 1,500 mg PO HS PRNRF: 0 multivitamin 1 EACH capsule 1 cap PO DAILY RF: 0 Lantus Solostar U-100 Insulin 100 unit/mL (3 mL) insulin pen 40 unit subcut BID PRNRF: 0 acetaminophen [Tylenol] 325 mg Tablet 1,000 mg PO PRN PRNRF: 0 ibuprofen 200 mg Tablet 600 mg PO DAILY RF: 0 metoprolol tartrate 25 mg Tablet 25 mg PO BID Qty: 60 RF: 0 tramadol 50 mg tablet 50 mg PO TID PRN PRNRF: 0 docusate sodium 100 mg Capsule 200 mg PO BID RF: 0 Discharge Instructions Additional Instructions: 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 Farnsworth, patient's radiation oncologist and reviewed MRI findings, specifically:ENTRICLES AND EXTRA AXIAL SPACES: Normal in size and morphology for the patient's age. HEMORRHAGE: None. CEREBRAL PARENCHYMA: 11 millimeter enhancing mass in the left basal ganglia with surrounding edema. 5 millimeter peripheral right frontal enhancing lesion with mild surrounding edema. No focus of restricted diffusion to suggest acute infarct. MIDLINE SHIFT: None. BRAINSTEM/CEREBELLUM: The least 3 enhancing masses surrounding edema are noted in the left cerebellar hemisphere, the larger measuring 10 millimeters in greatest dimension. Few it others smaller scattered tiny cerebellar nodules are also seen, 1 in the superior vermis measuring 5 millimeters in diameter. No brainstem lesions. VISUALIZED PARAN Dr. Farnsworth did not indicate need for any additional treatment at this time and encouraged follow-up with oncology Neurological exam otherwise intact, patient is stable throughout encounter Return precautions discussed and patient expressed understanding Discussed all findings with patient and Lori and encouraged close outpatient follow-up Patient without visual pain or loss, low suspicion for retinal artery occlusion Visual meyer intact and extraocular intact, low suspicion for cranial nerve palsy Evidence of metastatic brain cancer, will need close outpatient follow-up with radiation oncology and patient's home oncologist Differential Diagnosis Differential Diagnosis: Retinal artery occlusion, cranial nerve palsy, TIA, metastatic brain can Medical Records Medical records reviewed: Yes I reviewed the patient's medical records. Lab Data Lab results reviewed: Yes I reviewed the patient's lab results. HPI This 55-year-old male presents with report of history of colon cancer, fistula, sinus tachycardia, DVT prophylaxis, colon cancer with mets to brain. Patient states he has had double vision. When both eyes are open he experiences diplopia, with single eye, this resolves. He denies any headache, paresthesias, speech or sensation change. He denies any current chemotherapy. He denies any falls or injuries. He denies prior history of similar symptoms in the past. Denies chest pain, shortness of breath, fever, chills, or any additional complaints at this time. He denies any new medications. Denies any loss of vision or ophthalmic pain General Date/Time Provider Initiated Documentation: 10/16/20 13:18 . Related Data Home Medications Medication Instructions Recorded Confirmed aspirin [Aspirin Low-Strength] 81 mg PO DAILY tab-cap 10/27/12 10/16/20 atorvastatin [Lipitor] 20 mg PO HS tab-cap 10/27/12 10/16/20 glipizide 10 mg PO BID PRN tab-cap 10/27/12 08/31/20 metformin 1,000 mg PO DAILY PRN tab-cap 10/27/12 08/31/20 metformin 1,500 mg PO HS PRN 01/05/14 08/31/20 multivitamin 1 cap PO DAILY 01/05/14 10/16/20 insulin glargine 100 unit/mL (3 40 unit SUBCUT BID PRN ml 11/08/18 08/31/20 mL) subcutaneous pen metoprolol tartrate 25 mg PO BID #60 tab 07/21/19 10/16/20 insulin aspart U-100 100 unit/mL 1 sliding sc SC TID PRN ml 08/18/19 08/31/20 subcutaneous solution acetaminophen [Tylenol] 1,000 mg PO PRN PRN 08/31/20 10/16/20 ibuprofen 600 mg PO DAILY 08/31/20 10/16/20 docusate sodium 200 mg PO BID 10/16/20 10/16/20 tramadol 50 mg PO TID PRN PRN 10/16/20 10/16/20 Previous Rx's Medication Instructions Recorded metoprolol tartrate 25 mg PO BID #60 tab 07/21/19 Allergies Allergy/AdvReac Type Severity Reaction Status Date / Time No Known Allergies Allergy Verified 10/16/20 12:54 General Stated Complaint: CVA/TIA SCOOTER: 2 Review of Systems Narrative: Review of systems negative x7 aside from where indicated in HPI FOR[facility] Medical History Alternative medicine Cancer related pain Colon cancer metastasized to intra-abdominal lymph node Colon cancer metastasized to intrathoracic lymph node PET scan October 2019 Diabetes mellitus Discharge planning issues Essential hypertension Fatigue Fatty liver Femoral nerve injury Fistula of ureter Fracture of distal fibula Full code status he is aware that pts with metastatic cancer have low survival rate Goals of care, counseling/discussion Hypercholesterolemia Injury due to procedure Late effect of complications of procedure Medical cannabis use filled out paperwork 11/14/19 for him to receive medical cannabis 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 Mediport placement (10/21/16) Nephrostomy status Partial resection of colon (~2011) SIGMOID S/P ureteral stent placement Family History Father Heart disease Dementia AAA (abdominal aortic aneurysm) Mother No problems noted. Brother No problems noted. Son No problems noted. 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 Pets and animals: No Do you think of yourself as: straight/heterosexual Current gender identity: male What is your relationship status?: How often do you talk on the phone with friends or family?: once per week How often do you get together with friends or relatives?: once per week Panel score (0-1 are the most socially isolated patients): 1 What type of physical activity do you participate in: assisted ambulation and irregular exercise Duration: 15-30 minutes/day Frequency: 1-2 times per week Special benoit needs: No Agree to transfusion: Yes Seatbelt use: always Drive intox or ride w/intox electric truck driver: No Working smoke detector in home: Yes Carbon monox detector in home: Yes Firearms in home: No Do you feel safe at home: Yes Do you feel safe in your relationship?: Yes Additional Social history: has been struggling with colon cancer since 2012. 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 In 2019, Had MOHAN procedure that caused femoral nerve injury. Disabled since. Now walks with cane. Getting folfori for recurrent colon ca now. Tolerating it. Exam Const General: cooperative, comfortable and no acute distress HENMT Head: normal to inspection Face and sinus: normal facial exam and face symmetric Mouth: oral mucosae normal Throat: uvula midline Eyes Pupils: PERRL, accommodation normal and regular EOM: EOM intact bilaterally Other: Mild left beating nystagmus, horizontal, visual meyer intact Neck Other: No carotid bruit Resp Effort & Inspection: normal respiratory effort Auscultation: clear to auscultation bilaterally Cardio Rate: regular rate Rhythm: regular rhythm GI Inspection: normal to inspection Skin General skin exam: no rashes or lesions noted Neuro General: patient alert, patient oriented x3 and CN's II-XI intact bilaterally Cranial Nerves: PERRL Speech: speech normal Gait: normal gait Motor: strength 5/5 throughout and no pronator drift Sensory Exam: no sensory deficits noted Coordination: [id number] test normal Course Vital Signs Vital signs: Vital Signs Temperature 36.6 C 10/16/20 12:48 Pulse 85 10/16/20 12:48 Respiratory Rate 15 10/16/20 12:48 Blood Pressure 109/76 10/16/20 12:48 Pulse Oximetry 100 10/16/20 12:48 Temperature 36.6 C 10/16/20 12:48 Temperature Source Temporal Artery Scan 10/16/20 12:48 Pulse 85 10/16/20 12:48 Respiratory Rate 15 10/16/20 12:48 Respiratory Effort Non-Labored 10/16/20 12:51 Blood Pressure 109/76 10/16/20 12:48 Blood Pressure Position Supine 10/16/20 12:48 Pulse Oximetry 100 10/16/20 12:48 Oxygen Delivery Method Room Air 10/16/20 12:48 Oxygen Flow Rate 0 10/16/20 12:48 Pain Level 4 10/16/20 12:48 Lab/Test Results Lab/Test Results: Laboratory Tests Range/Units 10/16/20 13:09 WBC (4.4-10.8) 10^3/uL 9.68 RBC (4.36-5.78) 10^6/uL 3.29 L Hgb (13.5-17.5) g/dL 8.8 L Hct (40.0-50.0) % 28.0 L MCV (80-95) fL 85.1 MCH (27.0-33.0) pg 26.7 L MCHC (32.0-36.0) % 31.4 L RDW (11.8-14.1) % 15.1 H Plt Count (130-400) 10^3/uL 288 MPV (8.0-11.0) fL 9.8
[2020-10-16 14:26] LABS: ALT 22 U/L (16-63); AST 47 U/L (15-37); Albumin 2.7 g/dL (3.4-5.0); Alkaline Phosphatase 132 U/L (46-116); Anion Gap 6.7 mmol/L (3-11); BUN 14 mg/dL (7-18); Bilirubin, Total 0.5 mg/dL (0.2-1.0); CO2 26.3 mmol/L (21.0-32.0); CREATININE 1.4 mg/dL (0.70-1.30); Calcium 8.9 mg/dL (8.5-10.1); Chloride 97 mmol/L (98-107); Estimated GFR 53.01 (mL/min/1.73m2); Glucose 151 mg/dL (74-106); Potassium 4.7 mmol/L (3.5-5.1); Sodium 130 mmol/L (136-145); Total Protein 8.9 g/dL (6.4-8.2)
[2020-10-16] MEDS: Gadoterate meglumine 20 ML VIAL IVP (15:10)
[2020-10-16] MEDS: Heparin 500 UNITS/5 ML SYRINGE (17:00)
== END 2020-10-16 17:10 | disposition home or self-care (01) ==
PROVIDERS: Emergency Provider Physician Assistant; PCP Physician Assistant Medical
DX: H53.2 Diplopia (principal); C79.31 Secondary malignant neoplasm of brain; Z45.2 Encounter for adjustment and management of vascular access device
CPT/HCPCS: 36415; 36591; 70544; 70553; 80053; 85027; 93005; 99285; 93010; 99284

== ENCOUNTER 2020-10-19 15:10 | Emergency (ER) | payer BC, SELFPAY ==
[2020-10-19] VITALS (8 sets, daily range): BP systolic 122–145; BP diastolic 73–92; PULSE 90–113; RESP 16; TEMP 36.7; O2SAT 97–100
--- NOTE | 2020-10-19 15:15 | DI.CT_ITS ---
EXAM: CT ABDOMEN PELVIS WO CLINICAL HISTORY: Prostatic abscess, drain in place, left flank pain. TECHNIQUE: Imaging Protocol: Axial computed tomography images with coronal and sagittal reformatted images were created and reviewed. COMPARISON: CT CT CHEST/ABD/PEL W from 09/25/2020 FINDINGS: ABDOMEN: Lung Bases: There is a left basilar infiltrate. Liver: Normal density. No measurable mass. Gallbladder and biliary tract: No radiodense calculus or biliary ductal dilation. Pancreas: Normal density, no abnormal calcifications or inflammatory process. The 8 mm low-density le debra in the body of the pancreas is stable. Spleen: Normal. Kidneys: Status post left nephrectomy.Nonobstructing right renal stones and right cyst. No masses see n. Adrenal glands: No mass. Lymph nodes: Abdominal adenopathy. There is a stable 2.7 cm enlarged lymph node adjacent to the body of the pancreas. Retroperitoneal adenopathy is present. Abdominal Aorta: Abdominal portion non-dilated. Atherosclerosis. PELVIS: Bladder:Symmetric distention. The 2 cm mass in the left lateral wall of the urinary bladder is unchan ged. It appears to extend into the distal left ureter. Bowel: No obstruction or bowel wall thickening. No evidence of appendicitis. Peritoneal cavity: No ascites, collection or mesenteric inflammatory response. No free air. Reproductive organs: Within normal limits. Bones: There has been interval increase in size of the left rib lesion currently measuring 6.5 x 5.1 cm. It is only partially included on this examination. Soft Tissues: Within normal limits. Tubes: There is again seen a percutaneous drainage catheter with its pigtail in the region of the lef t psoas muscle/mass/abscess. This does not appear to be significantly changed compared to the prior e xamination. IMPRESSION: 1. No change in appearance of the percutaneous drainage catheter in the left psoas muscle/abscess. 2. Interval increase in size of the left rib lesion which is only partially included on the examinati on. 3. Status post left nephrectomy. 4. Extensive retroperitoneal adenopathy. 5. Stable 2 cm mass in the left lateral wall of the urinary bladder. RADIATION DOSE DELIVERED: 967.34mGy.cm Total DLP DATA REPOSITORY: All CT scans at this facility are submitted to the National Radiology Data Registry (NRDR) Dose Index Registry (DIR) with the [employer] ([employer]). RADIATION OPTIMIZATION: All CT scans at this facility use at least one of these dose optimization te chniques: automated exposure control; mA and/or kV adjustment per patient size (includes targeted exa ms where dose is matched to clinical indication); or iterative reconstruction.
--- NOTE | 2020-10-19 15:23 | W.ED.GENAD ---
Discharge Plan Disposition Patient Disposition: [facility] Condition: Good Discharge Details Clinical Impression: Pelvic abscess in male Primary Care Provider: Chetan Jaquez ED Provider: Getachew Birmingham [place] Meds and New Rx's Prescriptions: No Action insulin aspart U-100 [Novolog U-100 Insulin aspart] 100 unit/mL solution 1 sliding sc SC TID PRNRF: 0 atorvastatin [Lipitor] 20 MG tablet 20 mg PO HS RF: 0 glipizide 10 MG tablet extended release 24hr 10 mg PO BID PRNRF: 0 aspirin [Aspirin Low-Strength] 81 MG tablet,chewable 81 mg PO DAILY RF: 0 metformin 1,000 MG tablet extended release 24hr 1,000 mg PO DAILY PRNRF: 0 metformin 500 MG tablet 1,500 mg PO HS PRNRF: 0 multivitamin 1 EACH capsule 1 cap PO DAILY RF: 0 Lantus Solostar U-100 Insulin 100 unit/mL (3 mL) insulin pen 40 unit subcut BID PRNRF: 0 acetaminophen [Tylenol] 325 mg Tablet 1,000 mg PO PRN PRNRF: 0 ibuprofen 200 mg Tablet 600 mg PO DAILY RF: 0 omeprazole 40 mg capsule,delayed release(DR/EC) 40 mg PO DAILY RF: 0 dexamethasone 4 mg tablet 8 mg PO BID RF: 0 metoprolol tartrate 25 mg Tablet 25 mg PO BID Qty: 60 RF: 0 tramadol 50 mg tablet 50 mg PO TID PRN PRNRF: 0 docusate sodium 100 mg Capsule 200 mg PO BID RF: 0 Medical Decision Making <Mohan Paez DO - Last Filed: 10/19/20 21:31> This is a notably pleasant 55-year-old male with a past medical history of diabetes, 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 Patient had drain in place for his prostatic abscess for some time. He recently finished his prescription for Augmentin 5 days ago. Yesterday he noticed a notable decrease in the output from his drain. He did try flushing it and it leaked around the insertion site, and there was no subsequent drainage from the tube. Last evening/this morning he noticed sharp flank pain in his left flank radiating to his left anterior/proximal thigh. This pain has continued. He denies any fever or chills. He does admit to nausea and vomiting which has been present since his recent brain mets. He denies any other complaints at this time. No other modifying factors. Exam demonstrates mild tenderness to the left lower abdominal quadrant, drain itself looks clean dry and intact at the insertion site. No drainage out of both the tube or from around the insertion site at this time. Neurovascular exam is at baseline. Concern for worsening abscess. Will get CT scan, blood cultures, treat the patient's pain, monitor closely and reassess. 7:15 PM Laboratory work-up is returned, the patient does have an elevated white count of 16, with a left shift. No bands. Sodium slightly low at 128, urinalysis negative for infection. CT scan shows increase in size in the left chest mass, and a 2 cm mass from the lateral wall of the bladder involving the left UVJ area, which they feel appears unchanged, however with the patient's pain, and increasing white count and lack of drainage I am concerned for complication from drainage tube, in conjunction with potential worsening infection. We reached out to [facility] for consult and evaluation of the images. We are waiting for a call back. Case was signed out to my colleague Dr. Birmingham for final disposition after consultation with [facility]. We have started vancomycin and Zosyn for broad-spectrum antibiotic coverage out of concern for infection. FINDINGS: Tubes, catheters and devices: A percutaneous drainage catheter appears unchanged in position with the pigtail tip in the lateral aspect of the left psoas muscle/mass. This does not appear significantly changed. No discrete fluid collection is noted at this location. Lungs: Patchy airspace opacification is noted within the posterior aspect of the left lower lobe. Pleural spaces: No pleural effusion is seen. Liver: Normal. No mass. Gallbladder and bile ducts: Normal. No calcified stones. No ductal dilation. Pancreas: Again noted is a 8 mm diameter low-density lesion within the body of the pancreas. This is unchanged. Adenopathy posterior to the uncinate process of the pancreas does not appear significantly changed. Spleen: Normal. No splenomegaly. Adrenal glands: Normal. No mass. Kidneys and ureters: The left kidney is surgically absent. Non-obstructing nephrolithiasis of the right kidney is again noted. No right renal masses are seen. Stomach and bowel: There is a large amount of retained stool in the colon and rectum. Appendix: No evidence of appendicitis. Intraperitoneal space: Unremarkable. No free air. No significant fluid collection. Vasculature: Coronary artery calcifications are present. Lymph nodes: Retroperitoneal adenopathy inferior to the pancreas has a short axis diameter of 2.2 cm and does not appear significantly changed. Extensive retroperitoneal adenopathy extends inferiorly on the left and is indistinguishable from the left ileus psoas muscle. Urinary bladder: A 2.0 cm diameter mass of the left lateral wall of the urinary bladder ureterovesical junction, and extending into the distal left ureter does not appear significantly changed. Reproductive: Unremarkable as visualized. Bones/joints: Unremarkable. No acute fracture. Soft tissues: Unremarkable. Other findings: The superior most images through the abdomen included the lower chest, which includes a large expansile mass of the left chest wall which is increased significantly from the comparison CT now measuring at least 5.4 cm in transverse diameter and 7.3 cm in AP diameter. The mass is not entirely included within the field of view. IMPRESSION: 1. Significant interval increase in size of a mass of the left chest wall which is only partially included within the field of view of this exam. 2. Status post left nephrectomy. 3. Extensive retroperitoneal adenopathy without significant change since the prior exam. 4. Percutaneous drainage catheter in the lateral aspect of the left psoas muscle/mass appears unchanged in position. 5. 2 cm mass of the lateral wall of the urinary bladder involving the left ureterovesical junction and distal left ureter appears unchanged. 6. Large amount of retained stool in the colon and rectum. Fecal impaction is suspected. Thank you for allowing us to participate in the care of your patient. Dictated and Authenticated by: Yg Butler MD 10/19/2020 5:38 PM Eastern Time ([place] & [place]) <Getachew Birmingham MD - Last Filed: 10/19/20 21:09> Patient signed out to me pending callback from [facility] for transfer for further management of pelvic abscess and malfunctioning drain. Patient remains hemodynamically stable. Pain controlled at this time. Has received vancomycin and Zosyn IV. Case discussed with hospitalist service, Dr. Manzano. Patient accepted in transfer to floor bed for further management. HPI <Mohan Paez DO - Last Filed: 10/19/20 21:31> General Date/Time Provider Initiated Documentation: 10/19/20 15:11. 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 Patient had drain in place for his prostatic abscess for some time. He recently finished his prescription for Augmentin 5 days ago. Yesterday he noticed a notable decrease in the output from his drain. He did try flushing it and it leaked around the insertion site, and there was no subsequent drainage from the tube. Last evening/this morning he noticed sharp flank pain in his left flank radiating to his left anterior/proximal thigh. This pain has continued. He denies any fever or chills. He does admit to nausea and vomiting which has been present since his recent brain mets. He denies any other complaints at this time. No other modifying factors. Related Data Home Medications Medication Instructions Recorded Confirmed aspirin [Aspirin Low-Strength] 81 mg PO DAILY tab-cap 10/27/12 10/19/20 atorvastatin [Lipitor] 20 mg PO HS tab-cap 10/27/12 10/19/20 glipizide 10 mg PO BID PRN tab-cap 10/27/12 10/19/20 metformin 1,000 mg PO DAILY PRN tab-cap 10/27/12 10/19/20 metformin 1,500 mg PO HS PRN 01/05/14 10/19/20 multivitamin 1 cap PO DAILY 01/05/14 10/19/20 insulin glargine 100 unit/mL (3 40 unit SUBCUT BID PRN ml 11/08/18 10/19/20 mL) subcutaneous pen metoprolol tartrate 25 mg PO BID #60 tab 07/21/19 10/19/20 insulin aspart U-100 100 unit/mL 1 sliding sc SC TID PRN ml 08/18/19 10/19/20 subcutaneous solution acetaminophen [Tylenol] 1,000 mg PO PRN PRN 08/31/20 10/19/20 ibuprofen 600 mg PO DAILY 08/31/20 10/19/20 docusate sodium 200 mg PO BID 10/16/20 10/19/20 tramadol 50 mg PO TID PRN PRN 10/16/20 10/19/20 dexamethasone 8 mg PO BID 10/19/20 10/19/20 omeprazole 40 mg PO DAILY 10/19/20 10/19/20 Previous Rx's Medication Instructions Recorded metoprolol tartrate 25 mg PO BID #60 tab 07/21/19 Allergies Allergy/AdvReac Type Severity Reaction Status Date / Time No Known Allergies Allergy Verified 10/19/20 15:21 General Stated Complaint: Abd Prob SCOOTER: 3 Review of Systems <Mohan Paez DO - Last Filed: 10/19/20 21:31> All systems reviewed & are unremarkable except as noted in HPI and below PFSH <Mohan Paez DO - Last Filed: 10/19/20 21:31> Medical History Alternative medicine Cancer related pain Colon cancer metastasized to intra-abdominal lymph node Colon cancer metastasized to intrathoracic lymph node PET scan October 2019 Diabetes mellitus Discharge planning issues Essential hypertension Fatigue Fatty liver Femoral nerve injury Fistula of ureter Fracture of distal fibula Full code status he is aware that pts with metastatic cancer have low survival rate Goals of care, counseling/discussion Hypercholesterolemia Injury due to procedure Late effect of complications of procedure Medical cannabis use filled out paperwork 11/14/19 for him to receive medical cannabis 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 Mediport placement (10/21/16) Nephrostomy status Partial resection of colon (~2011) SIGMOID S/P ureteral stent placement Family History Father Heart disease Dementia AAA (abdominal aortic aneurysm) Mother No problems noted. Brother No problems noted. Son No problems noted. 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 Pets and animals: No Do you think of yourself as: straight/heterosexual Current gender identity: male What is your relationship status?: How often do you talk on the phone with friends or family?: once per week How often do you get together with friends or relatives?: once per week Panel score (0-1 are the most socially isolated patients): 1 What type of physical activity do you participate in: assisted ambulation and irregular exercise Duration: 15-30 minutes/day Frequency: 1-2 times per week Special benoit needs: No Agree to transfusion: Yes Seatbelt use: always Drive intox or ride w/intox 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 In 2019, Had MOHAN procedure that caused femoral nerve injury. Disabled since. Now walks with cane. Getting folfori for recurrent colon ca now. Tolerating it. Exam <Mohan Paez DO - Last Filed: 10/19/20 21:31> Narrative Exam Narrative: 1.Const: Thin. 2.Eyes: PERRL, no conjunctival injection, and symmetrical lids. 3.ENT: Atraumatic external nose and ears. Moist MM. Neck: Symmetric, trachea midline, No thyromegaly. 4.CVS: +S1/S2, No murmurs or gallops. Peripheral pulses 2+ and equal in all extremities. Brisk capillary refill in all extremities. 5.RESP: Unlabored respiratory effort. Clear to auscultation bilaterally. No wheezes rales or rhonchi 6.GI: Soft, nondistended, mild tenderness in the left lower quadrant left groin area. No tenderness from genitals. Patient left drain site is clean dry and intact. No significant erythema. No active drainage at this time from both the tube or the periinsertion site area. No leg or femur abnormalities on exam otherwise. 7.MSK: Normocephalic/Atraumatic, Extremities w/o deformity or ttp No cyanosis or clubbing, Normal movement of all extremities 8.Skin: Warm, Dry. No rashes or lesions. 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 Sensation grossly intact, no focal neurologic deficits. 10.Psych: (AAO) x3. Appropriate mood and affect Course <Mohan Paez DO - Last Filed: 10/19/20 21:31> Vital Signs Vital signs: Vital Signs Temperature 36.7 C 10/19/20 15:18 Pulse 113 H 10/19/20 15:18 Respiratory Rate 16 10/19/20 15:18 Blood Pressure 145/92 H 10/19/20 15:18 Pulse Oximetry 99 10/19/20 15:18 Temperature 36.7 C 10/19/20 15:18 Temperature Source Skin 10/19/20 15:18 Pulse 113 H 10/19/20 15:18 Respiratory Rate 16 10/19/20 15:18 Blood Pressure 145/92 H 10/19/20 15:18 Blood Pressure Position Sitting 10/19/20 15:18 Pulse Oximetry 99 10/19/20 15:18 Oxygen Delivery Method Room Air 10/19/20 15:18 Oxygen Flow Rate 0 10/19/20 15:18 Pain Level 8 10/19/20 15:18 Lab/Test Results Lab/Test Results: 10/19/20 15:20 Blood Blood Culture - Pending 10/19/20 15:20 Blood Blood Culture - Pending Sign Out <Mohan Paez DO - Last Filed: 10/19/20 21:31> Sign Out Data: Sign Out Comment: Pelvic abscess, drain not functioning. Pending [facility] callback Last updated by Mohan Paez DO at 10/19/20 19:42
[2020-10-19] MEDS: Normal Saline-STERILE FIELD 0.9% 10 ML SYR (15:46)
[2020-10-19] MEDS: HYDROmorphone 2 MG/ML VIAL 1 MG IVP ×2 (15:46→21:10)
[2020-10-19 16:17] LABS: Abs Immature Grans 0.15 10^3/uL (0.0-0.06); Basophils % 0.1; HCT 27.2 % (40.0-50.0); HGB 8.9 g/dL (13.5-17.5); Immature Grans % 0.9; Lymphocytes % 2.8; MCH 27.2 pg (27.0-33.0); MCHC 32.7 % (32.0-36.0); MCV 83.2 fL (80-95); MPV 9.6 fL (8.0-11.0); Monocytes % 4.3; Neutrophils % 91.9; Nucleated RBC 0 %; Platelet Count 270 10^3/uL (130-400); RBC 3.27 10^6/uL (4.36-5.78); RDW-SD 45.1 fL; WBC 16.65 10^3/uL (4.4-10.8)
[2020-10-19 16:18] LABS: Absolute Basophil Count 0.02 10^3/uL (0.0-0.2); Absolute Lymphocyte Count 0.47 10^3/uL (1.2-3.4); Absolute Monocyte Count 0.72 10^3/uL (0.1-0.8)
[2020-10-19 16:38] LABS: ALT 21 U/L (16-63); AST 47 U/L (15-37); Alkaline Phosphatase 158 U/L (46-116); Anion Gap 9.5 mmol/L (3-11); BUN 20 mg/dL (7-18); Bilirubin, Total 0.4 mg/dL (0.2-1.0); CO2 25.5 mmol/L (21.0-32.0); CREATININE 1.2 mg/dL (0.70-1.30); Calcium 8.1 mg/dL (8.5-10.1); Chloride 93 mmol/L (98-107); Glucose 208 mg/dL (74-106); Potassium 4.3 mmol/L (3.5-5.1); Sodium 128 mmol/L (136-145); Total Protein 9.3 g/dL (6.4-8.2)
[2020-10-19 16:48] LABS: COVID-19 PCR Negative (Negative)
[2020-10-19] MEDS: Normal Saline 1,000 ML 1000 ML IV (17:05)
[2020-10-19 17:38] LABS: Bilirubin Negative (Negative); Blood Moderate (Negative); Clarity Clear (Clear); Glucose Negative (Negative); Ketones Negative (Negative); Leukocyte Esterase Negative (Negative); Nitrite Negative (Negative); Specific Gravity 1.025 (1.005-1.025); Urobilinogen 0.2 EU/dL (Up TO 0.2); pH 6.5 (5-8)
--- NOTE | 2020-10-19 17:39 | DI.VRAD_ITS ---
PROCEDURE INFORMATION: Exam: CT Abdomen And Pelvis Without Contrast Exam date and time: 10/19/2020 4:50 PM Age: 55 years old Clinical indication: Abdominal pain; Other: Lower abd pain; Prior surgery; Surgery date: 6+ months; Surgery type: Left nephrectomy in April 2020. Drain placed x 2 months ago for abscess. ; Patient HX: HX of renal CA. TECHNIQUE: Imaging protocol: Computed tomography of the abdomen and pelvis without contrast. Radiation optimization: All CT scans at this facility use at least one of these dose optimization techniques: automated exposure control; mA and/or kV adjustment per patient size (includes targeted exams where dose is matched to clinical indication); or iterative reconstruction. COMPARISON: CT CHEST/ABD/PEL W 09/25/2020 11:24 AM FINDINGS: Tubes, catheters and devices: A percutaneous drainage catheter appears unchanged in position with the pigtail tip in the lateral aspect of the left psoas muscle/mass. This does not appear significantly changed. No discrete fluid collection is noted at this location. Lungs: Patchy airspace opacification is noted within the posterior aspect of the left lower lobe. Pleural spaces: No pleural effusion is seen. Liver: Normal. No mass. Gallbladder and bile ducts: Normal. No calcified stones. No ductal dilation. Pancreas: Again noted is a 8 mm diameter low-density lesion within the body of the pancreas. This is unchanged. Adenopathy posterior to the uncinate process of the pancreas does not appear significantly changed. Spleen: Normal. No splenomegaly. Adrenal glands: Normal. No mass. Kidneys and ureters: The left kidney is surgically absent. Non-obstructing nephrolithiasis of the right kidney is again noted. No right renal masses are seen. Stomach and bowel: There is a large amount of retained stool in the colon and rectum. Appendix: No evidence of appendicitis. Intraperitoneal space: Unremarkable. No free air. No significant fluid collection. Vasculature: Coronary artery calcifications are present. Lymph nodes: Retroperitoneal adenopathy inferior to the pancreas has a short axis diameter of 2.2 cm and does not appear significantly changed. Extensive retroperitoneal adenopathy extends inferiorly on the left and is indistinguishable from the left ileus psoas muscle. Urinary bladder: A 2.0 cm diameter mass of the left lateral wall of the urinary bladder ureterovesical junction, and extending into the distal left ureter does not appear significantly changed. Reproductive: Unremarkable as visualized. Bones/joints: Unremarkable. No acute fracture. Soft tissues: Unremarkable. Other findings: The superior most images through the abdomen included the lower chest, which includes a large expansile mass of the left chest wall which is increased significantly from the comparison CT now measuring at least 5.4 cm in transverse diameter and 7.3 cm in AP diameter. The mass is not entirely included within the field of view. IMPRESSION: 1. Significant interval increase in size of a mass of the left chest wall which is only partially included within the field of view of this exam. 2. Status post left nephrectomy. 3. Extensive retroperitoneal adenopathy without significant change since the prior exam. 4. Percutaneous drainage catheter in the lateral aspect of the left psoas muscle/mass appears unchanged in position. 5. 2 cm mass of the lateral wall of the urinary bladder involving the left ureterovesical junction and distal left ureter appears unchanged. 6. Large amount of retained stool in the colon and rectum. Fecal impaction is suspected. Dictated and Authenticated by: Yg Butler MD. Ordering:VIOLETTA Preston MD
[2020-10-19 17:46] LABS: Bacteria Negative HPF (Negative); Crystals Negative HPF (Negative); Epithelial Cells Rare HPF (Negative); Mucus Negative (Negative); Other Cells Negative (Negative)
[2020-10-19 17:47] LABS: C & S Indicated? Yes; Casts 0-2 Hyaline LPF (Negative)
[2020-10-19] MEDS: PIPERACILLIN/TAZO 3.375 GM in Normal Saline 50 ML IVPB (19:10)
[2020-10-19] MEDS: Normal Saline 1,000 ML 125 ML IV (21:10)
== END 2020-10-19 23:10 | disposition short-term general hospital (02) ==
PROVIDERS: Student in an Organized Health Care Education/Training Program; Emergency Provider Emergency Medicine; PCP Physician Assistant Medical
DX: K65.1 Peritoneal abscess (principal); M79.652 Pain in left thigh; T83.118A Breakdown (mechanical) of other urinary devices and implants, initial encounter; Z45.2 Encounter for adjustment and management of vascular access device; Z03.818 Encounter for observation for suspected exposure to other biological agents ruled out; Z96.89 Presence of other specified functional implants
CPT/HCPCS: 36415; 36416; 36591; 80053; 82962; 87040; 87635; 96361; 96365; 96366; 96367; 96375; 96376; 99285; 74176; 81003; 81015; 85025; 87086; J2543

== ENCOUNTER 2020-10-23 16:00 | Inpatient (IN) | payer BC, SELFPAY ==
[2020-10-23 16:08] VITALS: BP 134/89; PULSE 105; RESP 18; TEMP 36.5; O2SAT 100
--- NOTE | 2020-10-23 16:25 | W.ED.GENAD ---
Discharge Plan Disposition Patient Disposition: [facility] INPATIENT Condition: Serious Discharge Details Clinical Impression: Thrombus, Leukocytosis, Nausea & vomiting Primary Care Provider: Chetan Jaquez ED Provider: Jaime Shaikh Home Meds and New Rx's Prescriptions: No Action insulin aspart U-100 [Novolog U-100 Insulin aspart] 100 unit/mL solution 1 sliding sc SC TID PRNRF: 0 atorvastatin [Lipitor] 20 MG tablet 20 mg PO HS RF: 0 glipizide 10 MG tablet extended release 24hr 10 mg PO BID PRNRF: 0 aspirin [Aspirin Low-Strength] 81 MG tablet,chewable 81 mg PO DAILY RF: 0 metformin 1,000 MG tablet extended release 24hr 500 mg PO DAILY PRNRF: 0 metformin 500 MG tablet 1,500 mg PO HS PRNRF: 0 multivitamin 1 EACH capsule 1 cap PO DAILY RF: 0 Lantus Solostar U-100 Insulin 100 unit/mL (3 mL) insulin pen 40 unit subcut BID PRNRF: 0 acetaminophen [Tylenol] 325 mg Tablet 1,000 mg PO PRN PRNRF: 0 ibuprofen 200 mg Tablet 600 mg PO DAILY RF: 0 omeprazole 40 mg capsule,delayed release(DR/EC) 40 mg PO DAILY RF: 0 dexamethasone 4 mg tablet 8 mg PO BID RF: 0 metoprolol tartrate 25 mg Tablet 25 mg PO BID Qty: 60 RF: 0 tramadol 50 mg tablet 50 mg PO TID PRN PRNRF: 0 docusate sodium 100 mg Capsule 200 mg PO BID RF: 0 Medical Decision Making 55-year-old gentleman with metastatic colon cancer, discharge from [facility] yesterday after hospitalization and his drain changed. Presenting for increasing abdominal pain, nausea, vomiting, dehydration unable to hold any medications down today. He is tachycardic at 105. Will initiate IV access, give IV fluids, Zofran, Dilaudid, obtain CBC, CMP, lactate, lipase, urinalysis and CT imaging of abdomen and pelvis. Differential is wide and includes but not excluded to small bowel obstruction, chronic pain secondary to cancer, recent drain change complication, etc. Laboratory values reveal a white blood cell count of 16.09, hemoglobin 10 hematocrit 31.1 platelet count 359, lactate 4.3, sodium 127, chloride 92, creatinine 1.4 GFR 53.01, glucose 322, AST 55 alk phosphatase 150, albumin 3.0 lipase 318, urinalysis moderate blood, few red cells. A white count is similar to his last presentation. Patient appears to have chronic hyponatremia. Patient appears to have chronic hematuria. Given there is no clear source of infection and antibiotics were not continued at [facility], he is now afebrile, appears hemodynamically stable, will not initiate antibiotic therapy, would like to await CT imaging. Patient given a liter of lactated Ringer's, a second dose of Dilaudid. CT imaging reveals stable CT. Multiple sites of metastatic disease. No change in left psoas collection. Possible clot in the left gonadal vein. Repeat lactate 3.0 Images pushed to [facility], I had a consultation at 2109 with hospitalistBrionna. He recommends broad-spectrum antibiotics, vancomycin and Zosyn. Blood cultures, drain cultures, initiating anticoagulation. He states that the bed situation is very tight at his facility and he believes the patient can be safely admitted to our facility if our hospitalist team is agreeable. I initiated Vanco and Zosyn as well as subcu Lovenox. I discussed the case with Dr. Dickerson, our hospitalist team. He is agreeable to admission. I discussed disposition both with patient and his on the phone. No additional questions or concerns and agreeable to this plan Medical Records Medical records reviewed: Yes I reviewed the patient's medical records. Lab Data Lab results reviewed: Yes I reviewed the patient's lab results. Labs: 10/23/20 21:23 Blood Blood Culture - Pending 10/23/20 21:23 Blood Blood Culture - Pending 10/23/20 19:26 Urine - Reflex from Ua Urine Culture - Pending Laboratory Tests Range/Units 10/23/20 10/23/20 10/23/20 16:40 16:40 16:40 WBC (4.4-10.8) 10^3/uL 16.09 H RBC (4.36-5.78) 10^6/uL 3.76 L Hgb (13.5-17.5) g/dL 10.0 L Hct (40.0-50.0) % 31.1 L MCV (80-95) fL 82.7 MCH (27.0-33.0) pg 26.6 L MCHC (32.0-36.0) % 32.2 RDW (11.8-14.1) % 15.5 H Plt Count (130-400) 10^3/uL 359 MPV (8.0-11.0) fL 10.3 Immature Gran % 0.9 Neutrophils % 89.5 Lymphocytes % 3.7 Monocytes % 5.8 Eosinophils % 0.0 Basophils % 0.1 Nucleated RBC % % 0 Absolute Neutrophils (1.2-6.7) 10^3/uL 14.40 H Absolute Lymphocytes (1.2-3.4) 10^3/uL 0.60 L Absolute Monocytes (0.1-0.8) 10^3/uL 0.93 H Absolute Eosinophils (0.0-0.7) 10^3/uL 0.00 Absolute Basophils (0.0-0.2) 10^3/uL 0.02 VBG Lactate (0.6-1.4) mmol/L 4.3 H* Sodium (136-145) mmol/L 127 L Potassium (3.5-5.1) mmol/L 5.1 Chloride (98-107) mmol/L 92 L Carbon Dioxide (21.0-32.0) mmol/L 23.9 Anion Gap (3-11) mmol/L 11.1 H BUN (7-18) mg/dL 33 H Creatinine (0.70-1.30) mg/dL 1.4 H Estimated GFR/1.73 m2 (mL/min/1.73m2) 53.01 Glucose (74-106) mg/dL 322 H Calcium (8.5-10.1) mg/dL 9.2 Total Bilirubin (0.2-1.0) mg/dL 0.5 AST (15-37) U/L 55 H ALT (16-63) U/L 43 Alkaline Phosphatase (46-116) U/L 150 H Total Protein (6.4-8.2) g/dL 9.1 H Albumin (3.4-5.0) g/dL 3.0 L Lipase (73-393) U/L 318 Urine Color (Yellow) Urine Clarity (Clear) Urine pH (5-8) Ur Specific Haines (1.005-1.025) Urine Protein (Negative) mg/dL Urine Ketones (Negative) mg/dL Urine Blood (Negative) Urine Nitrite (Negative) Urine Bilirubin (Negative) Urine Urobilinogen (Up TO 0.2) EU/dL Ur Leukocyte Esterase (Negative) Urine RBC (0-2) HPF Urine WBC (0-5) HPF Ur Epithelial Cells (Negative) HPF Urine Crystals (Negative) HPF Urine Bacteria (Negative) HPF Urine Casts (Negative) LPF Urine Mucus (Negative) Urine Other (Negative) Ur Culture Indicated? Urine Glucose (Negative) mg/dL Range/Units 10/23/20 10/23/20 19:26 20:58 WBC (4.4-10.8) 10^3/uL RBC (4.36-5.78) 10^6/uL Hgb (13.5-17.5) g/dL Hct (40.0-50.0) % MCV (80-95) fL MCH (27.0-33.0) pg MCHC (32.0-36.0) % RDW (11.8-14.1) % Plt Count (130-400) 10^3/uL MPV (8.0-11.0) fL Immature Gran % Neutrophils % Lymphocytes % Monocytes % Eosinophils % Basophils % Nucleated RBC % % Absolute Neutrophils (1.2-6.7) 10^3/uL Absolute Lymphocytes (1.2-3.4) 10^3/uL Absolute Monocytes (0.1-0.8) 10^3/uL Absolute Eosinophils (0.0-0.7) 10^3/uL Absolute Basophils (0.0-0.2) 10^3/uL VBG Lactate (0.6-1.4) mmol/L 3.0 H* Sodium (136-145) mmol/L Potassium (3.5-5.1) mmol/L Chloride (98-107) mmol/L Carbon Dioxide (21.0-32.0) mmol/L Anion Gap (3-11) mmol/L BUN (7-18) mg/dL Creatinine (0.70-1.30) mg/dL Estimated GFR/1.73 m2 (mL/min/1.73m2) Glucose (74-106) mg/dL Calcium (8.5-10.1) mg/dL Total Bilirubin (0.2-1.0) mg/dL AST (15-37) U/L ALT (16-63) U/L Alkaline Phosphatase (46-116) U/L Total Protein (6.4-8.2) g/dL Albumin (3.4-5.0) g/dL Lipase (73-393) U/L Urine Color (Yellow) Yellow Urine Clarity (Clear) Clear Urine pH (5-8) 6.5 Ur Specific Haines (1.005-1.025) 1.020 Urine Protein (Negative) mg/dL 100 H Urine Ketones (Negative) mg/dL Negative Urine Blood (Negative) Moderate H Urine Nitrite (Negative) Negative Urine Bilirubin (Negative) Negative Urine Urobilinogen (Up TO 0.2) EU/dL 0.2 Ur Leukocyte Esterase (Negative) Negative Urine RBC (0-2) HPF 3-5 H Urine WBC (0-5) HPF 5-10 Ur Epithelial Cells (Negative) HPF Few Urine Crystals (Negative) HPF Negative Urine Bacteria (Negative) HPF Negative Urine Casts (Negative) LPF Negative Urine Mucus (Negative) Negative Urine Other (Negative) Negative Ur Culture Indicated? Yes Urine Glucose (Negative) mg/dL 250 H HPI General Mode of arrival: ambulatory. Date/Time Provider Initiated Documentation: 10/23/20 16:13. Limitations to Documentation: no limitations. Information obtained by: patient. HPI Narrative: This is a 55-year-old gentleman with metastatic colon cancer, chronic pain related to his cancer, diabetes, hypertension, full code, presenting to the ER for evaluation. He was just evaluated at our facility a few days ago, subsequently transferred to [facility], had his drain changed, and discharged yesterday. He states that he felt well going home, at least at his baseline. This morning he awoke with nausea, vomiting, unable to take any of his medications. He is concerned about dehydration. He also reports increased lower abdominal pain worse in the left side. Denies fever, headache, chest pain, shortness of breath, change in bowel or bladder function. He did have a bowel movement today. Denies being discharged from [facility] on any antibiotics. He is not anticoagulated. He reports that his abdominal pain is an 8 out of 10 currently, sharp and crampy. Related Data Home Medications Medication Instructions Recorded Confirmed aspirin [Aspirin Low-Strength] 81 mg PO DAILY tab-cap 10/27/12 10/23/20 atorvastatin [Lipitor] 20 mg PO HS tab-cap 10/27/12 10/23/20 glipizide 10 mg PO BID PRN tab-cap 10/27/12 10/23/20 metformin 500 mg PO DAILY PRN tab-cap 10/27/12 10/23/20 metformin 1,500 mg PO HS PRN 01/05/14 10/23/20 multivitamin 1 cap PO DAILY 01/05/14 10/23/20 insulin glargine 100 unit/mL (3 40 unit SUBCUT BID PRN ml 11/08/18 10/19/20 mL) subcutaneous pen metoprolol tartrate 25 mg PO BID #60 tab 07/21/19 10/23/20 insulin aspart U-100 100 unit/mL 1 sliding sc SC TID PRN ml 08/18/19 10/23/20 subcutaneous solution acetaminophen [Tylenol] 1,000 mg PO PRN PRN 08/31/20 10/23/20 ibuprofen 600 mg PO DAILY 08/31/20 10/23/20 docusate sodium 200 mg PO BID 10/16/20 10/23/20 tramadol 50 mg PO TID PRN PRN 10/16/20 10/23/20 dexamethasone 8 mg PO BID 10/19/20 10/23/20 omeprazole 40 mg PO DAILY 10/19/20 10/23/20 Previous Rx's Medication Instructions Recorded metoprolol tartrate 25 mg PO BID #60 tab 07/21/19 Allergies Allergy/AdvReac Type Severity Reaction Status Date / Time No Known Allergies Allergy Verified 10/23/20 16:12 General Stated Complaint: GenMedical SCOOTER: 3 Review of Systems Constitutional Constitutional: Reports fatigue and Denies fever(s) ENT Ears, Nose, Mouth, and Throat: Denies neck pain Cardiovascular Cardiovascular: Denies chest pain and Denies dyspnea Respiratory Respiratory: Denies cough and Denies dyspnea Gastrointestinal Gastrointestinal: Reports abdominal pain, Reports nausea and Reports vomiting Genitourinary Genitourinary: Denies dysuria Musculoskeletal Musculoskeletal: Reports back pain and Denies neck pain Integumentary/Breasts Skin/Breast: Denies rash Neurologic Neurologic: Reports weakness (Generalized) Endocrine Endocrine: Reports fatigue Hematologic/Lymphatic Hematologic/Lymphatic: Denies easy bleeding and Denies easy bruising FOR[facility]LY [facility] Medical History Alternative medicine Cancer related pain Colon cancer metastasized to intra-abdominal lymph node Colon cancer metastasized to intrathoracic lymph node PET scan October 2019 Diabetes mellitus Discharge planning issues Essential hypertension Fatigue Fatty liver Femoral nerve injury Fistula of ureter Fracture of distal fibula Full code status he is aware that pts with metastatic cancer have low survival rate Goals of care, counseling/discussion Hypercholesterolemia Injury due to procedure Late effect of complications of procedure Medical cannabis use filled out paperwork 11/14/19 for him to receive medical cannabis 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 Mediport placement (10/21/16) Nephrostomy status Partial resection of colon (~2011) SIGMOID S/P ureteral stent placement Family History Father Heart disease Dementia AAA (abdominal aortic aneurysm) Mother No problems noted. Brother No problems noted. Son No problems noted. 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 Pets and animals: No Do you think of yourself as: straight/heterosexual Current gender identity: male What is your relationship status?: How often do you talk on the phone with friends or family?: once per week How often do you get together with friends or relatives?: once per week Panel score (0-1 are the most socially isolated patients): 1 What type of physical activity do you participate in: assisted ambulation and irregular exercise Duration: 15-30 minutes/day Frequency: 1-2 times per week Special benoit needs: No Agree to transfusion: Yes Seatbelt use: always Drive intox or ride w/intox 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 In 2019, Had MOHAN procedure that caused femoral nerve injury. Disabled since. Now walks with cane. Getting folfori for recurrent colon ca now. Tolerating it. Exam Const General: cooperative and in distress (Dry heaving, appears uncomfortable) Orientation: alert, awake and oriented x3 HENMT Head: normal to inspection, normocephalic and atraumatic Mouth: moist mucous membranes abnormal (Dry) Eyes General: appearance normal, both eyes and all related structures Conjunctivae: conjunctivae normal Neck Neck: normal visual inspection, full ROM, trachea midline and supple Resp Effort & Inspection: normal respiratory effort and able to speak in complete sentences Auscultation: diminished lung sounds bilaterally in the lower lung meyer Cardio Rate: tachycardic (105) Rhythm: regular rhythm GI Inspection: normal to inspection Palpation: soft, not firm, no guarding, no pulsatile masses and tender (Diffuse, worse left lower quadrant) with no rebound tenderness Auscultation: normal bowel sounds Other: Left lower quadrant drain intact. Appears well functioning. No erythema or signs of secondary infection Back/Spine/Pelvis Back: back tenderness (Diffuse mild lumbar) Skin General skin exam: no rashes or lesions noted Neuro General: patient alert, patient awake, patient oriented x3, moves all extremities and no focal motor deficits Cognition: normal cognition Speech: speech normal Gait: normal gait Motor: muscle tone normal throughout Sensory Exam: no sensory deficits noted Extrem General: normal to inspection, full ROM and capillary refill normal Psych Appearance: grossly normal Mental Status: mental status grossly normal Course Vital Signs Vital signs: Vital Signs Temperature 36.5 C 10/23/20 16:08 Pulse 105 H 10/23/20 16:08 Respiratory Rate 18 10/23/20 16:08 Blood Pressure 134/89 10/23/20 16:08 Pulse Oximetry 100 10/23/20 16:08 Temperature 36.5 C 10/23/20 16:08 Temperature Source Skin 10/23/20 16:08 Pulse 105 H 10/23/20 16:08 Respiratory Rate 18 10/23/20 16:08 Respiratory Effort Non-Labored 10/23/20 16:11 Blood Pressure 134/89 10/23/20 16:08 Blood Pressure Position Sitting 10/23/20 16:08 Pulse Oximetry 100 10/23/20 16:08 Oxygen Delivery Method Room Air 10/23/20 16:08 Oxygen Flow Rate 0 10/23/20 16:08 Pain Level 8 10/23/20 16:08
--- NOTE | 2020-10-23 16:45 | DI.CT_ITS ---
EXAM: CT ABDOMEN PELVIS W CLINICAL HISTORY: Metastatic colon cancer, left lower quadrant pain. TECHNIQUE: Imaging Protocol: Axial computed tomography images with coronal and sagittal reformatted images were created and reviewed CONTRAST MATERIAL: Intravenous: Omnipaque 100cc Oral: None COMPARISON: CT CT ABDOMEN PELVIS WO from 10/19/2020 FINDINGS: VISUALIZED LUNG BASES: Large previously described left chest wall mass is again noted, partially incl uded in the field of view. This is most probably metastatic. No pleural effusions.. ABDOMEN: There is no ascites. LIVER: Small benign-appearing findings in the liver. No obvious metastatic hepatic lesions. GALLBLADDER/BILIARY: No obvious gallbladder pathology. CBD is not dilated. PANCREAS: There is a 7 millimeters cyst/cystic mass in the anterior body of the pancreas which is unc hanged. There is no dilatation of the pancreatic duct. Enlarged portacaval lymph nodes again noted. SPLEEN: Spleen is not enlarged. No obvious intrasplenic lesions. Splenic and portal veins are paten t. ADRENALS: Left adrenal gland is not seen and is presumed to be surgically absent in this patient has had left nephrectomy. Opposite-right adrenal gland appears unremarkable KIDNEYS:Left nephrectomy. In the remaining right kidney there is a small benign cyst anteriorly lori uring 2 cm. Tiny nonobstructive calculi are seen the right kidney. No solid mass seen in the right kidney. No hydronephrosis hydroureter. The opposite-left side the kidneys again noted be surgically absent. There is regional and para-aort ic adenopathy again noted which appears relatively stable and there is again noted heterogeneity the ipsilateral-left psoas muscle with a pigtail drainage catheter therein no decrease in size of but may be an abscess. There is also a hypodense tubular structure which possibly thrombosed gonadal vein. Contains calcification. Cannot exclude left ureter remnant. This is in golf by the psoas abnormali ty and reaches a diameter of 2.2 cm. I feel this may be remnant left ureter given its course plus th e fact that it seems to reach the urinary bladder ureterovesical junction where there is a mass which is most probably neoplastic in the bladder at this level.. ABDOMINAL AORTA: No aneurysm but prominent para-aortic adenopathy is again noted. LYMPH NODES:Abundant retroperitoneal and para-aortic adenopathy. Also portacaval adenopathy. ABDOMINAL WALL/GI: No evidence of significant anterior abdominal wall hernia. No bowel obstruction. PELVIS: GI: No evidence of appendicitis.Again noted is evidence of partial sigmoid resection. No obstruction or abscess at this level. LYMPH NODES: Adenopathy around the aortic bifurcation. No inguinal adenopathy. REPRODUCTIVE: Prostate is smaller surgically absent. URINARY BLADDER: Left-sided mass at the ureterovesical junction area OSSEOUS: No significant osseous lesions. IMPRESSION: 1. Relatively stable appearance when compared to the CT scan of 10/19/2020. Again noted is evidence of previous left nephrectomy prominent lymphadenopathy and what appears to be either clot within the left gonadal vein or dilated remnant ureter which appears to extend down to the abnormal ureterovesic al junction on the left side where there is a mass in the urinary bladder at this level. 2. There is a 7 millimeter cystic structure in the anterior body of the pancreas. This probably a sm all cystic neoplasm. Pancreatic duct does not appear dilated. 3. Remaining right kidney exhibits no evidence of solid mass. It contains a small anteriorly located cortical cysts as well as a few tiny nonobstructive calculi. No hydronephrosis on the right. 4. Again noted is a metastatic mass in the left chest wall, previously described and only partially i ncluded in the field of view of this abdominal study. No pleural effusions. 5. Stable appearance of the left psoas mass-abscess which is again noted to contain a pigtail draina ge catheter. RADIATION DOSE DELIVERED: 1,202.33mGy.cm Total DLP DATA REPOSITORY: All CT scans at this facility are submitted to the National Radiology Data Registry (NRDR) Dose Index Registry (DIR) with the [employer] (ACR). RADIATION OPTIMIZATION: All CT scans at this facility use at least one of these dose optimization te chniques: automated exposure control; mA and/or kV adjustment per patient size (includes targeted exa ms where dose is matched to clinical indication); or iterative reconstruction.
[2020-10-23] MEDS: HYDROmorphone 2 MG/ML VIAL 1 MG IVP ×2 (16:50→19:25)
[2020-10-23] MEDS: Ondansetron 4 MG/2 ML VIAL IVP (16:51)
[2020-10-23] MEDS: Normal Saline 1,000 ML 1000 ML IV (16:51)
[2020-10-23 16:54] LABS: Abs Immature Grans 0.14 10^3/uL (0.0-0.06); Absolute Basophil Count 0.02 10^3/uL (0.0-0.2); Basophils % 0.1; HCT 31.1 % (40.0-50.0); Immature Grans % 0.9; Lymphocytes % 3.7; MCH 26.6 pg (27.0-33.0); MCHC 32.2 % (32.0-36.0); MCV 82.7 fL (80-95); MPV 10.3 fL (8.0-11.0); Monocytes % 5.8; Neutrophils % 89.5; Nucleated RBC 0 %; Platelet Count 359 10^3/uL (130-400); RBC 3.76 10^6/uL (4.36-5.78); RDW 15.5 % (11.8-14.1); RDW-SD 46.6 fL; WBC 16.09 10^3/uL (4.4-10.8)
[2020-10-23 16:57] LABS: Absolute Monocyte Count 0.93 10^3/uL (0.1-0.8)
[2020-10-23 17:05] LABS: ALT 43 U/L (16-63); AST 55 U/L (15-37); Alkaline Phosphatase 150 U/L (46-116); Anion Gap 11.1 mmol/L (3-11); BUN 33 mg/dL (7-18); Bilirubin, Total 0.5 mg/dL (0.2-1.0); CO2 23.9 mmol/L (21.0-32.0); CREATININE 1.4 mg/dL (0.70-1.30); Calcium 9.2 mg/dL (8.5-10.1); Chloride 92 mmol/L (98-107); Estimated GFR 53.01 (mL/min/1.73m2); Glucose 322 mg/dL (74-106); Lipase 318 U/L (73-393); Potassium 5.1 mmol/L (3.5-5.1); Sodium 127 mmol/L (136-145); Total Protein 9.1 g/dL (6.4-8.2)
[2020-10-23 17:09] LABS: Lactate 4.3 mmol/L (0.6-1.4)
[2020-10-23 18:20] VITALS: BP 149/94; PULSE 85; RESP 20; O2SAT 98
[2020-10-23] MEDS: Lactated Ringers 1,000 ML 1000 ML IV (19:27)
[2020-10-23 19:32] VITALS: RESP 16
[2020-10-23 19:36] LABS: Bilirubin Negative (Negative); Blood Moderate (Negative); Clarity Clear (Clear); Glucose 250 mg/dL (Negative); Ketones Negative (Negative); Leukocyte Esterase Negative (Negative); Nitrite Negative (Negative); Urobilinogen 0.2 EU/dL (Up TO 0.2); pH 6.5 (5-8)
[2020-10-23 19:52] LABS: Epithelial Cells Few HPF (Negative)
[2020-10-23] MEDS: Normal Saline Flush 10 ML SYR IVP (19:52)
[2020-10-23 19:53] LABS: Bacteria Negative HPF (Negative); C & S Indicated? Yes; Casts Negative LPF (Negative); Crystals Negative HPF (Negative); Mucus Negative (Negative); Other Cells Negative (Negative)
[2020-10-23] MEDS: Normal Saline - Diluent 50 ML VIAL IV (19:53)
--- NOTE | 2020-10-23 20:34 | DI.VRAD_ITS ---
Addendum created by Carlos Powell MD on 10/23/2020 8:48:30 PM EDT: THIS REPORT CONTAINS FINDINGS THAT MAY BE CRITICAL TO PATIENT CARE. The findings were verbally communicated via telephone conference with Dr Herrera at 8:47 PM EDT on 10/23/2020. The findings were acknowledged and understood. Initial report created on 10/23/2020 8:34:27 PM EDT: PROCEDURE INFORMATION: Exam: CT Abdomen And Pelvis With Contrast Exam date and time: 10/23/2020 7:42 PM Age: 55 years old Clinical indication: Abdominal pain; Localized; Left lower quadrant (llq) TECHNIQUE: Imaging protocol: Computed tomography of the abdomen and pelvis with contrast. Total images: 1370 Radiation optimization: All CT scans at this facility use at least one of these dose optimization techniques: automated exposure control; mA and/or kV adjustment per patient size (includes targeted exams where dose is matched to clinical indication); or iterative reconstruction. Contrast material: [id number]; Contrast volume: 100 ml; Contrast route: INTRAVENOUS (IV); COMPARISON: CT ABDOMEN PELVIS WO 10/19/2020 4:51 PM FINDINGS: Tubes, catheters and devices: There is no change in positioning of a left-sided drain which extends into a complex collection involving the left psoas muscle which as noted previously is markedly enlarged and heterogeneous in appearance. Lungs: There is stable reticulonodular disease at the left lung base possibly secondary to aspiration. Again noted is a partially visualized left lower chest wall mass. Liver: There are scattered small hypodense nodules within the liver. Largest is posteriorly within the medial segment of the left hepatic lobe and measures up to 1.5 cm. Gallbladder and bile ducts: No calcified stones, wall thickening or biliary dilatation. Pancreas: There is a 7 mm cyst within the pancreatic body. Spleen: Homogeneously enhances. No splenomegaly. Adrenal glands: No adrenal nodule. Kidneys and ureters: There are tiny right renal medullary calculi. There is a 1.6 cm right anterior renal cortex cyst. There is no right ureteral stone. Status post left nephrectomy. Stomach and bowel: There is an anastomosis involving the sigmoid colon. No pericolonic inflammation.There is no small bowel dilatation Appendix: Unremarkable appendix. Intraperitoneal space: No free air within the abdomen. Vasculature: There is a vertical it oriented tubular shaped structure in the left infrarenal space which could represent clot within the left gonadal vein. There is a small associated calcification. This is unchanged from the prior study. Lymph nodes: Again noted is retroperitoneal adenopathy which is most significant in the left para-aortic space , but also notable in the portacaval space, peripancreatic region and posterior to the IVC. Urinary bladder: again noted is a soft tissue mass involving the left posterior bladder wall in the region the ureteral vesicle junction which also is involving the distal left ureter. There is mild more generalized bladder wall thickening as well. Reproductive: Unremarkable as visualized. Bones/joints: No significant bony or joint space abnormality. Soft tissues: Extra-abdominal soft tissues are unremarkable. IMPRESSION: Stable CT. Multiple sites of metastatic disease. No change in left psoas collection. Possible clot in the left gonadal vein. Dictated and Authenticated by: Carlos Powell MD. Ordering:CONNOR Sandoval MD
[2020-10-23] MEDS: PIPERACILLIN/TAZO 3.375 GM in Normal Saline 50 ML IVPB (22:19)
[2020-10-23] MEDS: VANCOMYCIN 1,000 MG in Normal Saline 250 ML 166.6666 MG IVPB (22:19)
--- NOTE | 2020-10-23 22:46 | HPE_ITS ---
Date of service: 10/23/20 Time of Service: 22:46 Assessment and Plan Assessment and plan (1) Thrombus: Status: Acute Assessment and plan: Evidence of thrombus in left gonadal vein. This may account for, at least in part, his lower abd complaints on the left. Therapeutic lovenox initiated at 90mg SQ Q12H. (2) Psoas abscess, left: Status: Chronic Assessment and plan: Recurrent. Ongoing leukocytosis. Zosyn and Vancomycin initiated. Blood cxs obtained. Cxs of abscess drainage obtained. Monitor. (3) Palliative care patient: Status: Chronic Assessment and plan: Palliative consult. Pt is a full code. Discussion of his goals of care. (4) Uncontrolled diabetes mellitus: Status: Chronic Assessment and plan: Hold his sulfonylurea and metformin. Cont Lantus; adjust as necessary. FSBG ACHS Sliding scale correction insulin dosing; moderate sensitive scale. Monitor. Diabetic diet. Qualifiers: Diabetes mellitus type: type 2 Glycemic state: with hyperglycemia Qualified Code(s): E11.65 - Type 2 diabetes mellitus with hyperglycemia (5) Recurrent colorectal adenocarcinoma: Status: Chronic Assessment and plan: With lymph node, ureter,renal, brain, rib, metastases. Present x8+ years. See oncology and has utilized naturopathic medicine. History of Present Illness History of Present Illness Chief Complaint: Nausea, vomitting, left lower abd pain. Narrative: This is a 55 yo male with a history of metastatic colon cancer, psoas muscle abcess, DM, HTN, chronic pain related to metastatic cancer. He presented to the ED with c/o waking up on the morning of admission with N/V. Unable to keep any of his medications down. He endorses increased lower abd pain particularly on the left. He was evaluated in the [facility] ED on 10/17/2020 and transferred to [facility] [place] where his pelvic drain was changed and he was discharged on the day before this admission. He denies fever/chills, SOA. No constipation/d iarrhea/melena/hematochezia. No hematemesis. He reports sharp/crampy quality to his abd pain. His WBC count is elevated at 16. Heg of 10. Lactate 4.3; repeat of 3.0, Na 127, K+ normal creatinine 1.4, glucose 322, AST 55, lipase 318, UA mod blood and few RBCs; chronic. CT abd/pelvis showed stable CT. Multiple sites of metastatic disease. No change in left psoas collection. Possible clot in the left gonadal vein. Covid testing pending. Therapeutic SQ Lovenox initiated in the ED. Zosyn and Vancomycin initiated. Review of Systems All systems reviewed & are unremarkable except as noted in HPI and below PFSH Medical History Alternative medicine Cancer related pain Colon cancer metastasized to intra-abdominal lymph node Colon cancer metastasized to intrathoracic lymph node PET scan October 2019 Diabetes mellitus Discharge planning issues Essential hypertension Fatigue Fatty liver Femoral nerve injury Fistula of ureter Fracture of distal fibula Full code status he is aware that pts with metastatic cancer have low survival rate Goals of care, counseling/discussion Hypercholesterolemia Injury due to procedure Late effect of complications of procedure Medical cannabis use filled out paperwork 11/14/19 for him to receive medical cannabis 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 Mediport placement (10/21/16) Nephrostomy status Partial resection of colon (~2011) SIGMOID S/P ureteral stent placement Family History Father Heart disease Dementia AAA (abdominal aortic aneurysm) Mother No problems noted. Brother No problems noted. Son No problems noted. 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 Pets and animals: No Do you think of yourself as: straight/heterosexual Current gender identity: male What is your relationship status?: How often do you talk on the phone with friends or family?: once per week How often do you get together with friends or relatives?: once per week Panel score (0-1 are the most socially isolated patients): 1 What type of physical activity do you participate in: assisted ambulation and irregular exercise Duration: 15-30 minutes/day Frequency: 1-2 times per week Special benoit needs: No Agree to transfusion: Yes Seatbelt use: always Drive intox or ride w/intox crew car driver: No Working smoke detector in home: Yes Carbon monox detector in home: Yes Firearms in home: No Do you feel safe at home: Yes Do you feel safe in your relationship?: Yes Additional Social history: has been struggling with colon cancer since 2011. 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 In 2019, Had MOHAN procedure that caused femoral nerve injury. Disabled since. Now walks with cane. Getting folfori for recurrent colon ca now. Tolerating it. Meds Allergies and Home Medications Allergies Allergy/AdvReac Type Severity Reaction Status Date / Time No Known Allergies Allergy Verified 10/23/20 16:12 Home Medications Medication Instructions Recorded Confirmed Type aspirin [Aspirin Low-Strength] 81 mg PO DAILY tab-cap 10/27/12 10/23/20 History atorvastatin [Lipitor] 20 mg PO HS tab-cap 10/27/12 10/23/20 History glipizide 10 mg PO BID PRN tab-cap 10/27/12 10/23/20 History metformin 500 mg PO DAILY PRN tab-cap 10/27/12 10/23/20 History metformin 1,500 mg PO HS PRN 01/05/14 10/23/20 History multivitamin 1 cap PO DAILY 01/05/14 10/23/20 History insulin glargine 100 unit/mL (3 40 unit SUBCUT BID PRN ml 11/08/18 10/19/20 History mL) subcutaneous pen metoprolol tartrate 25 mg PO BID #60 tab 07/21/19 10/23/20 Rx insulin aspart U-100 100 unit/mL 1 sliding sc SC TID PRN ml 08/18/19 10/23/20 History subcutaneous solution acetaminophen [Tylenol] 1,000 mg PO PRN PRN 08/31/20 10/23/20 History ibuprofen 600 mg PO DAILY 08/31/20 10/23/20 History docusate sodium 200 mg PO BID 10/16/20 10/23/20 History tramadol 50 mg PO TID PRN PRN 10/16/20 10/23/20 History dexamethasone 8 mg PO BID 10/19/20 10/23/20 History omeprazole 40 mg PO DAILY 10/19/20 10/23/20 History Exam Const General: cooperative and no acute distress Nutritional Appearance: average body habitus Orientation: alert and oriented x3 Eyes Conjunctivae: conjunctivae normal Sclera: sclerae normal Pupils: PERRL Chest Chest: normal palpation of entire chest wall Resp Effort & Inspection: normal respiratory effort Auscultation: clear to auscultation bilaterally Cardio Rate: regular rate Rhythm: regular rhythm Heart Sounds: S1 normal and S2 normal GI Inspection: other (L pelvic drain in place.) Palpation: soft and tender (lower abd L>R w/o guarding rebound.) Skin General skin exam: no rashes or lesions noted Extrem General: no pedal edema and no calf tenderness Psych Appearance: grossly normal Mental Status: mental status grossly normal Speech and Movement: speech and movement normal Affect: normal affect Results Labs Result diagrams: 10/23/20 16:40 10/23/20 16:40 Labs: Laboratory Results - last 24 hr 10/23/20 10/23/20 10/23/20 16:40 16:40 16:40 WBC 16.09 H RBC 3.76 L Hgb 10.0 L Hct 31.1 L MCV 82.7 MCH 26.6 L MCHC 32.2 RDW 15.5 H Plt Count 359 MPV 10.3 Immature Gran % 0.9 Neutrophils % 89.5 Lymphocytes % 3.7 Monocytes % 5.8 Eosinophils % 0.0 Basophils % 0.1 Nucleated RBC % 0 Absolute Neutrophils 14.40 H Absolute Lymphocytes 0.60 L Absolute Monocytes 0.93 H Absolute Eosinophils 0.00 Absolute Basophils 0.02 VBG Lactate 4.3 H* Sodium 127 L Potassium 5.1 Chloride 92 L Carbon Dioxide 23.9 Anion Gap 11.1 H BUN 33 H Creatinine 1.4 H Estimated GFR/1.73 m2 53.01 Glucose 322 H Calcium 9.2 Total Bilirubin 0.5 AST 55 H ALT 43 Alkaline Phosphatase 150 H Total Protein 9.1 H Albumin 3.0 L Lipase 318 Urine Color Urine Clarity Urine pH Ur Specific [place] Urine Protein Urine Ketones Urine Blood Urine Nitrite Urine Bilirubin Urine Urobilinogen Ur Leukocyte Esterase Urine RBC Urine WBC Ur Epithelial Cells Urine Crystals Urine Bacteria Urine Casts Urine Mucus Urine Other Ur Culture Indicated? Urine Glucose 10/23/20 10/23/20 19:26 20:58 WBC RBC Hgb Hct MCV MCH MCHC RDW Plt Count MPV Immature Gran % Neutrophils % Lymphocytes % Monocytes % Eosinophils % Basophils % Nucleated RBC % Absolute Neutrophils Absolute Lymphocytes Absolute Monocytes Absolute Eosinophils Absolute Basophils VBG Lactate 3.0 H* Sodium Potassium Chloride Carbon Dioxide Anion Gap BUN Creatinine Estimated GFR/1.73 m2 Glucose Calcium Total Bilirubin AST ALT Alkaline Phosphatase Total Protein Albumin Lipase Urine Color Yellow Urine Clarity Clear Urine pH 6.5 Ur Specific [place] 1.020 Urine Protein 100 H Urine Ketones Negative Urine Blood Moderate H Urine Nitrite Negative Urine Bilirubin Negative Urine Urobilinogen 0.2 Ur Leukocyte Esterase Negative Urine RBC 3-5 H Urine WBC 5-10 Ur Epithelial Cells Few Urine Crystals Negative Urine Bacteria Negative Urine Casts Negative Urine Mucus Negative Urine Other Negative Ur Culture Indicated? Yes Urine Glucose 250 H Last Vital Signs Temp 36.5 C 10/23/20 16:08 Pulse 85 10/23/20 18:20 Resp 16 10/23/20 19:32 BP 149/94 H 10/23/20 18:20 Pulse Ox 98 10/23/20 18:20 COVID-19 Screening Have you, or household traveled for leisure in last 14 days?: No Had IN PERSON contact w/suspected or confirmed C-19 person: No
[2020-10-23 22:51] LABS: Source Nasal/Nares
[2020-10-23] MEDS: Enoxaparin 100 MG/ML SYR 90 MG SC (23:07)
[2020-10-23 23:46] VITALS: BP 138/87; PULSE 76; RESP 16; TEMP 36.6; O2SAT 98
[2020-10-24] MEDS: Normal Saline 1,000 ML 100 ML IV ×3 (00:05→22:42)
[2020-10-24] MEDS: Atorvastatin 20 MG TAB PO ×2 (00:34→21:28)
[2020-10-24 00:55] LABS: COVID-19 PCR Negative (Negative)
[2020-10-24] MEDS: traMADol 50 MG TAB PO ×3 (01:33→22:41)
[2020-10-24] MEDS: PIPERACILLIN/TAZO 3.375 GM in Normal Saline 50 ML IVPB ×4 (02:56→21:29)
[2020-10-24 07:17] VITALS: BP 145/93; PULSE 87; RESP 16; TEMP 36.6; O2SAT 98
[2020-10-24 07:38] LABS: Absolute Basophil Count 0.02 10^3/uL (0.0-0.2); Absolute Eosinophil Count 0.01 10^3/uL (0.0-0.7); Absolute Lymphocyte Count 0.64 10^3/uL (1.2-3.4); Absolute Monocyte Count 0.86 10^3/uL (0.1-0.8); Basophils % 0.2; Eosinophils % 0.1; HCT 27.3 % (40.0-50.0); Immature Grans % 0.8; Lymphocytes % 5.2; MCH 27.4 pg (27.0-33.0); MCV 83.2 fL (80-95); MPV 9.8 fL (8.0-11.0); Neutrophils % 86.7; Nucleated RBC 0 %; Platelet Count 233 10^3/uL (130-400); RBC 3.28 10^6/uL (4.36-5.78); RDW 15.6 % (11.8-14.1); RDW-SD 46.3 fL; WBC 12.35 10^3/uL (4.4-10.8)
[2020-10-24 07:39] LABS: Lactate 2.5 mmol/L (0.6-1.4)
[2020-10-24 07:41] LABS: Absolute Neutrophil Count 10.71 10^3/uL (1.2-6.7)
[2020-10-24 07:48] LABS: Anion Gap 9.1 mmol/L (3-11); BUN 28 mg/dL (7-18); CO2 24.9 mmol/L (21.0-32.0); CREATININE 1.2 mg/dL (0.70-1.30); Calcium 8.6 mg/dL (8.5-10.1); Chloride 99 mmol/L (98-107); Glucose 177 mg/dL (74-106); Potassium 4.4 mmol/L (3.5-5.1); Sodium 133 mmol/L (136-145)
[2020-10-24] MEDS: Polyethylene Glycol 3350 17 GM PACKET PO ×2 (08:15→19:50)
[2020-10-24] MEDS: Ibuprofen 200 MG TAB 600 MG PO (08:15)
[2020-10-24] MEDS: Omeprazole 20 MG CAPCR 40 MG PO (08:15)
[2020-10-24] MEDS: Docusate Sodium 100 MG CAP 200 MG PO ×2 (08:16→19:50)
[2020-10-24] MEDS: Aspirin 81 MG CHEW PO (08:16)
[2020-10-24] MEDS: Dexamethasone 4 MG TAB 8 MG PO ×2 (08:17→19:50)
[2020-10-24] MEDS: Multivitamin TAB 1 TAB PO (08:18)
[2020-10-24] MEDS: Metoprolol 25 MG TAB PO ×2 (08:18→19:50)
[2020-10-24] MEDS: Insulin Aspart 300 UNITS/3 ML PEN SC ×3 (08:19→17:09)
[2020-10-24] MEDS: Insulin Glargine 300 UNITS/3 ML PEN 40 UNITS SC ×2 (08:19→19:51)
[2020-10-24] MEDS: Normal Saline Flush 10 ML SYR IVP (08:20)
[2020-10-24] MEDS: Enoxaparin 100 MG/ML SYR 90 MG SC (09:25)
[2020-10-24] MEDS: VANCOMYCIN/WATER (PEG) 1.25 GM/250 ML BAG IV ×2 (10:45→21:30)
--- NOTE | 2020-10-24 14:33 | PHA.REVIEW ---
Pharmacy Admission Review - Admission Clinical Review (Last Reviewed 10/23/20 @ 22:55 by Dhaval Dickerson MD) Thrombus (Acute) Leukocytosis (Acute) Nausea & vomiting (Acute) No Known Allergies Allergy (Verified 10/23/20 16:12) Height 6 ft 0.83 in Weight 89.811 kg GONADAL VEIN OCCLUSION, PSOAS ABSCESS, ABDOMINAL PAIN - Comments Comments/Follow Ups: [place] [facility] [place] for change of pelvic drain, Hx metastatic colonrectal cancer. Covid negative. Micro blood pending, pelvic drain fluid collected is pending (not thoracentesis as Micro record states), Urine pending. Discovered thrombus of gonadal vein, treating with therapeutic dosed Lovenox. Follow Micro, Vanco troughs - Renal Dosing Renal Dosing: BUN 28 mg/dL (7-18) H 10/24/20 07:20 Creatinine 1.2 mg/dL (0.70-1.30) 10/24/20 07:20 Medications needing adjustments: Reviewed (CrCl~78ml/min) - Anticoagulation Anticoagulation: Hgb 9.0 g/dL (13.5-17.5) L 10/24/20 07:20 Hct 27.3 % (40.0-50.0) L 10/24/20 07:20 Plt Count 233 10^3/uL (130-400) D 10/24/20 07:20 Creatinine 1.2 mg/dL (0.70-1.30) 10/24/20 07:20 Therapeutic Anticoagulation: Reviewed Medications: Enoxaparin (Treatment of thrombus in left gonadal vein) - Opiate Usage Evaluate Pain Scale/Pains Meds: Reviewed (Pain 7/10 (Tramadol/APAP/Ibuprofen)) Scheduled Bowel Reg ordered if on Opiates?: Yes (Miralax, Docusate) - Relevant Labs Sodium 133 mmol/L (136-145) L 10/24/20 07:20 Potassium 4.4 mmol/L (3.5-5.1) 10/24/20 07:20 Chloride 99 mmol/L (98-107) 10/24/20 07:20 Magnesium 2.0 mg/dL (1.8-2.4) 10/24/20 07:20 Electrolytes, C-Reactive P, ESR: Reviewed (WBC 12.35 (16.09 on admission-also on Decadron), H/H drifting 9.0/27.3, Lactate elevated but improving 2.5. Normal saline @ 100ml/hr for low sodium) - DM Control DM Control: Glucose 177 mg/dL (74-106) H D 10/24/20 07:20 Finger Stick Blood Glucose 256 Finger Stick Blood Glucose 256 Finger Stick Blood Glucose 256 Finger Stick Blood Glucose 178 Finger Stick Blood Glucose 178 Finger Stick Blood Glucose 178 Finger Stick Blood Glucose 178 Insulin Dosing: Reviewed (Lantus/Novolog scale) - Heart Failure/WA EF%, MOLLY's, B-Blockers, Diuretics: Reviewed (Metoprolol Tartrate 25mg po BID) - BP Control BP Control: Blood Pressure 145/93 If elevated: Reviewed - Qtc Review If Elevated: N/A - IV to PO Switch IV Medications: Reviewed (Metoclopramide, Antibiotics) - Home Meds Home Med List reviewed: Reviewed (Looks like recently had Rx filled for Memantine with directions to titrate up...no mention of it in H&P, not sure patient even started it since recent admission) Relevent Home Meds Not ordered & why?: Glipizide and Metformin not ordered-has Insulin coverage. - Comments Comments/Follow Ups: MD braden dc'd therapeutic Lovenox while preparing this report Antibiotic Activity - Pharmacy Antibiotic Review Pharmacy Antibiotic Activity: C/S review (Vanco/Zosyn for HCAP) - Antibiotic Information Antibiotic Review Info: Vanco/Zosyn for HCAP day#2, cultures pending
--- NOTE | 2020-10-24 15:19 | UCONE_ITS ---
Date of service: 10/24/20 Time of Service: 15:20 Assessment and Plan Assessment and plan (1) Fistula: Status: Chronic Assessment and plan: I do not believe that this gentleman has a thrombosis of the gonadal vein. Looking through his records and looking at his films, I think tumor and necrotic tissue in the ureter would account for his CT abnormality. Unless otherwise indicated, I do not believe he requires anticoagulation. History of Present Illness History of Present Illness Chief Complaint: Gonadal vein thrombosis Narrative: This is a 55-year-old gentleman who has a history of metastatic colon cancer. He has had involvement of the left ureter with his cancer and cancer related issues. The majority of these urologic treatments have occurred at [facility]. After reviewing the [facility] records, I found this brief timeline of events: 2011-sigmoid colectomy for colon cancer 2013-peritoneal recurrence which led to tumor debulking, resection of retroperitoneal mass, ureterolysis, omentectomy. The left ureter had tumor pushing on the top but the ureteral wall was not involved in tumor. 09/2016 CT suspicious for the left abdominal wall metastatic disease which caused obstruction of the left distal ureter and hydronephrosis. Initially the hydronephrosis was managed with an indwelling ureteral stent 02/2017-cytoreductive surgery for retroperitoneal mass causing left ureteral obstruction 08/2017-pelvic radiation 11/2018 development of left psoas abscess after periaortic node biopsy 06/2019-no longer able to manage the patient with ureteral stents, so nephro stomy tube placed. At this point, a fistulous connection between the psoas abscess in the left ureter was identified 10/2019 recurrent left psoas abscess with drain placement 12/2019 recurrent left psoas abscess with second drain placement 04/2020-the left nephrectomy performed. Pathology demonstrates poorly differentiated carcinoma consistent with colon primary involving the ureteral mucosa and muscular wall, periureteral soft tissue and periarterial soft tissue. Lymphovascular invasion was identified 05/2020-development of prostatic abscess requiring transurethral unroofing. He is currently hospitalized with abdominal pain. He had a CT of the abdomen pelvis which raise the question of a left gonadal vein thrombosis. I have been asked to see him for this issue. He was started on anticoagulants when he was admitted. He tells me that his discomfort has improved overnight. [facility] Medical History Alternative medicine Cancer related pain Colon cancer metastasized to intra-abdominal lymph node Colon cancer metastasized to intrathoracic lymph node PET scan October 2019 Diabetes mellitus Discharge planning issues Essential hypertension Fatigue Fatty liver Femoral nerve injury Fistula of ureter Fracture of distal fibula Full code status he is aware that pts with metastatic cancer have low survival rate Goals of care, counseling/discussion Hypercholesterolemia Injury due to procedure Late effect of complications of procedure Medical cannabis use filled out paperwork 11/14/19 for him to receive medical cannabis 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 Mediport placement (10/21/16) Nephrostomy status Partial resection of colon (~2011) SIGMOID S/P ureteral stent placement Family History Father Heart disease Dementia AAA (abdominal aortic aneurysm) Mother No problems noted. Brother No problems noted. Son No problems noted. 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 Pets and animals: No Do you think of yourself as: straight/heterosexual Current gender identity: male What is your relationship status?: How often do you talk on the phone with friends or family?: once per week How often do you get together with friends or relatives?: once per week Panel score (0-1 are the most socially isolated patients): 1 What type of physical activity do you participate in: assisted ambulation and irregular exercise Duration: 15-30 minutes/day Frequency: 1-2 times per week Special benoit needs: No Agree to transfusion: Yes Seatbelt use: always Drive intox or ride w/intox locomotive driver: No Working smoke detector in home: Yes Carbon monox detector in home: Yes Firearms in home: No Do you feel safe at home: Yes Do you feel safe in your relationship?: Yes Additional Social history: has been struggling with colon cancer since 2011. 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 In 2019, Had MOHAN procedure that caused femoral nerve injury. Disabled since. Now walks with cane. Getting folfori for recurrent colon ca now. Tolerating it. Exam Narrative Exam Narrative: His vital signs are done commended elsewhere His left psoas drain is draining blood-tinged fluid There is no fluctuance or crepitance on the left flank He is awake and alert I was able to review multiple CT scans over the years. The area that raised the concern for a gonadal vein thrombosis actually looks like his remaining ureter with solid debris within the lumen. I can trace the ureter all the way down to the bladder and it appears that some tissue is possibly extruding into the lumen of the bladder. Results Last Vital Signs Temp 36.6 C 10/24/20 07:17 Pulse 87 10/24/20 07:17 Resp 16 10/24/20 07:17 BP 145/93 H 10/24/20 07:17 Pulse Ox 98 10/24/20 07:17 Labs Result diagrams: 10/26/20 06:52 10/26/20 06:52 Labs: Laboratory Results - last 24 hr 10/23/20 10/23/20 10/23/20 16:40 16:40 16:40 WBC 16.09 H RBC 3.76 L Hgb 10.0 L Hct 31.1 L MCV 82.7 MCH 26.6 L MCHC 32.2 RDW 15.5 H Plt Count 359 MPV 10.3 Immature Gran % 0.9 Neutrophils % 89.5 Lymphocytes % 3.7 Monocytes % 5.8 Eosinophils % 0.0 Basophils % 0.1 Nucleated RBC % 0 Absolute Neutrophils 14.40 H Absolute Lymphocytes 0.60 L Absolute Monocytes 0.93 H Absolute Eosinophils 0.00 Absolute Basophils 0.02 VBG Lactate 4.3 H* Sodium 127 L Potassium 5.1 Chloride 92 L Carbon Dioxide 23.9 Anion Gap 11.1 H BUN 33 H Creatinine 1.4 H Estimated GFR/1.73 m2 53.01 Glucose 322 H Calcium 9.2 Magnesium Total Bilirubin 0.5 AST 55 H ALT 43 Alkaline Phosphatase 150 H Total Protein 9.1 H Albumin 3.0 L Lipase 318 Urine Color Urine Clarity Urine pH Ur Specific [place] Urine Protein Urine Ketones Urine Blood Urine Nitrite Urine Bilirubin Urine Urobilinogen Ur Leukocyte Esterase Urine RBC Urine WBC Ur Epithelial Cells Urine Crystals Urine Bacteria Urine Casts Urine Mucus Urine Other Ur Culture Indicated? Urine Glucose COVID-19 Source SARS-CoV-2 (PCR) 10/23/20 10/23/20 10/23/20 19:26 20:58 22:35 WBC RBC Hgb Hct MCV MCH MCHC RDW Plt Count MPV Immature Gran % Neutrophils % Lymphocytes % Monocytes % Eosinophils % Basophils % Nucleated RBC % Absolute Neutrophils Absolute Lymphocytes Absolute Monocytes Absolute Eosinophils Absolute Basophils VBG Lactate 3.0 H* Sodium Potassium Chloride Carbon Dioxide Anion Gap BUN Creatinine Estimated GFR/1.73 m2 Glucose Calcium Magnesium Total Bilirubin AST ALT Alkaline Phosphatase Total Protein Albumin Lipase Urine Color Yellow Urine Clarity Clear Urine pH 6.5 Ur Specific [place] 1.020 Urine Protein 100 H Urine Ketones Negative Urine Blood Moderate H Urine Nitrite Negative Urine Bilirubin Negative Urine Urobilinogen 0.2 Ur Leukocyte Esterase Negative Urine RBC 3-5 H Urine WBC 5-10 Ur Epithelial Cells Few Urine Crystals Negative Urine Bacteria Negative Urine Casts Negative Urine Mucus Negative Urine Other Negative Ur Culture Indicated? Yes Urine Glucose 250 H COVID-19 Source Nasal/nares SARS-CoV-2 (PCR) Negative 10/24/20 10/24/20 10/24/20 07:20 07:20 07:20 WBC 12.35 H RBC 3.28 L Hgb 9.0 L Hct 27.3 L MCV 83.2 MCH 27.4 MCHC 33.0 RDW 15.6 H Plt Count 233 D MPV 9.8 Immature Gran % 0.8 Neutrophils % 86.7 Lymphocytes % 5.2 Monocytes % 7.0 Eosinophils % 0.1 Basophils % 0.2 Nucleated RBC % 0 Absolute Neutrophils 10.71 H Absolute Lymphocytes 0.64 L Absolute Monocytes 0.86 H Absolute Eosinophils 0.01 Absolute Basophils 0.02 VBG Lactate 2.5 H* Sodium 133 L Potassium 4.4 Chloride 99 Carbon Dioxide 24.9 Anion Gap 9.1 BUN 28 H Creatinine 1.2 Estimated GFR/1.73 m2 >= 60.00 Glucose 177 H D Calcium 8.6 Magnesium 2.0 Total Bilirubin AST ALT Alkaline Phosphatase Total Protein Albumin Lipase Urine Color Urine Clarity Urine pH Ur Specific [place] Urine Protein Urine Ketones Urine Blood Urine Nitrite Urine Bilirubin Urine Urobilinogen Ur Leukocyte Esterase Urine RBC Urine WBC Ur Epithelial Cells Urine Crystals Urine Bacteria Urine Casts Urine Mucus Urine Other Ur Culture Indicated? Urine Glucose COVID-19 Source SARS-CoV-2 (PCR)
[2020-10-24 16:02] VITALS: BP 116/71; PULSE 69; RESP 17; TEMP 36.8; O2SAT 98
--- NOTE | 2020-10-24 16:25 | PGE_ITS ---
Date of Service Date of service: 10/24/20 Time of Service: 16:25 Assessment and Plan Assessment and plan (1) Psoas abscess, left: Status: Chronic Assessment and plan: Continue empiric vanco/zosyn. Await culture results. Clinically much better. Leucocytosis could be related to being on decadron in addition to having infection. (2) Thrombus: Status: Ruled-out Assessment and plan: Dr Sandoval consulted and feels that this is tumor/necrotic tissue invasive into ureter. WE have d/c'ed anticoagulation given high risk of brain bleeding with known brain mets and an alternative explanation for CT abnormality. (3) Metastatic colorectal cancer: Status: Acute Assessment and plan: Patient is getting brain XRT for brain mets. He is supposed to have a conversation with Dr Saldivar tomorrow as to whether he remains a candidate for chemotherapy. Palliative care consulted. Patient does not feel he is ready for hospice at this time. Continue decadron. Consider keppra. (4) Uncontrolled diabetes mellitus: Status: Chronic Assessment and plan: Continue basal bolus insulin. I wonder if the patient is developing gastroparesis. Qualifiers: Diabetes mellitus type: type 2 Glycemic state: with hyperglycemia Qualified Code(s): E11.65 - Type 2 diabetes mellitus with hyperglycemia (5) Chronic constipation: Status: Acute Assessment and plan: Intensify bowel regimen. (6) Hematuria: Status: Acute Assessment and plan: Does have mention of bladder tumor on CT. It is not 100% clear to me if this tumor is inside the bladder, but this is very likely the cause of his hematuria. Urology consulted. Avoid chemical dvt prophylaxis. (7) DVT prophylaxis: Status: Acute Assessment and plan: TEDs/SCDs (8) Discharge planning issues: Status: Acute Assessment and plan: Full code Palliative care consulted. Subjective Subjective Interval history since last seen: Benigno states he is feeling better today. The pain from his left lower back to his groin is gone. HE denies dizziness, chest pain, shortness of breath, nausea. Lori is on speaker phone while I am in the room with Benigno. She informed me of Benigno's recent bout of constipation, vomiting of food that he had eaten 18 hrs prior (today the food has gone down well), and hematuria especially while he is having a bowel movement. HE was evaluated by Dr Sandoval. He believes that rather a gonadal vein thrombosis, what is seen on CT is actually tumor and necrotic tissue within the ureter. Dr Sandoval was considering a cystoscopy. Exam Narrative Exam Narrative: General: Very pleasant middle-aged male wearing an eye patch on his right eye HEENT: EOMI, MMM Heart: RRR< no m/r/g Lungs: CTAB Abdomen: soft, nontender, nondistended Extremities: no edema BLE's Objective Last Vital Signs Temp 36.8 C 10/24/20 16:02 Pulse 69 10/24/20 16:02 Resp 17 10/24/20 16:02 BP 116/71 10/24/20 16:02 Pulse Ox 98 10/24/20 16:02 Laboratory Results - last 24 hr 10/23/20 10/23/20 10/23/20 16:40 16:40 16:40 WBC 16.09 H RBC 3.76 L Hgb 10.0 L Hct 31.1 L MCV 82.7 MCH 26.6 L MCHC 32.2 RDW 15.5 H Plt Count 359 MPV 10.3 Immature Gran % 0.9 Neutrophils % 89.5 Lymphocytes % 3.7 Monocytes % 5.8 Eosinophils % 0.0 Basophils % 0.1 Nucleated RBC % 0 Absolute Neutrophils 14.40 H Absolute Lymphocytes 0.60 L Absolute Monocytes 0.93 H Absolute Eosinophils 0.00 Absolute Basophils 0.02 VBG Lactate 4.3 H* Sodium 127 L Potassium 5.1 Chloride 92 L Carbon Dioxide 23.9 Anion Gap 11.1 H BUN 33 H Creatinine 1.4 H Estimated GFR/1.73 m2 53.01 Glucose 322 H Calcium 9.2 Magnesium Total Bilirubin 0.5 AST 55 H ALT 43 Alkaline Phosphatase 150 H Total Protein 9.1 H Albumin 3.0 L Lipase 318 Urine Color Urine Clarity Urine pH Ur Specific [place] Urine Protein Urine Ketones Urine Blood Urine Nitrite Urine Bilirubin Urine Urobilinogen Ur Leukocyte Esterase Urine RBC Urine WBC Ur Epithelial Cells Urine Crystals Urine Bacteria Urine Casts Urine Mucus Urine Other Ur Culture Indicated? Urine Glucose COVID-19 Source SARS-CoV-2 (PCR) 10/23/20 10/23/20 10/23/20 19:26 20:58 22:35 WBC RBC Hgb Hct MCV MCH MCHC RDW Plt Count MPV Immature Gran % Neutrophils % Lymphocytes % Monocytes % Eosinophils % Basophils % Nucleated RBC % Absolute Neutrophils Absolute Lymphocytes Absolute Monocytes Absolute Eosinophils Absolute Basophils VBG Lactate 3.0 H* Sodium Potassium Chloride Carbon Dioxide Anion Gap BUN Creatinine Estimated GFR/1.73 m2 Glucose Calcium Magnesium Total Bilirubin AST ALT Alkaline Phosphatase Total Protein Albumin Lipase Urine Color Yellow Urine Clarity Clear Urine pH 6.5 Ur Specific [place] 1.020 Urine Protein 100 H Urine Ketones Negative Urine Blood Moderate H Urine Nitrite Negative Urine Bilirubin Negative Urine Urobilinogen 0.2 Ur Leukocyte Esterase Negative Urine RBC 3-5 H Urine WBC 5-10 Ur Epithelial Cells Few Urine Crystals Negative Urine Bacteria Negative Urine Casts Negative Urine Mucus Negative Urine Other Negative Ur Culture Indicated? Yes Urine Glucose 250 H COVID-19 Source Nasal/nares SARS-CoV-2 (PCR) Negative 10/24/20 10/24/20 10/24/20 07:20 07:20 07:20 WBC 12.35 H RBC 3.28 L Hgb 9.0 L Hct 27.3 L MCV 83.2 MCH 27.4 MCHC 33.0 RDW 15.6 H Plt Count 233 D MPV 9.8 Immature Gran % 0.8 Neutrophils % 86.7 Lymphocytes % 5.2 Monocytes % 7.0 Eosinophils % 0.1 Basophils % 0.2 Nucleated RBC % 0 Absolute Neutrophils 10.71 H Absolute Lymphocytes 0.64 L Absolute Monocytes 0.86 H Absolute Eosinophils 0.01 Absolute Basophils 0.02 VBG Lactate 2.5 H* Sodium 133 L Potassium 4.4 Chloride 99 Carbon Dioxide 24.9 Anion Gap 9.1 BUN 28 H Creatinine 1.2 Estimated GFR/1.73 m2 >= 60.00 Glucose 177 H D Calcium 8.6 Magnesium 2.0 Total Bilirubin AST ALT Alkaline Phosphatase Total Protein Albumin Lipase Urine Color Urine Clarity Urine pH Ur Specific [place] Urine Protein Urine Ketones Urine Blood Urine Nitrite Urine Bilirubin Urine Urobilinogen Ur Leukocyte Esterase Urine RBC Urine WBC Ur Epithelial Cells Urine Crystals Urine Bacteria Urine Casts Urine Mucus Urine Other Ur Culture Indicated? Urine Glucose COVID-19 Source SARS-CoV-2 (PCR)
[2020-10-24 17:43] VITALS: RESP 18
--- NOTE | 2020-10-24 19:00 | INITIAL_ITS ---
- If Service Date Differs Date of service: 10/24/20 Time of Service: 19:00 Care Management Initial Assess REASON FOR HOSPITALIZATION:: Gonadal Vein Occlusion, Psoas abscess PAST MEDICAL HISTORY/PAST SURGICAL HISTORY:: Medical History. Alternative medicine. Cancer related pain. Colon cancer metastasized to intra-abdominal lymph node. Colon cancer metastasized to intrathoracic lymph node. PET scan October 2019. Diabetes mellitus. Discharge planning issues. Essential hypertension. Fatigue. Fatty liver. Femoral nerve injury. Fistula. of ureter. Fracture of distal fibula. Full code status. he is aware that pts with metastatic cancer have low survival rate. Goals of care, counseling/discussion. Hypercholesterolemia. Injury due to procedure. Late effect of complications of procedure. Medical cannabis use. filled out paperwork 11/14/19 for him to receive medical cannabis. 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 Monoclonal gammopathy of unknown significance. Obesity. Palliative care patient. Peritoneal metastases. Psoas abscess, left. recurrent x 4; most recently in December 2019. Recurrent colorectal adenocarcinoma. first diagnosed 2011. Sepsis. Sleep apnea. USES CPAP. TUBULOVILLOUS ADENOMA. Uncontrolled diabetes mellitus. Unintentional weight loss. Unsteady gait. Surgical History. Colonoscopy - IV Sedation (~2011). 2014. Laparotomy. 2013- debulking of tumor in the pelvis and ureterolysis. Mediport placement (10/21/16). Nephrostomy status. Partial resection of colon (~2011). SIGMOID. S/P ureteral stent placement PREVIOUS FUNCTIONAL STATUS/SOCIAL/FAMILY SUPPORTS:: Benigno lives in [place] with his , Lori, and two children, who are 20 and 14. 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 He no longer works as he is on disability due to complications from surgery and colon cancer. Lori assists him with his ADL's, and drives him places. They have an taiwanese chairez at home who they love. CURRENT FUNCTIONAL STATUS:: Benigno was sitting up in his chair when CM met with him. He reported that he is feeling well today. His is not able to visit, as she is not yet vaccinated, but he has been able to talk to her over the phone and keep her updated. Benigno will meet with Dr. Burciaga today from Palliative care. He wishes to remain full code at this time. CM will continue to follow. ADVANCE DIRECTIVES:: None on file, Palliative care consulted. Has patient been provided with info about the portal/API?: Yes Did the patient sign up for the portal?: Yes CODE STATUS:: Full Code INSURANCE COVERAGE / FINANCIAL ISSUES:: BCBS/ Health Plans CURRENT HOME/COMMUNITY SERVICES/EQUIPMENT:: Benigno uses a cane for ambulation. PRIMARY CARE PHYSICIAN:: Chetan Jaquez POTENTIAL DISCHARGE NEEDS:: Follow up appointments PATIENT/FAMILY EDUCATION NEEDS:: Review discharge instructions, discussion of self care needs including Ask Me Three ANTICIPATED BARRIERS TO DISCHARGE:: None identified. TRANSPORTATION:: Via private vehicle by family. PLAN:: Anticipate Benigno will return home with no additional services when medically cleared. His , Lori, will drive him home via private vehicle when ready. He will have follow up appointments, as recommended. CM will continue to follow and support discharge planning considerations.
[2020-10-24] MEDS: Senna TAB 1 TAB PO (19:51)
--- NOTE | 2020-10-24 21:59 | W.PALLCONSUL ---
Date of service: 10/24/20 Time of Service: 12:00 History of Present Illness History of Present Illness Chief Complaint: metastatic colon cancer, mets to brain Narrative: I saw Benigno in his room. His oncology providers have been worried about him. Dr Thomsa notes that Benigno has 12 distinct brain mets. At Benigno's recent visit with Dr Thomas, whose note I reviewed, Dr Thomas listed Benigno's KPS score at 30% and his ECOG score at 3. When cancer patients are at this functional level, they usually are not still given cancer-directed treatments. Benigno, however, has requested that he still be given treatments. Benigno continues to lose weight. He's weaker. His mood is good. We called his , Lori, and spoke to her when I was in the room. Benigno chooses to continue with any cancer treatment that may be offered to him. He does not feel sick. He admits he is very weak. He says his energy is low. He moves very slowly. He says he can get himself dressed still. He says he's doing his own flushes on his chronic surgical drain for his psoas abscess. He does not have any headaches. He does have double vision; this is what brought him to the ER. He is receiving 12 Whole Brain Radiation Treatments. He says he walks ok. Some of his lesions are in his cerebellum. He says he has not fallen. Lori confirms this. He continues to see Dr Powell, urology, and Dr Butt in [place]. He does have pain in his left rib cage, c/w site of his known metastasis. Consults Consult date: 10/24/20 Requesting physician: Dhaval Dickerson Assessment and Plan Assessment and plan (1) Brain metastases: Status: Chronic Assessment and plan: Dr Thomas, his radiation oncologist, is very worried about Benigno as am I. Benigno is willing to continue oral steroids to help with symptoms from his brain mets. Dr Thomas noted that his life expectancy is limited given the accelerating burden of metastatic disease. (2) Metastatic colorectal cancer: Status: Chronic Assessment and plan: Benigno has been sick with colon cancer x 9 years. He has been very stoic and strong throughout multiple courses of treatments. He is dedicated to his family, and wants to live as long as possible so he can enjoy time with them. He remains a full code, which I have advised against, given the very low success of this intervention. Benigno does not want to change his code status. (3) Diplopia: Status: Acute Assessment and plan: From his brain mets. Under care of Dr Thomas to help with cerebral edema. Likely diplopia will come and go indefinitely. 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 Continues to be followed by [facility]. (5) Sinus tachycardia: Status: Chronic Assessment and plan: Benigno has had a high HR for decades, since before his colon cancer diagnosis. (6) S/P ureteral stent placement: Status: Acute (7) Unintentional weight loss: Status: Chronic Assessment and plan: Benigno's usual weight is between 250-275. He has not weighed less than 200 lbs since he was young. Symptomatic of his advancing colon cancer. (8) Full code status: Status: Chronic Assessment and plan: Does not want to change. (9) Goals of care, counseling/discussion: Status: Acute Assessment and plan: I brought up the possibility of hospice care in the future. He did want to address this yet. He will wait until oncology tells him that he should pursue hospice. Review of Systems Constitutional Constitutional: Reports fatigue, Denies headache(s), Reports lethargy, Reports weakness and Reports weight loss Eyes Eyes: Reports blurry vision, Reports change in vision and Reports diplopia ENT Ears, Nose, Mouth, and Throat: Denies headache(s) and Reports disequilibrium Cardiovascular Cardiovascular: Reports rapid heart rate and Reports dyspnea on exertion Respiratory Respiratory: Reports dyspnea on exertion Gastrointestinal Gastrointestinal: Reports early satiety Genitourinary Genitourinary: Reports system reviewed and no additional complaints, except as documented Musculoskeletal Musculoskeletal: Reports atrophy Integumentary/Breasts Skin/Breast: Reports dry skin Neurologic Neurologic: Denies headache(s), Reports disequilibrium and Reports weakness Psychiatric Psychiatric: Denies anxiety, Reports difficulty concentrating, Denies irritability and Denies anhedonia Endocrine Endocrine: Reports fatigue [facility] Medical History (Updated 11/23/20 @ 08:35 by Julita Burciaga MD) Alternative medicine Anemia, chronic disease 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 Cancer related pain Colon cancer metastasized to intra-abdominal lymph node Colon cancer metastasized to intrathoracic lymph node PET scan October 2019 Diabetes mellitus Discharge planning issues Essential hypertension Fatigue Fatty liver Femoral nerve injury Fistula of ureter Fracture of distal fibula Full code status he is aware that pts with metastatic cancer have low survival rate Goals of care, counseling/discussion Hypercholesterolemia Injury due to procedure Late effect of complications of procedure Medical cannabis use filled out paperwork 11/14/19 for him to receive medical cannabis 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 Mediport placement (10/21/16) Nephrostomy status Partial resection of colon (~2011) SIGMOID S/P ureteral stent placement Family History Father Heart disease Dementia AAA (abdominal aortic aneurysm) Mother No problems noted. Brother No problems noted. Son No problems noted. 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 Pets and animals: No Do you think of yourself as: straight/heterosexual Current gender identity: male What is your relationship status?: How often do you talk on the phone with friends or family?: once per week How often do you get together with friends or relatives?: once per week Panel score (0-1 are the most socially isolated patients): 1 What type of physical activity do you participate in: assisted ambulation and irregular exercise Duration: 15-30 minutes/day Frequency: 1-2 times per week Special benoit needs: No Agree to transfusion: Yes Seatbelt use: always Drive intox or ride w/intox non emergency services ambulance driver: No Working smoke detector in home: Yes Carbon monox detector in home: Yes Firearms in home: No Do you feel safe at home: Yes Do you feel safe in your relationship?: Yes Additional Social history: has been struggling with colon cancer since 2012. 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 In 2019, Had MOHAN procedure that caused femoral nerve injury. Disabled since. Has chronic surgical drain from psoas abscess stemming from MOHAN. to Lori since soon after HS. Has 2 children, one still in school. Benigno does not like to discuss his illness. He does not like to discuss end of life issues. He remains a full code. Exam Narrative Exam Narrative: General: Very pleasant middle-aged male wearing an eye patch on his right eye. Sitting up in his chair. Quiet. Has lost weight. Eyes: his left eye is anicteric, non-injected HEENT: MMM, no LAD, no JVD, hearing grossly intact Heart: RRR, no m/r/g Lungs: CTAB, no increased work of breathing Abdomen: soft, nontender, nondistended; anterior L-sided abdominal drain with bloody discharge on dressing Extremities: no edema BLEs, + musclar atrophy Psych: presents his normal, blunted. Does not express a lot of emotion, but never has. Skin: no rashes or lesions Neuro: UE strength equal and normal. No obvious cognitive deficits. Results Last Vital Signs Temp 98.2 F 10/24/20 16:02 Pulse 69 10/24/20 16:02 Resp 17 10/24/20 16:02 BP 116/71 10/24/20 16:02 Pulse Ox 98 10/24/20 16:02 Labs Result diagrams: 10/31/20 06:30 10/31/20 06:30 Labs: Laboratory Results - last 24 hr 10/23/20 10/24/20 10/24/20 22:35 07:20 07:20 WBC RBC Hgb Hct MCV MCH MCHC RDW Plt Count MPV Immature Gran % Neutrophils % Lymphocytes % Monocytes % Eosinophils % Basophils % Nucleated RBC % Absolute Neutrophils Absolute Lymphocytes Absolute Monocytes Absolute Eosinophils Absolute Basophils VBG Lactate 2.5 H* Sodium 133 L Potassium 4.4 Chloride 99 Carbon Dioxide 24.9 Anion Gap 9.1 BUN 28 H Creatinine 1.2 Estimated GFR/1.73 m2 >= 60.00 Glucose 177 H D Calcium 8.6 Magnesium 2.0 COVID-19 Source Nasal/nares SARS-CoV-2 (PCR) Negative 10/24/20 07:20 WBC 12.35 H RBC 3.28 L Hgb 9.0 L Hct 27.3 L MCV 83.2 MCH 27.4 MCHC 33.0 RDW 15.6 H Plt Count 233 D MPV 9.8 Immature Gran % 0.8 Neutrophils % 86.7 Lymphocytes % 5.2 Monocytes % 7.0 Eosinophils % 0.1 Basophils % 0.2 Nucleated RBC % 0 Absolute Neutrophils 10.71 H Absolute Lymphocytes 0.64 L Absolute Monocytes 0.86 H Absolute Eosinophils 0.01 Absolute Basophils 0.02 VBG Lactate Sodium Potassium Chloride Carbon Dioxide Anion Gap BUN Creatinine Estimated GFR/1.73 m2 Glucose Calcium Magnesium COVID-19 Source SARS-CoV-2 (PCR)
[2020-10-24 23:29] VITALS: BP 120/76; PULSE 77; RESP 17; TEMP 36.6; O2SAT 98
--- NOTE | 2020-10-25 | DI.CT_ITS ---
EXAM: CT ABDOMEN PELVIS W CLINICAL HISTORY: iv contrast only; question of dislodgement of INGRID TECHNIQUE: Imaging Protocol: Axial computed tomography images with coronal and sagittal reformatted images were created and reviewed CONTRAST MATERIAL: Intravenous: Omnipaque 350 Contrast volume:65 Oral: No COMPARISON: CT CT ABDOMEN PELVIS W from 10/23/2020 FINDINGS: ABDOMEN: Lung Bases: The left chest wall mass is partially included on this examination but unchanged compared to 10/23/2020. There has been slight clearing of the left basilar infiltrate. Liver: Normal density. There again seen several hypodense lesions scattered within the liver suspicio us for metastases. Portal, Superior Mesenteric, and Splenic Veins: Unremarkable. Gallbladder and Biliary Tract: No radiodense calculus or dilation. Pancreas: Normal density, no abnormal calcifications or inflammatory process. Spleen: Normal. Adrenals: Right adrenal gland is unremarkable. Findings suggestive of a left adrenalectomy. Kidneys: Status post left nephrectomy. Nonobstructing stones are seen in the right kidney. Right re nal cysts. Abdominal Aorta: Abdominal portion non-dilated. Mild atherosclerosis. Bowel: No obstruction or bowel wall thickening. Normal appendix is visualized. Peritoneal Cavity: There has been no significant change in the left retroperitoneal/psoas enlargement /fluid collection. There has been no change in location of the drainage catheter. No fluid collecti on is seen along the anterior abdominal wall segment of the catheter. No free air. Lymph Nodes: Stable retroperitoneal/periaortic adenopathy is noted. Bones: Within normal limits for the patient's age. Soft Tissues: Please see above. No evidence of an anterior abdominal wall abscess PELVIS: Bladder: Stable urinary bladder mass and wall thickening. Reproductive Organs: Unremarkable as visualized. Lymph Nodes: Please see above. Bones: Within normal limits for the patient's age. IMPRESSION: 1. Stable left psoas enlargement/fluid collection. 2. Stable appearance of the drainage catheter in the left retroperitoneum. 3. No evidence of a abdominal wall abscess. 4. Stable abdominal adenopathy and hepatic masses. RADIATION DOSE DELIVERED: 1,148.02mGy.cm Total DLP DATA REPOSITORY: All CT scans at this facility are submitted to the National Radiology Data Registry (NRDR) Dose Index Registry (DIR) with the [employer] (ACR). RADIATION OPTIMIZATION: All CT scans at this facility use at least one of these dose optimization te chniques: automated exposure control; mA and/or kV adjustment per patient size (includes targeted exa ms where dose is matched to clinical indication); or iterative reconstruction.
[2020-10-25 01:59] VITALS: PULSE 76; RESP 18; O2SAT 96
[2020-10-25] MEDS: traMADol 50 MG TAB PO ×2 (02:41→18:39)
[2020-10-25] MEDS: PIPERACILLIN/TAZO 3.375 GM in Normal Saline 50 ML IVPB ×4 (03:46→21:41)
[2020-10-25] MEDS: Acetaminophen 325 MG TAB 650 MG PO (03:46)
[2020-10-25 07:12] LABS: Abs Immature Grans 0.14 10^3/uL (0.0-0.06); Absolute Basophil Count 0.01 10^3/uL (0.0-0.2); Absolute Lymphocyte Count 0.39 10^3/uL (1.2-3.4); Absolute Monocyte Count 0.68 10^3/uL (0.1-0.8); Absolute Neutrophil Count 9.43 10^3/uL (1.2-6.7); Basophils % 0.1; HCT 24.9 % (40.0-50.0); HGB 8.1 g/dL (13.5-17.5); Immature Grans % 1.3; Lymphocytes % 3.7; MCH 26.9 pg (27.0-33.0); MCHC 32.5 % (32.0-36.0); MCV 82.7 fL (80-95); MPV 10.7 fL (8.0-11.0); Monocytes % 6.4; Neutrophils % 88.5; Nucleated RBC 0 %; Platelet Count 186 10^3/uL (130-400); RBC 3.01 10^6/uL (4.36-5.78); RDW 15.4 % (11.8-14.1); WBC 10.65 10^3/uL (4.4-10.8)
[2020-10-25 07:26] LABS: Anion Gap 7.9 mmol/L (3-11); BUN 27 mg/dL (7-18); CO2 24.1 mmol/L (21.0-32.0); CREATININE 1.3 mg/dL (0.70-1.30); Calcium 8.1 mg/dL (8.5-10.1); Chloride 98 mmol/L (98-107); Estimated GFR 57.75 (mL/min/1.73m2); Glucose 216 mg/dL (74-106); Magnesium 1.9 mg/dL (1.8-2.4); Potassium 4.7 mmol/L (3.5-5.1); Sodium 130 mmol/L (136-145)
[2020-10-25 08:02] VITALS: BP 136/83; PULSE 74; RESP 12; TEMP 36.3; O2SAT 100
[2020-10-25] MEDS: Insulin Aspart 300 UNITS/3 ML PEN SC ×3 (08:05→16:45)
[2020-10-25] MEDS: Insulin Glargine 300 UNITS/3 ML PEN 40 UNITS SC ×2 (08:05→19:44)
[2020-10-25] MEDS: Polyethylene Glycol 3350 17 GM PACKET PO ×2 (08:05→19:42)
[2020-10-25] MEDS: Senna TAB 1 TAB PO ×2 (08:06→19:43)
[2020-10-25] MEDS: Normal Saline Flush 10 ML SYR IVP (08:06)
[2020-10-25] MEDS: Dexamethasone 4 MG TAB 8 MG PO ×2 (08:06→19:43)
[2020-10-25] MEDS: Docusate Sodium 100 MG CAP 200 MG PO ×2 (08:07→19:42)
[2020-10-25] MEDS: Aspirin 81 MG CHEW PO (08:07)
[2020-10-25] MEDS: Ibuprofen 200 MG TAB 600 MG PO (08:07)
[2020-10-25] MEDS: Metoprolol 25 MG TAB PO ×2 (08:08→19:43)
[2020-10-25] MEDS: Multivitamin TAB 1 TAB PO (08:08)
[2020-10-25] MEDS: Omeprazole 20 MG CAPCR 40 MG PO (08:08)
[2020-10-25 09:59] VITALS: RESP 18
--- NOTE | 2020-10-25 10:17 | PDOC.CMPRO ---
- If Service Date Differs Date of service: 10/25/20 Time of Service: 10:17 Care Management Progress Note S/O:Benigno was sitting up in bed when CM met with him. He was polite and agreeable to answering questions. Benigno shared that he has been battling cancer for 8 years and has done pretty well. He now has metastatic disease with with multiple sites of involvement. Benigno had a Palliative Consult with Dr. Burciaga yesterday and chose not to complete a COLST form and to remains a full code. 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 His , Lori, will drive him home via private vehicle when ready. He will have follow up appointments, as recommended. CM will continue to follow and support discharge planning considerations.
[2020-10-25] MEDS: VANCOMYCIN/WATER (PEG) 1.25 GM/250 ML BAG IV ×2 (11:20→22:39)
[2020-10-25] MEDS: Omnipaque 350 MG/ML 100 ML BTL IJ (12:51)
[2020-10-25] MEDS: Normal Saline - Diluent 50 ML VIAL IV (12:57)
[2020-10-25] MEDS: Normal Saline 1,000 ML 100 ML IV (14:21)
[2020-10-25 15:28] VITALS: BP 117/73; PULSE 80; RESP 16; TEMP 36.6; O2SAT 98
--- NOTE | 2020-10-25 17:06 | PGE_ITS ---
Date of Service Date of service: 10/25/20 Time of Service: 17:08 Assessment and Plan Assessment and plan (1) Psoas abscess, left: Status: Chronic Assessment and plan: Continue empiric vanco/zosyn. Await culture results. Clinically much better, but I worry about increased discharge/drainage. I have submitted the images to [facility] and requested a phone consult with IR to ensure that the drain does not need to be interrogated. (2) Thrombus: Status: Ruled-out Assessment and plan: Dr Sandoval consulted and feels that this is tumor/necrotic tissue invasive into ureter. We have d/c'ed anticoagulation given high risk of brain bleeding with known brain mets and an alternative explanation for CT abnormality. (3) Metastatic colorectal cancer: Status: Acute Assessment and plan: Patient is getting brain XRT for brain mets. Palliative care consulted. Patient does not feel he is ready for hospice at this time. Continue decadron. Consider keppra. (4) Uncontrolled diabetes mellitus: Status: Chronic Assessment and plan: Continue basal bolus insulin. I wonder if the patient is developing gastroparesis. If vomiting recurs, consider gastric emptying study. Qualifiers: Diabetes mellitus type: type 2 Glycemic state: with hyperglycemia Qualified Code(s): E11.65 - Type 2 diabetes mellitus with hyperglycemia (5) Chronic constipation: Status: Acute Assessment and plan: Continue bowel regimen. (6) Hematuria: Status: Acute Assessment and plan: Does have mention of bladder tumor on CT. It is not 100% clear to me if this tumor is inside the bladder, but this is very likely the cause of his hematuria. Urology consulted. Avoid chemical dvt prophylaxis. (7) DVT prophylaxis: Status: Acute Assessment and plan: TEDs/SCDs (8) Discharge planning issues: Status: Acute Assessment and plan: Full code Palliative care consulted. Subjective Subjective Interval history since last seen: Mr Yap states that he feels better now but had a lot of pain last night. Nursing noted increased drainage around the catheter - bloody, saturated the dressing multiple times. The drain is in the right position, per radiology on CT today. The patient denies dizziness, chest pain, shortness of breath, nausea. Exam Narrative Exam Narrative: General: Very pleasant middle-aged male wearing an eye patch on his right eye HEENT: EOMI, MMM Heart: RRR, no m/r/g Lungs: CTAB Abdomen: soft, nontender, nondistended; anterior L-sided abdominal drain with bloody discharge on dressing Extremities: no edema BLE's Objective Last Vital Signs Temp 36.6 C 10/25/20 15:28 Pulse 80 10/25/20 15:28 Resp 16 10/25/20 15:28 BP 117/73 10/25/20 15:28 Pulse Ox 98 10/25/20 15:28 Laboratory Results - last 24 hr 10/25/20 10/25/20 10/25/20 06:40 06:40 21:00 WBC 10.65 RBC 3.01 L Hgb 8.1 L Hct 24.9 L MCV 82.7 MCH 26.9 L MCHC 32.5 RDW 15.4 H Plt Count 186 MPV 10.7 Immature Gran % 1.3 Neutrophils % 88.5 Lymphocytes % 3.7 Monocytes % 6.4 Eosinophils % 0.0 Basophils % 0.1 Nucleated RBC % 0 Absolute Neutrophils 9.43 H Absolute Lymphocytes 0.39 L Absolute Monocytes 0.68 Absolute Eosinophils 0.00 Absolute Basophils 0.01 Sodium 130 L Potassium 4.7 Chloride 98 Carbon Dioxide 24.1 Anion Gap 7.9 BUN 27 H Creatinine 1.3 Estimated GFR/1.73 m2 57.75 Glucose 216 H Calcium 8.1 L Magnesium 1.9 Vancomycin Trough Cancelled
[2020-10-25 19:21] VITALS: BP 147/87; PULSE 80; RESP 16; TEMP 36.7; O2SAT 98
[2020-10-25] MEDS: levETIRAcetam 250 MG TAB 500 MG PO (19:43)
[2020-10-25] MEDS: Atorvastatin 20 MG TAB PO (21:40)
[2020-10-26] MEDS: Normal Saline 1,000 ML 100 ML IV ×2 (02:47→15:30)
[2020-10-26] MEDS: traMADol 50 MG TAB PO ×2 (03:00→22:02)
[2020-10-26] MEDS: PIPERACILLIN/TAZO 3.375 GM in Normal Saline 50 ML IVPB ×4 (03:23→22:03)
[2020-10-26 03:55] VITALS: BP 132/84; PULSE 83; RESP 17; TEMP 36.8; O2SAT 99
[2020-10-26 07:23] LABS: Abs Immature Grans 0.15 10^3/uL (0.0-0.06); Absolute Basophil Count 0.01 10^3/uL (0.0-0.2); Absolute Lymphocyte Count 0.36 10^3/uL (1.2-3.4); Absolute Monocyte Count 0.83 10^3/uL (0.1-0.8); Basophils % 0.1; HCT 26.1 % (40.0-50.0); HGB 8.5 g/dL (13.5-17.5); Immature Grans % 1.4; Lymphocytes % 3.3; MCH 27.1 pg (27.0-33.0); MCHC 32.6 % (32.0-36.0); MCV 83.1 fL (80-95); MPV 10.6 fL (8.0-11.0); Monocytes % 7.7; Neutrophils % 87.5; Nucleated RBC 0 %; Platelet Count 172 10^3/uL (130-400); RBC 3.14 10^6/uL (4.36-5.78); RDW 16.1 % (11.8-14.1); RDW-SD 47.9 fL; WBC 10.75 10^3/uL (4.4-10.8)
[2020-10-26 07:35] LABS: Anion Gap 7.8 mmol/L (3-11); BUN 26 mg/dL (7-18); CO2 24.2 mmol/L (21.0-32.0); CREATININE 1.2 mg/dL (0.70-1.30); Calcium 8.7 mg/dL (8.5-10.1); Chloride 100 mmol/L (98-107); Glucose 214 mg/dL (74-106); Magnesium 1.9 mg/dL (1.8-2.4); Potassium 4.6 mmol/L (3.5-5.1); Sodium 132 mmol/L (136-145)
[2020-10-26 07:58] VITALS: BP 123/80; PULSE 85; RESP 18; TEMP 36.7; O2SAT 97
[2020-10-26] MEDS: Normal Saline Flush 10 ML SYR IVP ×2 (08:27→22:02)
[2020-10-26] MEDS: Insulin Glargine 300 UNITS/3 ML PEN 40 UNITS SC ×2 (08:28→19:39)
[2020-10-26] MEDS: Insulin Aspart 300 UNITS/3 ML PEN SC ×3 (08:28→17:09)
[2020-10-26] MEDS: Aspirin 81 MG CHEW PO (08:29)
[2020-10-26] MEDS: Senna TAB 1 TAB PO ×2 (08:29→19:40)
[2020-10-26] MEDS: Polyethylene Glycol 3350 17 GM PACKET PO ×2 (08:29→19:39)
[2020-10-26] MEDS: levETIRAcetam 250 MG TAB 500 MG PO ×2 (08:29→19:40)
[2020-10-26] MEDS: Omeprazole 20 MG CAPCR 40 MG PO (08:30)
[2020-10-26] MEDS: Dexamethasone 4 MG TAB 8 MG PO ×2 (08:30→19:40)
[2020-10-26] MEDS: Metoprolol 25 MG TAB PO ×2 (08:30→19:40)
[2020-10-26] MEDS: Ibuprofen 200 MG TAB 600 MG PO (08:30)
[2020-10-26] MEDS: Docusate Sodium 100 MG CAP 200 MG PO ×2 (08:30→19:40)
[2020-10-26] MEDS: Multivitamin TAB 1 TAB PO (08:30)
[2020-10-26 10:04] LABS: Vancomycin, Trough 12.6 ug/mL (10.0-20.0)
--- NOTE | 2020-10-26 10:10 | CMPROGNOTE_ITS ---
- If Service Date Differs Date of service: 10/26/20 Time of Service: 10:10 Care Management Progress Note S/O:Benigno was lying in bed asleep both times CM came to see him. He continues to have back and abdominal pain, however these are better, per provider. The hospitalist spoke with providers at [facility] [place] and it is likely that Benigno will go to on Wednesday for evaluation of the psoas abscess drainage catheter. There is minimal drainage from the catheter and there has been no change in the size of the collection over the course of the past 6 days. Benigno remains afebrile and his WBC is within the normal range. 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 His , Lori, will drive him home via private vehicle when ready. He will have follow up appointments, as recommended. CM will continue to follow and support discharge planning considerations.
[2020-10-26] MEDS: VANCOMYCIN/WATER (PEG) 1.25 GM/250 ML BAG IV ×2 (10:58→19:39)
--- NOTE | 2020-10-26 13:53 | PGE_ITS ---
Date of Service Date of service: 10/26/20 Time of Service: 13:53 Assessment and Plan Assessment and plan (1) Psoas abscess, left: Status: Chronic Assessment and plan: Continue empiric vanco/zosyn. It appears his fluid culture is growing a non-aureus Staph species. His urine culture is also growing gram positive edin but less than 10,000 colonies. Will await sensitivities before switching but if no methicillin resistant then would treat w/ oxacillin otherwise can use Daptomycin or continue w/ Vancomycin. (2) Thrombus: Status: Ruled-out Assessment and plan: Dr Sandoval consulted and feels that this is tumor/necrotic tissue invasive into ureter. We have d/c'ed anticoagulation given high risk of brain bleeding with known brain mets and an alternative explanation for CT abnormality. (3) Metastatic colorectal cancer: Status: Acute Assessment and plan: Patient is getting brain XRT for brain mets. Palliative care consulted. Patient does not feel he is ready for hospice at this time. Continue decadron. Consider keppra. (4) Uncontrolled diabetes mellitus: Status: Chronic Assessment and plan: Continue basal bolus insulin. No further nausea of vomiting. Patient was constipated and had a good BM. However gastroparesis remains a possibility Qualifiers: Diabetes mellitus type: type 2 Glycemic state: with hyperglycemia Qualified Code(s): E11.65 - Type 2 diabetes mellitus with hyperglycemia (5) Chronic constipation: Status: Acute Assessment and plan: Continue bowel regimen. (6) Hematuria: Status: Acute Assessment and plan: Does have mention of bladder tumor on CT. It is not 100% clear to me if this tumor is inside the bladder, but this is very likely the cause of his hematuria. Urology consulted. Avoid chemical dvt prophylaxis. (7) DVT prophylaxis: Status: Acute Assessment and plan: TEDs/SCDs (8) Discharge planning issues: Status: Acute Assessment and plan: Full code Palliative care consulted. Subjective Subjective Interval history since last seen: Patient states that his abdominal pain and back pains are better. LLQ drain has had minimal serosanguinous fluid (5 mL). Per Dr. Braun's discussion w/ the patient and w/ [place] [facility] [place] go [place] [facility] [place] Wednesday (2d from now) for IR evaluation of his drainage catheter for his psoas abscess. CT of his abdomen yesterday showed no change in his lef retroperitoneal/psoas fluid collection and there had been no change in the location of the drainage catherer. No new abscess was seen. cathete culure from 10/23 is growing rare Staph species not aureus. Blood cultures from 10/23 are showing no growth. I will await final id and sensitivities before changing antibiotics. He is currently on zosyn and vancomycin. Exam Narrative Exam Narrative: Alert and oriented x 3; no distress Lungs are clear Heart is RRR, no murmur Abdomen: soft, nontender, drainage catheter in LLQ w/out discharge around the catheter entry point; small amount of serosanguinous fluid in drain bulb. Objective Last Vital Signs Temp 36.7 C 10/26/20 07:58 Pulse 85 10/26/20 07:58 Resp 18 10/26/20 07:58 BP 123/80 10/26/20 07:58 Pulse Ox 97 10/26/20 07:58 Laboratory Results - last 24 hr 10/26/20 10/26/20 10/26/20 06:52 06:52 09:30 WBC 10.75 RBC 3.14 L Hgb 8.5 L Hct 26.1 L MCV 83.1 MCH 27.1 MCHC 32.6 RDW 16.1 H Plt Count 172 MPV 10.6 Immature Gran % 1.4 Neutrophils % 87.5 Lymphocytes % 3.3 Monocytes % 7.7 Eosinophils % 0.0 Basophils % 0.1 Nucleated RBC % 0 Absolute Neutrophils 9.40 H Absolute Lymphocytes 0.36 L Absolute Monocytes 0.83 H Absolute Eosinophils 0.00 Absolute Basophils 0.01 Sodium 132 L Potassium 4.6 Chloride 100 Carbon Dioxide 24.2 Anion Gap 7.8 BUN 26 H Creatinine 1.2 Estimated GFR/1.73 m2 >= 60.00 Glucose 214 H Calcium 8.7 Magnesium 1.9 Vancomycin Trough 12.6
[2020-10-26 15:46] VITALS: BP 125/79; PULSE 79; RESP 20; TEMP 36.1; O2SAT 98
[2020-10-26] MEDS: Atorvastatin 20 MG TAB PO (22:02)
[2020-10-26 23:38] VITALS: BP 133/82; PULSE 88; RESP 19; TEMP 36.6; O2SAT 98
[2020-10-27] MEDS: PIPERACILLIN/TAZO 3.375 GM in Normal Saline 50 ML IVPB ×4 (03:53→22:29)
[2020-10-27] MEDS: traMADol 50 MG TAB PO ×4 (03:53→22:29)
[2020-10-27] MEDS: Normal Saline 1,000 ML 100 ML IV ×2 (03:57→19:39)
[2020-10-27] MEDS: VANCOMYCIN/WATER (PEG) 1.25 GM/250 ML BAG IV ×2 (06:00→17:23)
[2020-10-27] MEDS: Insulin Aspart 300 UNITS/3 ML PEN SC ×4 (07:46→17:24)
[2020-10-27] MEDS: Polyethylene Glycol 3350 17 GM PACKET PO ×2 (07:46→19:38)
[2020-10-27] MEDS: Insulin Glargine 300 UNITS/3 ML PEN 40 UNITS SC (07:46)
[2020-10-27] MEDS: Senna TAB 1 TAB PO ×2 (07:47→19:38)
[2020-10-27] MEDS: Docusate Sodium 100 MG CAP 200 MG PO ×2 (07:47→19:38)
[2020-10-27] MEDS: Ibuprofen 200 MG TAB 600 MG PO (07:47)
[2020-10-27] MEDS: Aspirin 81 MG CHEW PO (07:47)
[2020-10-27] MEDS: Dexamethasone 4 MG TAB 8 MG PO ×2 (07:48→19:38)
[2020-10-27] MEDS: Omeprazole 20 MG CAPCR 40 MG PO (07:48)
[2020-10-27] MEDS: Metoprolol 25 MG TAB PO ×2 (07:48→19:38)
[2020-10-27] MEDS: Multivitamin TAB 1 TAB PO (07:48)
[2020-10-27 07:49] VITALS: BP 132/83; PULSE 80; RESP 17; TEMP 36.8; O2SAT 98
[2020-10-27] MEDS: levETIRAcetam 250 MG TAB 500 MG PO ×2 (07:49→19:38)
[2020-10-27] MEDS: Normal Saline Flush 10 ML SYR IVP (07:52)
--- NOTE | 2020-10-27 11:44 | PDOC.CMPRO ---
- If Service Date Differs Date of service: 10/27/20 Time of Service: 11:44 Care Management Progress Note S/O: Benigno is sitting in a chair watching a Nascar race on television when CM enters his room. He is pleasant and says he is feeling a bit better after getting tramadol for pain. He is scheduled to go [place] [facility] [place] for a drain check [place]. He continues to meet inpatient level of care and remain on I.V. Vancomycin. CM will continue to follow. 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 Anticipate Benigno will return home with no additional services when medically cleared. His , Lori, will drive him home via private vehicle when ready. He will have follow up appointments, as recommended. CM will continue to follow and support discharge planning considerations.
[2020-10-27] MEDS: Acetaminophen 325 MG TAB 650 MG PO ×2 (12:25→19:52)
[2020-10-27 15:31] VITALS: BP 125/71; PULSE 64; RESP 17; TEMP 37; O2SAT 99
--- NOTE | 2020-10-27 15:50 | W.PM.PROGNOT ---
Date of Service Date of service: 10/27/20 Time of Service: 15:50 Assessment and Plan Assessment and plan (1) Psoas abscess, left: Status: Chronic Assessment and plan: Currently growing Staphylococcus epidermis and currently being treated with Zosyn and vancomycin. We can provide downgrade his antibiotics however I will discuss his case with ID tomorrow. Sensitivities were requested. (2) Thrombus: Status: Ruled-out Assessment and plan: Dr Sandoval consulted and feels that this is tumor/necrotic tissue invasive into ureter. We have d/c'ed anticoagulation given high risk of brain bleeding with known brain mets and an alternative explanation for CT abnormality. (3) Metastatic colorectal cancer: Status: Acute Assessment and plan: Patient is getting brain XRT for brain mets. Palliative care consulted. Patient does not feel he is ready for hospice at this time. Continue decadron. Consider keppra. (4) Uncontrolled diabetes mellitus: Status: Chronic Assessment and plan: Continue basal bolus insulin. Sugars are poorly controlled running in the high 200s and low 300s. Is on Decadron 8 mg twice daily. I will increase his basal insulin by 25% and increase his sliding scale from moderate dose NovoLog to high-dose NovoLog. I will also add carbohydrate coverage to his regimen. Qualifiers: Diabetes mellitus type: type 2 Glycemic state: with hyperglycemia Qualified Code(s): E11.65 - Type 2 diabetes mellitus with hyperglycemia (5) Chronic constipation: Status: Acute Assessment and plan: Continue bowel regimen. Having moderate soft stools. (6) Hematuria: Status: Acute Assessment and plan: Does have mention of bladder tumor on CT. It is not 100% clear to me if this tumor is inside the bladder, but this is very likely the cause of his hematuria. Urology consulted. Avoid chemical dvt prophylaxis. (7) DVT prophylaxis: Status: Acute Assessment and plan: TEDs/SCDs (8) Discharge planning issues: Status: Acute Assessment and plan: Full code Palliative care consulted. Subjective Subjective Interval history since last seen: Patient has some increased lower back pain this morning that is improved this afternoon treated with tramadol. Appropriate drainage catheter has had minimal drainage. Only 3 mL overnight. Unfortunately his nurse has not had a chance to flush it yet today. Patient scheduled for down and back trip to [facility] to see Dr. Velazquez from interventional radiology to have his left psoas abscess drainage catheter evaluated and possibly exchanged. Cultures are showing no growth. Wound cultures from the left abscess drain is growing Staph epidermidis rare growth. Testing for susceptibility has been requested. Patient remains on Zosyn and vancomycin. Once we have sensitivities we will downgrade his antibiotics. I will be discussing his case with ID from [facility] tomorrow. Patient was previously seen by Dr. Fish and Dr. Lao. Exam Narrative Exam Narrative: Middle-age male sitting up in his chair napping when I came in to see him. Upon awakening he is alert and oriented. Currently not in pain. Examination of his lumbar spine reveals no tenderness on palpation no evidence of skin ulceration. Abdominal exam is nondistended normal active bowel sounds. Large soft formed bowel movement today. Left lower quadrant has a drainage catheter with no drainage around the catheter itself and minimal serosanguineous drainage in the INGRID drain. Objective Last Vital Signs Temp 36.8 C 10/27/20 07:49 Pulse 80 10/27/20 07:49 Resp 17 10/27/20 07:49 BP 132/83 10/27/20 07:49 Pulse Ox 98 10/27/20 07:49
[2020-10-27] MEDS: Insulin Glargine 300 UNITS/3 ML PEN 45 UNITS SC (19:39)
[2020-10-27] MEDS: Atorvastatin 20 MG TAB PO (22:29)
[2020-10-28 00:45] VITALS: BP 125/75; PULSE 68; RESP 18; TEMP 37; O2SAT 98
[2020-10-28] MEDS: VANCOMYCIN/WATER (PEG) 1.25 GM/250 ML BAG IV ×2 (02:49→17:15)
[2020-10-28] MEDS: traMADol 50 MG TAB PO ×4 (02:51→22:40)
[2020-10-28] MEDS: Normal Saline Flush 10 ML SYR IVP ×2 (02:51→08:06)
[2020-10-28] MEDS: PIPERACILLIN/TAZO 3.375 GM in Normal Saline 50 ML IVPB ×2 (04:54→09:15)
[2020-10-28 07:57] VITALS: BP 134/83; PULSE 75; RESP 19; TEMP 36.2; O2SAT 98
[2020-10-28] MEDS: levETIRAcetam 250 MG TAB 500 MG PO ×2 (08:05→20:34)
[2020-10-28] MEDS: Dexamethasone 4 MG TAB 8 MG PO ×2 (08:06→20:32)
[2020-10-28] MEDS: Metoprolol 25 MG TAB PO ×2 (08:06→20:34)
[2020-10-28] MEDS: Insulin Aspart 300 UNITS/3 ML PEN SC ×2 (08:07→17:43)
[2020-10-28] MEDS: Insulin Glargine 300 UNITS/3 ML PEN 45 UNITS SC ×2 (08:17→20:41)
[2020-10-28] MEDS: Acetaminophen 325 MG TAB 650 MG PO ×2 (09:27→17:01)
[2020-10-28 10:37] VITALS: RESP 18
--- NOTE | 2020-10-28 10:48 | NUR.NOTE ---
Nursing Note: 10/28/2020 10:48 [id number] handoff given to accepting RN at [facility] at approximately 09:40. This RN provided handoff for patient transfer to interventional radiology and answered all questions. Naren giulia scheduled to arrive within 15 minutes of handoff, they did arrive at approximately 09:50. Patient signed transfer papers and independently transferred to [facility] Patient chose to leave his cell phone and all other belongings here at [facility], patient did not want to put any belongings in our safe.
[2020-10-28 17:12] VITALS: BP 129/85; PULSE 86; RESP 20; TEMP 36.5; O2SAT 100
--- NOTE | 2020-10-28 18:05 | NUR.NOTE ---
Nursing Note: 10/28/2020 08:05 Patient was brought back to Med/Surg room 227 by Naren Arredondo at approximately 16:50. Patient reported no pain or nausea/vomiting, VSS.
--- NOTE | 2020-10-28 19:18 | W.PM.PROGNOT ---
Date of Service Date of service: 10/28/20 Time of Service: 19:19 Assessment and Plan Assessment and plan (1) Psoas abscess, left: Status: Chronic Assessment and plan: Per [facility] interventional radiology left psoas drain was removed and cone beam CT and fluoroscopy guided needle placement was attempted to aspirate fluid collection left psoas with inadvertent left iliac artery injury with return of pulsatile blood. Needle was withdrawn and stylette replaced and after 6 minutes no further blood return. No further attempts were made at aspiration of any fluid from his left psoas. I will discuss his case tomorrow with [facility] infectious disease department to discuss appropriate antibiotic choice and length of treatment and when to reimage his pelvis. Because of the inadvertent injury to his left iliac artery I am to repeat a hemogram tonight as well as another CBC in the morning. If he develops acute onset tachycardia or hypotension or severe abdominal pain or groin pain he should have an emergent CT of his abdomen and pelvis to r/o retroperitoneal bleed. (2) Thrombus: Status: Ruled-out Assessment and plan: Dr Sandoval consulted and feels that this is tumor/necrotic tissue invasive into ureter. We have d/c'ed anticoagulation given high risk of brain bleeding with known brain mets and an alternative explanation for CT abnormality. (3) Metastatic colorectal cancer: Status: Acute Assessment and plan: Patient is getting brain XRT for brain mets. Palliative care consulted. Patient does not feel he is ready for hospice at this time. Continue decadron. Prophylactic Keppra was started during this admission. (4) Uncontrolled diabetes mellitus: Status: Chronic Assessment and plan: Continue basal bolus insulin. Sugars are poorly controlled running in the high 200s and low 300s. Is on Decadron 8 mg twice daily. I will increase his basal insulin by 25% and increase his sliding scale from moderate dose NovoLog to high-dose NovoLog. I will also add carbohydrate coverage to his regimen. Qualifiers: Diabetes mellitus type: type 2 Glycemic state: with hyperglycemia Qualified Code(s): E11.65 - Type 2 diabetes mellitus with hyperglycemia (5) Chronic constipation: Status: Acute Assessment and plan: Continue bowel regimen. Having moderate soft stools. Patient is on docusate twice a day MiraLAX daily and senna twice a day. (6) Hematuria: Status: Acute Assessment and plan: Does have mention of bladder tumor on CT. It is not 100% clear to me if this tumor is inside the bladder, but this is very likely the cause of his hematuria. Urology consulted. Avoid chemical dvt prophylaxis. (7) DVT prophylaxis: Status: Acute Assessment and plan: TEDs/SCDs (8) Discharge planning issues: Status: Acute Assessment and plan: Full code Palliative care consulted. Subjective Subjective Interval history since last seen: Patient went to [facility] and was seen by interventional radiology services. Establish the patency of his left psoas drain but found that there was no drainage coming from this and when they imaged it the previous abscess had closed up and there was no residual fluid to drain. Apparently they found an another small pocket of fluid and made an attempt via interventional radiology procedure to aspirate this other pocket of fluid and inadvertently hit the left iliac artery but recognized promptly and withdrew the needle before try to place any catheter. They sought no bleeding after several minutes. I went over this result and complication with the patient and his . At present time Benigno has no abdominal pain no groin pain and no nausea or vomiting. He has his chronic back pain from his metastatic disease but the pain is not severe. I told him if he gets severe nausea or vomiting or severe groin or abdominal pain to let his nurse know. I have informed the nursing staff of this complication and to watch for any sign or symptom of a retroperitoneal bleed. I explained to his that I did not have a chance to talk with the infectious disease service today from [facility] but will call them in the morning to discuss the plan for treatment of his left psoas abscess fluid culture. This is growing a staph epidermis which appears to be resistant to oxacillin and intermediately resistant to ciprofloxacin but sensitive to vancomycin and gentamicin. I will need to talk with infectious disease service to discuss whether to continue with parenteral antibiotics particularly in light of the fact that interventional radiology felt that the original abscess that this drain was placed has closed off. Exam Narrative Exam Narrative: Alert and oriented person place time circumstance sitting up in his chair talking with his . Abdomen is soft nondistended nontender no guarding or rebound tenderness. Objective Last Vital Signs Temp 36.5 C 10/28/20 17:12 Pulse 86 10/28/20 17:12 Resp 20 10/28/20 17:12 BP 129/85 10/28/20 17:12 Pulse Ox 100 10/28/20 17:12 Laboratory Results - last 24 hr 10/28/20 01:32 Vancomycin Trough 19.0
--- NOTE | 2020-10-28 19:37 | CMPROGNOTE_ITS ---
- If Service Date Differs Date of service: 10/28/20 Time of Service: 19:37 Care Management Progress Note S/O: CM was unable to meet with Benigno today, as he was at [facility] [place] and back procedure with IR. Upon his return, the MD will discuss his plan with [facility] to determine his abx course. CM will continue to follow. 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 His , Lori, will drive him home via private vehicle when ready. He will have follow up appointments, as recommended. CM will continue to follow and support discharge planning considerations.
[2020-10-28 20:15] VITALS: BP 106/66; PULSE 84; RESP 17; TEMP 36.4; O2SAT 99
[2020-10-28 20:17] LABS: HCT 26.2 % (40.0-50.0); HGB 8.3 g/dL (13.5-17.5)
[2020-10-28] MEDS: Senna TAB 1 TAB PO (20:33)
[2020-10-28] MEDS: Docusate Sodium 100 MG CAP 200 MG PO (20:34)
[2020-10-28] MEDS: Polyethylene Glycol 3350 17 GM PACKET PO (20:36)
[2020-10-28] MEDS: Atorvastatin 20 MG TAB PO (22:35)
[2020-10-29 01:40] VITALS: BP 111/75; PULSE 94; RESP 18; TEMP 36.3; O2SAT 97
[2020-10-29] MEDS: VANCOMYCIN/WATER (PEG) 1.25 GM/250 ML BAG IV ×2 (02:03→11:53)
[2020-10-29 03:45] VITALS: BP 132/86; PULSE 74; RESP 17; TEMP 36.5; O2SAT 99
[2020-10-29] MEDS: Normal Saline 1,000 ML 100 ML IV ×2 (05:59→18:02)
[2020-10-29] MEDS: traMADol 50 MG TAB PO ×2 (05:59→20:49)
[2020-10-29 06:58] LABS: Abs Immature Grans 0.13 10^3/uL (0.0-0.06); Absolute Basophil Count 0.01 10^3/uL (0.0-0.2); Absolute Eosinophil Count 0.01 10^3/uL (0.0-0.7); Absolute Monocyte Count 0.65 10^3/uL (0.1-0.8); Basophils % 0.1; Eosinophils % 0.1; HCT 25.6 % (40.0-50.0); HGB 8.1 g/dL (13.5-17.5); Immature Grans % 0.9; Lymphocytes % 3.4; MCH 26.9 pg (27.0-33.0); MCHC 31.6 % (32.0-36.0); MPV 10.9 fL (8.0-11.0); Monocytes % 4.4; Neutrophils % 91.1; Nucleated RBC 0 %; Platelet Count 185 10^3/uL (130-400); RBC 3.01 10^6/uL (4.36-5.78); RDW 16.9 % (11.8-14.1); RDW-SD 51.9 fL; WBC 14.68 10^3/uL (4.4-10.8)
[2020-10-29 07:00] LABS: Absolute Neutrophil Count 13.37 10^3/uL (1.2-6.7)
[2020-10-29 07:10] LABS: C-Reactive Protein 2.59 mg/dL (0.0-0.3)
[2020-10-29 07:11] LABS: ALT 53 U/L (16-63); AST 53 U/L (15-37); Albumin 2.2 g/dL (3.4-5.0); Alkaline Phosphatase 129 U/L (46-116); Anion Gap 8.8 mmol/L (3-11); BUN 26 mg/dL (7-18); Bilirubin, Total 0.4 mg/dL (0.2-1.0); CO2 24.2 mmol/L (21.0-32.0); Calcium 8.5 mg/dL (8.5-10.1); Chloride 101 mmol/L (98-107); Glucose 88 mg/dL (74-106); Potassium 4.4 mmol/L (3.5-5.1); Sodium 134 mmol/L (136-145); Total Protein 6.6 g/dL (6.4-8.2)
[2020-10-29 07:37] LABS: Procalcitonin 0.1 ng/mL
[2020-10-29 07:40] VITALS: BP 143/88; PULSE 78; RESP 18; TEMP 36.3; O2SAT 97
[2020-10-29] MEDS: Senna TAB 1 TAB PO ×2 (07:48→20:49)
[2020-10-29] MEDS: Ibuprofen 200 MG TAB 600 MG PO (07:48)
[2020-10-29] MEDS: Aspirin 81 MG CHEW PO (07:48)
[2020-10-29] MEDS: Dexamethasone 4 MG TAB 8 MG PO ×2 (07:48→20:48)
[2020-10-29] MEDS: Metoprolol 25 MG TAB PO ×2 (07:49→20:49)
[2020-10-29] MEDS: Docusate Sodium 100 MG CAP 200 MG PO ×2 (07:49→20:48)
[2020-10-29] MEDS: Normal Saline Flush 10 ML SYR IVP (07:49)
[2020-10-29] MEDS: Multivitamin TAB 1 TAB PO (07:49)
[2020-10-29] MEDS: Omeprazole 20 MG CAPCR 40 MG PO (07:49)
[2020-10-29] MEDS: Insulin Glargine 300 UNITS/3 ML PEN 45 UNITS SC (07:53)
[2020-10-29] MEDS: levETIRAcetam 500 MG TAB PO ×2 (08:52→20:49)
[2020-10-29] MEDS: Insulin Aspart 300 UNITS/3 ML PEN SC ×5 (08:52→17:08)
[2020-10-29 15:43] VITALS: BP 110/68; PULSE 70; RESP 18; TEMP 35.7; O2SAT 100
--- NOTE | 2020-10-29 16:24 | CHAPLAIN ---
Benigno was up in his chair when I visited. I explained my role and offered support. I will continue to visit. Benigno did not seem interested in a longer conversation, but I'll try again.
--- NOTE | 2020-10-29 17:27 | PGE_ITS ---
Date of Service Date of service: 10/29/20 Time of Service: 17:27 Assessment and Plan Assessment and plan (1) Psoas abscess, left: Status: Chronic Assessment and plan: I discussed the patient's case with the patient's infectious disease doctor Dr. Carlos Butt who reviewed the interventional radiologist's report and according to Dr. Butt Benigno has had previous cultu res have grown various staph species all of which he felt have been colonization rather than true infection. He feels that at this point we should discontinue his vancomycin and monitor him for 24 hours and if there is no fever and the patient is feeling okay with no abdominal complaints that he could be discharged home with follow-up and get repeat imaging in a couple of weeks to see if there is a recurrence of his abscess. (2) Thrombus: Status: Ruled-out Assessment and plan: Dr Sandoval consulted and feels that this is tumor/necrotic tissue invasive into ureter. We have d/c'ed anticoagulation given high risk of brain bleeding with known brain mets and an alternative explanation for CT abnormality. (3) Metastatic colorectal cancer: Status: Acute Assessment and plan: Patient is getting brain XRT for brain mets. Palliative care consulted. Patient does not feel he is ready for hospice at this time. Continue decadron. Prophylactic Keppra was started during this admission. (4) Uncontrolled diabetes mellitus: Status: Chronic Assessment and plan: Blood sugars are improving with glucose readings of 169 to low 200s. I have upped his basal insulin to 50 units twice a day but kept his mealtime coverage and his sliding scale the same. Qualifiers: Diabetes mellitus type: type 2 Glycemic state: with hyperglycemia Qualified Code(s): E11.65 - Type 2 diabetes mellitus with hyperglycemia (5) Chronic constipation: Status: Acute Assessment and plan: Continue bowel regimen. Having moderate soft stools. Patient is on docusate twice a day MiraLAX daily and senna twice a day. (6) Hematuria: Status: Acute Assessment and plan: Does have mention of bladder tumor on CT. It is not 100% clear to me if this tumor is inside the bladder, but this is very likely the cause of his hematuria. Urology consulted. Avoid chemical dvt prophylaxis. (7) DVT prophylaxis: Status: Acute Assessment and plan: TEDs/SCDs (8) Discharge planning issues: Status: Acute Assessment and plan: Full code Palliative care consulted. DC vancomycin and monitor him for 24 hours off antibiotics. If no fever spikes and his white cell count remains unchanged or normalizes we will plan for discharge. If he spikes a fever or his white count climbs dramatically that I would reculture his blood and urine and rescan his abdomen and pelvis. Subjective Subjective Interval history since last seen: Patient reports no fever or chills back pain is well controlled. He denies any abdominal pain or nausea or vomiting. He is moving his bowels. Exam Narrative Exam Narrative: Abdomen soft nontender nondistended normal active bowel sounds. Site of his INGRID drain in the left lower quadrant has some dried blood on the gauze but there is no bruising and no induration. Objective Last Vital Signs Temp 35.7 C L 10/29/20 15:43 Pulse 70 10/29/20 15:43 Resp 18 10/29/20 15:43 BP 110/68 10/29/20 15:43 Pulse Ox 100 10/29/20 15:43 Laboratory Results - last 24 hr 10/28/20 10/28/20 10/29/20 20:08 20:08 06:10 WBC RBC Hgb 8.3 L Hct 26.2 L MCV MCH MCHC RDW Plt Count MPV Immature Gran % Neutrophils % Lymphocytes % Monocytes % Eosinophils % Basophils % Nucleated RBC % Absolute Neutrophils Absolute Lymphocytes Absolute Monocytes Absolute Eosinophils Absolute Basophils Sodium Potassium Chloride Carbon Dioxide Anion Gap BUN Creatinine Estimated GFR/1.73 m2 Glucose Calcium Total Bilirubin AST ALT Alkaline Phosphatase C-Reactive Protein 2.59 H Total Protein Albumin Procalcitonin Patient ABO/Rh O Negative Antibody Screen Negative 10/29/20 10/29/20 10/29/20 06:10 06:10 06:10 WBC 14.68 H RBC 3.01 L Hgb 8.1 L Hct 25.6 L MCV 85.0 MCH 26.9 L MCHC 31.6 L RDW 16.9 H Plt Count 185 MPV 10.9 Immature Gran % 0.9 Neutrophils % 91.1 Lymphocytes % 3.4 Monocytes % 4.4 Eosinophils % 0.1 Basophils % 0.1 Nucleated RBC % 0 Absolute Neutrophils 13.37 H Absolute Lymphocytes 0.50 L Absolute Monocytes 0.65 Absolute Eosinophils 0.01 Absolute Basophils 0.01 Sodium 134 L Potassium 4.4 Chloride 101 Carbon Dioxide 24.2 Anion Gap 8.8 BUN 26 H Creatinine 1.0 Estimated GFR/1.73 m2 >= 60.00 Glucose 88 D Calcium 8.5 Total Bilirubin 0.4 AST 53 H ALT 53 Alkaline Phosphatase 129 H C-Reactive Protein Total Protein 6.6 Albumin 2.2 L Procalcitonin 0.1 Patient ABO/Rh Antibody Screen
--- NOTE | 2020-10-29 18:21 | PDOC.CMPRO ---
- If Service Date Differs Date of service: 10/29/20 Time of Service: 18:22 Care Management Progress Note S/O: Benigno was visiting with his when CM attempted to visit. CM did not interrupt their visit, as they only have one hour a day. Per report, MD consulted ID at [facility], who recommended discontinuing the vanco and monitoring him for 24hours. If he has no fever, he will likely be discharged with close follow up. CM will continue to follow. 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 His , Lori, will drive him home via private vehicle when ready. He will have follow up appointments, as recommended. CM will continue to follow and support discharge planning considerations.
[2020-10-29 19:50] VITALS: BP 119/73; PULSE 81; RESP 20; O2SAT 97
[2020-10-29] MEDS: Polyethylene Glycol 3350 17 GM PACKET PO (20:48)
[2020-10-29] MEDS: Insulin Glargine 300 UNITS/3 ML PEN 50 UNITS SC (20:50)
[2020-10-29] MEDS: Atorvastatin 20 MG TAB PO (21:19)
[2020-10-30] MEDS: traMADol 50 MG TAB PO ×4 (00:46→21:44)
[2020-10-30] MEDS: Normal Saline 1,000 ML 100 ML IV (02:59)
[2020-10-30 03:54] VITALS: BP 110/66; PULSE 79; RESP 18; TEMP 36.3; O2SAT 98
[2020-10-30 07:31] LABS: Abs Immature Grans 0.13 10^3/uL (0.0-0.06); Absolute Eosinophil Count 0.01 10^3/uL (0.0-0.7); Absolute Monocyte Count 0.51 10^3/uL (0.1-0.8); Absolute Neutrophil Count 12.01 10^3/uL (1.2-6.7); Basophils % 0.2; Eosinophils % 0.1; HCT 23.9 % (40.0-50.0); HGB 7.7 g/dL (13.5-17.5); Lymphocytes % 2.3; MCH 27.3 pg (27.0-33.0); MCHC 32.2 % (32.0-36.0); MCV 84.8 fL (80-95); MPV 11.4 fL (8.0-11.0); Monocytes % 3.9; Nucleated RBC 0 %; Platelet Count 161 10^3/uL (130-400); RBC 2.82 10^6/uL (4.36-5.78); RDW 17.1 % (11.8-14.1); RDW-SD 52.6 fL; WBC 12.98 10^3/uL (4.4-10.8)
[2020-10-30 07:41] LABS: Absolute Basophil Count 0.03 10^3/uL (0.0-0.2)
[2020-10-30 07:47] VITALS: BP 122/78; PULSE 78; RESP 16; TEMP 36; O2SAT 98
[2020-10-30 07:49] LABS: ALT 52 U/L (16-63); AST 49 U/L (15-37); Alkaline Phosphatase 125 U/L (46-116); Anion Gap 8.6 mmol/L (3-11); BUN 21 mg/dL (7-18); Bilirubin, Total 0.3 mg/dL (0.2-1.0); C-Reactive Protein 2.41 mg/dL (0.0-0.3); CO2 24.4 mmol/L (21.0-32.0); Calcium 8.1 mg/dL (8.5-10.1); Chloride 103 mmol/L (98-107); Glucose 140 mg/dL (74-106); Potassium 4.3 mmol/L (3.5-5.1); Sodium 136 mmol/L (136-145); Total Protein 6.2 g/dL (6.4-8.2)
[2020-10-30] MEDS: Ibuprofen 600 MG TAB PO (08:02)
[2020-10-30] MEDS: Senna TAB 1 TAB PO ×2 (08:02→19:51)
[2020-10-30] MEDS: Aspirin 81 MG CHEW PO (08:02)
[2020-10-30] MEDS: levETIRAcetam 500 MG TAB PO ×2 (08:02→19:51)
[2020-10-30] MEDS: Omeprazole 20 MG CAPCR 40 MG PO (08:02)
[2020-10-30] MEDS: Dexamethasone 4 MG TAB 8 MG PO ×2 (08:03→19:51)
[2020-10-30] MEDS: Metoprolol 25 MG TAB PO ×2 (08:03→19:51)
[2020-10-30] MEDS: Docusate Sodium 100 MG CAP 200 MG PO ×2 (08:03→19:51)
[2020-10-30] MEDS: Multivitamin TAB 1 TAB PO (08:03)
[2020-10-30 08:04] LABS: Anisocytosis 1+; Diff Comment Diff Reviewed; Neutrophils % 92.5; Polychromasia Present
[2020-10-30 08:05] LABS: Basophilic Stippling Present
[2020-10-30] MEDS: Insulin Aspart 300 UNITS/3 ML PEN SC ×5 (08:30→17:33)
[2020-10-30] MEDS: Insulin Glargine 300 UNITS/3 ML PEN 50 UNITS SC ×2 (08:30→19:50)
[2020-10-30 10:28] LABS: HCT 25.1 % (40.0-50.0); HGB 8.2 g/dL (13.5-17.5)
[2020-10-30 16:09] VITALS: BP 118/76; PULSE 90; RESP 18; TEMP 35.5; O2SAT 98
--- NOTE | 2020-10-30 16:15 | CHAPLAIN ---
Fr. Alarcon, from [facility], called to see if he could he visit Benigno. He said that Benigno is stage 4, and his hasn't been able to visit. Our visitors' policy allows Benigno to have visitors (from 1p.m. to 4p.m.) who are 14 days out from there second vaccination. It is different for clergy members visiting patients who are on comfort measures, but Benigno is NOT on comfort measures. When I checked with ASHWIN Rob, Clinical Security Tech, she said Benigno's has been visiting him here.
--- NOTE | 2020-10-30 16:19 | W.PM.PROGNOT ---
Date of Service Date of service: 10/30/20 Time of Service: 16:19 Assessment and Plan Assessment and plan (1) Psoas abscess, left: Status: Chronic Assessment and plan: Vancomycin has been discontinued since yesterday evening. He will be watched overnight and if no fevers, no acute abdominal pain or leukocytosis, then he can be dc home w/ repeat CT in 2 weeks. (2) Thrombus: Status: Ruled-out Assessment and plan: Dr Sandoval consulted and feels that this is tumor/necrotic tissue invasive into ureter. We have d/c'ed anticoagulation given high risk of brain bleeding with known brain mets and an alternative explanation for CT abnormality. (3) Metastatic colorectal cancer: Status: Acute Assessment and plan: Patient is getting brain XRT for brain mets. He is scheduled for XRT tomorrow at 1 pm. I will discharge him home early tomorrow a.m. Palliative care consulted. Patient does not feel he is ready for hospice at this time. Continue decadron. Prophylactic Keppra was started during this admission. (4) Uncontrolled diabetes mellitus: Status: Chronic Assessment and plan: Blood sugars are improving with glucose readings of 140's to low 200s. I have upped his basal insulin to 50 units twice a day but kept his mealtime coverage and his sliding scale the same. Qualifiers: Diabetes mellitus type: type 2 Glycemic state: with hyperglycemia Qualified Code(s): E11.65 - Type 2 diabetes mellitus with hyperglycemia (5) Chronic constipation: Status: Acute Assessment and plan: Continue bowel regimen. Having moderate soft stools. Patient is on docusate twice a day MiraLAX daily and senna twice a day. (6) Hematuria: Status: Acute Assessment and plan: Does have mention of bladder tumor on CT. It is not 100% clear to me if this tumor is inside the bladder, but this is very likely the cause of his hematuria. Urology consulted. Avoid chemical dvt prophylaxis. (7) DVT prophylaxis: Status: Acute Assessment and plan: TEDs/SCDs (8) Discharge planning issues: Status: Acute Assessment and plan: Full code Palliative care consulted. DC vancomycin and monitor him for 24 hours off antibiotics. If no fever spikes and his white cell count remains unchanged or normalizes we will plan for discharge. If he spikes a fever or his white count climbs dramatically that I would reculture his blood and urine and rescan his abdomen and pelvis. Subjective Subjective Interval history since last seen: Patient had some increased back pain this morning but was readily controlled with tramadol. He is currently pain-free. He has no abdominal pain no nausea or vomiting. He is passing his bowel movements and eating. It is just been about 24 hours since he came off of vancomycin. We will watch him overnight if he has no fever spikes overnight he will be discharged home in the morning. Exam Narrative Exam Narrative: Middle-age male sitting up in his chair watching TV. He turned off his TV so that he could call his so she could be in on the conversation. Abdomen: nondistended, nontender, LLQ wound from prior peritoneal catheter is not draining nor bleeding. some bruise. nontender Objective Last Vital Signs Temp 35.5 C L 10/30/20 16:09 Pulse 90 10/30/20 16:09 Resp 18 10/30/20 16:09 BP 118/76 10/30/20 16:09 Pulse Ox 98 10/30/20 16:09 Laboratory Results - last 24 hr 10/30/20 10/30/20 10/30/20 06:20 06:20 10:21 WBC 12.98 H RBC 2.82 L Hgb 7.7 L 8.2 L Hct 23.9 L 25.1 L MCV 84.8 MCH 27.3 MCHC 32.2 RDW 17.1 H Plt Count 161 MPV 11.4 H Immature Gran % 1.0 Neutrophils % 92.5 Lymphocytes % 2.3 Monocytes % 3.9 Eosinophils % 0.1 Basophils % 0.2 Nucleated RBC % 0 Absolute Neutrophils 12.01 H Absolute Lymphocytes 0.30 L Absolute Monocytes 0.51 Absolute Eosinophils 0.01 Absolute Basophils 0.03 RBC Morphology See below Polychromasia Present Basophilic Stippling Present Anisocytosis 1+ Sodium 136 Potassium 4.3 Chloride 103 Carbon Dioxide 24.4 Anion Gap 8.6 BUN 21 H Creatinine 1.0 Estimated GFR/1.73 m2 >= 60.00 Glucose 140 H Calcium 8.1 L Total Bilirubin 0.3 AST 49 H ALT 52 Alkaline Phosphatase 125 H C-Reactive Protein 2.41 H Total Protein 6.2 L Albumin 2.0 L
--- NOTE | 2020-10-30 16:47 | CHAPLAIN ---
I spoke with Benigno's home care chaplain, Gabriela Nunez and she said it's Benigno's mom who has been visiting, not Benigno's . I called Fr. Alarcon back and left a message correcting the earlier information I'd given him.
--- NOTE | 2020-10-30 17:17 | PDOC.CMPRO ---
- If Service Date Differs Date of service: 10/30/20 Time of Service: 17:17 Care Management Progress Note S/O: Benigon was sitting up in his chair when CM met with him. He reported that he visited with his mother yesterday, and it is nice to be able to have a visitor. He stated that he has been kept busy, with his down and back on Wednesday and several consults this admission. He is looking forward to being ready for discharge and returning home. Per report, MD would like to monitor him overnight, and if he remains stable he may be ready for discharge tomorrow. CM will continue to follow. 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 His , Lori, will drive him home via private vehicle when ready. He will have follow up appointments, as recommended. CM will continue to follow and support discharge planning considerations.
[2020-10-30] MEDS: Acetaminophen 325 MG TAB 650 MG PO (19:50)
[2020-10-30] MEDS: Atorvastatin 20 MG TAB PO (21:45)
[2020-10-31 03:35] VITALS: BP 137/86; PULSE 86; RESP 20; TEMP 36.7; O2SAT 98
[2020-10-31] MEDS: traMADol 50 MG TAB PO (03:54)
[2020-10-31] MEDS: Acetaminophen 325 MG TAB 650 MG PO (03:54)
[2020-10-31 07:09] LABS: Abs Immature Grans 0.12 10^3/uL (0.0-0.06); HGB 7.7 g/dL (13.5-17.5); Lymphocytes % 3.1; MCH 27.2 pg (27.0-33.0); MCHC 32.1 % (32.0-36.0); MCV 84.8 fL (80-95); Monocytes % 3.7; Neutrophils % 92.2; Nucleated RBC 0 %; Platelet Count 146 10^3/uL (130-400); RBC 2.83 10^6/uL (4.36-5.78); RDW 16.9 % (11.8-14.1); RDW-SD 51.9 fL; WBC 11.47 10^3/uL (4.4-10.8)
[2020-10-31 07:13] LABS: Absolute Lymphocyte Count 0.36 10^3/uL (1.2-3.4); Absolute Monocyte Count 0.42 10^3/uL (0.1-0.8); Absolute Neutrophil Count 10.58 10^3/uL (1.2-6.7)
[2020-10-31 07:18] LABS: Anion Gap 7.3 mmol/L (3-11); BUN 24 mg/dL (7-18); CO2 25.7 mmol/L (21.0-32.0); CREATININE 1.1 mg/dL (0.70-1.30); Calcium 8.4 mg/dL (8.5-10.1); Chloride 102 mmol/L (98-107); Glucose 277 mg/dL (74-106); Potassium 4.3 mmol/L (3.5-5.1); Sodium 135 mmol/L (136-145)
[2020-10-31 07:56] VITALS: BP 137/82; PULSE 83; RESP 17; TEMP 36.5; O2SAT 100
[2020-10-31] MEDS: Omeprazole 20 MG CAPCR 40 MG PO (08:34)
[2020-10-31] MEDS: Aspirin 81 MG CHEW PO (08:34)
[2020-10-31] MEDS: Metoprolol 25 MG TAB PO (08:34)
[2020-10-31] MEDS: Dexamethasone 4 MG TAB 8 MG PO (08:34)
[2020-10-31] MEDS: levETIRAcetam 500 MG TAB PO (08:34)
[2020-10-31] MEDS: Senna TAB 1 TAB PO (08:34)
[2020-10-31] MEDS: Docusate Sodium 100 MG CAP 200 MG PO (08:34)
[2020-10-31] MEDS: Ibuprofen 600 MG TAB PO (08:34)
[2020-10-31] MEDS: Multivitamin TAB 1 TAB PO (08:34)
[2020-10-31] MEDS: Insulin Glargine 300 UNITS/3 ML PEN 50 UNITS SC (08:35)
[2020-10-31] MEDS: Insulin Aspart 300 UNITS/3 ML PEN SC ×4 (08:36→12:00)
--- NOTE | 2020-10-31 11:20 | DSE_ITS ---
Date of service: 10/31/20 DS: Diagnosis Discharge Diagnosis (1) Psoas abscess, left: Status: Chronic Asessment and Plan: INGRID drain was removed by IR radiology at [facility] on 11/27/2020. A repeat CT scan of his abdomen and pelvis will be performed next week to determine if the psoas fluid collection is worsening. If the patient's repeat CBC shows his Hb to be lower or he has severe abdominal/pelvic pain or severe back pain then he should return to the hospital immediately for re- evaluation w/ emergent CT. Note that [facility] IR attempted to aspirate fluid from the psoas after removal of the INGRID drain and inadvertently hit the left iliac artery. The patient did not appear to have any sustained bleeding and has been stable since his return from [facility] on 10/28. (2) Thrombus: Status: Ruled-out (3) Metastatic colorectal cancer: Status: Chronic Asessment and Plan: patient will follow up w/ Dr. Saldivar to discuss his prognosis and determine what his options are at this point given his metastatic disease (4) Uncontrolled diabetes mellitus: Status: Chronic Asessment and Plan: Patient will resume his home dose of insulin (5) Chronic constipation: Status: Chronic Asessment and Plan: patient was having normal soft formed BM and is being maintained on his bowel regimen as at home w/ stool softeners and laxatives prn (6) Hematuria: Status: Acute Asessment and Plan: This was evaluated by Dr. Sandoval. CT of abdomen/pelvis suggested bladder involvement from his adenocarcinoma. Patient is to follow up w/ Dr. Sandoval , [id number]. (7) DVT prophylaxis: Status: Resolved Asessment and Plan: patient initially was placed on enoxaparin prophylaxis but this was discontinued the next day after admission d/t his hematuria, high risk for bleeding. He was given SCD and TEDS (8) Discharge planning issues: Status: Resolved Discharge Plan Disposition Patient Disposition: HOME Condition: Improving Discharge Details Reason For Visit: GONADAL VEIN OCCLUSION, PSOAS ABSCESS Admit Date/Time: 10/23/20 21:42 Admit Provider: Dhaval Dickerson Attending Provider: Dhaval Dickerson Primary Care Provider: Chetan Jaquez Hospital Course Hospital Course: 55-year-old white male with a history of metastatic colon cancer, psoas muscle abscess, diabetes mellitus, hypertension, chronic pain related metastatic cancer. Patient presented to the ER at [facility] w/ c/o of nausea, vomiting, unable to keep any meds down and LLQ abdominal pain w/ radiation into the left groin. Patient had recently been evaluated in [facility] ED on 10/17 and sent to [facility] d/t INGRID drain obstructed. He had his INGRID drain changed and he was discharged home the day prior to this admission. Upon arrival to the ED he was not febrile and he denied any fever or rigors. Labs revealed WBC 16,000, Hb 10 gm; BUN 33, creatinine 1.4. Normal lipase, elevated lactate 4.3., minimal elevation of transaminases (AST 55 and alkaline phos 150 w/ normal bilirubin). CT scan of the abdomen and pelvis with contrast was performed and reportedly had a stable appearance compared to prior CT scan from October 19, 2020. He had evidence of previous left nephrectomy and prominent lymphadenopathy. There appeared to be either a clot within the left gonadal vein or dilated ureteral remnant extending down to an abnormal ureterovesical junction left side where a mass in the urinary bladder is seen. 7 mm cystic structure is seen in the anterior body of the pancreas. Right kidney showed no evidence of solid mass. Is a small loculated cortical cyst. No hydronephrosis was seen. Metastatic masses seen in the left chest wall. There is a stable appearance of his left psoas mass/abscess with a pigtail drainage catheter. Patient was started on Zosyn and vancomycin and cultures of his abscess drainage were obtained. Palliative care consult and urology consult were obtained. His diabetes was treated with basal bolus insulin. Dr. Sandoval saw the patient for urology and felt that this gonadal vein thrombus represents tumor and/or necrotic tissue that is invasive into the ureter. Patient had been on DVT prophylactic anticoagulation which was discontinued. Palliative care was consulted and after discussion with Benigno and his it was decided that the patient is not prepared to enter into hospice at this time. Dr. Braun, hospitalist, who managed the patient prior to my involvement continued his home dose of Decadron but because of concern of potential brain mets and risk for seizures put him on prophylactic Keppra. Patient developed constipation which was treated with an intensive bowel regimen of laxatives and stool softeners. Patient was noted to have microscopic hematuria which very well may been due to tumor invasion in the bladder. His DVT prophylaxis was managed with CRISTINA sandy and SCDs. I assumed his care on October 26, 2020. I continued his vancomycin and Zosyn until the culture came back showing nonaureus staph species which eventually speciated out to be Staph epidermidis. On October 28, 2020 the patient went down to [facility] to the interventional radiology service to assess his left psoas drain as it seemed that we were getting very minimal drainage from this. They remove the drain and then reattempted under cone beam CT scan and fluoroscopy to perform guided needle placement to aspirate some fluid from a collection within the left psoas unfortunately the inadvertently hit the left iliac artery. They recognize it immediately to the pulsatile blood and withdrew the needle and stylette and after 6 minutes they saw no further blood return. They made no further attempts to aspirate any further fluid from his left psoas. On October 29, 2020 I discussed his case with Dr. Carlos Butt, infectious disease attending who knows Mr. Yap well. Dr. Butt indicated to me that at various times Benigno has grown out nonaureus staph species and Dr. Butt feels that this is colonization from the tumor and not due to an actual infection. And although the patient has a persistently elevated white count this can be accounted for by his chronic Decadron use. As the patient was afebrile Dr. Butt recommend discontinuing all antibiotics and monitor the patient for 24 hours. His last dose of vancomycin was in the afternoon on October 29, 2020 he was monitored until the morning of October 31, 2020. As Benigno had no fevers and no change in his white blood cell count and no abdominal pain or pelvic pain it was felt that he could be discharged home. Patient's baseline anemia with a hemoglobin around 9 to 10 g drifted slowly down to around 8 g. After his procedure at [facility] his H&H was watched carefully and it remained between 7.7 and 8.2 g. Prior to the procedure his hemoglobin had been around 8.[address] scan was not performed as he was having no symptoms of abdominal or pelvic pain is H&H was not changing. Patient will get a follow-up CBC next week and a repeat CT scan of his abdomen and pelvis to see if there is a new fluid collection now that the INGRID drain has been removed. Home Meds and New Rx's Prescriptions: New levetiracetam [Keppra] 500 mg Tablet 500 mg PO BID Qty: 60 RF: 0 Continued insulin aspart U-100 [Novolog U-100 Insulin aspart] 100 unit/mL solution 1 sliding sc SC TID PRNRF: 0 atorvastatin [Lipitor] 20 MG tablet 20 mg PO HS RF: 0 glipizide 10 MG tablet extended release 24hr 10 mg PO BID PRNRF: 0 aspirin [Aspirin Low-Strength] 81 MG tablet,chewable 81 mg PO DAILY RF: 0 metformin 1,000 MG tablet extended release 24hr 500 mg PO DAILY PRNRF: 0 metformin 500 MG tablet 1,500 mg PO HS PRNRF: 0 multivitamin 1 EACH capsule 1 cap PO DAILY RF: 0 Lantus Solostar U-100 Insulin 100 unit/mL (3 mL) insulin pen 40 unit subcut BID PRNRF: 0 acetaminophen [Tylenol] 325 mg Tablet 1,000 mg PO PRN PRNRF: 0 ibuprofen 200 mg Tablet 600 mg PO DAILY RF: 0 omeprazole 40 mg capsule,delayed release(DR/EC) 40 mg PO DAILY RF: 0 dexamethasone 4 mg tablet 8 mg PO BID RF: 0 metoprolol tartrate 25 mg Tablet 25 mg PO BID Qty: 60 RF: 0 tramadol 50 mg tablet 50 mg PO TID PRN PRNRF: 0 docusate sodium 100 mg Capsule 200 mg PO BID RF: 0 Discharge Instructions Instructions: Anemia (DC) Additional Instructions: Return the hospital if you have any fever, shaking chills, intractable abdominal or back pain. Get a repeat CBC on Wednesday and a follow-up CT scan of the abdomen pelvis next week. Stand Alone Forms: Nursing Discharge Form Referrals: Liam Sandoval MD [ [facility] STAFF PHYSICIAN] - 12/03/20 11:00 am Chetan Jaquez PA [Primary Care Provider] - 11/12/20 10:00 am Ramana Saldivar MD [ CONSULTING PHYSICIAN] - Activity:: Activity as Tolerated Equipment/Supplies:: No Equipment Needed Diet:: Normal Diet Discharge Orders Discharge Orders: Discharge Order (Routine); Ordered 10/31/20 Ordered By: Jaime Zuleta Other Ambulatory Orders: CT abdomen & pelvis w (Routine) Timeframe: 1 Week Facility: [facility] - Location: DIAGNOSTIC IMAGING Ordered By: Jaime Zuleta Complete Blood Count w/Diff (Routine) Timeframe: 1 Day Facility: [facility] - Location: Laboratory Outpatient Ordered By: Jaime Zuleta DS: Summary Time Spent with Patient providing and/or coordinating discharge services: Less than 30 minutes Status at Discharge Functional status at discharge: uses cane/walker Overall status at discharge: patient is progressing back to baseline Mental Status: mental status grossly normal Speech and Movement: speech and movement normal Mood: congruent mood Affect: normal affect Exam Narrative Exam Narrative: Middle age white male sitting up in his chair watching TV. He is alert and oriented x 3 Lungs are clear Heart RRR Abdomen: soft, nontender; LLQ is nontender and not distended. Area of prior drainage catheter is now closed w/ minimal bruise and no drainage. Psych Mental Status: mental status grossly normal Speech and Movement: speech and movement normal Mood: congruent mood Affect: normal affect DS: Data Vitals/I&O Vitals and I&O: Vital Signs Temperature 36.5 C 10/31/20 07:56 Temperature Source Temporal Artery Scan 10/31/20 07:56 Pulse 83 10/31/20 07:56 Pulse Rhythm Regular 10/31/20 06:06 Respiratory Rate 17 10/31/20 07:56 Respiratory Effort Non-Labored 10/31/20 06:06 Respiratory Depth Normal 10/31/20 06:06 Respiratory Pattern Normal 10/31/20 06:06 Blood Pressure 137/82 10/31/20 07:56 Blood Pressure Position Sitting 10/23/20 16:08 Pulse Oximetry 100 10/31/20 07:56 Oxygen Delivery Method Room Air 10/31/20 07:56 Oxygen Flow Rate 0 10/31/20 07:56 Fraction of Inspired Oxygen (FIO2) 10/28/20 10:37 Pain Level 2 10/31/20 08:34 Comment 10/28/20 00:45 Intake & Output 10/30/20 10/30/20 10/31/20 11:59 23:59 11:59 Intake Total 1936.667 / 2656.667 720 / 2656.667 430 / 430 Output Total 1900 / 1900 Balance 36.667 / 756.667 720 / 756.667 430 / 430 Intake: IV 1696.667 / 1696.667 Oral 240 / 960 720 / 960 400 / 400 Output: Urine 1900 / 1900 Other: Urine Color Yellow Yellow Urine Appearance Clear Clear Clear Urine Odor Normal Normal Stool Size Moderate Moderate Stool Characteristics Soft Liquid Voiding Methods Urinal Toilet Toilet Data Completed and Pending Labs on day of discharge: Labs from last 24 hours 10/31/20 10/31/20 10/31/20 06:30 06:30 06:30 WBC 11.47 H RBC 2.83 L Hgb 7.7 L Hct 24.0 L MCV 84.8 MCH 27.2 MCHC 32.1 RDW 16.9 H Plt Count 146 MPV 11.0 Immature Gran % 1.0 Neutrophils % 92.2 Lymphocytes % 3.1 Monocytes % 3.7 Eosinophils % 0.0 Basophils % 0.0 Nucleated RBC % 0 Absolute Neutrophils 10.58 H Absolute Lymphocytes 0.36 L Absolute Monocytes 0.42 Absolute Eosinophils 0.00 Absolute Basophils 0.00 Sodium 135 L Potassium 4.3 Chloride 102 Carbon Dioxide 25.7 Anion Gap 7.3 BUN 24 H Creatinine 1.1 Estimated GFR/1.73 m2 >= 60.00 Glucose 277 H D Calcium 8.4 L C-Reactive Protein 1.40 H PFSH Medical History (Updated 10/31/20 @ 12:04 by Jaime Zuleta) Alternative medicine Anemia, chronic disease Cancer related pain Colon cancer metastasized to intra-abdominal lymph node Colon cancer metastasized to intrathoracic lymph node PET scan October 2019 Diabetes mellitus Discharge planning issues Essential hypertension Fatigue Fatty liver Femoral nerve injury Fistula of ureter Fracture of distal fibula Full code status he is aware that pts with metastatic cancer have low survival rate Goals of care, counseling/discussion Hypercholesterolemia Injury due to procedure Late effect of complications of procedure Medical cannabis use filled out paperwork 11/14/19 for him to receive medical cannabis 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 Mediport placement (10/21/16) Nephrostomy status Partial resection of colon (~2011) SIGMOID S/P ureteral stent placement Family History Father Heart disease Dementia AAA (abdominal aortic aneurysm) Mother No problems noted. Brother No problems noted. Son No problems noted. 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 Pets and animals: No Do you think of yourself as: straight/heterosexual Current gender identity: male What is your relationship status?: How often do you talk on the phone with friends or family?: once per week How often do you get together with friends or relatives?: once per week Panel score (0-1 are the most socially isolated patients): 1 What type of physical activity do you participate in: assisted ambulation and irregular exercise Duration: 15-30 minutes/day Frequency: 1-2 times per week Special benoit needs: No Agree to transfusion: Yes Seatbelt use: always Drive intox or ride w/intox tractor driver: No Working smoke detector in home: Yes Carbon monox detector in home: Yes Firearms in home: No Do you feel safe at home: Yes Do you feel safe in your relationship?: Yes Additional Social history: has been struggling with colon cancer since 2011. 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 In 2019, Had MOHAN procedure that caused femoral nerve injury. Disabled since. Now walks with cane. Getting folfori for recurrent colon ca now. Tolerating it.
[2020-10-31] MEDS: Normal Saline Flush 10 ML SYR IVP (12:18)
[2020-10-31] MEDS: Heparin 500 UNITS/5 ML SYRINGE IV (12:18)
--- NOTE | 2020-10-31 13:36 | PDOC.CMDIS ---
- If Service Date Differs Date of service: 10/31/20 Time of Service: 13:36 LACE Index Scoring Tool - Questions: Length of Stay (in days): 7 - 13 Acuity (Admit via E.D.?): Yes Comorbidities: Metastatic Solid Tumor E.D. Visits: 6 - Answers: Total Score: 17 Risk of Readmission: High Risk Care Management Discharge Reason for Hospitalization: Gonadal Vein Occlusion, Psoas abscess Discharge Plan: Benigno will return home with no additional services. His , Lori, will drive him home via private vehicle when ready. He will have follow up appointments, as recommended. Patient/Family Education Needs: Review discharge instructions, discussion of self care needs including Ask Me Three
== END 2020-10-31 12:39 | disposition home or self-care (01) | DRG 558 ==
LOC: ER 22:11 → MS 23:15
PROVIDERS: Internal Medicine; Admitting Provider Family Medicine; Emergency Provider Physician Assistant; PCP Physician Assistant Medical; Visit Provider Family Medicine
DX: M60.08 Infective myositis, other site (principal); C79.19 Secondary malignant neoplasm of other urinary organs; C19 Malignant neoplasm of rectosigmoid junction; C77.8 Secondary and unspecified malignant neoplasm of lymph nodes of multiple regions; C79.31 Secondary malignant neoplasm of brain; C79.51 Secondary malignant neoplasm of bone; C79.00 Secondary malignant neoplasm of unspecified kidney and renal pelvis; E86.0 Dehydration; E11.65 Type 2 diabetes mellitus with hyperglycemia; I10 Essential (primary) hypertension; G89.3 Neoplasm related pain (acute) (chronic); Z20.822 Contact with and (suspected) exposure to COVID-19; R53.83 Other fatigue; K76.0 Fatty (change of) liver, not elsewhere classified; E78.00 Pure hypercholesterolemia, unspecified; D47.2 Monoclonal gammopathy; G47.30 Sleep apnea, unspecified; R63.4 Abnormal weight loss; Z68.26 Body mass index [BMI] 26.0-26.9, adult; Z90.5 Acquired absence of kidney; K59.09 Other constipation; R31.9 Hematuria, unspecified; B95.7 Other staphylococcus as the cause of diseases classified elsewhere; Z98.0 Intestinal bypass and anastomosis status; Z93.6 Other artificial openings of urinary tract status; N28.89 Other specified disorders of kidney and ureter
CPT/HCPCS: 32554; 36415; 80048; 80053; 83690; 84145; 86850; 86900; 86901; 87040; 87077; 87635; 96361; 96365; 96368; 96375; 96376; 99223; 99231; 99232; 99233; 99238; 99253; 99285; 74177; 80202; 81003; 81015; 83605; 83735; 85014; 85018; 85025; 86140; 87070; 87086; 87186; 87205; J1650; J2405; J2543; J3490; J8540

== ENCOUNTER 2020-11-01 12:00 | Outpatient (RCR) | payer BC, SELFPAY ==
[2020-10-11] MEDS: Normal Saline Flush 10 ML SYR IVP (09:04)
[2020-10-11] MEDS: Heparin 500 UNITS/5 ML SYRINGE IV (09:04)
[2020-10-11 09:05] LABS: Abs Immature Grans 0.05 10^3/uL (0.0-0.06); Absolute Basophil Count 0.05 10^3/uL (0.0-0.2); Absolute Eosinophil Count 0.31 10^3/uL (0.0-0.7); Absolute Lymphocyte Count 1.11 10^3/uL (1.2-3.4); Absolute Monocyte Count 0.76 10^3/uL (0.1-0.8); Absolute Neutrophil Count 8.06 10^3/uL (1.2-6.7); Basophils % 0.5; HCT 28.4 % (40.0-50.0); HGB 8.9 g/dL (13.5-17.5); Immature Grans % 0.5; Lymphocytes % 10.7; MCH 26.8 pg (27.0-33.0); MCHC 31.3 % (32.0-36.0); MCV 85.5 fL (80-95); MPV 9.3 fL (8.0-11.0); Monocytes % 7.4; Neutrophils % 77.9; Nucleated RBC 0 %; Platelet Count 297 10^3/uL (130-400); RBC 3.32 10^6/uL (4.36-5.78); RDW 14.8 % (11.8-14.1); RDW-SD 46.3 fL; WBC 10.34 10^3/uL (4.4-10.8)
[2020-10-11 09:26] LABS: ALT 19 U/L (16-63); AST 38 U/L (15-37); Albumin 2.5 g/dL (3.4-5.0); Alkaline Phosphatase 125 U/L (46-116); Anion Gap 6.9 mmol/L (3-11); BUN 18 mg/dL (7-18); Bilirubin, Total 0.4 mg/dL (0.2-1.0); CO2 26.1 mmol/L (21.0-32.0); CREATININE 1.6 mg/dL (0.70-1.30); Calcium 8.5 mg/dL (8.5-10.1); Chloride 99 mmol/L (98-107); Estimated GFR 45.44 (mL/min/1.73m2); Glucose 171 mg/dL (74-106); Potassium 4.6 mmol/L (3.5-5.1); Sodium 132 mmol/L (136-145); TSH 3.16 uIU/mL (0.36-3.74)
[2020-10-11 17:34] LABS: CEA 3.1 ng/mL (See Note)
[2020-11-01] MEDS: Normal Saline Flush 10 ML SYR IVP (13:21)
[2020-11-01] MEDS: Heparin 500 UNITS/5 ML SYRINGE IV (13:21)
[2020-11-01 13:48] LABS: Abs Immature Grans 0.23 10^3/uL (0.0-0.06); Absolute Eosinophil Count 0.09 10^3/uL (0.0-0.7); Absolute Lymphocyte Count 0.82 10^3/uL (1.2-3.4); Basophils % 0.1; Eosinophils % 0.6; HGB 8.5 g/dL (13.5-17.5); Immature Grans % 1.5; Lymphocytes % 5.2; MCH 27.2 pg (27.0-33.0); MCHC 31.5 % (32.0-36.0); MCV 86.3 fL (80-95); MPV 10.4 fL (8.0-11.0); Neutrophils % 87.6; Nucleated RBC 0 %; Platelet Count 194 10^3/uL (130-400); RBC 3.13 10^6/uL (4.36-5.78); RDW 17.2 % (11.8-14.1); RDW-SD 53.5 fL; WBC 15.69 10^3/uL (4.4-10.8)
[2020-11-01 13:53] LABS: Absolute Basophil Count 0.02 10^3/uL (0.0-0.2); Absolute Monocyte Count 0.78 10^3/uL (0.1-0.8); Absolute Neutrophil Count 13.74 10^3/uL (1.2-6.7)
[2020-11-01 14:13] LABS: Anisocytosis 1+; Basophilic Stippling Present; Diff Comment Diff Reviewed; Polychromasia Present
== END 2020-11-08 23:59 | disposition home or self-care (01) ==
LOC: INF 12:00
PROVIDERS: Internal Medicine; PCP Physician Assistant Medical; Visit Provider Internal Medicine Hematology & Oncology
DX: C18.9 Malignant neoplasm of colon, unspecified (principal); C79.89 Secondary malignant neoplasm of other specified sites; Z45.2 Encounter for adjustment and management of vascular access device; R53.83 Other fatigue
CPT/HCPCS: 36591; 80053; 82378; 84443; 85025

== ENCOUNTER 2020-11-04 18:38 | Observation (INO) | payer BC, SELFPAY ==
--- NOTE | 2020-11-04 18:40 | W.ED.GENAD ---
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 Patient and state that over the last 2 days he has had lower than normal blood sugars and because of that did not take any of his diabetes medications. states that the last medication he did take was glipizide last night. He did not take his Metformin or insulin. Throughout the day today they have been battling persistent low blood sugar levels ranging from the 40s to the 70s in spite of aggressive oral glucose intake. Patient was brought in for further assessment after symptoms failed to resolve on its own. Patient denies any new chest pain, cough, urinary complaint, shortness of breath, fever, chills or abdominal pain that is new. No other complaints at this time. He denies taking any extra or additional diabetes medications Exam demonstrates no significant abnormalities acutely. Initial heart rate on the patient's arrival was in the 130s, this did improve intermittently with fluids. Initial blood sugar here was in the 40s, patient was given an amp of D50, bolus of D5, and food crackers sandwich and juice. Patient's blood pressure did peak to around 100, then went back down to 70 shortly thereafter within 2 hours of the initial presentation. Work-up shows a white count of 14, mild left shift, electrolytes normal, lipase unremarkable, calcium slightly low at 8.3, urinalysis shows no nitrites, no leukoesterase, but does show greater than 50 WBCs and RBCs. At this time with the patient's persistently low blood sugar and I do feel that admission and continued observation is indicated. Patient will be admitted under Dr. Yan/Dejon for continued observation. We did discuss potential treatment of his atypical urinary findings versus watchful waiting and culturing at this time through shared decision making between Dr. Yan and myself we will treat with 2 g of Rocephin. We will continue to monitor closely and admit. I have extensively reviewed the treatment plan with the patient. I have addressed all patient concerns at this time. I have also discussed the plan with the admitting physician and they agree with the current assessment and plan and have agreed to assume responsibility for the patient. All parties demonstrate verbal understanding and agreement with our assessment and plan at this time. The documentation in this chart was dictated using InMyShow dictation software. Please excuse any dictation errors. HPI General Date/Time Provider Initiated Documentation: 11/04/20 18:39. 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 Patient and state that over the last 2 days he has had lower than normal blood sugars and because of that did not take any of his diabetes medications. states that the last medication he did take was glipizide last night. He did not take his Metformin or insulin. Throughout the day today they have been battling persistent low blood sugar levels ranging from the 40s to the 70s in spite of aggressive oral glucose intake. Patient was brought in for further assessment after symptoms failed to resolve on its own. Patient denies any new chest pain, cough, urinary complaint, shortness of breath, fever, chills or abdominal pain that is new. No other complaints at this time. He denies taking any extra or additional diabetes medications Related Data Home Medications Medication Instructions Recorded Confirmed aspirin [Aspirin Low-Strength] 81 mg PO DAILY tab-cap 10/27/12 11/04/20 atorvastatin [Lipitor] 20 mg PO HS tab-cap 10/27/12 11/04/20 glipizide 10 mg PO BID PRN tab-cap 10/27/12 11/04/20 metformin 500 mg PO DAILY PRN tab-cap 10/27/12 11/04/20 multivitamin 1 cap PO DAILY 01/05/14 11/04/20 insulin glargine 100 unit/mL (3 40 unit SUBCUT BID PRN ml 11/08/18 11/04/20 mL) subcutaneous pen metoprolol tartrate 25 mg PO BID #60 tab 07/21/19 11/04/20 insulin aspart U-100 100 unit/mL 1 sliding sc SC TID PRN ml 08/18/19 11/04/20 subcutaneous solution acetaminophen [Tylenol] 1,000 mg PO PRN PRN 08/31/20 11/04/20 ibuprofen 600 mg PO DAILY 08/31/20 11/04/20 docusate sodium 200 mg PO BID 10/16/20 11/04/20 tramadol 50 mg PO TID PRN PRN 10/16/20 11/04/20 dexamethasone 8 mg PO BID 10/19/20 11/04/20 omeprazole 40 mg PO DAILY 10/19/20 11/04/20 Previous Rx's Medication Instructions Recorded metoprolol tartrate 25 mg PO BID #60 tab 07/21/19 Allergies Allergy/AdvReac Type Severity Reaction Status Date / Time No Known Allergies Allergy Verified 10/23/20 16:12 General SCOOTER: 3 Review of Systems All systems reviewed & are unremarkable except as noted in HPI and below PFSH Medical History Alternative medicine Anemia, chronic disease Cancer related pain Colon cancer metastasized to intra-abdominal lymph node Colon cancer metastasized to intrathoracic lymph node PET scan October 2019 Diabetes mellitus Discharge planning issues Essential hypertension Fatigue Fatty liver Femoral nerve injury Fistula of ureter Fracture of distal fibula Full code status he is aware that pts with metastatic cancer have low survival rate Goals of care, counseling/discussion Hypercholesterolemia Injury due to procedure Late effect of complications of procedure Medical cannabis use filled out paperwork 11/14/19 for him to receive medical cannabis 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 Mediport placement (10/21/16) Nephrostomy status Partial resection of colon (~2011) SIGMOID S/P ureteral stent placement Family History Father Heart disease Dementia AAA (abdominal aortic aneurysm) Mother No problems noted. Brother No problems noted. Son No problems noted. 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 Pets and animals: No Do you think of yourself as: straight/heterosexual Current gender identity: male What is your relationship status?: How often do you talk on the phone with friends or family?: once per week How often do you get together with friends or relatives?: once per week Panel score (0-1 are the most socially isolated patients): 1 What type of physical activity do you participate in: assisted ambulation and irregular exercise Duration: 15-30 minutes/day Frequency: 1-2 times per week Special benoit needs: No Agree to transfusion: Yes Seatbelt use: always Drive intox or ride w/intox 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 In 2019, Had MOHAN procedure that caused femoral nerve injury. Disabled since. Now walks with cane. Getting folfori for recurrent colon ca now. Tolerating it. Exam Narrative Exam Narrative: 1.Const: Well-nourished, Well-developed, appearing stated age 2.Eyes: PERRL, no conjunctival injection, and symmetrical lids. 3.ENT: Atraumatic external nose and ears. Moist MM. Neck: Symmetric, trachea midline, No thyromegaly. 4.CVS: +S1/S2, No murmurs or gallops. Peripheral pulses 2+ and equal in all extremities. Brisk capillary refill in all extremities. 5.RESP: Unlabored respiratory effort. Clear to auscultation bilaterally. No wheezes rales or rhonchi 6.GI: Soft, Nontender/Nondistended, No hepatosplenomegaly. No guarding or rebound. 7.MSK: Normocephalic/Atraumatic, Extremities w/o deformity or ttp No cyanosis or clubbing, Normal movement of all extremities 8.Skin: Warm, Dry. No rashes or lesions. 9.Neuro: garnisher II-XII grossly intact. Sensation grossly intact, no focal neurologic deficits. 10.Psych: (AAO) x3. Appropriate mood and affect
[2020-11-04] MEDS: Dextrose 50%-Water 25 GM/50 ML SYR (18:55)
[2020-11-04 18:58] VITALS: BP 106/74; PULSE 136; RESP 18; TEMP 36.5; O2SAT 99
[2020-11-04 19:04] LABS: Abs Immature Grans 0.12 10^3/uL (0.0-0.06); Absolute Basophil Count 0.01 10^3/uL (0.0-0.2); Absolute Eosinophil Count 0.15 10^3/uL (0.0-0.7); Absolute Neutrophil Count 13.09 10^3/uL (1.2-6.7); Basophils % 0.1; HCT 26.6 % (40.0-50.0); HGB 8.2 g/dL (13.5-17.5); Immature Grans % 0.8; Lymphocytes % 4.8; MCHC 30.8 % (32.0-36.0); MCV 87.5 fL (80-95); MPV 9.5 fL (8.0-11.0); Monocytes % 4.1; Neutrophils % 89.2; Nucleated RBC 0 %; Platelet Count 163 10^3/uL (130-400); RBC 3.04 10^6/uL (4.36-5.78); RDW 16.9 % (11.8-14.1); RDW-SD 53.6 fL; WBC 14.68 10^3/uL (4.4-10.8)
[2020-11-04 19:17] LABS: ALT 57 U/L (16-63); AST 62 U/L (15-37); Albumin 1.9 g/dL (3.4-5.0); Alkaline Phosphatase 143 U/L (46-116); Anion Gap 9.2 mmol/L (3-11); BUN 17 mg/dL (7-18); Bilirubin, Total 0.4 mg/dL (0.2-1.0); CO2 27.8 mmol/L (21.0-32.0); Calcium 8.3 mg/dL (8.5-10.1); Chloride 99 mmol/L (98-107); Lipase 144 U/L (73-393); Potassium 3.6 mmol/L (3.5-5.1); Sodium 136 mmol/L (136-145); Total Protein 6.2 g/dL (6.4-8.2)
[2020-11-04 19:19] LABS: Glucose 44 mg/dL (74-106)
[2020-11-04 20:02] LABS: Bilirubin Small (Negative); Blood Large (Negative); Clarity Cloudy (Clear); Glucose 100 mg/dL (Negative); Ketones Trace mg/dL (Negative); Leukocyte Esterase Negative (Negative); Nitrite Negative (Negative); Specific Gravity >= 1.030 (1.005-1.025); Urobilinogen 0.2 EU/dL (Up TO 0.2)
[2020-11-04 20:16] LABS: Bacteria Negative HPF (Negative); C & S Indicated? Yes; Casts 0-2 Hyaline LPF (Negative); Crystals Negative HPF (Negative); Epithelial Cells Few HPF (Negative); Mucus Negative (Negative); Other Cells Negative (Negative); RBC >50 HPF (0-2); WBC >50 HPF (0-5)
--- NOTE | 2020-11-04 20:52 | W.PM.HP.N ---
Date of service: 11/04/20 Time of Service: 20:56 Assessment and Plan Assessment and plan (1) Hypoglycemia: Status: Acute Assessment and plan: Persistent hypoglycemia. Presumably from meds, though I cannot at this point explain why effect should be so prolonged. Suffice to say I cannot see another explanation. For now I would simply track the sugars closely and continue to hold all diabetic meds. If persists after eating would add D10 overnight. As to leukocytosis and pyuria: former can be explained by steroids, latter by perhaps tumor involvement of collecting system noted in last admission. At any rate I do not see that we need to continue antibiotic and would simoly await culture results at this point. History of Present Illness History of Present Illness Chief Complaint: hypoglycemia Narrative: 55 male with multiple problems, including metastatic colon CA and recent stay for psoas abscess, managed with antibiotics and drain. Also DM, on combination of oral agents, including Metformin and Glipizide and Glargine insulin plus prandial coverage. Patient states he has been fighting low sugars all day long. Says last time he took meds was 2w days SAMPLER OVENS but states(per ER) that he in fact took the Glipizide last night; but no insulin. At any rate he presented due to ongoing hypoglycemia. Here in ER glucose initially 44, s/p D50, max sugar in 90s (verbal report). Admitted for monitoring due to prolonged hypoglycemia. States he feels his usual self at present. Incidental note of leukocytosis of 14 (on Decadron) and asymptomatic pyuria/hematuria, and was given single dose Rocephin 2 gm. Review of Systems All systems reviewed & are unremarkable except as noted in HPI and below PFSH Medical History Alternative medicine Anemia, chronic disease Cancer related pain Colon cancer metastasized to intra-abdominal lymph node Colon cancer metastasized to intrathoracic lymph node PET scan October 2019 Diabetes mellitus Discharge planning issues Essential hypertension Fatigue Fatty liver Femoral nerve injury Fistula of ureter Fracture of distal fibula Full code status he is aware that pts with metastatic cancer have low survival rate Goals of care, counseling/discussion Hypercholesterolemia Injury due to procedure Late effect of complications of procedure Medical cannabis use filled out paperwork 11/14/19 for him to receive medical cannabis 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 Mediport placement (10/21/16) Nephrostomy status Partial resection of colon (~2011) SIGMOID S/P ureteral stent placement Family History Father Heart disease Dementia AAA (abdominal aortic aneurysm) Mother No problems noted. Brother No problems noted. Son No problems noted. 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 Pets and animals: No Do you think of yourself as: straight/heterosexual Current gender identity: male What is your relationship status?: How often do you talk on the phone with friends or family?: once per week How often do you get together with friends or relatives?: once per week Panel score (0-1 are the most socially isolated patients): 1 What type of physical activity do you participate in: assisted ambulation and irregular exercise Duration: 15-30 minutes/day Frequency: 1-2 times per week Special benoit needs: No Agree to transfusion: Yes Seatbelt use: always Drive intox or ride w/intox 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 In 2019, Had MOHAN procedure that caused femoral nerve injury. Disabled since. Now walks with cane. Getting folfori for recurrent colon ca now. Tolerating it. Meds Allergies and Home Medications Allergies Allergy/AdvReac Type Severity Reaction Status Date / Time No Known Allergies Allergy Verified 10/23/20 16:12 Home Medications Medication Instructions Recorded Confirmed Type aspirin [Aspirin Low-Strength] 81 mg PO DAILY tab-cap 10/27/12 11/04/20 History atorvastatin [Lipitor] 20 mg PO HS tab-cap 10/27/12 11/04/20 History glipizide 10 mg PO BID PRN tab-cap 10/27/12 11/04/20 History metformin 500 mg PO DAILY PRN tab-cap 10/27/12 11/04/20 History multivitamin 1 cap PO DAILY 01/05/14 11/04/20 History insulin glargine 100 unit/mL (3 40 unit SUBCUT BID PRN ml 11/08/18 11/04/20 History mL) subcutaneous pen metoprolol tartrate 25 mg PO BID #60 tab 07/21/19 11/04/20 Rx insulin aspart U-100 100 unit/mL 1 sliding sc SC TID PRN ml 08/18/19 11/04/20 History subcutaneous solution acetaminophen [Tylenol] 1,000 mg PO PRN PRN 08/31/20 11/04/20 History ibuprofen 600 mg PO DAILY 08/31/20 11/04/20 History docusate sodium 200 mg PO BID 10/16/20 11/04/20 History tramadol 50 mg PO TID PRN PRN 10/16/20 11/04/20 History dexamethasone 8 mg PO BID 10/19/20 11/04/20 History omeprazole 40 mg PO DAILY 10/19/20 11/04/20 History Exam Narrative Exam Narrative: 106/74, pulse 110-130s on monitor, 36.5, 18, 99% RA. HEENT atraumatic; neck supple; lungs clear; heart tachy/regular; abdomen soft and NT; extremities trace pedal edema; neuro Ox3, moves all 4s Results Labs Result diagrams: 11/04/20 18:55 11/04/20 18:55 Labs: Laboratory Results - last 24 hr 11/04/20 11/04/20 11/04/20 18:55 18:55 19:54 WBC 14.68 H RBC 3.04 L Hgb 8.2 L Hct 26.6 L MCV 87.5 MCH 27.0 MCHC 30.8 L RDW 16.9 H Plt Count 163 MPV 9.5 Immature Gran % 0.8 Neutrophils % 89.2 Lymphocytes % 4.8 Monocytes % 4.1 Eosinophils % 1.0 Basophils % 0.1 Nucleated RBC % 0 Absolute Neutrophils 13.09 H Absolute Lymphocytes 0.70 L Absolute Monocytes 0.60 Absolute Eosinophils 0.15 Absolute Basophils 0.01 Sodium 136 Potassium 3.6 Chloride 99 Carbon Dioxide 27.8 Anion Gap 9.2 BUN 17 Creatinine 1.0 Estimated GFR/1.73 m2 >= 60.00 Glucose 44 L* Calcium 8.3 L Total Bilirubin 0.4 AST 62 H ALT 57 Alkaline Phosphatase 143 H Total Protein 6.2 L Albumin 1.9 L Lipase 144 Urine Color Yellow Urine Clarity Cloudy Urine pH 6.0 Ur Specific [place] >= 1.030 H Urine Protein >=300 H Urine Ketones Trace H Urine Blood Large H Urine Nitrite Negative Urine Bilirubin Small H Urine Urobilinogen 0.2 Ur Leukocyte Esterase Negative Urine RBC >50 H Urine WBC >50 H Ur Epithelial Cells Few Urine Crystals Negative Urine Bacteria Negative Urine Casts 0-2 hyaline Urine Mucus Negative Urine Other Negative Ur Culture Indicated? Yes Urine Glucose 100 Last Vital Signs Temp 36.5 C 11/04/20 18:58 Pulse 136 H 11/04/20 18:58 Resp 18 11/04/20 18:58 BP 106/74 11/04/20 18:58 Pulse Ox 99 11/04/20 18:58 COVID-19 Screening Have you, or household traveled for leisure in last 14 days?: No Had IN PERSON contact w/suspected or confirmed C-19 person: No
[2020-11-04 21:34] LABS: Source Nasal/Nares
[2020-11-04 21:51] VITALS: BP 123/76; PULSE 133; RESP 18; O2SAT 98
[2020-11-04 22:18] VITALS: BP 105/72; PULSE 130; RESP 20; TEMP 36.6; O2SAT 100
[2020-11-04 22:39] VITALS: BP 105/72; PULSE 130; RESP 20; TEMP 36.6; O2SAT 100
[2020-11-04] MEDS: traMADol 50 MG TAB PO (23:07)
[2020-11-04] MEDS: Atorvastatin 20 MG TAB PO (23:07)
[2020-11-04] MEDS: DEXTROSE 10%-WATER 500 ML 100 ML IV (23:07)
[2020-11-04] MEDS: Metoprolol 25 MG TAB PO (23:07)
[2020-11-04] MEDS: cefTRIAXone 2 GM/50 ML BAG IVPB (23:15)
[2020-11-04] MEDS: Normal Saline Flush 10 ML SYR (23:18)
[2020-11-04 23:58] LABS: COVID-19 PCR Negative (Negative)
[2020-11-05] MEDS: Calcium Carbonate *TUMS* 500 MG CHEW PO (02:36)
[2020-11-05] MEDS: Acetaminophen 500 MG TAB 1000 MG PO (03:08)
[2020-11-05] MEDS: DEXTROSE 10%-WATER 500 ML 100 ML IV (03:47)
[2020-11-05] MEDS: traMADol 50 MG TAB PO ×2 (06:45→16:23)
[2020-11-05 07:20] VITALS: BP 116/75; PULSE 114; RESP 19; TEMP 37.1; O2SAT 96
[2020-11-05] MEDS: Omeprazole 20 MG CAPCR 40 MG PO (07:52)
[2020-11-05] MEDS: Metoprolol 25 MG TAB PO (07:52)
[2020-11-05] MEDS: Aspirin 81 MG CHEW PO (07:52)
[2020-11-05] MEDS: Docusate Sodium 100 MG CAP 200 MG PO (07:52)
[2020-11-05] MEDS: Dexamethasone 4 MG TAB 8 MG PO (07:53)
--- NOTE | 2020-11-05 11:37 | PDOC.CMIN ---
- If Service Date Differs Date of service: 11/05/20 Time of Service: 11:37 Care Management Initial Assess REASON FOR HOSPITALIZATION:: Hypoglycemia PAST MEDICAL HISTORY/PAST SURGICAL HISTORY:: Medical History . Alternative medicine. Anemia, chronic disease. Cancer related pain. Colon cancer metastasized to intra-abdominal lymph node. Colon cancer metastasized to intrathoracic lymph node. PET scan October 2019. Diabetes mellitus. Discharge planning issues. Essential hypertension. Fatigue. Fatty liver. Femoral nerve injury. Fistula. of ureter. Fracture of distal fibula. Full code status. he is aware that pts with metastatic cancer have low survival rate. Goals of care, counseling/discussion. Hypercholesterolemia. Injury due to procedure. Late effect of complications of procedure. Medical cannabis use. filled out paperwork 11/14/19 for him to receive medical cannabis. 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 Monoclonal gammopathy of unknown significance. Obesity. Palliative care patient. Peritoneal metastases. Psoas abscess, left. recurrent x 4; most recently in December 2019. Recurrent colorectal adenocarcinoma. first diagnosed 2011. Sepsis. Sleep apnea. USES CPAP. TUBULOVILLOUS ADENOMA. Uncontrolled diabetes mellitus. Unintentional weight loss. Unsteady gait. Surgical History . Colonoscopy - IV Sedation (~2011). 2013. Laparotomy. 2013- debulking of tumor in the pelvis and ureterolysis. Mediport placement (10/21/16). Nephrostomy status. Partial resection of colon (~2011). SIGMOID. S/P ureteral stent placement PREVIOUS FUNCTIONAL STATUS/SOCIAL/FAMILY SUPPORTS:: Benigno lives in [place] with his , Lori, and two children, who are 20 and 14. 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 He no longer works as he is on disability due to complications from surgery and colon cancer. Lori assists him with his ADL's, and drives him places. They have an [place] citizen chairez at home who they love. CURRENT FUNCTIONAL STATUS:: Benigno was sitting up in a chair when met with him. He shared that he is being discharged this afternoon and was just waiting for the paperwork. Benigno stated that things have gone well at home since his recent discharge from the hospital. ADVANCE DIRECTIVES:: none on file Has patient been provided with info about the portal/API?: Yes Did the patient sign up for the portal?: Yes (previously) CODE STATUS:: Full Code INSURANCE COVERAGE / FINANCIAL ISSUES:: [employer] CURRENT HOME/COMMUNITY SERVICES/EQUIPMENT:: none currently PRIMARY CARE PHYSICIAN:: Chetan Jaquez POTENTIAL DISCHARGE NEEDS:: Follow up with PCP and discharge plan of care PATIENT/FAMILY EDUCATION NEEDS:: Review of discharge instructions including medications, limitations, follow up plan,activity, Ask Me Three TRANSPORTATION:: via private vehicle with PLAN:: Benigno will likely be discharged home with no new services. He will follow up with his community providers and plan of care and transport with his . CM will continue to support patient, family and discharge plan of care.
--- NOTE | 2020-11-05 14:59 | W.PM.PROGNOT ---
Date of Service Date of service: 11/05/20 Time of Service: 15:00 Assessment and Plan Assessment and plan (1) Hypoglycemia: Status: Acute Assessment and plan: Hypoglycemia d/t prolonged effects of long acting sulfonyurea. Given his metastatic adenocarcinoma and liver involvement he should not be on metformin nor a sulfonylurea. I will dc both on discharge and keep on reduced dose of Lantus 20 units daily along w/ his sliding scale. For now will give him 7 units of Novolog and 20 units of Lantus and watch him for couple of hours. Subjective Subjective Interval history since last seen: Patient was admitted last night d/t severe hypoglycemia non-responsive to oral and iv dextrose. He was on D10 drip overnight and now has hyperglycemia w/ glucose running in the high 200's to 300's. D10 was stopped at around 9:30 am and now his glucose is 414. He has not been taking his Lantus at home which was ordered 40 units bid prn (unclear why prn) however he has been using his metformin and glipizide ER. Since he uses novolog on sliding scale; I explained to Benigno and his Lori that there is no reason for Benigno to be on an oral agent and insulin particularly since he already does basal/bolus dosing. I think to simplify matters his metformin and glipizide should be stopped altogether and he should stick w/ basal/bolus insulin. If his glucose runs high after he is discharged then his basal insulin and sliding scale can be adjusted. I will give him novolog per insulin sensitive level along w/ Lantus 20 units now and watch him for couple hours and if his glucose responds appropriately w/out hypoglycemia then he can go home w/ reduced dose of Lantus 20 units once a day. I told Lori that if he is hyperglycemic on this regimen then his Lantus dose can be increased by 5 units per day every 3rd day and his sliding scale will need to be titrated upward. Exam Narrative Exam Narrative: Middle aged white male sitting up in his chair visiting w/ his mother. He denies any symptoms of hypoglycemia. No fever, chills nor any diaphorresis nor any tremors or shaking Objective Last Vital Signs Temp 37.1 C 11/05/20 07:20 Pulse 114 H 11/05/20 07:20 Resp 19 11/05/20 07:20 BP 116/75 11/05/20 07:20 Pulse Ox 96 11/05/20 07:20 Laboratory Results - last 24 hr 11/04/20 11/04/20 11/04/20 18:55 18:55 19:54 WBC 14.68 H RBC 3.04 L Hgb 8.2 L Hct 26.6 L MCV 87.5 MCH 27.0 MCHC 30.8 L RDW 16.9 H Plt Count 163 MPV 9.5 Immature Gran % 0.8 Neutrophils % 89.2 Lymphocytes % 4.8 Monocytes % 4.1 Eosinophils % 1.0 Basophils % 0.1 Nucleated RBC % 0 Absolute Neutrophils 13.09 H Absolute Lymphocytes 0.70 L Absolute Monocytes 0.60 Absolute Eosinophils 0.15 Absolute Basophils 0.01 Sodium 136 Potassium 3.6 Chloride 99 Carbon Dioxide 27.8 Anion Gap 9.2 BUN 17 Creatinine 1.0 Estimated GFR/1.73 m2 >= 60.00 Glucose 44 L* Calcium 8.3 L Total Bilirubin 0.4 AST 62 H ALT 57 Alkaline Phosphatase 143 H Total Protein 6.2 L Albumin 1.9 L Lipase 144 Urine Color Yellow Urine Clarity Cloudy Urine pH 6.0 Ur Specific [place] >= 1.030 H Urine Protein >=300 H Urine Ketones Trace H Urine Blood Large H Urine Nitrite Negative Urine Bilirubin Small H Urine Urobilinogen 0.2 Ur Leukocyte Esterase Negative Urine RBC >50 H Urine WBC >50 H Ur Epithelial Cells Few Urine Crystals Negative Urine Bacteria Negative Urine Casts 0-2 hyaline Urine Mucus Negative Urine Other Negative Ur Culture Indicated? Yes Urine Glucose 100 COVID-19 Source SARS-CoV-2 (PCR) 11/04/20 21:30 WBC RBC Hgb Hct MCV MCH MCHC RDW Plt Count MPV Immature Gran % Neutrophils % Lymphocytes % Monocytes % Eosinophils % Basophils % Nucleated RBC % Absolute Neutrophils Absolute Lymphocytes Absolute Monocytes Absolute Eosinophils Absolute Basophils Sodium Potassium Chloride Carbon Dioxide Anion Gap BUN Creatinine Estimated GFR/1.73 m2 Glucose Calcium Total Bilirubin AST ALT Alkaline Phosphatase Total Protein Albumin Lipase Urine Color Urine Clarity Urine pH Ur Specific [place] Urine Protein Urine Ketones Urine Blood Urine Nitrite Urine Bilirubin Urine Urobilinogen Ur Leukocyte Esterase Urine RBC Urine WBC Ur Epithelial Cells Urine Crystals Urine Bacteria Urine Casts Urine Mucus Urine Other Ur Culture Indicated? Urine Glucose COVID-19 Source Nasal/nares SARS-CoV-2 (PCR) Negative
--- NOTE | 2020-11-05 15:13 | W.INDIABCONS ---
Date of service: 11/05/20 Time of Service: 15:13 Diabetes Inpatient Consult DESCRIPTION/ASSESSMENT: Benigno was out of room when visited today. Chart review indicates that home Dm meds include lantus 40 u BID, glipizide XR 10 mg BID, metformin 500 mg qd, ss of novolog TID. BS of 44 mg/dl when admitted, Benigno was unable to raise it in acceptable range with po intake. Per MD note, blood sugars responding to D10 and po intake at this time. Following diabetic diet with excellent intake (>75% of meals), weight slightly down (-15 lbs in last 2 months), expected with metastatic colon cancer. No recent A1C available. INTERVENTION: unable to provide diabetic teaching at this time as pt out of room, will try again PLAN: continue current meal plan adjust DM meds, recommend d/c glipizide ER and continuing with lantus (reduce to 20 u BID) and metformin 500 mg qd, sliding scale novolog at meals Time Spent in Nutritional Counseling and Treatment: 0
[2020-11-05 16:11] LABS: Glucose 409 mg/dL (74-106)
[2020-11-05 16:20] VITALS: BP 118/70; PULSE 112; RESP 18; TEMP 36.4; O2SAT 96
[2020-11-05] MEDS: Insulin Glargine 300 UNITS/3 ML PEN 20 UNITS SC (16:23)
[2020-11-05] MEDS: Insulin Aspart 300 UNITS/3 ML PEN SC (16:24)
--- NOTE | 2020-11-05 18:37 | DSE_ITS ---
Date of service: 11/05/20 Time of Service: 18:38 DS: Diagnosis Discharge Diagnosis (1) Hypoglycemia: Status: Resolved (2) Diabetes mellitus: Status: Chronic Asessment and Plan: dc glipizide and metformin. resume Lantus at 20 units daily. adjust dose by 5 units daily every 3 days until FBG under 120 mg/dL; adjust sliding scale novolog to keep pre meal glucose under 150 mg/dL and post prandial glucose under 200 mg/dL. Discharge Plan Disposition Patient Disposition: HOME Condition: Improving Discharge Details Reason For Visit: HYPOGLYCEMIA Admit Date/Time: 11/04/20 21:11 Admit Provider: Brendon Yan Attending Provider: Brendon Yan Primary Care Provider: Chetan Jaquez Hospital Course Hospital Course: 55-year-old male with a history of metastatic adenocarcinoma of the colon as well as recent treatment for psoas abscess, type 2 diabetes mellitus treated with both basal bolus insulin with glargine and NovoLog as well as oral hypoglycemics including Metformin and glipizide extended release. Patient's had hypoglycemia all day long on the day of admission. Last dose of glipizide was the night prior to admission but has not been taking any of his Lantus for last 2 days. Blood sugar on arrival to the ED was 44 he was given D50 and the highest they can get his glucose up once to 90 before it dropped back down. He was admitted to the hospital and placed on a dextrose 10% drip overnight at a rate of 100 mL an hour. Next morning his blood sugars are running from 173-284 mg/dL at which point the dextrose 10% was discontinued he was monitored throughout the day. By the afternoon his blood sugars were up to 414. He was given Lantus 20 units along with 7 units of NovoLog per insulin sensitive sliding scale. At time of discharge his blood sugar was 409. He had his have been instructed not to resume the Metformin or the glipizide but to discontinue this altogether. He is to resume his Lantus dose at a reduced dose of 20 units daily along with his previously ordered NovoLog sliding scale. If he continues having blood sugars in [id number] to 400 range he will need to adjust both his lantus dose and his novolog sliding scale dose. However, he should not be on glipizide along w/ his insulin. Given that he has both Lantus and Novolog, he should be educated on adjustment of both to treat his fasting glucose and to control his post prandial glucose rises. Home Meds and New Rx's Prescriptions: Continued insulin aspart U-100 [Novolog U-100 Insulin aspart] 100 unit/mL solution 1 sliding sc SC TID PRNRF: 0 atorvastatin [Lipitor] 20 MG tablet 20 mg PO HS RF: 0 aspirin [Aspirin Low-Strength] 81 MG tablet,chewable 81 mg PO DAILY RF: 0 multivitamin 1 EACH capsule 1 cap PO DAILY RF: 0 acetaminophen [Tylenol] 325 mg Tablet 1,000 mg PO PRN PRNRF: 0 omeprazole 40 mg capsule,delayed release(DR/EC) 40 mg PO DAILY RF: 0 dexamethasone 4 mg tablet 8 mg PO BID RF: 0 metoprolol tartrate 25 mg Tablet 25 mg PO BID Qty: 60 RF: 0 tramadol 50 mg tablet 50 mg PO TID PRN PRNRF: 0 docusate sodium 100 mg Capsule 200 mg PO BID RF: 0 Changed Lantus Solostar U-100 Insulin 100 unit/mL (3 mL) insulin pen 20 unit subcut DAILY Qty: 0 RF: 0 Discontinued glipizide 10 MG tablet extended release 24hr 10 mg PO BID PRNRF: 0 metformin 1,000 MG tablet extended release 24hr 500 mg PO DAILY PRNRF: 0 ibuprofen 200 mg Tablet 600 mg PO DAILY RF: 0 Discharge Instructions Instructions: Hypoglycemia in a Person with Diabetes (DC) Additional Instructions: Discontinue use of Metformin and glipizide. Decrease Lantus down to 20 units daily and continue to follow your sliding scale with your NovoLog with dosing at each meal based on your blood sugars. You should consider discontinuation of your ibuprofen due to your chronic renal insufficiency. Monitor blood sugars before each meal and at bedtime. Work with your PCP to adjust your basal insulin (Lantus) based upon your fasting glucose and adjust your NovoLog sliding scale based on your mealtime blood sugars. Stand Alone Forms: Nursing Discharge Form Referrals: Chetan Jaquez PA [Primary Care Provider] - 11/12/20 10:00 am Activity:: Activity as Tolerated Equipment/Supplies:: No Equipment Needed Diet:: Carb Counting Discharge Orders Discharge Orders: Discharge Order (Routine); Ordered 11/05/20 Ordered By: Jaime Zuleta Discharge Data Discharge Date/Time-TO BE ENTERED AT DEPARTURE: 11/05/20 19:15 DS: Summary Time Spent with Patient providing and/or coordinating discharge services: Less than 30 minutes Status at Discharge Functional status at discharge: independent ambulation Overall status at discharge: patient is back to baseline Mental Status: mental status grossly normal Speech and Movement: speech and movement normal Mood: congruent mood Affect: normal affect Exam Psych Mental Status: mental status grossly normal Speech and Movement: speech and movement normal Mood: congruent mood Affect: normal affect DS: Data Vitals/I&O Vitals and I&O: Vital Signs Temperature 36.4 C L 11/05/20 16:20 Temperature Source Tympanic 11/05/20 16:20 Pulse 112 H 11/05/20 16:20 Pulse Rhythm Regular 11/05/20 16:20 Respiratory Rate 18 11/05/20 16:20 Respiratory Effort Non-Labored 11/05/20 16:20 Respiratory Depth Normal 11/05/20 16:20 Respiratory Pattern Normal 11/05/20 16:20 Blood Pressure 118/70 11/05/20 16:20 Blood Pressure Position Supine 11/04/20 18:58 Pulse Oximetry 96 11/05/20 16:20 Oxygen Delivery Method Room Air 11/05/20 16:20 Oxygen Flow Rate 0 11/05/20 16:20 Pain Level 7 11/05/20 16:23 Comment 11/04/20 22:18 Intake & Output 11/04/20 11/05/20 11/05/20 23:59 11:59 23:59 Intake Total 966.667 / 1446.667 480 / 1446.667 Output Total 80 / 80 1005 / 2505 1500 / 2505 Balance -80 / -80 -38.333 / -1058.333 -1020 / -1058.333 Weight 90.718 kg Intake: IV 966.667 / 966.667 Oral 480 / 480 Output: Urine 80 / 80 1005 / 2505 1500 / 2505 Other: Urine Color Light Mona Yellow Yellow Urine Appearance Clear Clear Clear Urine Odor None Normal None Voiding Methods Urinal Urinal Urinal Data Completed and Pending Labs on day of discharge: Labs from last 24 hours 11/05/20 11/04/20 11/04/20 15:46 21:30 19:54 WBC RBC Hgb Hct MCV MCH MCHC RDW Plt Count MPV Immature Gran % Neutrophils % Lymphocytes % Monocytes % Eosinophils % Basophils % Nucleated RBC % Absolute Neutrophils Absolute Lymphocytes Absolute Monocytes Absolute Eosinophils Absolute Basophils Sodium Potassium Chloride Carbon Dioxide Anion Gap BUN Creatinine Estimated GFR/1.73 m2 Glucose 409 H D Calcium Total Bilirubin AST ALT Alkaline Phosphatase Total Protein Albumin Lipase Urine Color Yellow Urine Clarity Cloudy Urine pH 6.0 Ur Specific [place] >= 1.030 H Urine Protein >=300 H Urine Ketones Trace H Urine Blood Large H Urine Nitrite Negative Urine Bilirubin Small H Urine Urobilinogen 0.2 Ur Leukocyte Esterase Negative Urine RBC >50 H Urine WBC >50 H Ur Epithelial Cells Few Urine Crystals Negative Urine Bacteria Negative Urine Casts 0-2 hyaline Urine Mucus Negative Urine Other Negative Ur Culture Indicated? Yes Urine Glucose 100 COVID-19 Source Nasal/nares SARS-CoV-2 (PCR) Negative 11/04/20 11/04/20 18:55 18:55 WBC 14.68 H RBC 3.04 L Hgb 8.2 L Hct 26.6 L MCV 87.5 MCH 27.0 MCHC 30.8 L RDW 16.9 H Plt Count 163 MPV 9.5 Immature Gran % 0.8 Neutrophils % 89.2 Lymphocytes % 4.8 Monocytes % 4.1 Eosinophils % 1.0 Basophils % 0.1 Nucleated RBC % 0 Absolute Neutrophils 13.09 H Absolute Lymphocytes 0.70 L Absolute Monocytes 0.60 Absolute Eosinophils 0.15 Absolute Basophils 0.01 Sodium 136 Potassium 3.6 Chloride 99 Carbon Dioxide 27.8 Anion Gap 9.2 BUN 17 Creatinine 1.0 Estimated GFR/1.73 m2 >= 60.00 Glucose 44 L* Calcium 8.3 L Total Bilirubin 0.4 AST 62 H ALT 57 Alkaline Phosphatase 143 H Total Protein 6.2 L Albumin 1.9 L Lipase 144 Urine Color Urine Clarity Urine pH Ur Specific [place] Urine Protein Urine Ketones Urine Blood Urine Nitrite Urine Bilirubin Urine Urobilinogen Ur Leukocyte Esterase Urine RBC Urine WBC Ur Epithelial Cells Urine Crystals Urine Bacteria Urine Casts Urine Mucus Urine Other Ur Culture Indicated? Urine Glucose COVID-19 Source SARS-CoV-2 (PCR) Preliminary micro results at discharge 11/04/20 19:54 Urine Culture - Preliminary Urine - Reflex from [facility] Medical History Alternative medicine Anemia, chronic disease Cancer related pain Colon cancer metastasized to intra-abdominal lymph node Colon cancer metastasized to intrathoracic lymph node PET scan October 2019 Diabetes mellitus Discharge planning issues Essential hypertension Fatigue Fatty liver Femoral nerve injury Fistula of ureter Fracture of distal fibula Full code status he is aware that pts with metastatic cancer have low survival rate Goals of care, counseling/discussion Hypercholesterolemia Injury due to procedure Late effect of complications of procedure Medical cannabis use filled out paperwork 11/14/19 for him to receive medical cannabis 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 Mediport placement (10/21/16) Nephrostomy status Partial resection of colon (~2011) SIGMOID S/P ureteral stent placement Family History Father Heart disease Dementia AAA (abdominal aortic aneurysm) Mother No problems noted. Brother No problems noted. Son No problems noted. 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 Pets and animals: No Do you think of yourself as: straight/heterosexual Current gender identity: male What is your relationship status?: How often do you talk on the phone with friends or family?: once per week How often do you get together with friends or relatives?: once per week Panel score (0-1 are the most socially isolated patients): 1 What type of physical activity do you participate in: assisted ambulation and irregular exercise Duration: 15-30 minutes/day Frequency: 1-2 times per week Special benoit needs: No Agree to transfusion: Yes Seatbelt use: always Drive intox or ride w/intox driver courier: No Working smoke detector in home: Yes Carbon monox detector in home: Yes Firearms in home: No Do you feel safe at home: Yes Do you feel safe in your relationship?: Yes Additional Social history: has been struggling with colon cancer since 2012. 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 In 2019, Had MOHAN procedure that caused femoral nerve injury. Disabled since. Now walks with cane. Getting folfori for recurrent colon ca now. Tolerating it.
== END 2020-11-05 19:15 | disposition home or self-care (01) ==
LOC: ER 22:01 → MS 22:06
PROVIDERS: Internal Medicine; Admitting Provider General Practice; Emergency Provider Student in an Organized Health Care Education/Training Program; PCP Physician Assistant Medical; Visit Provider General Practice
DX: E11.649 Type 2 diabetes mellitus with hypoglycemia without coma (principal); C79.19 Secondary malignant neoplasm of other urinary organs; C77.1 Secondary and unspecified malignant neoplasm of intrathoracic lymph nodes; T38.3X5A Adverse effect of insulin and oral hypoglycemic [antidiabetic] drugs, initial encounter; Z79.4 Long term (current) use of insulin; T38.0X5A Adverse effect of glucocorticoids and synthetic analogues, initial encounter; D72.829 Elevated white blood cell count, unspecified; C18.7 Malignant neoplasm of sigmoid colon; D63.8 Anemia in other chronic diseases classified elsewhere; G89.3 Neoplasm related pain (acute) (chronic); I10 Essential (primary) hypertension; K76.0 Fatty (change of) liver, not elsewhere classified; E78.00 Pure hypercholesterolemia, unspecified; D47.2 Monoclonal gammopathy; Z93.6 Other artificial openings of urinary tract status; E11.65 Type 2 diabetes mellitus with hyperglycemia; Z20.822 Contact with and (suspected) exposure to COVID-19
CPT/HCPCS: 36416; 36591; 80053; 82947; 82962; 83690; 87635; 99285; 81003; 81015; 85025; 87086; 99217; 99219; 99284; G0378; J8540

== ENCOUNTER 2020-11-18 23:26 | Emergency (ER) | payer BC, SELFPAY ==
[2020-11-18 23:25] VITALS: BP 73/53; PULSE 119; RESP 18; TEMP 36.3; O2SAT 100
--- NOTE | 2020-11-18 23:30 | DI.CT_ITS ---
Exam(s) CT CHEST/ABD/PEL WO EXAM: CT CHEST/ABD/PEL WO TECHNIQUE: CT examination of the chest, abdomen, and pelvis was performed without contrast administr ation. COMPARISON: CT CT CHEST/ABD/PEL W from 09/25/[address] ABDOMEN PELVIS W from 10/25/2020 FINDINGS: CT examination of the chest, abdomen, and pelvis was performed without contrast administration. Exam ination is compared with prior CT examinations of September 25 and October 25. Previously described left chest wall mass, presumably metastatic lesion, is grossly unchanged from pr ior examination of October 25 but increased in size in comparison with examination of September 25. Th is now measures roughly 8 cm in greatest diameter. Reticular radiodensities seen in the left lung base are grossly unchanged from prior examination. Mediastinal and hilar adenopathy is again noted bilaterally, increased from examination of September 25 . Note is again made retroperitoneal and intra-abdominal adenopathy, increased since prior examination of September 25 and September 24. Previously noted left-sided drainage catheter in left iliopsoas region has been removed and there is increased infiltration and adenopathy noted in left iliac region. Poss ible venous obstruction with increased radiodensity in left external iliac vein. Urinary bladder defo rmity again noted, grossly unchanged, with an apparent left-sided bladder mass. No gross focal bowel pathology. No evidence of obstruction. Liver and spleen are unremarkable by noncontrast criteria. No biliary dilatation. Unremarkable appe arance of the pancreas. Nonobstructing right renal stones noted. Prior left nephrectomy with infiltration/nodularity of left renal bed, increased from prior studies. IMPRESSION: Increasing metastatic adenopathy, mediastinal and intra-abdominal, and increased size of left chest w all metastatic mass since prior examinations of October 25 and September 25. Please see above discussi on for details. Possible venous obstruction of left external iliac vein, please correlate clinically. RADIATION DOSE DELIVERED: 1,227.2mGy.cm Total DLP 1,227.2mGy.cm Total DLP DATA REPOSITORY: All CT scans at this facility are submitted to the National Radiology Data Registry (NRDR) Dose Index Registry (DIR) with the [employer] (A[employer]). RADIATION OPTIMIZATION: All CT scans at this facility use at least one of these dose optimization te chniques: automated exposure control; mA and/or kV adjustment per patient size (includes targeted exa ms where dose is matched to clinical indication); or iterative reconstruction.
[2020-11-18 23:52] LABS: Abs Immature Grans 0.72 10^3/uL (0.0-0.06); HCT 31.3 % (40.0-50.0); HGB 9.5 g/dL (13.5-17.5); Immature Grans % 3.8; MCH 26.7 pg (27.0-33.0); MCHC 30.4 % (32.0-36.0); MCV 87.9 fL (80-95); MPV 10.4 fL (8.0-11.0); Nucleated RBC 0 %; RBC 3.56 10^6/uL (4.36-5.78); RDW 16.3 % (11.8-14.1); RDW-SD 52.9 fL; WBC 19.17 10^3/uL (4.4-10.8)
[2020-11-18] MEDS: Normal Saline 500 ML IV (23:55)
[2020-11-19] VITALS (24 sets, daily range): BP systolic 60–133; BP diastolic 37–97; PULSE 105–113; RESP 9–21; O2SAT 97–100
[2020-11-19 00:07] LABS: ALT 43 U/L (16-63); AST 65 U/L (15-37); Albumin 2.5 g/dL (3.4-5.0); Alkaline Phosphatase 369 U/L (46-116); Anion Gap 21.2 mmol/L (3-11); BUN 61 mg/dL (7-18); Bilirubin, Total 0.3 mg/dL (0.2-1.0); CO2 15.8 mmol/L (21.0-32.0); CREATININE 2.1 mg/dL (0.70-1.30); Calcium 10.1 mg/dL (8.5-10.1); Chloride 95 mmol/L (98-107); Glucose 267 mg/dL (74-106); Potassium 4.6 mmol/L (3.5-5.1); Sodium 132 mmol/L (136-145); Total Protein 7.8 g/dL (6.4-8.2)
[2020-11-19 00:08] LABS: Absolute Lymphocyte Count 1.73 10^3/uL (1.2-3.4); Absolute Monocyte Count 0.77 10^3/uL (0.1-0.8); Bands % 1; Metamyelocytes % 1; Myelocytes % 2; Platelet Count 475 10^3/uL (130-400)
[2020-11-19 00:09] LABS: Diff Comment Manual Differential; Polychromasia Present
--- NOTE | 2020-11-19 00:15 | RT.EKG_ITS ---
APPROVED REPORT Exam: Resting ECG Reason for Exam: shock Patient Location: E HR:109 bpm ECG Measurements Heart Rate 109 AXIS WA 164 P 57 QRSd 111 QRS 48 QT 355 T 57 QTc 478 Conclusion Sinus tachycardia...rate> 99 Low voltage, extremity leads...all extremity leads <0.5mV Physician: no stemi, no signs of significant RH strain
--- NOTE | 2020-11-19 00:26 | ED.GENADUL_ITS ---
Discharge Plan Disposition Patient Disposition: [facility] Condition: Critical Discharge Details Clinical Impression: Phlegmasia cerulea dolens, Septic shock, DVT (deep venous thrombosis) Primary Care Provider: Chetan Jaquez ED Provider: Mohan Paez Home Meds and New Rx's Prescriptions: No Action insulin aspart U-100 [Novolog U-100 Insulin aspart] 100 unit/mL solution 1 sliding sc SC TID PRNRF: 0 atorvastatin [Lipitor] 20 MG tablet 20 mg PO HS RF: 0 aspirin [Aspirin Low-Strength] 81 MG tablet,chewable 81 mg PO DAILY RF: 0 multivitamin 1 EACH capsule 1 cap PO DAILY RF: 0 acetaminophen [Tylenol] 325 mg Tablet 1,000 mg PO PRN PRNRF: 0 omeprazole 40 mg capsule,delayed release(DR/EC) 40 mg PO DAILY RF: 0 dexamethasone 4 mg tablet 8 mg PO BID RF: 0 metoprolol tartrate 25 mg Tablet 25 mg PO BID Qty: 60 RF: 0 tramadol 50 mg tablet 50 mg PO TID PRN PRNRF: 0 docusate sodium 100 mg Capsule 200 mg PO BID RF: 0 Lantus Solostar U-100 Insulin 100 unit/mL (3 mL) insulin pen 20 unit subcut DAILY Qty: 10 RF: 0 Medical Decision Making This is a notably pleasant 55-year-old male with a past medical history of diabetes, 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 He received radiation for his brain cancer 5 days ago, he is currently on a dexamethasone taper. Family reports that over the last 2 days he is not been feeling well and been increasingly weak. Today he noticed pain in his left lower extremity, and throughout the day he became more weak, confused and felt unwell. EMS was called, at the scene the patient's blood pressure was 65, heart rate was in the 120s and he was slightly hypothermic. Fluids were started and he was brought to the ER. Currently the patient complains of pain in his left flank and left thigh, he denies any chest pain or shortness of breath. He denies any headache. He denies any vomiting or diarrhea. He denies any falls or trauma. No other complaints at this time. He is not currently on any antibiotics. Exam demonstrates notably clear lungs, no nuchal rigidity. Mild left lower quadrant abdominal tenderness. Left lower extremity demonstrates symptoms concerning and consistent with phlegmasia cerulea dolens. Distal pulses and femoral pulses intact and on ultrasound, however notable large clot in the femoral vein was appreciated on bedside ultra. EKG does not show signs of right heart strain, bedside ultrasound is challenging for evaluation of his heart, but the right ventricle does not appear overly distended. Unfortunately the patient's previous abdominal scar makes evaluating the IVC somewhat challenging secondary to notable artifact from the scar itself. With my current equipment and I am unable to otherwise adequately evaluate the IVC for volume/pressure assessment. I am very concerned for bacterial/septic infection, with no hypoxemia I feel that massive PE is less likely. I am concerned and suspect that the patient is starting to have tissue in his left lower extremity secondary to the notable clot. We will heparinize, start broad-spectrum antibiotics, start Levophed if the patient does not respond to fluid bolus. Will contact [facility] [place] for transfer. 1 AM Laboratory work-up has returned, patient has a white count of 19.17, notable left shift, lactate is elevated at 10, sodium 132 potassium normal at 4.6. Anion gap of 21 BUN of 61 creatinine of 2, GFR 33. Symptoms still remain concerning for infectious etiology in conjunction with the aforementioned issues. Blood pressure did not improve with a liter of fluid, Levophed has been started. Will titrate for MAP greater than 65. Vancomycin and Zosyn and doxycycline are being administered. Patient is being heparinized. I did reach out to [facility] [place] and discussed the case with Dr. Briones and Dr. Santana of critical care and they agree with the need for transfer. The patient will be admitted under Dr. Casas. At this time the patient's symptoms do not appear clinically consistent with necrotizing fasciitis or Sherri. Still pending CAT scan results 1:34 AM Patient is currently on 9 of Levophed and his blood pressure has improved to the [address] scan results have returned, pelvic abscess appears stable, no evidence of gas in the left lower extremity, other known masses are present. No clear evidence of overly atypical infectious etiology. Patient has slightly perked up after fluids, heparin, and Levophed but still is notably ill. With the patient's blood pressure improvement and generalized overall picture demonstrating slight improvement I do not think that thrombolytics would be indicated at this time clinically. [facility] [place] has accepted the patient, and the patient will be transferred via [facility]. I have contacted the family and informed them of the scenario. I have extensively reviewed the treatment plan and discharge instructions with the patient. I have addressed all patient concerns at this time. The patient was made aware of what symptoms to monitor for that would warrant a return to the emergency department. Discussed the plan with the patient, they demonstrate verbal understanding and agreement with our assessment and plan at this time. The documentation in this chart was dictated using [employer] dictation software. Please excuse any dictation errors. At time of transfer the patient was reassessed and continued to demonstrate current No signs of acute respiratory distress requiring intubation, or rapidly declining mental status. The patient is stable for transport. FINDINGS: Expansile soft tissue mass in the left pleural space/chest wall partially destroying the left 5th rib measuring up to 7.8 by 5.1 cm with vague increased density throughout which may represent underlying calcifications. No pleural effusion or pneumothorax. Minimal reticular densities in the left lower lobe. Hilar and mediastinal adenopathy noted The heart is normal in size. No pericardial effusion. No aortic aneurysm IMPRESSION: Left-sided pleural based mass partially destroying the left 5th rib worrisome for metastatic lesion Minimal nonspecific reticular densities in the left lower lobe. Hilar and mediastinal adenopathy worrisome for neoplasm/metastatic disease FINDINGS: Interval removal of left-sided drainage catheter previously observed in the left ileo psoas musculature. Residual collection measuring approximately 5.5 x 2.1 cm noted. Adjacent infiltration and nodularity extending from the left renal bed and into the left periaortic region redemonstrated. There is increased infiltration surrounding the left femoral and iliac vasculature The liver, spleen, gallbladder, pancreas, right adrenal gland and right kidney are grossly stable. No bowel obstruction or free air. Grossly stable appearing thickening/mass in the left bladder wall adjacent to the left UVJ The osseous structures are grossly stable. No aortic aneurysm IMPRESSION: Interval removal of left-sided drain as described. Residual fluid collection in the left ileo psoas musculature as described. Periaortic adenopathy, grossly stable Grossly stable left-sided bladder mass adjacent to the left UVJ Nonspecific mild increased infiltration surrounding the left iliac and femoral vasculature Nonspecific nonobstructed bowel gas pattern Grossly stable faint nonobstructing right renal calculi Thank you for allowing us to participate in the care of your patient. Dictated and Authenticated by: Barrie Walsh MD 11/19/2020 1:26 AM Eastern Time ([place] & [place]) HPI General Date/Time Provider Initiated Documentation: 11/18/20 23:31 . 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 He received radiation for his brain cancer 5 days ago, he is currently on a dexamethasone taper. Family reports that over the last 2 days he is not been feeling well and been increasingly weak. Today he noticed pain in his left lower extremity, and throughout the day he became more weak, confused and felt unwell. EMS was called, at the scene the patient's blood pressure was 65, heart rate was in the 120s and he was slightly hypothermic. Fluids were started and he was brought to the ER. Currently the patient complai ns of pain in his left flank and left thigh, he denies any chest pain or shortness of breath. He denies any headache. He denies any vomiting or diarrhea. He denies any falls or trauma. No other complaints at this time. He is not currently on any antibiotics. Related Data Home Medications Medication Instructions Recorded Confirmed aspirin [Aspirin Low-Strength] 81 mg PO DAILY tab-cap 10/27/12 11/19/20 atorvastatin [Lipitor] 20 mg PO HS tab-cap 10/27/12 11/19/20 multivitamin 1 cap PO DAILY 01/05/14 11/19/20 metoprolol tartrate 25 mg PO BID #60 tab 07/21/19 11/19/20 insulin aspart U-100 100 unit/mL 1 sliding sc SC TID PRN ml 08/18/19 11/19/20 subcutaneous solution acetaminophen [Tylenol] 1,000 mg PO PRN PRN 08/31/20 11/19/20 docusate sodium 200 mg PO BID 10/16/20 11/19/20 tramadol 50 mg PO TID PRN PRN 10/16/20 11/19/20 dexamethasone 8 mg PO BID 10/19/20 11/19/20 omeprazole 40 mg PO DAILY 10/19/20 11/19/20 Lantus Solostar U-100 Insulin 20 unit SUBCUT DAILY #10 ml 11/05/20 11/19/20 Previous Rx's Medication Instructions Recorded metoprolol tartrate 25 mg PO BID #60 tab 07/21/19 Lantus Solostar U-100 Insulin 20 unit SUBCUT DAILY #10 ml 11/05/20 Allergies Allergy/AdvReac Type Severity Reaction Status Date / Time No Known Allergies Allergy Verified 11/19/20 00:04 General Stated Complaint: GenMedical SCOOTER: 2 Review of Systems All systems reviewed & are unremarkable except as noted in HPI and below PFSH Medical History Alternative medicine Anemia, chronic disease Cancer related pain Colon cancer metastasized to intra-abdominal lymph node Colon cancer metastasized to intrathoracic lymph node PET scan October 2019 Diabetes mellitus Discharge planning issues Essential hypertension Fatigue Fatty liver Femoral nerve injury Fistula of ureter Fracture of distal fibula Full code status he is aware that pts with metastatic cancer have low survival rate Goals of care, counseling/discussion Hypercholesterolemia Injury due to procedure Late effect of complications of procedure Medical cannabis use filled out paperwork 11/14/19 for him to receive medical cannabis 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 Mediport placement (10/21/16) Nephrostomy status Partial resection of colon (~2011) SIGMOID S/P ureteral stent placement Family History Father Heart disease Dementia AAA (abdominal aortic aneurysm) Mother No problems noted. Brother No problems noted. Son No problems noted. 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 Pets and animals: No Do you think of yourself as: straight/heterosexual Current gender identity: male What is your relationship status?: How often do you talk on the phone with friends or family?: once per week How often do you get together with friends or relatives?: once per week Panel score (0-1 are the most socially isolated patients): 1 What type of physical activity do you participate in: assisted ambulation and irregular exercise Duration: 15-30 minutes/day Frequency: 1-2 times per week Special benoit needs: No Agree to transfusion: Yes Seatbelt use: always Drive intox or ride w/intox 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 In 2019, Had MOHAN procedure that caused femoral nerve injury. Disabled since. Now walks with cane. Getting folfori for recurrent colon ca now. Tolerating it. Exam Narrative Exam Narrative: 1.Const: Well-nourished, Well-developed, appearing stated age 2.Eyes: PERRL, no conjunctival injection, and symmetrical lids. 3.ENT: Atraumatic external nose and ears. Moist MM. Neck: Symmetric, trachea midline, No thyromegaly. 4.CVS: +S1/S2, No murmurs or gallops. Peripheral pulses 2+ and equal in all extremities. Brisk capillary refill in all extremities. 5.RESP: Unlabored respiratory effort. Clear to auscultation bilaterally. No wheezes rales or rhonchi 6.GI: Soft, nondistended, mild tenderness in the left lower quadrant where his previous abscesses have been in the past. 7.MSK: Patient's left lower extremity is firm and cool in the area of the thigh and calf with mild swelling. Pulses are visible on ultrasound for dorsalis pedis and left femoral pulse. However bedside ultrasound of the patient's femoral vein appears to demonstrate complete occlusion with notable clot. The patient skin color in the left lower extremity appears clinically consistent with phlegmasia cerulea dolens. No crepitus on palpation. No clinical evidence erythema redness or infection. 8.Skin: Please see musculoskeletal 9.Neuro: release coordinator II-XII grossly intact. Sensation grossly intact, no focal neurologic deficits. 10.Psych: (AAO) x3. Appropriate mood and affect Course Vital Signs Vital signs: Vital Signs Temperature 36.3 C L 11/18/20 23:25 Pulse 119 H 11/18/20 23:25 Respiratory Rate 18 11/18/20 23:25 Blood Pressure 73/53 L 11/18/20 23:25 Pulse Oximetry 100 11/18/20 23:25 Temperature 36.3 C L 11/18/20 23:25 Temperature Source Rectal 11/18/20 23:25 Pulse 119 H 11/18/20 23:25 Respiratory Rate 18 11/18/20 23:25 Blood Pressure 73/53 L 11/18/20 23:25 Blood Pressure Position Supine 11/18/20 23:25 Pulse Oximetry 100 11/18/20 23:25 Oxygen Delivery Method Room Air 11/18/20 23:25 Oxygen Flow Rate 0 11/18/20 23:25 Pain Level 4 11/18/20 23:25 Lab/Test Results Lab/Test Results: 11/18/20 23:40 Blood Blood Culture - Pending 11/18/20 23:31 Blood Blood Culture - Pending Laboratory Tests Range/Units 11/18/20 11/18/20 11/18/20 23:40 23:40 23:40 WBC (4.4-10.8) 10^3/uL 19.17 H RBC (4.36-5.78) 10^6/uL 3.56 L Hgb (13.5-17.5) g/dL 9.5 L Hct (40.0-50.0) % 31.3 L MCV (80-95) fL 87.9 MCH (27.0-33.0) pg 26.7 L MCHC (32.0-36.0) % 30.4 L RDW (11.8-14.1) % 16.3 H Plt Count (130-400) 10^3/uL 475 H D MPV (8.0-11.0) fL 10.4 Immature Gran % 3.8 Neutrophils % 83.0 Band Neutrophils % 1 Lymphocytes % 9.0 Monocytes % 4.0 Eosinophils % 0.0 Basophils % 0.0 Metamyelocytes % 1 Myelocytes % 2 Nucleated RBC % % 0 Absolute Neutrophils (1.2-6.7) 10^3/uL 16.10 H Absolute Lymphocytes (1.2-3.4) 10^3/uL 1.73 Absolute Monocytes (0.1-0.8) 10^3/uL 0.77 Absolute Eosinophils (0.0-0.7) 10^3/uL 0.00 Absolute Basophils (0.0-0.2) 10^3/uL 0.00 RBC Morphology See below Polychromasia Present VBG Lactate (0.6-1.4) mmol/L 10.0 H* Sodium (136-145) mmol/L 132 L Potassium (3.5-5.1) mmol/L 4.6 Chloride (98-107) mmol/L 95 L Carbon Dioxide (21.0-32.0) mmol/L 15.8 L Anion Gap (3-11) mmol/L 21.2 H BUN (7-18) mg/dL 61 H Creatinine (0.70-1.30) mg/dL 2.1 H Estimated GFR/1.73 m2 (mL/min/1.73m2) 33.20 Glucose (74-106) mg/dL 267 H Calcium (8.5-10.1) mg/dL 10.1 Total Bilirubin (0.2-1.0) mg/dL 0.3 AST (15-37) U/L 65 H ALT (16-63) U/L 43 Alkaline Phosphatase (46-116) U/L 369 H Total Protein (6.4-8.2) g/dL 7.8 Albumin (3.4-5.0) g/dL 2.5 L Critical Care Time Critical Care Time Critical Care Time: Yes Total Critical Care Time: 75 Attestation: Upon my evaluation, this patient had a high probability of imminent or life-threatening deterioration, which required my direct attention, intervention, and personal management. I have personally provided 75 minutes of critical care time exclusive of time spent on separately billable procedures. Time includes review of laboratory data, radiology results, discussion with consultants, and monitoring for potential decompensation. Interventions were performed as documented.
[2020-11-19] MEDS: PIPERACILLIN/TAZO 3.375 GM in Normal Saline 50 ML IVPB (00:47)
[2020-11-19] MEDS: Heparin 5,000 UNITS/ML VIAL 5000 UNITS (00:52)
[2020-11-19 01:03] LABS: INR 1.1 (0.9-1.1)
[2020-11-19] MEDS: HYDROmorphone 2 MG/ML VIAL 1 MG IVP ×2 (01:10→01:50)
[2020-11-19 01:11] LABS: PTT Activated 17.8 sec (21.0-27.5)
[2020-11-19] MEDS: DOXYCYCLINE 100 MG in Normal Saline 100 ML IVPB (01:17)
--- NOTE | 2020-11-19 01:25 | NUR.NOTE ---
Nursing Note: Call back from [facility] , patient has been accepted and gave bed assignment.
--- NOTE | 2020-11-19 01:26 | DI.VRAD_ITS ---
Addendum created by Barrie Walsh MD on 11/19/2020 1:36:58 AM EDT: Infiltration around the left femoral and iliac vessels. Further evaluation of the left lower extremity for possible deep venous thrombus as clinically indicated. Mild infiltration noted in the left thigh a musculature without subcutaneous gas Faint hypodensities in the liver too small to characterize The findings were verbally communicated via telephone conference with ZAYRA CALVERT at 1:36 AM EDT on 11/19/2020. The findings were acknowledged and understood. Initial report created on 11/19/2020 1:26:19 AM EDT: PROCEDURE INFORMATION: Exam: CT Chest Without Contrast; Diagnostic Exam date and time: 11/18/2020 11:42 PM Age: 55 years old Clinical indication: Abdominal pain; Generalized; Chest pain; Type not specified; Prior surgery; Surgery date: <1 month; Surgery type: Drain removed 3 weeks ago to left side abcess, ; patient HX: Abdomen pain, nausea and vomit, colon cancer TECHNIQUE: Imaging protocol: Diagnostic computed tomography of the chest without contrast. Radiation optimization: All CT scans at this facility use at least one of these dose optimization techniques: automated exposure control; mA and/or kV adjustment per patient size (includes targeted exams where dose is matched to clinical indication); or iterative reconstruction. COMPARISON: CT ABDOMEN PELVIS W 10/25/2020 12:44 PM FINDINGS: Expansile soft tissue mass in the left pleural space/chest wall partially destroying the left 5th rib measuring up to 7.8 by 5.1 cm with vague increased density throughout which may represent underlying calcifications. No pleural effusion or pneumothorax. Minimal reticular densities in the left lower lobe. Hilar and mediastinal adenopathy noted The heart is normal in size. No pericardial effusion. No aortic aneurysm IMPRESSION: Left-sided pleural based mass partially destroying the left 5th rib worrisome for metastatic lesion Minimal nonspecific reticular densities in the left lower lobe. Hilar and mediastinal adenopathy worrisome for neoplasm/metastatic disease PROCEDURE INFORMATION: Exam: CT Abdomen And Pelvis Without Contrast Exam date and time: 11/18/2020 11:42 PM Age: 55 years old Clinical indication: Abdominal pain; Generalized; Chest pain; Type not specified; Prior surgery; Surgery date: <1 month; Surgery type: Drain removed 3 weeks ago to left side abcess, ; patient HX: Abdomen pain, nausea and vomit, colon cancer TECHNIQUE: Imaging protocol: Computed tomography of the abdomen and pelvis without contrast. Radiation optimization: All CT scans at this facility use at least one of these dose optimization techniques: automated exposure control; mA and/or kV adjustment per patient size (includes targeted exams where dose is matched to clinical indication); or iterative reconstruction. COMPARISON: CT ABDOMEN PELVIS W 10/25/2020 12:44 PM FINDINGS: Interval removal of left-sided drainage catheter previously observed in the left ileo psoas musculature. Residual collection measuring approximately 5.5 x 2.1 cm noted. Adjacent infiltration and nodularity extending from the left renal bed and into the left periaortic region redemonstrated. There is increased infiltration surrounding the left femoral and iliac vasculature The liver, spleen, gallbladder, pancreas, right adrenal gland and right kidney are grossly stable. No bowel obstruction or free air. Grossly stable appearing thickening/mass in the left bladder wall adjacent to the left UVJ The osseous structures are grossly stable. No aortic aneurysm IMPRESSION: Interval removal of left-sided drain as described. Residual fluid collection in the left ileo psoas musculature as described. Periaortic adenopathy, grossly stable Grossly stable left-sided bladder mass adjacent to the left UVJ Nonspecific mild increased infiltration surrounding the left iliac and femoral vasculature Nonspecific nonobstructed bowel gas pattern Grossly stable faint nonobstructing right renal calculi Dictated and Authenticated by: Barrie Walsh MD. Ordering:VIOLETTA Preston MD
== END 2020-11-19 02:14 | disposition short-term general hospital (02) ==
PROVIDERS: Emergency Provider Student in an Organized Health Care Education/Training Program; PCP Physician Assistant Medical
DX: I80.12 Phlebitis and thrombophlebitis of left femoral vein (principal); A41.9 Sepsis, unspecified organism; R65.21 Severe sepsis with septic shock; K65.1 Peritoneal abscess; C19 Malignant neoplasm of rectosigmoid junction
CPT/HCPCS: 36415; 71250; 80053; 87040; 87635; 93005; 96361; 96365; 96366; 96367; 96368; 96375; 96376; 99291; 99292; 74176; 83605; 85025; 85610; 85730; 93010; J1644; J2543

== ENCOUNTER 2020-12-10 02:38 | Outpatient (CLI) | payer BC, SELFPAY ==
[2020-12-10 11:47] LABS: Source Nasal/Nares
[2020-12-10 22:12] LABS: COVID-19 PCR Negative (Negative)
== END 2020-12-10 02:39 | disposition home or self-care (01) ==
LOC: LBO 02:39
PROVIDERS: PCP Physician Assistant Medical; Visit Provider Urology
DX: Z20.822 Contact with and (suspected) exposure to COVID-19 (principal); Z01.818 Encounter for other preprocedural examination
CPT/HCPCS: 87635

== ENCOUNTER 2020-12-12 07:32 | Observation (INO) | payer BC, SELFPAY ==
[2020-12-12] VITALS (11 sets, daily range): BP systolic 77–126; BP diastolic 56–81; PULSE 101–112; RESP 10–17; TEMP 36–37.3; O2SAT 16–98; BMI 26.6
--- NOTE | 2020-12-12 08:09 | W.ANESPRE ---
General Info Date of Service Date Performed: 12/12/20 Height: 6 ft 1 in Weight: 91.8 kg Body Mass Index (BMI): 26.6 Surgical Procedure: Operation Date: 12/12/20 08:55 Proposed Procedures Side Surgeon p Cystoscopy/Retrograde Left Liam Sandoval MD s Transurethral Resection Bladder Tumor Liam Sandoval MD Meds Allergies and Home Medications Allergies Allergy/AdvReac Type Severity Reaction Status Date / Time No Known Allergies Allergy Verified 12/10/20 13:48 Home Medication Medication Instructions Recorded aspirin [Aspirin Low-Strength] 81 mg PO DAILY tab-cap 10/27/12 atorvastatin [Lipitor] 20 mg PO HS tab-cap 10/27/12 multivitamin 1 cap PO DAILY 01/05/14 insulin aspart U-100 100 unit/mL 1 sliding sc SC TID PRN ml 08/18/19 subcutaneous solution acetaminophen [Tylenol] 1,000 mg PO PRN PRN 08/31/20 docusate sodium 200 mg PO BID 10/16/20 omeprazole 40 mg PO DAILY 10/19/20 amoxicillin 875 mg-potassium 1 tab PO BID 12/03/20 clavulanate 125 mg tablet dexamethasone 4 mg tablet 1 mg PO DAILY tab 12/03/20 Lantus Solostar U-100 Insulin 20 unit SUBCUT HS 12/10/20 dicyclomine 20 mg PO Q8H 12/12/20 hydromorphone [Dilaudid] 1 mg PO PRN PRN 12/12/20 levetiracetam [Keppra] 500 mg PO BID 12/12/20 memantine 5 mg PO DAILY 12/12/20 metformin 500 mg PO TID 12/12/20 Current Visit Medications: Current Medications Generic Name Dose Route Start Last Admin Trade Name Freq PRN Reason Stop Dose Admin Ringer's Solution 1,000 mls @ 80 mls/hr 12/12/20 06:00 IV 01/10/21 23:59 INFUSION KOLTON Cefazolin Sodium/Dextrose 2 gm in 50 mls @ 100 mls/hr 12/12/20 06:00 Ancef Duplex IVPB 12/12/20 16:00 PREOP KOLTON IV Miscellaneous Supplies 1 each 12/12/20 06:00 Iv Access IV 01/10/21 23:59 DIRECTED KOLTON Sodium Chloride 0 ml 12/12/20 06:00 Normal Saline Flush 10 Ml Syr IV 01/10/21 23:59 PRN PRN Sodium Chloride 0 ml 12/12/20 06:00 Normal Saline 10 Ml Vial IJ 01/10/21 23:59 DIRECTED PRN Sterile Water 0 ml 12/12/20 06:00 Water,Injection,Sterile 10 Ml Vial IJ 01/10/21 23:59 DIRECTED PRN PFSH Active Problems Active Problems: Problem Status Onset Code Brain metastases C79.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 Septic shock A41.9, R65.21 DVT (deep venous thrombosis) I82.409 Diabetes mellitus Hypoglycemia E16.2 Hypoglycemia E16.2 Anemia, chronic disease D63.8 Hematuria R31.9 Chronic constipation K59.09 Metastatic colorectal cancer C19 Diplopia H53.2 Pelvic abscess in male K65.1 Leukocytosis D72.829 Nausea & vomiting R11.2 Sepsis associated hypotension A41.9, I95.9 Alternative medicine Z51.89 Medical cannabis use Z79.899 Colon cancer metastasized to intrathoracic lymph node C18.9, C77.1 Colon cancer metastasized to intra-abdominal lymph node C18.9, C77.2 Fistula L98.8 Full code status Z78.9 Sinus tachycardia R00.0 Goals of care, counseling/discussion Z71.89 DVT prophylaxis Z29.9 Colon cancer C18.9 Complicated UTI (urinary tract infection) N39.0 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 Late effect of complications of procedure T81.9XXS Psoas abscess, left K68.12 Left foot drop M21.372 S/P ureteral stent placement Z96.0 Nephrostomy status Z93.6 Unintentional weight loss R63.4 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 Peritoneal metastases C78.6 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 Injury due to procedure T81.9XXA Unsteady gait R26.81 Femoral nerve injury S74.10XA Cancer related pain G89.3 Fatigue R53.83 Palliative care patient Z51.5 Uncontrolled diabetes mellitus E11.65 Recurrent colorectal adenocarcinoma C19 Medical History Medical History Alternative medicine Anemia, chronic disease 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 Cancer related pain Colon cancer metastasized to intra-abdominal lymph node Colon cancer metastasized to intrathoracic lymph node PET scan October 2019 Diabetes mellitus Discharge planning issues Essential hypertension Fatigue Fatty liver Femoral nerve injury Fistula of ureter Fracture of distal fibula Full code status he is aware that pts with metastatic cancer have low survival rate Goals of care, counseling/discussion Hypercholesterolemia Injury due to procedure Late effect of complications of procedure Medical cannabis use filled out paperwork 11/14/19 for him to receive medical cannabis 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 Mediport placement (10/21/16) Nephrostomy status Partial resection of colon (~2011) SIGMOID S/P ureteral stent placement Tobacco Smoking/Tobacco Use Status: Never Alcohol Alcohol Intake: current Alcohol intake frequency: holidays/special occasions only Substance Use Substance use: Never Substance use type: does not use Vital Signs and Lab Results Lab Results Blood Type / Crossmatch: No Data to Display Complete Blood Count: White Blood Count 19.17 10^3/uL (4.4-10.8) H 11/18/20 23:40 11/18/20 Red Blood Count 3.56 10^6/uL (4.36-5.78) L 11/18/20 23:40 11/18/20 Hemoglobin 9.5 g/dL (13.5-17.5) L 11/18/20 23:40 11/18/20 Hematocrit 31.3 % (40.0-50.0) L 11/18/20 23:40 11/18/20 Platelet Count 475 10^3/uL (130-400) H 11/18/20 23:40 11/18/20 Complete Metabolic Panel: Sodium Level 132 mmol/L (136-145) L 11/18/20 23:40 11/18/20 Potassium Level 4.6 mmol/L (3.5-5.1) 11/18/20 23:40 11/18/20 Chloride Level 95 mmol/L (98-107) L 11/18/20 23:40 11/18/20 Carbon Dioxide Level 15.8 mmol/L (21.0-32.0) L 11/18/20 23:40 11/18/20 Blood Urea Nitrogen 61 mg/dL (7-18) H 11/18/20 23:40 11/18/20 Creatinine 2.1 mg/dL (0.70-1.30) H 11/18/20 23:40 11/18/20 Calcium Level 10.1 mg/dL (8.5-10.1) 11/18/20 23:40 11/18/20 Albumin 2.5 g/dL (3.4-5.0) L 11/18/20 23:40 11/18/20 Glucose Level 267 mg/dL (74-106) H 11/18/20 23:40 11/18/20 Liver Function Panel: Alanine Aminotransferase (ALT/SGPT) 43 U/L (16-63) 11/18/20 23:40 11/18/20 Aspartate Amino Transf (AST/SGOT) 65 U/L (15-37) H 11/18/20 23:40 11/18/20 Coagulation Panel: INR International Normalized Ratio 1.1 (0.9-1.1) 11/19/20 00:00 11/19/20 Prothrombin Time 11.0 sec (9.3-11.0) 11/19/20 00:00 11/19/20 Activated Partial Thromboplast Time 17.8 sec (21.0-27.5) L 11/19/20 00:00 11/19/20 Cardiac Panel: No Data to Display Arterial Blood Gas: No Data to Display Venous Blood Gas: Venous Blood Lactate 10.0 mmol/L (0.6-1.4) H* 11/18/20 23:40 11/18/20 Pancreas Panel: No Data to Display Thyroid Panel: No Data to Display Infectious Disease: Coronavirus (COVID-19)(PCR) Negative (Negative) 12/10/20 11:09 12/10/20 Coronavirus 2019 Source Nasal/nares 12/10/20 11:09 12/10/20 Blood Cultures: No Data to Display Toxicology Panel: No Data to Display Imaging and Studies Imaging and Studies EKG Summary: 11/19/2020 Exam: Resting ECG Reason for Exam: shock Patient Location: E HR:109 bpm ECG Measurements Heart Rate 109 AXIS AL 164 P 57 QRSd 111 QRS 48 QT 355 T57 QTc 478 Conclusion Sinus tachycardia...rate> 99 Low voltage, extremity leads...all extremity leads <0.5mV Physician: no stemi, no signs of significant RH strain Echocardiogram Summary: 07/20/2019 EXAM: Comprehensive 2D, Doppler, and color-flow Echocardiogram Patient Location: In-Patient Golf Sales Manager: Lizette Dixon RDCS (AE) Rhythm: NSR Indications: chronic tachycardia, concern for cardiomyopathy Conclusion Left Ventricle : The left ventricle is normal size. Left ventricular systolic function is normal. There is normal left ventricular wall thickness. The posterior wall thickness is normal. The septum is normal. There is normal LV segmental wall motion. The left ventricular diastolic function is normal. LVEF is 55-59%. Right Ventricle : The right ventricle is normal size. The right ventricular systolic function appears normal. Atria : The left atrium size is normal. The right atrium size is normal. Aortic Valve : Aortic valve is trileaflet. Trace aortic regurgitation by color flow doppler. There is no aortic valvular stenosis. Mitral Valve : The mitral valve is normal in structure. Trace mitral regurgitation. No evidence of mitral valve stenosis. Tricuspid Valve : The tricuspid valve is normal in structure. Trace tricuspid regurgitation. There is no prior echocardiogram available for comparison. Anesthesia Assessment and Plan Anesthesia History Personal History: No History of Anesthesia Complications Family History: No Family History of Anesthesia Complications Exercise Tolerance Exercise Tolerance: Metabolic Equivalents<4 Pertinent Negatives Pertinent Negatives: No Symptoms of GERD (Well controlled with meds), No Major Cardiovascular Symptoms or Complaints, No Major Pulmonary Symptoms or Complaints and No History of CVA/TIA Cardiac & Pulmonary Exam Cardiac Exam: Normal S1/S2 Heart Sounds Pulmonary Exam: Clear Bilateral Breath Sounds and No cough or Cold Airway Exam Known Difficult Airway: No Mallampati Class: 2 Mouth Opening: Normal (> 3cm) Thyromental Distance: Greater than 3 cm Neck Range of Motion: Full ROM Neck Circumference: Normal Teeth Condition: Normal Dentition ASA Classification ASA Score: ASA 4 Emergency Case?: Yes NPO Status NPO Status: NPO Clears >2 hours, Solids >8 hours Anesthesia Plan Resuscitation Status: DNR/DNI Suspended During Perioperative Period Anesthesia Technique: General Anesthesia Airway Planned: Natural Airway Monitors Used: Standard Monitors
[2020-12-12] MEDS: Lactated Ringers 1,000 ML 80 ML IV ×3 (08:40→23:49)
--- NOTE | 2020-12-12 08:45 | HPE_ITS ---
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 We have reserved a bed for an overnight stay in case we need to run CBI History of Present Illness History of Present Illness Chief Complaint: Bladder mass Narrative: Is a 55-year-old gentleman who has a history of metastatic colorectal cancer. He had obstruction to the left kidney that was initially managed with a ureteral stent. When stents should no longer be technically placed, he had a nephrostomy tube. He developed abscess cavities, and his left kidney was ultimately removed. At the time of his left nephrectomy, he had positive tumor margins and invasion of the ureteral wall. He now has what appears to be a mass involving the remainder of the left ureter and extends into the bladder. My suspicion is that this represents colorectal cancer that is directly extending down the ureter, but we do not have any tissue diagnosis at this time. He presents now for cystoscopy possible transurethral resection of any visible bladder tumor and a left retrograde pyelogram to see if there is a patent opening between the ureter and his abscess cavity. Review of Systems Narrative: No fevers or chills No dysphasia Hx Diabetes. 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 Cancer related pain Colon cancer metastasized to intra-abdominal lymph node Colon cancer metastasized to intrathoracic lymph node PET scan October 2019 Diabetes mellitus Discharge planning issues Essential hypertension Fatigue Fatty liver Femoral nerve injury Fistula of ureter Fracture of distal fibula Full code status he is aware that pts with metastatic cancer have low survival rate Goals of care, counseling/discussion Hypercholesterolemia Injury due to procedure Late effect of complications of procedure Medical cannabis use filled out paperwork 11/14/19 for him to receive medical cannabis 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 Mediport placement (10/21/16) Nephrostomy status Partial resection of colon (~2011) SIGMOID S/P ureteral stent placement Family History Father Heart disease Dementia AAA (abdominal aortic aneurysm) Mother No problems noted. Brother No problems noted. Son No problems noted. 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 Pets and animals: No Do you think of yourself as: straight/heterosexual Current gender identity: male What is your relationship status?: How often do you talk on the phone with friends or family?: once per week How often do you get together with friends or relatives?: once per week Panel score (0-1 are the most socially isolated patients): 1 What type of physical activity do you participate in: assisted ambulation and irregular exercise Duration: 15-30 minutes/day Frequency: 1-2 times per week Special benoit needs: No Agree to transfusion: Yes Seatbelt use: always Drive intox or ride w/intox bobtail driver: No Working smoke detector in home: Yes Carbon monox detector in home: Yes Firearms in home: No Do you feel safe at home: Yes Do you feel safe in your relationship?: Yes Additional Social history: has been struggling with colon cancer since 2011. 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 In 2019, Had MOHAN procedure that caused femoral nerve injury. Disabled since. to [place] since soon after HS. Has 2 children, one still in school. Benigno does not like to discuss his illness. He does not like to discuss end of life issues. He remains a full code. Meds Allergies and Home Medications Allergies Allergy/AdvReac Type Severity Reaction Status Date / Time No Known Allergies Allergy Verified 12/10/20 13:48 Home Medications Medication Instructions Recorded Confirmed Type aspirin [Aspirin Low-Strength] 81 mg PO DAILY tab-cap 10/27/12 12/12/20 History atorvastatin [Lipitor] 20 mg PO HS tab-cap 10/27/12 12/12/20 History multivitamin 1 cap PO DAILY 01/05/14 12/12/20 History insulin aspart U-100 100 unit/mL 1 sliding sc SC TID PRN ml 08/18/19 12/12/20 History subcutaneous solution acetaminophen [Tylenol] 1,000 mg PO PRN PRN 08/31/20 12/12/20 History docusate sodium 200 mg PO BID 10/16/20 12/12/20 History omeprazole 40 mg PO DAILY 10/19/20 12/12/20 History amoxicillin 875 mg-potassium 1 tab PO BID 12/03/20 12/12/20 History clavulanate 125 mg tablet dexamethasone 4 mg tablet 1 mg PO DAILY tab 12/03/20 12/12/20 History Lantus Solostar U-100 Insulin 20 unit SUBCUT HS 12/10/20 12/12/20 History dicyclomine 20 mg PO Q8H 12/12/20 12/12/20 History hydromorphone [Dilaudid] 1 mg PO PRN PRN 12/12/20 12/12/20 History levetiracetam [Keppra] 500 mg PO BID 12/12/20 12/12/20 History memantine 5 mg PO DAILY 12/12/20 12/12/20 History metformin 500 mg PO TID 12/12/20 12/12/20 History Exam Const General: other (chronically ill) Neck Neck: supple Resp Effort & Inspection: normal respiratory effort Auscultation: clear to auscultation bilaterally Cardio Rate: regular rate Rhythm: regular rhythm Neuro General: patient alert, patient awake and patient oriented x3 Results Last Vital Signs Temp 36 C L 12/12/20 07:56 Pulse 110 H 12/12/20 07:56 Resp 16 12/12/20 07:56 BP 105/73 12/12/20 07:56 Pulse Ox 16 L 12/12/20 07:56 COVID-19 Screening Have you, or household traveled for leisure in last 14 days?: No Had IN PERSON contact w/suspected or confirmed C-19 person: No
[2020-12-12] MEDS: ceFAZolin 2 GM/50 ML BAG IVPB (09:32)
[2020-12-12] MEDS: Lidocaine 2% Jelly 6 ML SYR (09:43)
[2020-12-12] MEDS: Omnipaque 300 MG/ML 50 ML BTL (10:00)
--- NOTE | 2020-12-12 10:06 | BLADDER_PTH ---
PATIENT: CHASE HEALY LOC: U#:[id number] AGE/SX: 55/M ROOM: 228 RE12/12/[address]: Liam Sandoval MD : [id number] BED: A DIS: 12/13/2020 SPEC #: [id number] RECD: 12/12/20 12:46 STATUS: KIERA RERed #: [id number] KENTRELL: 12/12/20 10:[address]: Liam Sandoval DEPT: Surgical Specimen RECD BY: Sophia Brunson ENTERED: 12/12/20 12:49 SP TYPE: Bladder OTHR DR: Chetan Jaquez Tissues: 1 - BLADDER BIOPSY Procedures: GROSS AND MICRO LEVEL 4 IMMUNOPEROXIDASE STAIN Comments: [id number]
--- NOTE | 2020-12-12 10:10 | DI.RAD_ITS ---
Exam(s) XR RETROGRADE IN OR EXAM: XR RETROGRADE IN OR CLINICAL HISTORY: Bladder mass TECHNIQUE: 2D and realtime digital imaging was performed. CONTRAST MATERIAL: Refer to procedure report. COMPARISON: No exams were available for comparison FINDINGS: Fluoroscopy was provided for Dr. Sandoval during the performance of a retrograde evaluation of the jose r l collecting system. Please refer to the procedure report for complete details. Ka,r=3.37 mGy IMPRESSION: RADIATION DOSE DELIVERED:
--- NOTE | 2020-12-12 10:18 | ROE_ITS ---
Date of service: 12/12/20 Time of Service: 10:18 Operative Note Operative Note DATE OF PROCEDURE: 12/12/20 PRE-OP DIAGNOSIS: bladder mass POST-OP DIAGNOSIS: same PROCEDURE: cystoscopy with TURBT (over 5 cm) SURGEON: Liam Sandoval ANESTHESIA TYPE: General:No Airway Refer to Anesthesia Record ESTIMATED BLOOD LOSS: 25 PATHOLOGY: other (bladder mass) COMPLICATIONS: None Patient was transported to: PACU Patient's condition: stable Implants: 22 [place] irrigation balbuena catheter with 30 cc sterile water in balloon Indications: This is a 55-year-old gentleman who has a history of metastatic colorectal cancer. He has had a left ureteral obstruction related to his tumor. He was initially managed with indwelling ureteral stents and nephrostomy tubes. Ultimately, he underwent a left nephrectomy. At the time of surgery, there was ureteral involvement of the colorectal cancer. He was recently hospitalized with abdominal pain. On his CT scan, there was concern that he may have a thrombosed gonadal vein. On reexamining of the films, it appears that the area in question is actually a dilated ureteral segment likely filled with tumor. There is also a mass extending into the bladder in the region of the left ureteral orifice. He is now presents for cystoscopy and transurethral resection of any visible lesion. We will plan on doing a retrograde pyelogram of the left ureteral segment for evaluation as well. Findings: large mass (with necrosis and calcifications) extending from expecxted location of left ureteral orifice Procedure Description: The patient was brought to the operating room on 12/12/2020. After successful induction of general anesthesia, he was placed in the dorsal lithotomy position. His genitalia was prepped and draped. 2% Xylocaine jelly was instilled into the urethra to act as a local anesthetic. There was a narrowing of the distal urethra, so the urethral meatus was dilated to a size 28 [place] using [place] sounds. A 26 [place] resectoscope sheath was then passed through the urethra into the bladder. The urethra and bladder were then inspected using a 30 degree lens. There was necrotic tissue sitting at the base of the bladder as well as necrotic tissue attached to a more nodular lesion extending from the expected area of the left ureteral orifice. The nodular lesion measured over 5 cm in largest dimension. There were some adherent calcifications. I then used bipolar cautery and an Manifact resectoscope to resect the visible lesions. There appeared to be remaining tumor extending through the bladder wall in the expected area of the left ureteral orifice. For this reason, I consider this resection to be incomplete. All resected tissue was evacuated and sent to pathology for permanent section. Once the resection was completed, I attempted to locate the exact lumen of the left ureteral orifice. I probed the area with a 6 [place] access catheter and injected Omnipaque. A localized pouch with extensive filling defects was outlined, but no extravasation to the pelvis and no fistulization to the previous psoas abscess site was identified. The resectoscope was removed. The bladder was filled with irrigant. A 22 [place] hematuria catheter was then passed through the urethra into the bladder. The catheter balloon was inflated with 30 cc of sterile water. Continuous bladder irrigation with saline was then begun. He tolerated this procedure well. He was taken to the recovery room in stable condition.
[2020-12-12] MEDS: fentaNYL 100 MCG/2 ML VIAL IVP ×2 (10:22→10:32)
[2020-12-12] MEDS: Acetaminophen 500 MG TAB 1000 MG PO ×2 (11:48→21:43)
--- NOTE | 2020-12-12 11:59 | NUR.NOTE ---
Nursing Note: At 1158 on 12/12/20, this RN attempted to call the pt.'s mother, Conchita Yap (on HIPAA), to notify her that the pt. was moved from PACU to Med/Surg and that she can come and visit between the hours of [phone]. RN will attempt to call the pt.'s mother again later.
--- NOTE | 2020-12-12 13:01 | W.ANESPOSTOP ---
Postoperative Evaluation Date, Time and Location Date Performed: 12/12/20 Time Performed: 13:02 Patient Location: PACU (Performed in PACU previously, patient doing well on the floor.) Vital Signs Most Recent Imported Vital Signs: Most Recent Vital Signs Temp Pulse Resp BP Pulse Ox 37.3 C 112 H 17 109/74 97 12/12/20 12:20 12/12/20 12:20 12/12/20 12:20 12/12/20 12:20 12/12/20 12:20 Pain Score Most Recent Pain Score: Most Recent Pain Score Pain Level 3 12/12/20 12:20 Assessment Mental Status: Awake (Alert & Oriented to Patient Baseline) Airway and Respiratory Function: Patent airway with normal (patient baseline) respiratory exam Cardiovascular Function: Hemodynamically Stable Hydration Status: Adequately Hydrated Nausea & Vomiting: No Nausea or Vomiting Pain: Pain is tolerable/mild (<5/10) Peripheral Nerve Block: Patient did not receive a nerve block
[2020-12-12] MEDS: metFORMIN C.R. 500 MG TABCR 1000 MG PO (17:10)
[2020-12-12] MEDS: Insulin Aspart 300 UNITS/3 ML PEN SC (17:10)
[2020-12-12] MEDS: Amoxicillin 875/Clav. 125 TAB PO (19:06)
[2020-12-12] MEDS: Doxycycline Hyclate 100 MG CAP PO (19:06)
[2020-12-12] MEDS: Memantine 5 MG TAB 10 MG PO (19:06)
[2020-12-12] MEDS: Docusate Sodium 100 MG CAP 200 MG PO (19:06)
[2020-12-12] MEDS: Dicyclomine 20 MG TAB PO (21:43)
[2020-12-12] MEDS: Atorvastatin 40 MG TAB PO (21:44)
[2020-12-12] MEDS: Insulin Glargine 300 UNITS/3 ML PEN 30 UNITS SC (21:44)
[2020-12-13 07:20] LABS: Abs Immature Grans 0.16 10^3/uL (0.0-0.06); HCT 26.9 % (40.0-50.0); HGB 8.5 g/dL (13.5-17.5); MCH 27.1 pg (27.0-33.0); MCHC 31.6 % (32.0-36.0); MCV 85.7 fL (80-95); MPV 9.7 fL (8.0-11.0); Nucleated RBC 0 %; RBC 3.14 10^6/uL (4.36-5.78); RDW-SD 52.1 fL; WBC 8.31 10^3/uL (4.4-10.8)
--- NOTE | 2020-12-13 07:22 | DSE_ITS ---
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 He underwent cystoscopy and we identified a mass in the region of the expected left ureteral orifice. The mass had both nodular and papillary components. There were adherent areas of necrosis and stone particles. We performed transurethral resection of the visible intraluminal tumor. We were unable to definitively identify the left ureteral lumen and there appeared to be residual tumor in the bladder wall beneath the resection site. In the postoperative time, he was maintained with continuous bladder irrigation. He remained stable overnight with no clot retention. On postoperative day #1, his bladder irrigation and Dahl catheter were discontinued. Home Meds and New Rx's Prescriptions: No Action insulin aspart U-100 [Novolog U-100 Insulin aspart] 100 unit/mL solution 1 sliding sc SC TID PRNRF: 0 amoxicillin-pot clavulanate [Augmentin] 875-125 mg tablet 1 tab PO BID RF: 0 aspirin [Aspirin Low-Strength] 81 MG tablet,chewable 81 mg PO DAILY RF: 0 multivitamin 1 EACH capsule 1 cap PO DAILY RF: 0 omeprazole 40 mg capsule,delayed release(DR/EC) 40 mg PO DAILY RF: 0 docusate sodium 100 mg Capsule 200 mg PO BID RF: 0 atorvastatin 40 mg Tablet 40 mg PO HS RF: 0 hydromorphone 2 mg Tablet 4 mg PO TID PRN PRNRF: 0 dicyclomine 20 mg Tablet 20 mg PO Q8H PRN PRN (Reason: Abdominal Pain) RF: 0 metformin 500 mg Tablet Extended Release 24 Hr 1,000 mg PO DAILY@1700 RF: 0 metformin 500 mg Tablet Extended Release 24 Hr 500 mg PO QAM RF: 0 memantine 5 mg Tablet 10 mg PO BID RF: 0 Lantus Solostar U-100 Insulin 100 unit/mL (3 mL) Insulin Pen 30 unit SUBCUT HS RF: 0 doxycycline hyclate 100 mg Capsule 100 mg PO BID RF: 0 acetaminophen 500 mg Tablet 1,000 mg PO Q6H PRN PRNRF: 0 dexamethasone 1 mg Tablet 1 mg PO DAILY RF: 0 Discharge Instructions Instructions: Cystoscopy (DC), Transurethral Resection of Bladder Tumors (DC) Additional Instructions: Follow up in approximately 2 weeks to review surgical pathology No new medications or prescriptions sent at discharge Stand Alone Forms: Nursing Discharge Form Referrals: Liam Sandoval MD [ [facility] ST[facility]FF PHYSICIAN] - Activity:: Activity as Tolerated Equipment/Supplies:: No Equipment Needed Diet:: As Tolerated Discharge Orders Discharge Orders: Discharge Order (Routine); Ordered 12/13/20 Ordered By: Liam Sandoval Discharge Data Discharge Comment: Patient must void prior to discharge DS: Summary Time Spent with Patient providing and/or coordinating discharge services: Less than 30 minutes Status at Discharge Functional status at discharge: independent ambulation Overall status at discharge: patient is back to baseline Mental Status: mental status grossly normal Speech and Movement: speech and movement normal Mood: congruent mood Affect: normal affect Exam Narrative Exam Narrative: On the morning of the discharge, he appears to be in good spirits. He appears to be back to his baseline. He does not appear septic or toxic His vital signs are documented elsewhere in the chart He is not short of breath at rest. His lungs are clear. His abdomen is soft with no distention He is awake and alert His continuous bladder irrigation is clear prior to removing the Dahl catheter. His labs from this morning are stable and he is deemed appropriate for discharge. Psych Mental Status: mental status grossly normal Speech and Movement: speech and movement normal Mood: congruent mood Affect: normal affect DS: Data Vitals/I&O Vitals and I&O: Vital Signs Temperature 36.3 C L 12/12/20 19:15 Temperature Source Skin 12/12/20 19:15 Pulse 108 H 12/12/20 19:15 Pulse Rhythm Regular 12/12/20 19:15 Respiratory Rate 17 12/12/20 19:15 Respiratory Effort Non-Labored 12/12/20 19:15 Respiratory Depth Normal 12/12/20 19:15 Respiratory Pattern Normal 12/12/20 19:15 Blood Pressure 126/81 12/12/20 19:15 Pulse Oximetry 98 12/12/20 19:15 Oxygen Delivery Method Room Air 12/12/20 19:15 Oxygen Flow Rate 0 12/12/20 19:15 Pain Level 5 12/12/20 21:43 Comment 12/12/20 12:20 Intake & Output 12/12/20 12/12/20 12/13/20 11:59 23:59 11:59 Intake Total 849.333 / 3148.000 2298.667 / 3148.000 Output Total 1200 / 1200 Balance -350.667 / 9587.952 1911.667 / 1948.000 Weight 91.8 kg Intake: IV 849.333 / 1838.000 988.667 / 1838.000 Oral 1310 / 1310 Output: Urine 1200 / 1200 Other: Urine Color Pale Pale Riley Urine Appearance Clear Clear Comment Three way Dahl catheter draining pale yellow urine at this time. Emesis Description None Data Completed and Pending Labs on day of discharge: Labs from last 24 hours 12/13/20 12/13/20 07:00 07:00 WBC Pending RBC Pending Hgb Pending Hct Pending MCV Pending MCH Pending MCHC Pending RDW Pending Plt Count Pending MPV Pending Immature Gran % Pending Neutrophils % Pending Lymphocytes % Pending Monocytes % Pending Eosinophils % Pending Basophils % Pending Absolute Neutrophils Pending Absolute Lymphocytes Pending Absolute Monocytes Pending Absolute Eosinophils Pending Absolute Basophils Pending Sodium Pending Potassium Pending Chloride Pending Carbon Dioxide Pending Anion Gap Pending BUN Pending Creatinine Pending Estimated GFR/1.73 m2 Pending Glucose Pending Calcium Pending [facility] Medical History (Updated 12/12/20 @ 08:57 by Liam Sandoval MD) Alternative medicine Anemia, chronic disease Bladder mass 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 Cancer related pain Colon cancer metastasized to intra-abdominal lymph node Colon cancer metastasized to intrathoracic lymph node PET scan October 2019 Diabetes mellitus Discharge planning issues Essential hypertension Fatigue Fatty liver Femoral nerve injury Fistula of ureter Fracture of distal fibula Full code status he is aware that pts with metastatic cancer have low survival rate Goals of care, counseling/discussion Hypercholesterolemia Injury due to procedure Late effect of complications of procedure Medical cannabis use filled out paperwork 11/14/19 for him to receive medical cannabis 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 Mediport placement (10/21/16) Nephrostomy status Partial resection of colon (~2011) SIGMOID S/P ureteral stent placement Family History Father Heart disease Dementia AAA (abdominal aortic aneurysm) Mother No problems noted. Brother No problems noted. Son No problems noted. 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 Pets and animals: No Do you think of yourself as: straight/heterosexual Current gender identity: male What is your relationship status?: How often do you talk on the phone with friends or family?: once per week How often do you get together with friends or relatives?: once per week Panel score (0-1 are the most socially isolated patients): 1 What type of physical activity do you participate in: assisted ambulation and irregular exercise Duration: 15-30 minutes/day Frequency: 1-2 times per week Special benoit needs: No Agree to transfusion: Yes Seatbelt use: always Drive intox or ride w/intox speed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 In 2019, Had MOHAN procedure that caused femoral nerve injury. Disabled since. to [place] since soon after HS. Has 2 children, one still in school. Benigno does not like to discuss his illness. He does not like to discuss end of life issues. He remains a full code.
[2020-12-13 07:31] LABS: Anion Gap 6.7 mmol/L (3-11); BUN 18 mg/dL (7-18); CO2 29.3 mmol/L (21.0-32.0); CREATININE 1.1 mg/dL (0.70-1.30); Calcium 8.6 mg/dL (8.5-10.1); Chloride 101 mmol/L (98-107); Glucose 146 mg/dL (74-106); Potassium 4.6 mmol/L (3.5-5.1); Sodium 137 mmol/L (136-145)
[2020-12-13 07:43] LABS: Platelet Count 167 10^3/uL (130-400)
[2020-12-13 07:44] LABS: Absolute Eosinophil Count 0.08 10^3/uL (0.0-0.7); Absolute Monocyte Count 0.33 10^3/uL (0.1-0.8); Absolute Neutrophil Count 7.15 10^3/uL (1.2-6.7); Bands % 0; Diff Comment Manual Differential; Hypochromasia 2+; Metamyelocytes % 1; Myelocytes % 1; Polychromasia Present
[2020-12-13] MEDS: metFORMIN C.R. 500 MG TABCR PO (08:00)
[2020-12-13] MEDS: Amoxicillin 875/Clav. 125 TAB PO (08:00)
[2020-12-13] MEDS: Doxycycline Hyclate 100 MG CAP PO (08:00)
[2020-12-13] MEDS: Memantine 5 MG TAB 10 MG PO (08:01)
[2020-12-13] MEDS: Multivitamin TAB 1 TAB PO (08:01)
[2020-12-13] MEDS: Omeprazole 20 MG CAPCR 40 MG PO (08:01)
[2020-12-13] MEDS: Docusate Sodium 100 MG CAP 200 MG PO (08:01)
[2020-12-13] MEDS: Dexamethasone 1 MG TAB PO (08:01)
[2020-12-13] MEDS: Insulin Aspart 300 UNITS/3 ML PEN SC (08:16)
--- NOTE | 2020-12-13 08:57 | RESPIRATORY ---
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
[2020-12-13 08:58] VITALS: RESP 18
== END 2020-12-13 12:13 | disposition home or self-care (01) ==
LOC: PDS 10:41 → MS 10:43
PROVIDERS: Admitting Provider Urology; PCP Physician Assistant Medical; Visit Provider Urology
PROC: (CPT 74450; principal; 2020-12-12 08:45)
PROC: 0TBB8ZZ Excision of Bladder, Via Natural or Artificial Opening Endoscopic (ICD-10-PCS; CPT 52240; 2020-12-12 08:45)
DX: C79.19 Secondary malignant neoplasm of other urinary organs (principal); C77.2 Secondary and unspecified malignant neoplasm of intra-abdominal lymph nodes; C77.1 Secondary and unspecified malignant neoplasm of intrathoracic lymph nodes; C79.31 Secondary malignant neoplasm of brain; K76.0 Fatty (change of) liver, not elsewhere classified; E78.00 Pure hypercholesterolemia, unspecified; D47.2 Monoclonal gammopathy; E11.65 Type 2 diabetes mellitus with hyperglycemia; Z93.6 Other artificial openings of urinary tract status; Z98.0 Intestinal bypass and anastomosis status
CPT/HCPCS: 52240; 36415; 80048; 88305; 74420; 85025; 88361; G0378; J0690; J1100; J2001; J2370; J2405; J3010; J8540; Q9967

== ENCOUNTER 2020-12-24 21:59 | Inpatient (IN) | payer BC, SELFPAY ==
[2020-12-24] VITALS (17 sets, daily range): BP systolic 91–110; BP diastolic 48–92; PULSE 126–173; RESP 13–21; TEMP 36.7; O2SAT 90–98
--- NOTE | 2020-12-24 21:53 | ED.GENADUL_ITS ---
Discharge Plan Disposition Patient Disposition: [facility] INPATIENT Condition: Serious Discharge Details Clinical Impression: Dehydration, Cystitis, Abdominal pain Primary Care Provider: Chetan Jaquez ED Provider: Gibran Hauser Home Meds and New Rx's Prescriptions: No Action insulin aspart U-100 [Novolog U-100 Insulin aspart] 100 unit/mL solution 1 sliding sc SC TID PRNRF: 0 amoxicillin-pot clavulanate [Augmentin] 875-125 mg tablet 1 tab PO BID RF: 0 aspirin [Aspirin Low-Strength] 81 MG tablet,chewable 81 mg PO DAILY RF: 0 multivitamin 1 EACH capsule 1 cap PO DAILY RF: 0 omeprazole 40 mg capsule,delayed release(DR/EC) 40 mg PO DAILY RF: 0 mebendazole 100 mg Tablet,Chewable 200 mg PO DAILY RF: 0 cholecalciferol (vitamin D3) [Vitamin D3] 50 mcg (2,000 unit) Capsule 2,000 unit PO DAILY RF: 0 docusate sodium 100 mg Capsule 200 mg PO BID RF: 0 atorvastatin 40 mg Tablet 40 mg PO HS RF: 0 hydromorphone 2 mg Tablet 4 mg PO TID PRN PRNRF: 0 dicyclomine 20 mg Tablet 20 mg PO Q8H PRN PRN (Reason: Abdominal Pain) RF: 0 metformin 500 mg Tablet Extended Release 24 Hr 1,000 mg PO DAILY@1700 RF: 0 metformin 500 mg Tablet Extended Release 24 Hr 500 mg PO QAM RF: 0 memantine 5 mg Tablet 10 mg PO BID RF: 0 Lantus Solostar U-100 Insulin 100 unit/mL (3 mL) Insulin Pen 30 unit SUBCUT HS RF: 0 doxycycline hyclate 100 mg Capsule 100 mg PO BID RF: 0 acetaminophen 500 mg Tablet 1,000 mg PO Q6H PRN PRNRF: 0 dexamethasone 1 mg Tablet 1 mg PO DAILY RF: 0 Medical Decision Making <Dimple Herrera DO - Last Filed: 12/24/20 22:46> 55-year-old male with a history of metastatic colon cancer, 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 also noted that patient had low oxygen saturation in the low 90s, low-grade fever T-max 100.4, and tachycardia into the 140s, and hypotension into the 80s [facility] records from last month note that patient had transition to DNR/DNI and was planning to pursue hospice. This was discussed with patient at bedside and he stated he had not completed this and thinks he would want everything done but states he's not sure. Heart rate 140s. Blood pressure 94/48 on arrival. Temp 98.1. Oxygen saturation 95% on room air. Abdomen soft nontender. No lower extremity Differential diagnosis includes pneumonia, UTI, recurrent psoas abscess, COVID- 19, dehydration, electrolyte abnormality, arrhythmia. EKG notes a rate of 140, sinus tachycardia, no STEMI. Will obtain screening labs, CT chest abdomen pelvis, give fluids and continue to monitor. Case endorsed to Dr. Hauser to follow-up on labs and imaging and final di sposition. Medical Records Medical records reviewed: Yes I reviewed the patient's medical records. ECG Data Attestation: I personally reviewed and interpreted this ECG (s) as follows: Interpretation: rate of 138, sinus, no stemi. <Gibran Hauser MD - Last Filed: 12/25/20 02:00> Pt signed out to me pending ct results. CT shows possible cystitis, numerous mets, and continued mass in psos muscle which could be continued abscess or metastase. Discussed results with the patient. 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 He feels as though this is likely what he would want to do and would like to discuss it further with palliative care. I discussed results with his and they talked with each other and did not feel they are set up currently at home for him and would like him to be admitted and discuss this further with palliative are. Discussed with hospitlist who accepts for admission, will give a dose of ceftriaxone to cover for cystitis. Medical Records Medical records reviewed: Yes I reviewed the patient's medical records. Imaging Data Radiologic Study: Attestation: I personally reviewed and interpreted this imaging study as follows: Imaging: CT Scan Radiologist's impression: IMPRESSION: 1. Extensive hepatic metastatic disease. 2. Equivocal cystitis. 3. Nodular heterogeneously attenuating structures in the left retroperitoneum may reflect a combination of lymphadenopathy and vascular structures/varices. In addition, a heterogeneous appearance of the left ileo psoas muscle may reflect intra psoas hemorrhage, an ileo psoas abscess versus malignant infiltration of the ileo psoas muscle which measures up to 6.5 by 5.6 cm. Infiltrating intermediately attenuating fluid is present in the region of the left retroperitoneum and paracolic gutter. 4. Moderately distended stomach is noted extending to the level of the transverse duodenum where a narrowed and thick-walled segment of duodenum is present. Posterior to the duodenum at this level small droplets of Chasity duodenal gas and fluid are present. Differential includes duodenal perforation with localized pneumoperitoneum. This may be related to Chasity duodenal metastases from the patient's known colon cancer It is unclear whether this may be responsible in part for the infiltrating left-sided retroperitoneal fluid. 5. Dilated and heterogeneously enhancing left common iliac vein may contain thrombus. Sonography recommended for further evaluation. IMPRESSION: 1. Expansile left a lateral 5th rib lytic metastatic lesion. 2. Nonspecific peribronchial cuffing. 3. Septal thickening at the lung bases may reflect mild interstitial edema. 4. Prominent mediastinal and hilar lymphadenopathy may reflect malignant adenopathy. 5. Left basilar pulmonary nodule measures 9 mm which may reflect a metastatic lesion and requires definitive evaluation. HPI <Dimple Herrera, - Last Filed: 12/24/20 22:46> General Mode of arrival: EMS . Date/Time Provider Initiated Documentation: 12/24/20 22:05 . Limitations to Documentation: no limitations . Information obtained by: patient . 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 (status post open nephrectomy and adrenalectomy 04/22/2020), prostatic abscess (status post TURP 05/2020), hypertension, hyperlipidemia, MGUS, diabetes, obstructive sleep apnea on BiPAP and multiple recent admissions and transfers for psoas abscess with recent transfer to [facility] for extensive left lower extremity DVT status post IVC filter presents for generalized weakness and poor appetite for the past 3 days Review of [facility] records note that patient was transitioned to DNR/DNI last month and decided to pursue comfort focused care at home with hospice support. This was discussed with patient at bedside and he stated he did not formally complete any of this process yet and he thinks he would want everything done. Patient's notes from home notes that he has had generalized weakness and poor appetite for the past few days. He has had decreased urine output and also cough with phlegm. notes that patient's oxygen saturation has been lower at 90 to 93% on room air, temperature has been low-grade fever at 99.5-100.4. Also noted that his baseline heart rate which is usually 1 12-1 18 has been in the 130s and his baseline blood pressure which is usually 100/70 was 86/60. Related Data Home Medications Medication Instructions Recorded Confirmed aspirin [Aspirin Low-Strength] 81 mg PO DAILY tab-cap 10/27/12 12/12/20 multivitamin 1 cap PO DAILY 01/05/14 12/12/20 insulin aspart U-100 100 unit/mL 1 sliding sc SC TID PRN ml 08/18/19 12/12/20 subcutaneous solution docusate sodium 200 mg PO BID 10/16/20 12/24/20 omeprazole 40 mg PO DAILY 10/19/20 12/12/20 amoxicillin 875 mg-potassium 1 tab PO BID 12/03/20 12/24/20 clavulanate 125 mg tablet acetaminophen 1,000 mg PO Q6H PRN PRN 12/12/20 12/12/20 atorvastatin 40 mg PO HS 12/12/20 12/24/20 dexamethasone 1 mg PO DAILY 12/12/20 12/12/20 dicyclomine 20 mg PO Q8H PRN PRN 12/12/20 12/12/20 doxycycline hyclate 100 mg PO BID 12/12/20 12/24/20 hydromorphone 4 mg PO TID PRN PRN 12/12/20 12/24/20 insulin glargine [Lantus Solostar 30 unit SUBCUT HS 12/12/20 12/12/20 U-100 Insulin] memantine 10 mg PO BID 12/12/20 12/24/20 metformin 1,000 mg PO DAILY@1700 12/12/20 12/24/20 metformin 500 mg PO QAM 12/12/20 12/24/20 cholecalciferol (vitamin D3) 2,000 unit PO DAILY 12/24/20 12/24/20 [Vitamin D3] mebendazole 200 mg PO DAILY 12/24/20 12/24/20 Allergies Allergy/AdvReac Type Severity Reaction Status Date / Time No Known Allergies Allergy Verified 12/24/20 22:09 General SCOOTER: 2 Review of Systems <Dimple Herrera DO - Last Filed: 12/24/20 22:46> All systems reviewed & are unremarkable except as noted in HPI and below Constitutional Constitutional: Reports as per HPI, Denies chills, Denies fever(s) and Reports weakness Eyes Eyes: Denies blurry vision ENT Ears, Nose, Mouth, and Throat: Denies dizziness, Denies sore throat and Denies throat swelling Cardiovascular Cardiovascular: Denies chest pain and Denies dyspnea Respiratory Respiratory: Denies cough and Denies dyspnea Gastrointestinal Gastrointestinal: Denies abdominal pain, Denies diarrhea and Denies vomiting Genitourinary Genitourinary: Denies hematuria and Denies dysuria Musculoskeletal Musculoskeletal: Denies back pain and Denies numbness Integumentary/Breasts Skin/Breast: Denies lesions and Denies rash Neurologic Neurologic: Denies dizziness, Denies localized weakness, Denies numbness and Reports weakness Allergic/Immunologic Allergic/Immunologic: Denies throat swelling PFSH <Dimple Herrera DO - Last Filed: 12/24/20 22:46> Medical History Alternative medicine Anemia, chronic disease Bladder mass 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 Cancer related pain Colon cancer metastasized to intra-abdominal lymph node Colon cancer metastasized to intrathoracic lymph node PET scan October 2019 Diabetes mellitus Discharge planning issues Essential hypertension Fatigue Fatty liver Femoral nerve injury Fistula of ureter Fracture of distal fibula Full code status he is aware that pts with metastatic cancer have low survival rate Goals of care, counseling/discussion Hypercholesterolemia Injury due to procedure Late effect of complications of procedure Medical cannabis use filled out paperwork 11/14/19 for him to receive medical cannabis 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 Mediport placement (10/21/16) Nephrostomy status Partial resection of colon (~2011) SIGMOID S/P ureteral stent placement Family History Father Heart disease Dementia AAA (abdominal aortic aneurysm) Mother No problems noted. Brother No problems noted. Son No problems noted. 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 Pets and animals: No Do you think of yourself as: straight/heterosexual Current gender identity: male What is your relationship status?: How often do you talk on the phone with friends or family?: once per week How often do you get together with friends or relatives?: once per week Panel score (0-1 are the most socially isolated patients): 1 What type of physical activity do you participate in: assisted ambulation and irregular exercise Duration: 15-30 minutes/day Frequency: 1-2 times per week Special benoit needs: No Agree to transfusion: Yes Seatbelt use: always Drive intox or ride w/intox catering truck driver: No Working smoke detector in home: Yes Carbon monox detector in home: Yes Firearms in home: No Do you feel safe at home: Yes Do you feel safe in your relationship?: Yes Additional Social history: has been struggling with colon cancer since 2011. 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 In 2019, Had MOHAN procedure that caused femoral nerve injury. Disabled since. to [place] since soon after HS. Has 2 children, one still in school. Benigno does not like to discuss his illness. He does not like to discuss end of life issues. He remains a full code. Exam <Dimple Herrera DO - Last Filed: 12/24/20 22:46> Const General: cooperative, no acute distress and ill appearing chronically Orientation: alert, awake and oriented x3 HENMT Head: normal to inspection Ears: hearing grossly normal bilaterally and external ears normal Face and sinus: normal facial exam Mouth: mucous membranes dry Eyes General: appearance normal, both eyes and all related structures Pupils: PERRL EOM: EOM intact bilaterally Neck Neck: normal visual inspection and No submandibular swelling Lymphatic: no lymphadenopathy noted Chest Chest: normal inspection of the chest and no tenderness Resp Effort & Inspection: normal respiratory effort and able to speak in complete sentences Auscultation: clear to auscultation bilaterally Cardio Rate: regular rate Rhythm: regular rhythm GI Inspection: normal to inspection Palpation: soft, not firm, not rigid and nontender Auscultation: normal bowel sounds Skin General skin exam: pallor Neuro General: patient alert, patient awake and patient oriented x3 Cognition: normal cognition Speech: speech normal Motor: muscle tone normal throughout Sensory Exam: no sensory deficits noted Extrem General: normal to inspection, full ROM, capillary refill normal, no calf tenderness bilaterally and no edema Psych Appearance: grossly normal Mental Status: mental status grossly normal Speech and Movement: speech and movement normal Affect: normal affect Sign Out <Dimple Herrera DO - Last Filed: 12/24/20 22:46> Sign Out Data: Sign Out Comment: Follow-up on labs and imaging and final disposition. Will likely require admission. Has been transferred to [facility] for recurrent abscess and most recently 1 month ago for left leg DVT. Last updated by Dimple Herrera DO at 12/24/20 22:48
--- NOTE | 2020-12-24 22:15 | RT.EKG_ITS ---
APPROVED REPORT Exam: Resting ECG Reason for Exam: weakness Patient Location: E HR:138 bpm ECG Measurements Heart Rate 138 AXIS WA 130 P 49 QRSd 103 QRS -56 QT 294 T 54 QTc 445 Conclusion Sinus tachycardia...rate> 99 Left anterior fascicular block...axis(240,-40), init forces inf I have reviewed and interpreted ECG and agree with software generated interpretation.
--- NOTE | 2020-12-24 22:15 | DI.CT_ITS ---
Exam(s) CT CHEST PE ABD PELVIS W EXAM: CT CHEST PE ABD PELVIS W CLINICAL HISTORY: cough, fever, hypoxia. TECHNIQUE: Imaging Protocol: Axial CT angiography was performed with multi-slice acquisition and m ulti-planar and/or 3D reconstructions. CONTRAST MATERIAL: Intravenous: Omnipaque 350 Contrast volume:100 ml Oral: None COMPARISON: CT CT CHEST/ABD/PEL WO from 11/18/2020 FINDINGS: CHEST: PULMONARY ARTERIES: There are no intra-arterial filling defects to suggest the presence of acute pulm onary emboli. LUNGS: Again noted is a large malignant appearing expansile destructive mass of the left 5th rib, unc hanged.. There is a small left pleural effusion. There is mild infiltrate in left lower lobe. No n ew distinct pulmonary nodules evident. MEDIASTINUM: There is extensive bilateral hilar and subcarinal adenopathy. Also paratracheal adenopa thy. Also adenopathy in the anterior left mediastinal fat. These findings have increased when scooter red to 11/18/2020. Visualized thyroid unremarkable. CARDIAC: Heart size is normal. There is no pericardial effusion. There is no significant shift of t he interventricular septum.Caliber of the thoracic aorta is within normal limits. OSSEOUS: No significant osseous lesions.. ABDOMEN: LIVER: There are multiple lesions in the liver consistent with metastatic disease. GALLBLADDER/BILIARY: No obvious gallbladder pathology. CBD is not dilated. PANCREAS: There is a 9 x 8 millimeter hypodensity in the anterior aspect of the pancreas body which i s probably intra pancreatic cystic neoplasm. Pancreatic duct is not dilated. There is some fluid arou nd the pancreatic tail. Also densities above the pancreas which may represent lymph nodes. SPLEEN: Spleen is not enlarged. There are no intrasplenic lesions. Splenic and portal veins are anguiano nt. ADRENALS: Left adrenal gland is surgically absent. Right adrenal gland exhibits abnormal thickening. KIDNEYS:Left kidney is surgically absent. There is a nonobstructive 3 millimeter there are few nonobs tructive 3 millimeter calculi in the opposite-right kidney. There is a cyst in the anterior cortex of the right kidney measuring 2 cm x 1.5 cm. No hydronephrosis on the right side. Urinary bladder wall is diffusely thickened. There appears to be a TURP defect. . ABDOMINAL AORTA: Abdominal aorta is not enlarged. However, there is para-aortic adenopathy evident. LYMPH NODES: Significant adenopathy again noted in the retroperitoneum. Also again noted is abscess o r malignant infiltration of the left iliopsoas, previously documented. ABDOMINAL WALL/GI: Partial sigmoid resection again noted. No bowel obstruction. No bowel obstruction. IVC filter noted. Stomach is distended as is the duodenum. No true small-bowel obstruction evident. PELVIS: LYMPH NODES: As above GI: No evidence of appendicitis.Partial sigmoid resection. URINARY BLADDER: Thickened wall. TURP defect. REPRODUCTIVE: Small prostate OSSEOUS: No significant osseous lesions. IMPRESSION: 1. No evidence of pulmonary emboli. However, there is again noted a large destructive malignant mass in the left 5th rib. Although there are no new pulmonary nodules, there is some infiltrate in the lef t lower lobe and a small left pleural effusion. 2. Extensive and increasing bilateral hilar and mediastinal adenopathy as well as extensive subcarina l adenopathy. 3. Extensive hepatic metastatic disease. 4. Retroperitoneal adenopathy in this patient who has had prior left nephrectomy. Also nodular infilt ration of the left renal bed again noted and abnormal in appearance enlargement of the left psoas mus vargas either hematoma or malignancy. Possibly combination there of. 5. Partial sigmoid resection. IVC filter. TURP. Study 1st read by [facility]. RADIATION DOSE DELIVERED: 1,540.49mGy.cm Total DLP DATA REPOSITORY: All CT scans at this facility are submitted to the National Radiology Data Registry (NRDR) Dose Index Registry (DIR) with the [employer] (A[employer]). RADIATION OPTIMIZATION: All CT scans at this facility use at least one of these dose optimization te chniques: automated exposure control; mA and/or kV adjustment per patient size (includes targeted exa ms where dose is matched to clinical indication); or iterative reconstruction.
[2020-12-24 22:42] LABS: Abs Immature Grans 0.08 10^3/uL (0.0-0.06); Absolute Basophil Count 0.03 10^3/uL (0.0-0.2); Absolute Eosinophil Count 0.09 10^3/uL (0.0-0.7); Absolute Lymphocyte Count 0.93 10^3/uL (1.2-3.4); Absolute Monocyte Count 0.76 10^3/uL (0.1-0.8); Absolute Neutrophil Count 7.63 10^3/uL (1.2-6.7); Basophils % 0.3; Eosinophils % 0.9; HCT 25.9 % (40.0-50.0); HGB 7.9 g/dL (13.5-17.5); Immature Grans % 0.8; Lymphocytes % 9.8; MCH 27.5 pg (27.0-33.0); MCHC 30.5 % (32.0-36.0); MCV 90.2 fL (80-95); MPV 9.9 fL (8.0-11.0); Neutrophils % 80.2; Nucleated RBC 0 %; Platelet Count 286 10^3/uL (130-400); RBC 2.87 10^6/uL (4.36-5.78); RDW 18.1 % (11.8-14.1); RDW-SD 59.1 fL; WBC 9.52 10^3/uL (4.4-10.8)
[2020-12-24 22:43] LABS: Lactate 6.8 mmol/L (0.6-1.4)
[2020-12-24 22:58] LABS: ALT 31 U/L (16-63); AST 60 U/L (15-37); Albumin 2.2 g/dL (3.4-5.0); Alkaline Phosphatase 368 U/L (46-116); Anion Gap 10.6 mmol/L (3-11); BUN 15 mg/dL (7-18); Bilirubin, Total 0.4 mg/dL (0.2-1.0); CO2 27.4 mmol/L (21.0-32.0); CREATININE 1.3 mg/dL (0.70-1.30); Calcium 9.3 mg/dL (8.5-10.1); Chloride 94 mmol/L (98-107); Estimated GFR 57.75 (mL/min/1.73m2); Glucose 169 mg/dL (74-106); Magnesium 1.5 mg/dL (1.8-2.4); Potassium 4.3 mmol/L (3.5-5.1); Sodium 132 mmol/L (136-145); Total Protein 6.5 g/dL (6.4-8.2)
[2020-12-24 22:59] LABS: INR 1.1 (0.9-1.1); PTT Activated 23.1 sec (21.0-27.5); Prothrombin Time 11.2 sec (9.3-11.0)
[2020-12-24 23:01] LABS: Troponin I < 0.05 ng/mL (<0.06)
[2020-12-24] MEDS: Normal Saline 1,000 ML 1000 ML IV (23:10)
[2020-12-24] MEDS: Omnipaque 350 MG/ML 100 ML BTL IJ (23:14)
[2020-12-24] MEDS: Normal Saline - Diluent 50 ML VIAL IV (23:14)
[2020-12-25] VITALS (37 sets, daily range): BP systolic 98–120; BP diastolic 60–75; PULSE 119–134; RESP 14–24; TEMP 36.6–37.5; O2SAT 89–98
[2020-12-25] MEDS: Lactated Ringers 1,000 ML 1000 ML IV (00:14)
[2020-12-25 00:32] LABS: Lactate 5.4 mmol/L (0.6-1.4)
[2020-12-25 00:38] LABS: Bilirubin Negative (Negative); Blood Moderate (Negative); Clarity Clear (Clear); Glucose Negative (Negative); Ketones Negative (Negative); Leukocyte Esterase Negative (Negative); Nitrite Negative (Negative); Specific Gravity 1.015 (1.005-1.025); Urobilinogen 0.2 EU/dL (Up TO 0.2)
--- NOTE | 2020-12-25 00:42 | DI.VRAD_ITS ---
PROCEDURE INFORMATION: Exam: CTA Chest With Contrast Exam date and time: 12/24/2020 10:31 PM Age: 55 years old Clinical indication: Pain; Other: HX colon CA cough fever hypoxia TECHNIQUE: Imaging protocol: Computed tomographic angiography of the chest with contrast. 3D rendering (Not supervised by radiologist): MIP and/or 3D reconstructed images were created by the technologist. Contrast material: OMNI 350; Contrast volume: 100 ml; Contrast route: INTRAVENOUS (IV); COMPARISON: CT CHEST/ABD/PEL WO 11/18/2020 11:48 PM FINDINGS: Pulmonary arteries: There is no evidence for PE. Aorta: Unremarkable. No aortic aneurysm. No aortic dissection. Lungs: Peribronchial cuffing is present which is nonspecific, and which may reflect acute or chronic bronchial inflammation. Alternatively, this may reflect an element of reactive airways disease. Septal thickening at the lung bases may reflect mild interstitial edema. Left basilar pulmonary nodule measures 9 mm which may reflect a metastatic lesion and requires definitive evaluation. Pleural spaces: Small left pleural effusion Heart: Unremarkable. No cardiomegaly. No pericardial effusion. Lymph nodes: Prominent mediastinal and hilar lymphadenopathy may reflect malignant adenopathy. Bones/joints: Expansile left a lateral 5th rib lytic metastatic lesion. Soft tissues: Unremarkable. IMPRESSION: 1. Expansile left a lateral 5th rib lytic metastatic lesion. 2. Nonspecific peribronchial cuffing. 3. Septal thickening at the lung bases may reflect mild interstitial edema. 4. Prominent mediastinal and hilar lymphadenopathy may reflect malignant adenopathy. 5. Left basilar pulmonary nodule measures 9 mm which may reflect a metastatic lesion and requires definitive evaluation. PROCEDURE INFORMATION: Exam: CT Angiography Abdomen With Contrast Exam date and time: 12/24/2020 10:31 PM Age: 55 years old Clinical indication: Pain; Other: HX colon CA cough fever hypoxia TECHNIQUE: Imaging protocol: Computed tomographic angiography images of the abdomen with intravenous contrast material. 3D rendering (Not supervised by radiologist): MIP and/or 3D reconstructed images were created by the technologist. Contrast material: OMNI 350; Contrast volume: 100 ml; Contrast route: INTRAVENOUS (IV); COMPARISON: CT CHEST/ABD/PEL WO 11/18/2020 11:48 PM FINDINGS: Aorta: No aortic aneurysm. No aortic dissection. Celiac trunk and mesenteric arteries: No occlusion or significant stenosis. Renal arteries: No occlusion or significant stenosis. Left iliac arteries: Dilated and heterogeneously enhancing left common iliac vein may contain thrombus. Sonography recommended for further evaluation. Liver: Extensive hepatic metastatic disease . Gallbladder and bile ducts: Normal. No calcified stones. No ductal dilation. Pancreas: Normal. No ductal dilation. Spleen: Normal. No splenomegaly. Adrenals: Normal. No mass. Kidneys and ureters: Normal. No hydronephrosis. Stomach and bowel: Moderately distended stomach is noted extending to the level of the transverse duodenum where a narrowed and thick-walled segment of duodenum is present. Posterior to the duodenum at this level small droplets of Chasity duodenal gas and fluid are present. Differential includes duodenal perforation with localized pneumoperitoneum. It is unclear whether this may be responsible in part for the infiltrating left-sided retroperitoneal fluid. Lymph nodes: Nodular heterogeneously attenuating structures in the left retroperitoneum may reflect a combination of lymphadenopathy and vascular structures/varices. In addition, a heterogeneous appearance of the left ileo psoas muscle may reflect intra psoas hemorrhage, an ileo psoas abscess versus malignant infiltration of the ileo psoas muscle which measures up to 6.5 by 5.6 cm. Infiltrating intermediately attenuating fluid is present in the region of the left retroperitoneum and paracolic gutter. Intraperitoneal space: See Stomach and bowel finding. Bladder: The urinary bladder is questionably thickwalled. This may reflect incomplete distention. However correlation with UA is recommended to exclude cystitis. Bones/joints: Unremarkable. No acute fracture. No dislocation. Soft tissues: See Lymph nodes finding. IMPRESSION: 1. Extensive hepatic metastatic disease. 2. Equivocal cystitis. 3. Nodular heterogeneously attenuating structures in the left retroperitoneum may reflect a combination of lymphadenopathy and vascular structures/varices. In addition, a heterogeneous appearance of the left ileo psoas muscle may reflect intra psoas hemorrhage, an ileo psoas abscess versus malignant infiltration of the ileo psoas muscle which measures up to 6.5 by 5.6 cm. Infiltrating intermediately attenuating fluid is present in the region of the left retroperitoneum and paracolic gutter. 4. Moderately distended stomach is noted extending to the level of the transverse duodenum where a narrowed and thick-walled segment of duodenum is present. Posterior to the duodenum at this level small droplets of Chasity duodenal gas and fluid are present. Differential includes duodenal perforation with localized pneumoperitoneum. This may be related to Chasity duodenal metastases from the patient's known colon cancer It is unclear whether this may be responsible in part for the infiltrating left-sided retroperitoneal fluid. 5. Dilated and heterogeneously enhancing left common iliac vein may contain thrombus. Sonography recommended for further evaluation. Dictated and Authenticated by: Rubens Devries MD. Ordering:RONIT Musa MD
[2020-12-25 00:46] LABS: Bacteria Few HPF (Negative); C & S Indicated? No; Casts Negative LPF (Negative); Crystals Negative HPF (Negative); Epithelial Cells Few HPF (Negative); Mucus Negative (Negative); WBC Negative HPF (0-5)
[2020-12-25 01:24] LABS: COVID-19 PCR Negative (Negative)
[2020-12-25] MEDS: cefTRIAXone 2 GM/50 ML BAG IVPB (01:38)
--- NOTE | 2020-12-25 01:45 | W.PM.HP.N ---
Date of service: 12/25/20 Time of Service: 01:45 Assessment and Plan Assessment and plan (1) Dehydration: Start date: 12/25/20 Status: Acute Assessment and plan: This is a 55-year-old gentleman with multiple sequela and diffusely metastatic colon cancer now reaching end-of-life. He needs to reevaluate treatment plan and is moving toward [facility]LE[facility] MANAGER and hospice care with family at home. He does live with his . He presents with decreased intake and dehydration respond to IV fluids but still tachycardic. Continue IV hydration and monitor symptoms as negative care evaluation is ongoing. For now the patient will be placed on Rocephin for possible UTI with cystitis and he is reevaluating whether to continue with chemotherapy. Comfort measures. (2) Cystitis: Start date: 12/25/20 Status: Acute Assessment and plan: Rocephin IV with follow-up on cultures. Reevaluate need for continuous antibiotic therapy for the patient is having multiple sites of infection with end-stage disease with diffusely metastatic colon cancer. (3) Metastatic colorectal cancer: Status: Chronic Assessment and plan: Patient does not likely to continue aggressive treatment and is approaching hospice management which should be reevaluated during this hospitalization. Patient does have problems with DVT and does have an IVC filter not on anticoagulation. (4) Diabetes mellitus: Status: Chronic Assessment and plan: Glucometer measurements before meals and bedtime with short acting insulin coverage for now holding usual outpatient therapy. 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 Narrative: This is a 55-year-old male patient with diffusely metastatic colon cancer and multiple complications with recent [place] [facility] [place]so[place] which is resolving. He has an IVC filter for extensive DVTs. He is reevaluating continued treatment of his disease process and approaching [facility] MANAGER with hospice having failed medical therapy with multiple complications. He is in chronic pain. He is comfortable presently with IV Dilaudid for pain control. He did have a slight decrease in oxygen and low-grade fever with tachycardia. Dehydrated upon admission and this did respond to IV fluid resuscitation. He has been hospitalized for treatment of possible cystitis and continued reevaluation of treatment plan approaching hospice and palliative care. Evaluation of medical therapy is ongoing. He will have IV hydration as tolerated and covered with Rocephin to be continued as initiated in the ED. He offers no new complaints. He does appear much older than his stated age and comfortable at the time of my exam. Review of Systems Narrative: 13 point review of systems otherwise unrevealing or stable with patient having slow deterioration with diffusely metastatic disease including brain metastases. [facility] Medical History Alternative medicine Anemia, chronic disease Bladder mass 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 Cancer related pain Colon cancer metastasized to intra-abdominal lymph node Colon cancer metastasized to intrathoracic lymph node PET scan October 2019 Diabetes mellitus Discharge planning issues Essential hypertension Fatigue Fatty liver Femoral nerve injury Fistula of ureter Fracture of distal fibula Full code status he is aware that pts with metastatic cancer have low survival rate Goals of care, counseling/discussion Hypercholesterolemia Injury due to procedure Late effect of complications of procedure Medical cannabis use filled out paperwork 11/14/19 for him to receive medical cannabis 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 Mediport placement (10/21/16) Nephrostomy status Partial resection of colon (~2011) SIGMOID S/P ureteral stent placement Family History Father Heart disease Dementia AAA (abdominal aortic aneurysm) Mother No problems noted. Brother No problems noted. Son No problems noted. 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 Pets and animals: No Do you think of yourself as: straight/heterosexual Current gender identity: male What is your relationship status?: How often do you talk on the phone with friends or family?: once per week How often do you get together with friends or relatives?: once per week Panel score (0-1 are the most socially isolated patients): 1 What type of physical activity do you participate in: assisted ambulation and irregular exercise Duration: 15-30 minutes/day Frequency: 1-2 times per week Special benoit needs: No Agree to transfusion: Yes Seatbelt use: always Drive intox or ride w/intox seasonal delivery driver: No Working smoke detector in home: Yes Carbon monox detector in home: Yes Firearms in home: No Do you feel safe at home: Yes Do you feel safe in your relationship?: Yes Additional Social history: has been struggling with colon cancer since 2011. 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 In 2019, Had MOHAN procedure that caused femoral nerve injury. Disabled since. to [place] since soon after HS. Has 2 children, one still in school. Benigno does not like to discuss his illness. He does not like to discuss end of life issues. He remains a full code. Meds Allergies and Home Medications Allergies Allergy/AdvReac Type Severity Reaction Status Date / Time No Known Allergies Allergy Verified 12/24/20 22:09 Home Medications Medication Instructions Recorded Confirmed Type aspirin [Aspirin Low-Strength] 81 mg PO DAILY tab-cap 10/27/12 12/12/20 History multivitamin 1 cap PO DAILY 01/05/14 12/12/20 History insulin aspart U-100 100 unit/mL 1 sliding sc SC TID PRN ml 08/18/19 12/12/20 History subcutaneous solution docusate sodium 200 mg PO BID 10/16/20 12/24/20 History omeprazole 40 mg PO DAILY 10/19/20 12/12/20 History amoxicillin 875 mg-potassium 1 tab PO BID 12/03/20 12/24/20 History clavulanate 125 mg tablet acetaminophen 1,000 mg PO Q6H PRN PRN 12/12/20 12/12/20 History atorvastatin 40 mg PO HS 12/12/20 12/24/20 History dexamethasone 1 mg PO DAILY 12/12/20 12/12/20 History dicyclomine 20 mg PO Q8H PRN PRN 12/12/20 12/12/20 History doxycycline hyclate 100 mg PO BID 12/12/20 12/24/20 History hydromorphone 4 mg PO TID PRN PRN 12/12/20 12/24/20 History insulin glargine [Lantus Solostar 30 unit SUBCUT HS 12/12/20 12/12/20 History U-100 Insulin] memantine 10 mg PO BID 12/12/20 12/24/20 History metformin 1,000 mg PO DAILY@1700 12/12/20 12/24/20 History metformin 500 mg PO QAM 12/12/20 12/24/20 History cholecalciferol (vitamin D3) 2,000 unit PO DAILY 12/24/20 12/24/20 History [Vitamin D3] mebendazole 200 mg PO DAILY 12/24/20 12/24/20 History Exam Narrative Exam Narrative: General: Patient appears much older than stated age, alert and oriented at least to person place but not to time. He is slightly sedated with pain control. He is in no acute distress. HEENT: Normocephalic, coarsened facial features, eyes with pupils equal and reactive light symmetrically, extraocular movement intact and sclera anicteric. Oropharynx with dry mucosa. Neck: Supple without JVD. Back: Stooped posture. Chest: Port over left upper chest. Lungs: Fair aeration and clear to auscultation with patient examined supine. Heart: Tachycardic rate with regular rhythm, no appreciable murmurs or gallops. Abdomen: Soft, nontender to palpation with no palpable hepatosplenomegaly. Multiple old surgical scars over his abdomen. Genitalia/rectal: Exam deferred. Extremities: Without clubbing, cyanosis or pitting edema. Peripheral pulses intact. Skin: Pale, warm and dry. Neuro: Cranial nerves II through XII gross intact, no focalizing motor deficits. Psych: Flattened affect with depressed mood, no abnormal thought processes. Remote and recent memory appear to be grossly intact though patient is sedated. Results Imaging Imaging Studies: Exam: CTA Chest With Contrast Exam date and time: 12/24/2020 10:31 PM Age: 55 years old Clinical indication: Pain; Other: HX colon CA cough fever hypoxia COMPARISON: CT CHEST/ABD/PEL WO 11/18/2020 11:48 PM FINDINGS: Pulmonary arteries: There is no evidence for PE. Aorta: Unremarkable. No aortic aneurysm. No aortic dissection. Lungs: Peribronchial cuffing is present which is nonspecific, and which may reflect acute or chronic bronchial inflammation. Alternatively, this may reflect an element of reactive airways disease. Septal thickening at the lung bases may reflect mild interstitial edema. Left basilar pulmonary nodule measures 9 mm which may reflect a metastatic lesion and requires definitive evaluation. Pleural spaces: Small left pleural effusion Heart: Unremarkable. No cardiomegaly. No pericardial effusion. Lymph nodes: Prominent mediastinal and hilar lymphadenopathy may reflect malignant adenopathy. Bones/joints: Expansile left a lateral 5th rib lytic metastatic lesion. Soft tissues: Unremarkable. IMPRESSION: 1. Expansile left a lateral 5th rib lytic metastatic lesion. 2. Nonspecific peribronchial cuffing. 3. Septal thickening at the lung bases may reflect mild interstitial edema. 4. Prominent mediastinal and hilar lymphadenopathy may reflect malignant adenopathy. 5. Left basilar pulmonary nodule measures 9 mm which may reflect a metastatic lesion and requires definitive evaluation. PROCEDURE INFORMATION: Exam: CT Angiography Abdomen With Contrast Exam date and time: 12/24/2020 10:31 PM Age: 55 years old Clinical indication: Pain; Other: HX colon CA cough fever hypoxia COMPARISON: CT CHEST/ABD/PEL WO 11/18/2020 11:48 PM FINDINGS: Aorta: No aortic aneurysm. No aortic dissection. Celiac trunk and mesenteric arteries: No occlusion or significant stenosis. Renal arteries: No occlusion or significant stenosis. Left iliac arteries: Dilated and heterogeneously enhancing left common iliac vein may contain thrombus. Sonography recommended for further evaluation. Liver: Extensive hepatic metastatic disease . Gallbladder and bile ducts: Normal. No calcified stones. No ductal dilation. Pancreas: Normal. No ductal dilation. Spleen: Normal. No splenomegaly. Adrenals: Normal. No mass. Kidneys and ureters: Normal. No hydronephrosis. Stomach and bowel: Moderately distended stomach is noted extending to the level of the transverse duodenum where a narrowed and thick-walled segment of duodenum is present. Posterior to the duodenum at this level small droplets of Chasity duodenal gas and fluid are present. Differential includes duodenal perforation with localized pneumoperitoneum. It is unclear whether this may be responsible in part for the infiltrating left-sided retroperitoneal fluid. Lymph nodes: Nodular heterogeneously attenuating structures in the left retroperitoneum may reflect a combination of lymphadenopathy and vascular structures/varices. In addition, a heterogeneous appearance of the left ileo psoas muscle may reflect intra psoas hemorrhage, an ileo psoas abscess versus malignant infiltration of the ileo psoas muscle which measures up to 6.5 by 5.6 cm. Infiltrating intermediately attenuating fluid is present in the region of the left retroperitoneum and paracolic gutter. Intraperitoneal space: See Stomach and bowel finding. Bladder: The urinary bladder is questionably thickwalled. This may reflect incomplete distention. However correlation with UA is recommended to exclude cystitis. Bones/joints: Unremarkable. No acute fracture. No dislocation. Soft tissues: See Lymph nodes finding. IMPRESSION: 1. Extensive hepatic metastatic disease. 2. Equivocal cystitis. 3. Nodular heterogeneously attenuating structures in the left retroperitoneum may reflect a combination of lymphadenopathy and vascular structures/varices. In addition, a heterogeneous appearance of the left ileo psoas muscle may reflect intra psoas hemorrhage, an ileo psoas abscess versus malignant infiltration of the ileo psoas muscle which measures up to 6.5 by 5.6 cm. Infiltrating intermediately attenuating fluid is present in the region of the left retroperitoneum and paracolic gutter. 4. Moderately distended stomach is noted extending to the level of the transverse duodenum where a narrowed and thick-walled segment of duodenum is present. Posterior to the duodenum at this level small droplets of Chasity duodenal gas and fluid are present. Differential includes duodenal perforation with localized pneumoperitoneum. This may be related to Chasity duodenal metastases from the patient's known colon cancer It is unclear whether this may be responsible in part for the infiltrating left-sided retroperitoneal fluid. 5. Dilated and heterogeneously enhancing left common iliac vein may contain thrombus. Sonography recommended for further evaluation. Labs Result diagrams: 12/24/20 22:22 12/24/20 22:22 Labs: Laboratory Results - last 24 hr 12/24/20 12/24/20 12/24/20 22:22 22:22 22:22 WBC RBC Hgb Hct MCV MCH MCHC RDW Plt Count MPV Immature Gran % Neutrophils % Lymphocytes % Monocytes % Eosinophils % Basophils % Nucleated RBC % Absolute Neutrophils Absolute Lymphocytes Absolute Monocytes Absolute Eosinophils Absolute Basophils PT 11.2 H INR 1.1 APTT 23.1 VBG Lactate 6.8 H* Sodium 132 L Potassium 4.3 Chloride 94 L Carbon Dioxide 27.4 Anion Gap 10.6 BUN 15 Creatinine 1.3 Estimated GFR/1.73 m2 57.75 Glucose 169 H Calcium 9.3 Magnesium 1.5 L Total Bilirubin 0.4 AST 60 H ALT 31 Alkaline Phosphatase 368 H Troponin I < 0.05 Total Protein 6.5 Albumin 2.2 L Urine Color Urine Clarity Urine pH Ur Specific [place] Urine Protein Urine Ketones Urine Blood Urine Nitrite Urine Bilirubin Urine Urobilinogen Ur Leukocyte Esterase Urine RBC Urine WBC Ur Epithelial Cells Urine Crystals Urine Bacteria Urine Casts Urine Mucus Ur Culture Indicated? Urine Glucose COVID-19 Source SARS-CoV-2 (PCR) 12/24/20 12/25/20 12/25/20 22:22 00:15 00:17 WBC 9.52 RBC 2.87 L Hgb 7.9 L Hct 25.9 L MCV 90.2 MCH 27.5 MCHC 30.5 L RDW 18.1 H Plt Count 286 D MPV 9.9 Immature Gran % 0.8 Neutrophils % 80.2 Lymphocytes % 9.8 Monocytes % 8.0 Eosinophils % 0.9 Basophils % 0.3 Nucleated RBC % 0 Absolute Neutrophils 7.63 H Absolute Lymphocytes 0.93 L Absolute Monocytes 0.76 Absolute Eosinophils 0.09 Absolute Basophils 0.03 PT INR APTT VBG Lactate Sodium Potassium Chloride Carbon Dioxide Anion Gap BUN Creatinine Estimated GFR/1.73 m2 Glucose Calcium Magnesium Total Bilirubin AST ALT Alkaline Phosphatase Troponin I Total Protein Albumin Urine Color Yellow Urine Clarity Clear Urine pH 6.0 Ur Specific [place] 1.015 Urine Protein 100 H Urine Ketones Negative Urine Blood Moderate H Urine Nitrite Negative Urine Bilirubin Negative Urine Urobilinogen 0.2 Ur Leukocyte Esterase Negative Urine RBC 10-20 H Urine WBC Negative Ur Epithelial Cells Few Urine Crystals Negative Urine Bacteria Few Urine Casts Negative Urine Mucus Negative Ur Culture Indicated? No Urine Glucose Negative COVID-19 Source Nasopharyx SARS-CoV-2 (PCR) Negative 12/25/20 00:22 WBC RBC Hgb Hct MCV MCH MCHC RDW Plt Count MPV Immature Gran % Neutrophils % Lymphocytes % Monocytes % Eosinophils % Basophils % Nucleated RBC % Absolute Neutrophils Absolute Lymphocytes Absolute Monocytes Absolute Eosinophils Absolute Basophils PT INR APTT VBG Lactate 5.4 H* Sodium Potassium Chloride Carbon Dioxide Anion Gap BUN Creatinine Estimated GFR/1.73 m2 Glucose Calcium Magnesium Total Bilirubin AST ALT Alkaline Phosphatase Troponin I Total Protein Albumin Urine Color Urine Clarity Urine pH Ur Specific [place] Urine Protein Urine Ketones Urine Blood Urine Nitrite Urine Bilirubin Urine Urobilinogen Ur Leukocyte Esterase Urine RBC Urine WBC Ur Epithelial Cells Urine Crystals Urine Bacteria Urine Casts Urine Mucus Ur Culture Indicated? Urine Glucose COVID-19 Source SARS-CoV-2 (PCR) Last Vital Signs Temp 36.7 C 12/24/20 21:56 Pulse 128 H 12/25/20 01:16 Resp 17 12/25/20 01:20 BP 112/72 12/25/20 01:16 Pulse Ox 94 12/25/20 01:20
[2020-12-25] MEDS: HYDROmorphone 2 MG/ML VIAL 1 MG IVP (02:18)
[2020-12-25] MEDS: Normal Saline 1,000 ML 150 ML IV (04:40)
[2020-12-25 07:20] LABS: Abs Immature Grans 0.08 10^3/uL (0.0-0.06); Absolute Basophil Count 0.03 10^3/uL (0.0-0.2); Absolute Eosinophil Count 0.07 10^3/uL (0.0-0.7); Absolute Lymphocyte Count 0.76 10^3/uL (1.2-3.4); Absolute Monocyte Count 0.59 10^3/uL (0.1-0.8); Basophils % 0.4; HCT 21.7 % (40.0-50.0); Immature Grans % 1.1; Lymphocytes % 10.5; MCHC 30.9 % (32.0-36.0); MCV 87.5 fL (80-95); Monocytes % 8.2; Neutrophils % 78.8; Nucleated RBC 0 %; Platelet Count 214 10^3/uL (130-400); RBC 2.48 10^6/uL (4.36-5.78); RDW-SD 57.4 fL; WBC 7.23 10^3/uL (4.4-10.8)
[2020-12-25 07:34] LABS: HGB 6.7 g/dL (13.5-17.5)
[2020-12-25] MEDS: Omeprazole 20 MG CAPCR 40 MG PO (07:46)
[2020-12-25 07:48] LABS: ALT 31 U/L (16-63); AST 58 U/L (15-37); Albumin 1.9 g/dL (3.4-5.0); Alkaline Phosphatase 323 U/L (46-116); Anion Gap 8.1 mmol/L (3-11); BUN 12 mg/dL (7-18); Bilirubin, Total 0.3 mg/dL (0.2-1.0); CO2 26.9 mmol/L (21.0-32.0); Calcium 8.5 mg/dL (8.5-10.1); Chloride 97 mmol/L (98-107); Glucose 128 mg/dL (74-106); Potassium 4.3 mmol/L (3.5-5.1); Sodium 132 mmol/L (136-145); Total Protein 5.7 g/dL (6.4-8.2)
--- NOTE | 2020-12-25 07:52 | NUR.NOTE ---
Charge nurse Liane made aware of H&H .. She then made Dr. Dickerson aware at this time. Awaiting orders.
--- NOTE | 2020-12-25 07:55 | NUR.NOTE ---
Lab called w/ [facility]; Charge Liane made aware of H&H 6.. Dr. Dickerson made aware at this time. No new orders at this time.
[2020-12-25] MEDS: Cholecalciferol (Vitamin D3) 1,000 UNIT TAB 2000 UNITS PO (08:45)
[2020-12-25] MEDS: Dexamethasone 1 MG TAB PO (08:45)
[2020-12-25] MEDS: Memantine 5 MG TAB 10 MG PO (08:45)
[2020-12-25] MEDS: Multivitamin TAB 1 TAB PO (08:45)
--- NOTE | 2020-12-25 09:44 | PDOC.CMIN ---
- If Service Date Differs Date of service: 12/25/20 Time of Service: 09:44 Care Management Initial Assess REASON FOR HOSPITALIZATION:: Dehydration PAST MEDICAL HISTORY/PAST SURGICAL HISTORY:: Medical History . Alternative medicine. Anemia, chronic disease. Bladder mass. Brain metastases. from colon cancer. Cancer related pain. Colon cancer metastasized to intra-abdominal lymph node. Colon cancer metastasized to intrathoracic lymph node. PET scan October 2019. Diabetes mellitus. Discharge planning issues. Essential hypertension. Fatigue. Fatty liver. Femoral nerve injury. Fistula. of ureter. Fracture of distal fibula. Full code status. he is aware that pts with metastatic cancer have low survival rate. Goals of care, counseling/discussion. Hypercholesterolemia. Injury due to procedure. Late effect of complications of procedure. Medical cannabis use. filled out paperwork 11/14/19 for him to receive medical cannabis. 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 Monoclonal gammopathy of unknown significance. Obesity. Palliative care patient. Peritoneal metastases. Psoas abscess, left. recurrent x 4; most recently in December 2019. Recurrent colorectal adenocarcinoma. first diagnosed 2011. Sepsis. Sleep apnea. USES CPAP. TUBULOVILLOUS ADENOMA. Uncontrolled diabetes mellitus. Unintentional weight loss. Unsteady gait. Surgical History . Colonoscopy - IV Sedation (~2011). 2014. Laparotomy. 2013- debulking of tumor in the pelvis and ureterolysis. Mediport placement (10/21/16). Nephrostomy status. Partial resection of colon (~2011). SIGMOID. S/P ureteral stent placement PREVIOUS FUNCTIONAL STATUS/SOCIAL/FAMILY SUPPORTS:: Benigno lives in [place] with his , Lori, and two children, who are 20 and 14. 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 He no longer works as he is on disability due to complications from surgery and colon cancer. Lori assists him with his ADL's, and drives him places. They have an turkish chairez at home who they love. CURRENT FUNCTIONAL STATUS:: Benigno was lying in bed when STEPHANE met with him. Isis Zheng NP was also present. Benigno is requesting to be discharged after his blood transfusion is completed. He sgared that he would like to be admitted to hospice later today. CM will coordinate this with the hospice team. ADVANCE DIRECTIVES:: None on file Has patient been provided with info about the portal/API?: Yes Did the patient sign up for the portal?: Yes (previously) CODE STATUS:: DNR/DNI INSURANCE COVERAGE / FINANCIAL ISSUES:: [employer] PRIMARY CARE PHYSICIAN:: Chetan Jaquez POTENTIAL DISCHARGE NEEDS:: folloow up with Palliative CARE, Oncology, PCP and plan of care PATIENT/FAMILY EDUCATION NEEDS:: Review of discharge instructions, limitations, follow up plan, medications, Ask Me Three TRANSPORTATION:: via private vehicle with son PLAN:: Benigno will be discharged home today and will be admitted to hospice tonight. He will transport via private vehicke with his son and will follow up with the hospice care team.
--- NOTE | 2020-12-25 10:21 | DSE_ITS ---
Date of service: 12/25/20 Time of Service: :21 DS: Diagnosis Discharge Diagnosis (1) Dehydration: Status: Acute (2) Cystitis: Status: Acute (3) Metastatic colorectal cancer: Status: Chronic (4) Diabetes mellitus: Status: Chronic Discharge Plan Disposition Patient Disposition: HOME Condition: Serious Discharge Details Reason For Visit: Dehydration Admit Date/Time: 12/25/20 01:52 Admit Provider: Brendon Olson Attending Provider: Brendon Olson Primary Care Provider: Chetan Jqauez Hospital Course Hospital Course: This is a 55-year-old male patient with diffusely metastatic colon cancer and m ultiple complications with recent hospital transfer to [facility] for treatment of psoas abscess which is resolving. He has an IVC filter for extensive DVTs. 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 He is in chronic pain. He is comfortable presently with IV Dilaudid for pain control. He did have a slight decrease in oxygen and low-grade fever with tachycardia. Dehydrated upon admission and this did respond to IV fluid resuscitation. He has been hospitalized for treatment of possible cystitis and continued reevaluation of treatment plan approaching hospice and palliative care. Evaluation of medical therapy is ongoing. He tolerated IV hydration and received Rocephin in the ED. in the am hemoglobin dropped to 6.7, likely dilutional. He did want to received 1 unit of PRBC which he received and tolerated well. Julita Burciaga MD consulted on patient here and plan was made to discharge to home on hospice per patient request. He will be transported by EMS d/t excessive weakness. hospice will admit him this evening. discharge discussed with Dr Dickerson. Home Meds and New Rx's Prescriptions: Continued amoxicillin-pot clavulanate [Augmentin] 875-125 mg tablet 1 tab PO BID RF: 0 docusate sodium 100 mg Capsule 200 mg PO BID RF: 0 memantine 5 mg Tablet 10 mg PO BID RF: 0 acetaminophen 500 mg Tablet 1,000 mg PO Q6H PRN PRNRF: 0 No Action fentanyl 12 mcg/hr patch 72 hour 1 patch transdermal Q72H MDD 250 mcg Qty: 5 RF: 0 dexamethasone 1 mg tablet 1 mg PO DAILY Qty: 14 RF: 0 dicyclomine 10 mg capsule 10 mg PO QID PRN (Reason: abdominal discomfort) Qty: 14 RF: 0 Discharge Instructions Instructions: Colorectal Cancer (DC) Additional Instructions: all medication and care directed per hospice services Stand Alone Forms: Nursing Discharge Form Referrals: Julita Burciaga MD [ [facility] STAFF PHYSICIAN] - (will visit you at home) Activity:: Activity as Tolerated Equipment/Supplies:: No Equipment Needed Diet:: As Tolerated Discharge Orders Discharge Orders: Discharge Order (Routine); Ordered 12/25/20 Ordered By: Isis Zheng Discharge Data Discharge Date/Time-TO BE ENTERED AT DEPARTURE: 12/25/20 13:58 DS: Summary Time Spent with Patient providing and/or coordinating discharge services: Greater than 30 minutes Status at Discharge Functional status at discharge: bed bound Overall status at discharge: patient is not back to baseline Mental Status: mental status grossly normal Speech and Movement: speech and movement normal Mood: congruent mood Affect: normal affect Exam Psych Mental Status: mental status grossly normal Speech and Movement: speech and movement normal Mood: congruent mood Affect: normal affect DS: Data Vitals/I&O Vitals and I&O: Vital Signs Temperature 36.8 C 12/25/20 10:13 Temperature Source Tympanic 12/25/20 07:21 Pulse 131 H 12/25/20 10:13 Pulse Rhythm Regular 12/25/20 02:54 Pulse 127 H 12/25/20 02:20 Respiratory Rate 20 12/25/20 10:13 Respiratory Effort 12/25/20 02:54 Respiratory Depth Shallow 12/25/20 02:54 Respiratory Pattern Normal 12/25/20 02:54 Blood Pressure 98/60 L 12/25/20 10:13 Blood Pressure Mean 80 12/25/20 02:16 Blood Pressure Position Sitting 12/24/20 21:56 Pulse Oximetry 93 12/25/20 10:13 Oxygen Delivery Method Nasal Cannula 12/25/20 10:13 Oxygen Flow Rate 2 12/25/20 10:13 Fraction of Inspired Oxygen (FIO2) 21 12/25/20 08:20 Pain Level 0 12/25/20 02:54 Intake & Output 12/24/20 12/24/20 12/25/20 11:59 23:59 11:59 Intake Total 2320 / 2320 Output Total 200 / 200 Balance 2119 / 2119 Weight 90.5 kg 86.1 kg Intake: IV 2069 Blood Product 250 / 250 Rbc Leuko Reduced Unit 250 / 250 [id number] Output: Urine 200 / 200 Other: Urine Color Yellow Voiding Methods Urinal Data Completed and Pending Labs on day of discharge: Labs from last 24 hours 12/25/20 12/25/20 12/25/20 06:45 06:45 06:45 WBC 7.23 RBC 2.48 L Hgb 6.7 L* Hct 21.7 L MCV 87.5 MCH 27.0 MCHC 30.9 L RDW 18.0 H Plt Count 214 MPV 10.0 Immature Gran % 1.1 Neutrophils % 78.8 Lymphocytes % 10.5 Monocytes % 8.2 Eosinophils % 1.0 Basophils % 0.4 Nucleated RBC % 0 Absolute Neutrophils 5.70 Absolute Lymphocytes 0.76 L Absolute Monocytes 0.59 Absolute Eosinophils 0.07 Absolute Basophils 0.03 PT INR APTT VBG Lactate Sodium 132 L Potassium 4.3 Chloride 97 L Carbon Dioxide 26.9 Anion Gap 8.1 BUN 12 Creatinine 1.0 Estimated GFR/1.73 m2 >= 60.00 Glucose 128 H Calcium 8.5 Magnesium Total Bilirubin 0.3 AST 58 H ALT 31 Alkaline Phosphatase 323 H Troponin I Total Protein 5.7 L Albumin 1.9 L Urine Color Urine Clarity Urine pH Ur Specific [place] Urine Protein Urine Ketones Urine Blood Urine Nitrite Urine Bilirubin Urine Urobilinogen Ur Leukocyte Esterase Urine RBC Urine WBC Ur Epithelial Cells Urine Crystals Urine Bacteria Urine Casts Urine Mucus Ur Culture Indicated? Urine Glucose COVID-19 Source SARS-CoV-2 (PCR) Patient ABO/Rh O Negative Antibody Screen Negative Crossmatch See Detail 12/25/20 12/25/20 12/25/20 00:22 00:17 00:15 WBC RBC Hgb Hct MCV MCH MCHC RDW Plt Count MPV Immature Gran % Neutrophils % Lymphocytes % Monocytes % Eosinophils % Basophils % Nucleated RBC % Absolute Neutrophils Absolute Lymphocytes Absolute Monocytes Absolute Eosinophils Absolute Basophils PT INR APTT VBG Lactate 5.4 H* Sodium Potassium Chloride Carbon Dioxide Anion Gap BUN Creatinine Estimated GFR/1.73 m2 Glucose Calcium Magnesium Total Bilirubin AST ALT Alkaline Phosphatase Troponin I Total Protein Albumin Urine Color Yellow Urine Clarity Clear Urine pH 6.0 Ur Specific [place] 1.015 Urine Protein 100 H Urine Ketones Negative Urine Blood Moderate H Urine Nitrite Negative Urine Bilirubin Negative Urine Urobilinogen 0.2 Ur Leukocyte Esterase Negative Urine RBC 10-20 H Urine WBC Negative Ur Epithelial Cells Few Urine Crystals Negative Urine Bacteria Few Urine Casts Negative Urine Mucus Negative Ur Culture Indicated? No Urine Glucose Negative COVID-19 Source Nasopharyx SARS-CoV-2 (PCR) Negative Patient ABO/Rh Antibody Screen Crossmatch 12/24/20 12/24/20 12/24/20 22:22 22:22 22:22 WBC 9.52 RBC 2.87 L Hgb 7.9 L Hct 25.9 L MCV 90.2 MCH 27.5 MCHC 30.5 L RDW 18.1 H Plt Count 286 D MPV 9.9 Immature Gran % 0.8 Neutrophils % 80.2 Lymphocytes % 9.8 Monocytes % 8.0 Eosinophils % 0.9 Basophils % 0.3 Nucleated RBC % 0 Absolute Neutrophils 7.63 H Absolute Lymphocytes 0.93 L Absolute Monocytes 0.76 Absolute Eosinophils 0.09 Absolute Basophils 0.03 PT 11.2 H INR 1.1 APTT 23.1 VBG Lactate Sodium 132 L Potassium 4.3 Chloride 94 L Carbon Dioxide 27.4 Anion Gap 10.6 BUN 15 Creatinine 1.3 Estimated GFR/1.73 m2 57.75 Glucose 169 H Calcium 9.3 Magnesium 1.5 L Total Bilirubin 0.4 AST 60 H ALT 31 Alkaline Phosphatase 368 H Troponin I < 0.05 Total Protein 6.5 Albumin 2.2 L Urine Color Urine Clarity Urine pH Ur Specific [place] Urine Protein Urine Ketones Urine Blood Urine Nitrite Urine Bilirubin Urine Urobilinogen Ur Leukocyte Esterase Urine RBC Urine WBC Ur Epithelial Cells Urine Crystals Urine Bacteria Urine Casts Urine Mucus Ur Culture Indicated? Urine Glucose COVID-19 Source SARS-CoV-2 (PCR) Patient ABO/Rh Antibody Screen Crossmatch 12/24/20 22:22 WBC RBC Hgb Hct MCV MCH MCHC RDW Plt Count MPV Immature Gran % Neutrophils % Lymphocytes % Monocytes % Eosinophils % Basophils % Nucleated RBC % Absolute Neutrophils Absolute Lymphocytes Absolute Monocytes Absolute Eosinophils Absolute Basophils PT INR APTT VBG Lactate 6.8 H* Sodium Potassium Chloride Carbon Dioxide Anion Gap BUN Creatinine Estimated GFR/1.73 m2 Glucose Calcium Magnesium Total Bilirubin AST ALT Alkaline Phosphatase Troponin I Total Protein Albumin Urine Color Urine Clarity Urine pH Ur Specific [place] Urine Protein Urine Ketones Urine Blood Urine Nitrite Urine Bilirubin Urine Urobilinogen Ur Leukocyte Esterase Urine RBC Urine WBC Ur Epithelial Cells Urine Crystals Urine Bacteria Urine Casts Urine Mucus Ur Culture Indicated? Urine Glucose COVID-19 Source SARS-CoV-2 (PCR) Patient ABO/Rh Antibody Screen Crossmatch 12/25/20 00:15 Urine - Clean Catch Urine Culture - Pending 12/24/20 23:00 Blood Blood Culture - Pending 12/24/20 22:22 Blood Blood Culture - Pending Preliminary micro results at discharge 12/25/20 00:15 Urine Culture - Pending Urine - Clean Catch 12/24/20 23:00 Blood Culture - Pending Blood 12/24/20 22:22 Blood Culture - Pending Blood [facility] Medical History (Updated 12/25/20 @ 11:12 by Julita Burciaga MD) Alternative medicine Anemia, chronic disease Bladder mass 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 Cancer related pain Colon cancer metastasized to intra-abdominal lymph node Colon cancer metastasized to intrathoracic lymph node PET scan October 2019 Diabetes mellitus Discharge planning issues DNI (do not intubate) DNR (do not resuscitate) Dying care Encounter for hospice care discussion Essential hypertension Fatigue Fatty liver Femoral nerve injury Fistula of ureter Fracture of distal fibula Goals of care, counseling/discussion Hypercholesterolemia Injury due to procedure Late effect of complications of procedure Medical cannabis use filled out paperwork 11/14/19 for him to receive medical cannabis 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 Mediport placement (10/21/16) Nephrostomy status Partial resection of colon (~2011) SIGMOID S/P ureteral stent placement Family History Father Heart disease Dementia AAA (abdominal aortic aneurysm) Mother No problems noted. Brother No problems noted. Son No problems noted. 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 Pets and animals: No Do you think of yourself as: straight/heterosexual Current gender identity: male What is your relationship status?: How often do you talk on the phone with friends or family?: once per week How often do you get together with friends or relatives?: once per week Panel score (0-1 are the most socially isolated patients): 1 What type of physical activity do you participate in: assisted ambulation and irregular exercise Duration: 15-30 minutes/day Frequency: 1-2 times per week Special benoit needs: No Agree to transfusion: Yes Seatbelt use: always Drive intox or ride w/intox tank truck driver: No Working smoke detector in home: Yes Carbon monox detector in home: Yes Firearms in home: No Do you feel safe at home: Yes Do you feel safe in your relationship?: Yes Additional Social history: has been struggling with colon cancer since 2012. 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 In 2019, Had MOHAN procedure that caused femoral nerve injury. Disabled since. to [place] since soon after HS. Has 2 children, one still in school. Benigno does not like to discuss his illness. He does not like to discuss end of life issues. He remains a full code.
--- NOTE | 2020-12-25 11:09 | W.PALLCONSUL ---
Date of service: 12/25/20 Time of Service: 10:09 History of Present Illness History of Present Illness Chief Complaint: widely metastatic colon cancer, weakness, anorexia Narrative: I met with Benigno in his room. We called his , Lori, and spoke with her on speaker phone. I had spoken to Benigno and Lori the day of his admission. He wasn't feeling well. He had not eaten more than a few bites per day for several days. He wasn't urinating much. He was very weak. He was having pain, though it's always hard for Benigno to acknowledge this. He doesn't want to be a burden to his family. Oncology had referred Benigno to hospice about a month ago. Mia Cardoso RN from hospice has been to his house once or twice to explain the program. He has not committed to wanting to go on hospice until today. He will be leaving the hospital by ambulance later today to be admitted to hospice soon after he gets home. We did start him on a fentanyl patch today, as he looked uncomfortable. He is very stoic. His non-verbal signs of pain are very telling. His asked me to review his CT scan report; this showed mets in multiuple places, including a large 8 cm mass and effusion in his left lung. Benigno as had a hard time breathing, and this is the likely cause. He had a biopsy done of his bladder last week. When I talked to Benigno and Lori on yesterday, we reviewed the pathology report over the phone. The mass that was occluding his left ureter is likely metastases, though there was not full clarity given in the report. Consults Consult date: 12/25/20 Requesting physician: Dhaval Dickerson Assessment and Plan Assessment and plan (1) Metastatic colorectal cancer: Status: Chronic Assessment and plan: Diagnosed 9 years ago. Initially expected to live no more than 5 years. Was doing well, still working, until 2 years ago. Psoas metastasis, ureteral metastasis both caused problems. He ended up having left nephrectomy. Has had multiple surgeries, multiple cancer treatments. There are no more cancer-directed treatments available. He most recently had WBRT for his brain mets; when I saw Benigno last, he had severe diplopia from his brain mets. That is better now. He will be transferred home by amblatnce later today to be admitted to hospice this afternoon. (2) Blood transfusion during current hospitalization: Status: Acute Assessment and plan: Ordered by hospitalist in hopes that he may get a bit of energy from having his anemia partially corrected. Too early to tell if he feels better from this. No further transfusions planned. (3) Dying care: Status: Acute Assessment and plan: I was clear with both Benigno and Lori that Benigno is now in the last phase of his life. He is dying. He likely only has days to a week or two to live. He wants to go home, be with his family, have his symptoms treated and be at peace. His said she would contact their consumer services advisor and let him know that Benigno was heading home on hospice. (4) POLST (Physician Orders for Life-Sustaining Treatment): Status: Acute Assessment and plan: DOne today. He is DNR/DNI, no transfer to the hospital. 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 His oncologist, Dr Saldivar, strongly suggested hospice for Benigno more than a month ago. At this time, Benigno is ready to be enrolled. Nurse to admit this afternoon. (11) Palliative care patient: Status: Chronic Assessment and plan: Transitioning to hospice care later today. Review of Systems Constitutional Constitutional: Reports fatigue, Reports fever(s), Denies headache(s), Reports lethargy, Reports poor appetite, Reports weakness and Reports weight loss Comments: fever likely due to his widespread malignancy Eyes Eyes: Reports dry eyes and Reports requires corrective lenses ENT Ears, Nose, Mouth, and Throat: Reports dry mouth, Denies headache(s) and Reports disequilibrium Cardiovascular Cardiovascular: Reports rapid heart rate, Reports dyspnea and Reports dyspnea on exertion Respiratory Respiratory: Reports chest congestion, Reports cough, Reports dyspnea and Reports dyspnea on exertion Comments: chest feels tight sometimes has large mass and pleural effusion on right multiple enlarged mediatinal and hilar lymph nodes Gastrointestinal Gastrointestinal: Reports constipation, Reports early satiety and Reports nausea Genitourinary Genitourinary: Reports hematuria, Reports oliguria and Reports difficulty urinating Musculoskeletal Musculoskeletal: Reports atrophy and Reports muscle weakness Integumentary/Breasts Skin/Breast: Reports dry skin and Reports alopecia (scalp is bald from WBRT; has a tierney still) Neurologic Neurologic: Denies headache(s), Reports tremor(s) (right arm, ? seizure related?), Reports disequilibrium and Reports weakness Psychiatric Psychiatric: Denies anxiety, Reports depression (sad, more than depressed), Reports difficulty concentrating, Denies irritability and Reports anhedonia Endocrine Endocrine: Reports fatigue [facility] Medical History (Updated 12/25/20 @ 19:39 by Julita Burciaga MD) Alternative medicine Anemia, chronic disease Bladder mass pathology suggests metastatic colon cancer, unclear Blood transfusion during current hospitalization 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 Cancer related pain Colon cancer metastasized to intra-abdominal lymph node Colon cancer metastasized to intrathoracic lymph node PET scan October 2019 Diabetes mellitus Discharge planning issues DNI (do not intubate) DNR (do not resuscitate) Dying care Encounter for hospice care discussion Essential hypertension Fatigue Fatty liver Femoral nerve injury Fistula of ureter Fracture of distal fibula Goals of care, counseling/discussion Hypercholesterolemia Injury due to procedure Late effect of complications of procedure Medical cannabis use filled out paperwork 11/14/19 for him to receive medical cannabis 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 Mediport placement (10/21/16) Nephrostomy status Partial resection of colon (~2011) SIGMOID S/P ureteral stent placement Family History Father Heart disease Dementia AAA (abdominal aortic aneurysm) Mother No problems noted. Brother No problems noted. Son No problems noted. Daughter Lyme disease Social History (Updated 12/25/20 @ 19:36 by Julita Burciaga MD) Smoking/Tobacco Use Status: Never Smoking risk assessment performed?: Yes Alcohol Intake: current Alcohol Intake frequency: holidays/special occasions only Drug use: Never Substance use type: does not use Adopted: No Caregiver/Support person: Yes Foster care: No Household members: spouse and children Housing: house Number of Children: 2 Education Level: high school Do you need help understanding health information?: Often current occupation: former [employer]; disabled due to left foot drop and colon cancer Pets and animals: No Do you think of yourself as: straight/heterosexual Current gender identity: male What is your relationship status?: How often do you talk on the phone with friends or family?: once per week How often do you get together with friends or relatives?: once per week Panel score (0-1 are the most socially isolated patients): 1 What type of physical activity do you participate in: assisted ambulation and irregular exercise Duration: 15-30 minutes/day Frequency: 1-2 times per week Special benoit needs: No Agree to transfusion: Yes Seatbelt use: always Drive intox or ride w/intox front end loader driver: No Working smoke detector in home: Yes Carbon monox detector in home: Yes Firearms in home: No Do you feel safe at home: Yes Do you feel safe in your relationship?: Yes Additional Social history: has been struggling with colon cancer since 2012. 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 In 2019, Had MOHAN procedure that caused femoral nerve injury. Disabled since. to [place] since soon after HS. Has 2 children, one still in school. Son Davonte is a police pilot. Daughter Love just graduated from 8th grade. Both live at home with Benigno and Lori. Benigno does not like to discuss his illness. He does not like to discuss end of life issues. He remained a full code until the day he elected to go home on hospice. As of 12/25/20, he signed his COLST form to indicate his desire to have a natural . No attempted resuscitation. Exam Narrative Exam Narrative: General: Patient appears much older than stated age, alert and oriented at least to person place but not to time. He is slightly sedated with pain control. He is in no acute distress. HEENT: Normocephalic, coarsened facial features, eyes with pupils equal and reactive light symmetrically, extraocular movement intact and sclera anicteric. Oropharynx with dry mucosa. Neck: Supple without JVD. Back: Stooped posture. Chest: Port over left upper chest. Lungs: Fair aeration and clear to auscultation with patient examined supine. Heart: Tachycardic rate with regular rhythm, no appreciable murmurs or gallops. Abdomen: Soft, nontender to palpation with no palpable hepatosplenomegaly. Multiple old surgical scars over his abdomen. Genitalia/rectal: Exam deferred. Extremities: Without clubbing, cyanosis or pitting edema. Peripheral pulses intact. Skin: Pale, warm and dry. Neuro: Cranial nerves II through XII gross intact, no focalizing motor deficits. Psych: Flattened affect with depressed mood, no abnormal thought processes. Remote and recent memory appear to be grossly intact though patient is sedated. Results Last Vital Signs Temp 98.4 F 12/25/20 10:43 Pulse 119 H 12/25/20 10:43 Resp 20 12/25/20 10:43 BP 104/65 12/25/20 10:43 Pulse Ox 97 12/25/20 10:43 Labs Result diagrams: 12/25/20 06:45 12/25/20 06:45 Labs: Laboratory Results - last 24 hr 12/24/20 12/24/20 12/24/20 22:22 22:22 22:22 WBC RBC Hgb Hct MCV MCH MCHC RDW Plt Count MPV Immature Gran % Neutrophils % Lymphocytes % Monocytes % Eosinophils % Basophils % Nucleated RBC % Absolute Neutrophils Absolute Lymphocytes Absolute Monocytes Absolute Eosinophils Absolute Basophils PT 11.2 H INR 1.1 APTT 23.1 VBG Lactate 6.8 H* Sodium 132 L Potassium 4.3 Chloride 94 L Carbon Dioxide 27.4 Anion Gap 10.6 BUN 15 Creatinine 1.3 Estimated GFR/1.73 m2 57.75 Glucose 169 H Calcium 9.3 Magnesium 1.5 L Total Bilirubin 0.4 AST 60 H ALT 31 Alkaline Phosphatase 368 H Troponin I < 0.05 Total Protein 6.5 Albumin 2.2 L Urine Color Urine Clarity Urine pH Ur Specific [place] Urine Protein Urine Ketones Urine Blood Urine Nitrite Urine Bilirubin Urine Urobilinogen Ur Leukocyte Esterase Urine RBC Urine WBC Ur Epithelial Cells Urine Crystals Urine Bacteria Urine Casts Urine Mucus Ur Culture Indicated? Urine Glucose COVID-19 Source SARS-CoV-2 (PCR) Patient ABO/Rh Antibody Screen Crossmatch 12/24/20 12/25/20 12/25/20 22:22 00:15 00:17 WBC 9.52 RBC 2.87 L Hgb 7.9 L Hct 25.9 L MCV 90.2 MCH 27.5 MCHC 30.5 L RDW 18.1 H Plt Count 286 D MPV 9.9 Immature Gran % 0.8 Neutrophils % 80.2 Lymphocytes % 9.8 Monocytes % 8.0 Eosinophils % 0.9 Basophils % 0.3 Nucleated RBC % 0 Absolute Neutrophils 7.63 H Absolute Lymphocytes 0.93 L Absolute Monocytes 0.76 Absolute Eosinophils 0.09 Absolute Basophils 0.03 PT INR APTT VBG Lactate Sodium Potassium Chloride Carbon Dioxide Anion Gap BUN Creatinine Estimated GFR/1.73 m2 Glucose Calcium Magnesium Total Bilirubin AST ALT Alkaline Phosphatase Troponin I Total Protein Albumin Urine Color Yellow Urine Clarity Clear Urine pH 6.0 Ur Specific [place] 1.015 Urine Protein 100 H Urine Ketones Negative Urine Blood Moderate H Urine Nitrite Negative Urine Bilirubin Negative Urine Urobilinogen 0.2 Ur Leukocyte Esterase Negative Urine RBC 10-20 H Urine WBC Negative Ur Epithelial Cells Few Urine Crystals Negative Urine Bacteria Few Urine Casts Negative Urine Mucus Negative Ur Culture Indicated? No Urine Glucose Negative COVID-19 Source Nasopharyx SARS-CoV-2 (PCR) Negative Patient ABO/Rh Antibody Screen Crossmatch 12/25/20 12/25/20 12/25/20 00:22 06:45 06:45 WBC 7.23 RBC 2.48 L Hgb 6.7 L* Hct 21.7 L MCV 87.5 MCH 27.0 MCHC 30.9 L RDW 18.0 H Plt Count 214 MPV 10.0 Immature Gran % 1.1 Neutrophils % 78.8 Lymphocytes % 10.5 Monocytes % 8.2 Eosinophils % 1.0 Basophils % 0.4 Nucleated RBC % 0 Absolute Neutrophils 5.70 Absolute Lymphocytes 0.76 L Absolute Monocytes 0.59 Absolute Eosinophils 0.07 Absolute Basophils 0.03 PT INR APTT VBG Lactate 5.4 H* Sodium 132 L Potassium 4.3 Chloride 97 L Carbon Dioxide 26.9 Anion Gap 8.1 BUN 12 Creatinine 1.0 Estimated GFR/1.73 m2 >= 60.00 Glucose 128 H Calcium 8.5 Magnesium Total Bilirubin 0.3 AST 58 H ALT 31 Alkaline Phosphatase 323 H Troponin I Total Protein 5.7 L Albumin 1.9 L Urine Color Urine Clarity Urine pH Ur Specific [place] Urine Protein Urine Ketones Urine Blood Urine Nitrite Urine Bilirubin Urine Urobilinogen Ur Leukocyte Esterase Urine RBC Urine WBC Ur Epithelial Cells Urine Crystals Urine Bacteria Urine Casts Urine Mucus Ur Culture Indicated? Urine Glucose COVID-19 Source SARS-CoV-2 (PCR) Patient ABO/Rh Antibody Screen Crossmatch 12/25/20 06:45 WBC RBC Hgb Hct MCV MCH MCHC RDW Plt Count MPV Immature Gran % Neutrophils % Lymphocytes % Monocytes % Eosinophils % Basophils % Nucleated RBC % Absolute Neutrophils Absolute Lymphocytes Absolute Monocytes Absolute Eosinophils Absolute Basophils PT INR APTT VBG Lactate Sodium Potassium Chloride Carbon Dioxide Anion Gap BUN Creatinine Estimated GFR/1.73 m2 Glucose Calcium Magnesium Total Bilirubin AST ALT Alkaline Phosphatase Troponin I Total Protein Albumin Urine Color Urine Clarity Urine pH Ur Specific [place] Urine Protein Urine Ketones Urine Blood Urine Nitrite Urine Bilirubin Urine Urobilinogen Ur Leukocyte Esterase Urine RBC Urine WBC Ur Epithelial Cells Urine Crystals Urine Bacteria Urine Casts Urine Mucus Ur Culture Indicated? Urine Glucose COVID-19 Source SARS-CoV-2 (PCR) Patient ABO/Rh O Negative Antibody Screen Negative Crossmatch See Detail
[2020-12-25] MEDS: fentaNYL 12 MCG PATCH TD (11:27)
[2020-12-25] MEDS: Lidocaine 5% Patch 3 PATCH TP (11:28)
--- NOTE | 2020-12-25 12:54 | CMDISCH_ITS ---
- If Service Date Differs Date of service: 12/25/20 Time of Service: 12:54 LACE Index Scoring Tool - Questions: Length of Stay (in days): 1 Acuity (Admit via E.D.?): Yes Comorbidities: Diabetes w/o Complication, Metastatic Solid Tumor E.D. Visits: 9 - Answers: Total Score: 13 Risk of Readmission: High Risk Care Management Discharge Reason for Hospitalization: Dehydration Discharge Plan: Benigno will be discharged home today and will be [facility]. He will transport via private vehicke with his son and will follow up with the hospice care team. Patient/Family Education Needs: Review of discharge instructions, limitations, follow up plan, medications, Ask Me Three Services Needed at Discharge: Home Health Care Services, Transportation
== END 2020-12-25 13:58 | disposition home or self-care (01) | DRG 690 ==
LOC: ER 12-25 02:14 → MS 12-25 02:37
PROVIDERS: Physician Assistant; Admitting Provider Family Medicine; Emergency Provider Emergency Medicine; PCP Physician Assistant Medical; Visit Provider Family Medicine
DX: N30.00 Acute cystitis without hematuria (principal); C18.7 Malignant neoplasm of sigmoid colon; C77.2 Secondary and unspecified malignant neoplasm of intra-abdominal lymph nodes; C77.1 Secondary and unspecified malignant neoplasm of intrathoracic lymph nodes; C79.31 Secondary malignant neoplasm of brain; C79.19 Secondary malignant neoplasm of other urinary organs; E86.0 Dehydration; Z79.4 Long term (current) use of insulin; Z79.82 Long term (current) use of aspirin; Z66 Do not resuscitate; E11.9 Type 2 diabetes mellitus without complications; D63.8 Anemia in other chronic diseases classified elsewhere; I10 Essential (primary) hypertension; K76.0 Fatty (change of) liver, not elsewhere classified; E78.00 Pure hypercholesterolemia, unspecified; D47.2 Monoclonal gammopathy; R26.81 Unsteadiness on feet; Z20.822 Contact with and (suspected) exposure to COVID-19; G89.29 Other chronic pain; Z74.01 Bed confinement status
CPT/HCPCS: 36415; 36430; 71275; 74177; 80053; 86850; 86900; 86901; 86920; 87040; 87635; 93005; 96361; 96365; 96375; 99285; 81003; 81015; 83605; 83735; 84484; 85025; 85610; 85730; 87086; 93010; 99223; 99239; J3490; J8540; P9016